=== PATIENT | female | born 1940 | race Caucasian/White ===

== ENCOUNTER 2018-06-09 12:26 | Outpatient (CLI) | payer MEDICARE, OTHER, SELFPAY ==
[2018-06-09 13:28] LABS: BUN 19 mg/dL (7-18); CREATININE 1.01 mg/dL (0.55-1.02); Chloride 100 mmol/L (98-107); Estimated GFR 53.15 (mL/min/1.73m2); Sodium 138 mmol/L (136-145)
== END 2018-06-09 12:27 ==
PROVIDERS: PCP General Practice; Visit Provider General Practice
DX: I50.9 Heart failure, unspecified (principal)
CPT/HCPCS: 36415; 80051; 84520; 82565

== ENCOUNTER 2018-09-21 10:04 | Outpatient (CLI) | payer MEDICARE, OTHER, SELFPAY | END 2018-09-21 10:24 | PROVIDERS: PCP General Practice; Visit Provider Student in an Organized Health Care Education/Training Program | DX: I50.9 Heart failure, unspecified (principal); I11.0 Hypertensive heart disease with heart failure; E11.9 Type 2 diabetes mellitus without complications; Z79.84 Long term (current) use of oral hypoglycemic drugs; E78.5 Hyperlipidemia, unspecified | CPT/HCPCS: 36415; 80048; 80061; 80076; 83721; 99205; 99215; 83036; 83735; 83880; 84443; 85025; 85610; 93005; 93010 ==

== ENCOUNTER 2018-09-21 11:43 | Outpatient (CLI) | payer MEDICARE, OTHER, SELFPAY ==
[2018-09-21 12:30] LABS: Abs Immature Grans 0.01 k/cumm (0.0-0.09); Absolute Basophil Count 0.02 k/cumm (0.0-0.2); Absolute Lymphocyte Count 0.62 k/cumm (1.2-3.4); Absolute Neutrophil Count 4.38 k/cumm (1.2-6.7); Basophils % 0.4; Eosinophils % 1.8; HCT 34.8 % (36.0-46.0); HGB 11.7 g/dL (12.0-15.5); Immature Grans % 0.2; Lymphocytes % 11.2; Mean Corp. HGB Concentration 33.6 g/dL (32.0-36.0); Mean Corpuscular Hemoglobin 29.3 pg (27.0-33.0); Mean Platelet Volume 9.3 fL (8.0-11.0); Monocytes % 7.2; Neutrophils % 79.2; Platelet Count 221 x1000/uL (130-400); RBC Distribution Width 13.3 % (11.7-14.6); White Blood Cell Count 5.53 k/cumm (4.4-10.8)
[2018-09-21 12:35] LABS: Prothrombin Time 10.1 sec (9.3-10.8)
[2018-09-21 13:34] LABS: ALT 18 U/L (12-78); AST 12 U/L (15-37); Albumin 4.1 g/dL (3.4-5.0); Alkaline Phosphatase 65 U/L (46-116); Anion Gap 10.4 mmol/L (3-11); BUN 15 mg/dL (7-18); Bilirubin, Direct 0.14 mg/dL (0.00-0.20); Bilirubin, Total 0.5 mg/dL (0.2-1.0); CO2 26.6 mmol/L (21.0-32.0); CREATININE 0.89 mg/dL (0.55-1.02); Calcium 9.6 mg/dL (8.5-10.1); Chloride 101 mmol/L (98-107); Glucose 129 mg/dL (70-100); Magnesium 1.8 mg/dL (1.8-2.4); NT-proBNP 2785 pg/mL; Potassium 4.3 mmol/L (3.5-5.1); Sodium 138 mmol/L (136-145); TSH (W/Ref FT4) 3.02 uIU/mL (0.358-3.74); Total Protein 7.2 g/dL (6.4-8.2)
[2018-09-21 13:44] LABS: Cholesterol 230 mg/dL (50-200); HDL Cholesterol 46 mg/dL (40-60); LDL CHOLESTEROL 144 mg/dL (<100); Triglyceride 174 mg/dL (30-150)
== END 2018-09-21 12:03 ==
PROVIDERS: PCP General Practice; Visit Provider Student in an Organized Health Care Education/Training Program
DX: I50.9 Heart failure, unspecified (principal); E11.9 Type 2 diabetes mellitus without complications
CPT/HCPCS: 36415; 80048; 80061; 80076; 83721; 83036; 83735; 83880; 84443; 85025; 85610

== ENCOUNTER 2018-09-27 11:28 | Outpatient (CLI) | payer MEDICARE, OTHER, SELFPAY ==
[2018-09-27 12:07] LABS: Troponin I < 0.02 ng/mL (0.00-0.06)
== END 2018-09-27 11:48 ==
PROVIDERS: PCP General Practice; Visit Provider General Practice
DX: R06.02 Shortness of breath (principal); R94.31 Abnormal electrocardiogram [ECG] [EKG]
CPT/HCPCS: 36415; 84484

== ENCOUNTER → 2018-10-19 10:46 | Outpatient (BNVA) | payer MEDICARE, OTHER, SELFPAY | PROVIDERS: PCP General Practice; Visit Provider Student in an Organized Health Care Education/Training Program | DX: I25.5 Ischemic cardiomyopathy (principal); E78.5 Hyperlipidemia, unspecified; E11.9 Type 2 diabetes mellitus without complications; Z79.84 Long term (current) use of oral hypoglycemic drugs; I50.9 Heart failure, unspecified; I11.0 Hypertensive heart disease with heart failure | CPT/HCPCS: 99214 ==

== ENCOUNTER → 2018-11-02 11:11 | Outpatient (BNVA) | payer MEDICARE, OTHER, SELFPAY | PROVIDERS: PCP General Practice; Visit Provider Student in an Organized Health Care Education/Training Program | DX: Z76.89 Persons encountering health services in other specified circumstances (principal) | CPT/HCPCS: NC; 99024 ==

== ENCOUNTER 2018-11-30 08:00 | Outpatient (RCR) | payer MEDICARE, OTHER, SELFPAY | END 2018-12-01 23:59 | disposition home or self-care (01) | LOC: CR 08:00 | PROVIDERS: PCP General Practice; Visit Provider Family Medicine | DX: Z95.5 Presence of coronary angioplasty implant and graft (principal); I25.5 Ischemic cardiomyopathy; Z51.89 Encounter for other specified aftercare | CPT/HCPCS: S9472 ==

== ENCOUNTER 2018-12-09 11:26 | Outpatient (CLI) | payer MEDICARE, OTHER, SELFPAY ==
[2018-12-09 13:06] LABS: Anion Gap 9.6 mmol/L (3-11); BUN 29 mg/dL (7-18); CO2 27.4 mmol/L (21.0-32.0); CREATININE 1.07 mg/dL (0.55-1.02); Chloride 104 mmol/L (98-107); Estimated GFR 49.72 (mL/min/1.73m2); Potassium 3.7 mmol/L (3.5-5.1); Sodium 141 mmol/L (136-145)
== END 2018-12-09 11:46 ==
PROVIDERS: PCP General Practice; Visit Provider General Practice
DX: I50.9 Heart failure, unspecified (principal)
CPT/HCPCS: 36415; 80051; 84520; 82565; 83735

== ENCOUNTER 2018-12-28 08:00 | Outpatient (RCR) | payer MEDICARE, OTHER, SELFPAY | END 2018-12-29 23:59 | disposition home or self-care (01) | LOC: CR 08:00 | PROVIDERS: PCP General Practice; Visit Provider Family Medicine | DX: Z95.5 Presence of coronary angioplasty implant and graft (principal); I25.5 Ischemic cardiomyopathy; Z51.89 Encounter for other specified aftercare | CPT/HCPCS: S9472 ==

== ENCOUNTER 2019-01-12 09:04 | Outpatient (CLI) | payer MEDICARE, OTHER, SELFPAY ==
[2019-01-12 09:29] LABS: HCT 33.9 % (36.0-46.0); Mean Corp. HGB Concentration 32.4 g/dL (32.0-36.0); Mean Corpuscular Hemoglobin 28.4 pg (27.0-33.0); Mean Corpuscular Volume 87.4 fL (80-95); Mean Platelet Volume 9.3 fL (8.0-11.0); Platelet Count 184 x1000/uL (130-400); RBC 3.88 m/cumm (4.00-5.20); RBC Distribution Width 14.3 % (11.7-14.6); White Blood Cell Count 3.79 k/cumm (4.4-10.8)
[2019-01-12 10:31] LABS: ALT 32 U/L (12-78); AST 21 U/L (15-37); Albumin 3.9 g/dL (3.4-5.0); Alkaline Phosphatase 88 U/L (46-116); Anion Gap 0.4 mmol/L (3-11); BUN 24 mg/dL (7-18); Bilirubin, Direct 0.13 mg/dL (0.00-0.20); Bilirubin, Total 0.4 mg/dL (0.2-1.0); CO2 30.6 mmol/L (21.0-32.0); CREATININE 0.93 mg/dL (0.55-1.02); Chloride 99 mmol/L (98-107); Estimated GFR 58.31 (mL/min/1.73m2); Glucose 163 mg/dL (70-100); Potassium 3.4 mmol/L (3.5-5.1); Sodium 130 mmol/L (136-145)
[2019-01-12 11:51] LABS: Cholesterol 116 mg/dL (50-200); HDL Cholesterol 47 mg/dL (40-60); LDL CHOLESTEROL 47 mg/dL (<100); Triglyceride 126 mg/dL (30-150)
== END 2019-01-12 09:24 ==
PROVIDERS: PCP General Practice; Visit Provider Student in an Organized Health Care Education/Training Program
DX: I42.9 Cardiomyopathy, unspecified (principal)
CPT/HCPCS: 36415; 80048; 80061; 80076; 83721; 85027; 83735

== ENCOUNTER 2019-01-16 00:46 | Outpatient (CLI) | payer MEDICARE, OTHER, SELFPAY ==
--- NOTE | 2019-01-16 10:30 | MERGE_ITS ---
*[facility]* *[facility]* [address] [place] [address] Date of study: 01/16/2019 Transthoracic Echocardiography M-mode, complete 2D, complete spectral Doppler, and color Doppler *STUDY CONCLUSIONS* Summary: 1. Left ventricle: The cavity size was normal. Systolic function was mildly reduced. The estimated ejection fraction was 45-50%. Diffuse hypokinesis. Moderate hypokinesis of the basalinferior myocardium. Findings consistent with diastolic dysfunction. Doppler parameters are consistent with high ventricular filling pressure. 2. Aortic valve: There was mild regurgitation. 3. Mitral valve: There was mild to moderate regurgitation. 4. Left atrium: The atrium was mildly dilated. 5. Right ventricle: The cavity size was normal. Wall thickness was normal. Systolic function was normal. 6. Pulmonary arteries: Pulmonary systolic pressure was in the range of 20mm Hg to 30mm Hg. 7. Inferior vena cava: The vessel was patent and normal in size. The respirophasic diameter changes were in the normal range (greater than or equal to 50%), consistent with normal central venous pressure. *PATIENT PRESENTATION* Height: 157.5cm ((62in) ) S/D Pressure: 113 / 46 Weight: 80.7kg ((177.6lb) ) BSA: 1.91m^2 Test start time: 10:40 AM. Test stop time: 11:30 AM. CONSULTING Patric Richardson PERFORMING Unknown ORDERING Andrey White REFERRING Andrey White PERFORMING [facility] [place] MACHINE OPERATOR RT Corey (R)(CT), DARRICK *PROCEDURE DATA* Procedure information: The patient was identified by two identifiers. This study was interpreted by [facility]. Pertinent images and digital data are archived for permanent storage and are available for subsequent review. Comparison was made to the study of 05/18/2018. Study status: Routine. Transthoracic echocardiography. M-mode, complete 2D, complete spectral Doppler, and color Doppler. A Transthoracic Echocardiogram was performed. Scanning was performed from the parasternal, apical, subcostal, and suprasternal notch acoustic windows. Images were obtained using an [id number] cardiac ultrasound machine. Image quality was adequate. Study completion: The patient tolerated the procedure well. History: PMH: Cardiomyopathy i42.9. *CARDIAC ANATOMY* Left ventricle: The cavity size was normal. Systolic function was mildly reduced. The estimated ejection fraction was 45-50%. Diffuse hypokinesis. Regional wall motion abnormalities: Moderate hypokinesis of the basalinferior myocardium. The tissue Doppler parameters were abnormal. Findings consistent with diastolic dysfunction. Doppler parameters are consistent with high ventricular filling pressure. Aortic valve: Trileaflet. Doppler: There was no stenosis. There was mild regurgitation. VTI ratio of LVOT to aortic valve: 0.61. Valve area (VTI): 1.9cm^2. Indexed valve area (VTI): 1cm^2/m^2. Peak velocity ratio of LVOT to aortic valve: 0.53. Valve area (Vmax): 1.7cm^2. Indexed valve area (Vmax): 0.9cm^2/m^2. Mean velocity ratio of LVOT to aortic valve: 0.56. Valve area (Vmean): 1.8cm^2. Indexed valve area (Vmean): 0.9cm^2/m^2. Mean gradient (S): 7.8mm Hg. Peak gradient (S): 13.2mm Hg. Aorta: Aortic root: The aortic root was normal in size. Ascending aorta: The ascending aorta was moderately dilated. Mitral valve: Doppler: There was no evidence for stenosis. There was mild to moderate regurgitation. Valve area by pressure half-time: 3.5cm^2. Indexed valve area by pressure half-time: 1.8cm^2/m^2. Peak gradient (D): 3.1mm Hg. Left atrium: The atrium was mildly dilated. Right ventricle: The cavity size was normal. Wall thickness was normal. Systolic function was normal. Pulmonic valve: Doppler: There was no evidence for stenosis. There was mild regurgitation. Peak gradient (S): 3.6mm Hg. Tricuspid valve: Doppler: There was mild regurgitation. Pulmonary artery: Poorly visualized. Pulmonary systolic pressure was in the range of 20mm Hg to 30mm Hg. Right atrium: The atrium was normal in size. Pericardium: There was no pericardial effusion. Systemic veins: Inferior vena cava: Well visualized. The vessel was patent and normal in size. The respirophasic diameter changes were in the normal range (greater than or equal to 50%), consistent with normal central venous pressure. Measurements Left ventricle Value 05/18/2018 Reference LV ID, ED, PLAX (H) 6.3 cm 5.9 3.5 - 6.0 LV ID, ES, PLAX (H) 5.0 cm 5.1 2.1 - 4.0 LV PW thickness, ED, PLAX 1.1 cm 1.2 LV end-diastolic volume, 129 ml 95 1-p A2C LV ejection fraction, 1-p 50 % 29 A2C LV end-diastolic volume, 123 ml 105 1-p A4C LV ejection fraction, 1-p 45 % 33 A4C LV e', lateral 0.04 m/sec 0.039 LV E/e', lateral 22 20 LV e', medial 0.048 m/sec 0.04 LV E/e', medial 18 20 LV e', average 0.044 m/sec 0.039 LV E/e', average 20 20 Ventricular septum Value 05/18/2018 Reference IVS thickness, ED, PLAX 1.2 cm 1.0 LVOT Value 05/18/2018 Reference LVOT ID, A-P 2.0 cm 2.0 LVOT area 3.2 cm^2 3.2 LVOT peak velocity, S 0.97 m/sec 1.03 LVOT mean velocity, S 0.75 m/sec 0.78 LVOT VTI, S 26.8 cm 24.9 LVOT peak gradient, S 3.8 mm Hg 4.2 LVOT mean gradient, S 2.5 mm Hg 2.7 Stroke volume (SV), LVOT 85 ml 80 DP Stroke index (SV/bsa), 45 ml/m^2 41 LVOT DP Aortic valve Value 05/18/2018 Reference Aortic valve peak 1.8 m/sec 1.8 velocity, S Aortic valve mean 1.34 m/sec 1.34 velocity, S Aortic valve VTI, S 44.0 cm 38.9 Aortic mean gradient, S 7.8 mm Hg 7.9 Aortic peak gradient, S 13.2 mm Hg 13.6 VTI ratio, LVOT/AV 0.61 0.64 Aortic valve area, VTI 1.9 cm^2 2 Velocity ratio, peak, 0.53 0.56 LVOT/AV Aortic valve area, peak 1.7 cm^2 1.8 velocity Velocity ratio, mean, 0.56 0.58 LVOT/AV Aortic valve area, mean 1.8 cm^2 1.9 velocity Aortic valve area/bsa, 0.9 cm^2/m^2 1 mean velocity Aorta Value 05/18/2018 Reference Aortic root ID, ED 3.2 cm 3.1 Ascending aorta ID, A-P, S 3.5 cm 3.5 Left atrium Value 05/18/2018 Reference LA ID, A-P, ES 4.3 cm 4.1 LA ID/bsa, A-P (H) 2.3 cm/m^2 2.1 <=2.2 LA area, ES, A4C 21.5 cm^2 23.4 8.8 - 23.4 LA area, ES, A2C 22 cm^2 22 LA volume/bsa, ES, 1-p A4C 44 ml/m^2 46 LA volume, ES, 2-p 73 ml 73 LA volume/bsa, ES, 2-p 38 ml/m^2 38 LA/aortic root ratio 1.35 1.33 Mitral valve Value 05/18/2018 Reference Mitral E-wave peak 0.88 m/sec 0.78 velocity Mitral A-wave peak 1.25 m/sec 1.34 velocity Mitral deceleration time 219 ms 193 150 - 230 Mitral pressure half-time 64 ms 56 Mitral peak gradient, D 3.1 mm Hg 2.4 Mitral E/A ratio, peak 0.7 0.58 Mitral valve area, PHT, DP 3.5 cm^2 3.9 Pulmonary veins Value 05/18/2018 Reference Pulmonary vein peak 0.51 m/sec 0.61 velocity, S Pulmonary vein peak 0.43 m/sec 0.47 velocity, D Pulmonary vein velocity 1.18 1.31 ratio, peak, S/D Pulmonary vein A-wave 0.36 m/sec 0.46 reversal peak velocity Tricuspid valve Value 05/18/2018 Reference Tricuspid regurg peak 2.5 m/sec 2.7 velocity Tricuspid peak RV-RA 24.5 mm Hg 29.3 gradient Right atrium Value 05/18/2018 Reference RA area, ES, A4C 14.2 cm^2 14.6 8.3 - 19.5 Pulmonic valve Value 05/18/2018 Reference Pulmonic peak gradient, S 3.6 mm Hg Legend: (L) and (H) abel values outside specified reference range. I have personally reviewed the images and have reviewed and edited the reported findings. Electronically signed by Ladarius Arroyo MD 01/16/2019 18:39
== END 2019-01-16 01:06 ==
PROVIDERS: PCP General Practice; Visit Provider Student in an Organized Health Care Education/Training Program
DX: I42.9 Cardiomyopathy, unspecified (principal); I50.30 Unspecified diastolic (congestive) heart failure; I34.0 Nonrheumatic mitral (valve) insufficiency; I10 Essential (primary) hypertension
CPT/HCPCS: 93306

== ENCOUNTER → 2019-01-18 11:45 | Outpatient (BNVA) | payer MEDICARE, OTHER, SELFPAY | PROVIDERS: PCP General Practice; Visit Provider Student in an Organized Health Care Education/Training Program | DX: I25.5 Ischemic cardiomyopathy (principal); E87.1 Hypo-osmolality and hyponatremia; E87.6 Hypokalemia; E78.5 Hyperlipidemia, unspecified; I50.9 Heart failure, unspecified; I11.0 Hypertensive heart disease with heart failure; E11.9 Type 2 diabetes mellitus without complications; Z79.84 Long term (current) use of oral hypoglycemic drugs | CPT/HCPCS: 99214; 99215 ==

== ENCOUNTER 2019-01-26 09:34 | Outpatient (CLI) | payer MEDICARE, OTHER, SELFPAY ==
[2019-01-26 10:45] LABS: Anion Gap 9.2 mmol/L (3-11); CO2 27.8 mmol/L (21.0-32.0); Chloride 102 mmol/L (98-107); Ferritin 147 ng/mL (8-388); Magnesium 2.1 mg/dL (1.8-2.4); Potassium 4.4 mmol/L (3.5-5.1); Sodium 139 mmol/L (136-145)
[2019-01-27 10:49] LABS: Transferrin 246 mg/dL (201-352)
== END 2019-01-26 09:54 ==
PROVIDERS: PCP General Practice; Visit Provider Student in an Organized Health Care Education/Training Program
DX: I25.10 Atherosclerotic heart disease of native coronary artery without angina pectoris (principal); E11.9 Type 2 diabetes mellitus without complications; E78.5 Hyperlipidemia, unspecified; I10 Essential (primary) hypertension
CPT/HCPCS: 36415; 80051; 82728; 83735; 84466

== ENCOUNTER 2019-01-27 12:52 | Outpatient (RCR) | payer MEDICARE, OTHER, SELFPAY | END 2019-01-29 23:59 | disposition home or self-care (01) | LOC: CR 12:52 | PROVIDERS: PCP General Practice; Visit Provider Family Medicine | DX: Z95.5 Presence of coronary angioplasty implant and graft (principal); I25.5 Ischemic cardiomyopathy; Z51.89 Encounter for other specified aftercare | CPT/HCPCS: S9472 ==

== ENCOUNTER 2019-02-03 09:52 | Outpatient (CLI) | payer MEDICARE, OTHER, SELFPAY ==
[2019-02-03 11:13] LABS: Iron 54 ug/dL (50-175); Total Iron Binding Capacity 303 ug/dL (250-450); Transferrin Sat 18 % (15-50)
== END 2019-02-03 10:12 ==
PROVIDERS: PCP General Practice; Visit Provider Student in an Organized Health Care Education/Training Program
DX: I25.5 Ischemic cardiomyopathy (principal); E11.9 Type 2 diabetes mellitus without complications
CPT/HCPCS: 36415; 83540; 83550

== ENCOUNTER 2019-02-13 09:00 | Outpatient (RCR) | payer MEDICARE, OTHER, SELFPAY | END 2019-02-28 23:59 | disposition home or self-care (01) | LOC: CR 09:00 | PROVIDERS: PCP General Practice; Visit Provider Family Medicine | DX: Z95.5 Presence of coronary angioplasty implant and graft (principal); I25.5 Ischemic cardiomyopathy; Z51.89 Encounter for other specified aftercare | CPT/HCPCS: S9472 ==

== ENCOUNTER 2019-02-13 16:27 | Outpatient (CLI) | payer MEDICARE, OTHER, SELFPAY ==
[2019-02-13 17:01] LABS: HCT 35.8 % (36.0-46.0); HGB 11.7 g/dL (12.0-15.5)
== END 2019-02-13 16:47 ==
PROVIDERS: PCP General Practice; Visit Provider General Practice
DX: K92.2 Gastrointestinal hemorrhage, unspecified (principal)
CPT/HCPCS: 36415; 85014; 85018

== ENCOUNTER → 2019-02-17 10:15 | Outpatient (BNVA) | payer MEDICARE, OTHER, SELFPAY | PROVIDERS: PCP General Practice; Referring Provider General Practice; Visit Provider Physical Therapy Assistant | DX: Z12.11 Encounter for screening for malignant neoplasm of colon (principal); D64.9 Anemia, unspecified; I10 Essential (primary) hypertension; E11.9 Type 2 diabetes mellitus without complications; Z79.84 Long term (current) use of oral hypoglycemic drugs ==

== ENCOUNTER 2019-02-23 15:31 | Outpatient (REF) | payer MEDICARE, OTHER, SELFPAY ==
--- NOTE | 2019-02-23 15:30 | PAPFT_PTH ---
PATIENT: Madeleine Lobato LOC: [facility] U#:[id number] AGE/SX: 79/F ROOM: RE02/23/[address]: Concepcion Santoyo : 1940 BED: DIS: 02/23/2019 SPEC #: [id number] RECD: 02/23/19 15:48 STATUS: KENNETH REJose A #: [id number] OSCAR: 02/23/19 15:[address]: Concepcion Santoyo DEPT: [facility] Cytology RECD BY: Monie Moore ENTERED: 02/23/19 15:49 SP TYPE: PAPFT OTHR DR: Patric Richardson Tissues: 1 - CX/ENDOCX FOR PAP SMEARS Procedures: PAP THIN PREP/UVM Screening HPV DNA PROBE Comments: [id number]
== END 2019-02-23 15:51 ==
LOC: LBN 15:31
PROVIDERS: PCP General Practice; Visit Provider Obstetrics & Gynecology Gynecology
DX: Z12.4 Encounter for screening for malignant neoplasm of cervix (principal); Z11.51 Encounter for screening for human papillomavirus (HPV)
CPT/HCPCS: 88142; 87624

== ENCOUNTER 2019-03-10 01:46 | Outpatient (CLI) | payer MEDICARE, OTHER, SELFPAY ==
--- NOTE | 2019-03-10 11:00 | DI.US_ITS ---
SYMPTOMS/DIAGNOSIS: ANEMIA, VAGINAL DISCHARGE, N89.8, D64.9 PELVIC ULTRASOUND: Pelvic ultrasound was performed transabdominally and transvaginally. Please see the accompanying data sheet for measurements of the pelvic structures. Limited scanning of the kidneys is unremarkable. There is an incidental 8 mm left renal cyst. Uterus contains multiple calcifications consistent with fibroids, the largest measuring about 32 mm in diameter in the lower uterine segment. Endometrial stripe was nonvisualized. No free fluid identified in the cul-de-sac. Ovaries not identified. CONCLUSION: Findings consistent with multiple uterine fibroids, the largest measuring about 3.2 cm in diameter. Endometrial stripe nonvisualized. Ovaries nonvisualized.
== END 2019-03-10 02:06 ==
PROVIDERS: PCP General Practice; Visit Provider Obstetrics & Gynecology Gynecology
DX: D64.9 Anemia, unspecified (principal); N89.8 Other specified noninflammatory disorders of vagina; D25.9 Leiomyoma of uterus, unspecified
CPT/HCPCS: 76830; 76856

== ENCOUNTER 2019-03-13 12:19 | Outpatient (REF) | payer MEDICARE, OTHER, SELFPAY ==
--- NOTE | 2019-03-13 11:40 | ENDOMET_PTH ---
PATIENT: Madeleine Lobato LOC: [facility] U#:[id number] AGE/SX: 79/F ROOM: RE03/13/[address]: Concepcion Santoyo : 1940 BED: DIS: 03/13/2019 SPEC #: [id number] RECD: 03/13/19 12:57 STATUS: KENNETH REQ #: [id number] OSCAR: 03/13/19 11:[address]: Concepcion Santoyo DEPT: Surgical Specimen RECD BY: Jina Nava ENTERED: 03/13/19 12:57 SP TYPE: Endomet OTHR DR: Patric Richardson Tissues: 1 - ENDOMETRIUM BX/ANA CRISTINAETTE Procedures: GROSS AND MICRO LEVEL 4 Comments: [id number]
== END 2019-03-13 12:39 ==
LOC: LBN 12:19
PROVIDERS: PCP General Practice; Visit Provider Obstetrics & Gynecology Gynecology
DX: N85.8 Other specified noninflammatory disorders of uterus (principal); N83.8 Other noninflammatory disorders of ovary, fallopian tube and broad ligament
CPT/HCPCS: 88305

== ENCOUNTER → 2019-04-19 10:33 | Outpatient (BNVA) | payer MEDICARE, OTHER, SELFPAY | PROVIDERS: PCP General Practice; Visit Provider Student in an Organized Health Care Education/Training Program | DX: I25.5 Ischemic cardiomyopathy (principal); I11.0 Hypertensive heart disease with heart failure; I50.9 Heart failure, unspecified; E11.9 Type 2 diabetes mellitus without complications | CPT/HCPCS: 99214 ==

== ENCOUNTER 2019-04-19 11:04 | Outpatient (CLI) | payer MEDICARE, OTHER, SELFPAY | END 2019-04-19 11:24 | PROVIDERS: PCP General Practice; Visit Provider Student in an Organized Health Care Education/Training Program | DX: I25.5 Ischemic cardiomyopathy (principal); I50.9 Heart failure, unspecified; I10 Essential (primary) hypertension; I11.0 Hypertensive heart disease with heart failure; E11.9 Type 2 diabetes mellitus without complications | CPT/HCPCS: 99214; 93005; 93010 ==

== ENCOUNTER → 2019-07-26 09:46 | Outpatient (BNVA) | payer MEDICARE, OTHER, SELFPAY | PROVIDERS: PCP General Practice; Visit Provider Student in an Organized Health Care Education/Training Program | DX: I25.5 Ischemic cardiomyopathy (principal); I11.0 Hypertensive heart disease with heart failure; I50.9 Heart failure, unspecified; E11.9 Type 2 diabetes mellitus without complications; Z79.84 Long term (current) use of oral hypoglycemic drugs | CPT/HCPCS: 99214 ==

== ENCOUNTER 2019-08-31 12:02 | Outpatient (RCR) | payer SELFPAY ==
--- NOTE | 2019-08-01 10:19 | PR3E_ITS ---
79 year old female, who graduated Cardiac Rehabilitation Phase 2 in January 2019, has joined the cardiac maintenance phase, 2 days per week. PMH: PCI 10/17/18, Cardiomyopathy EF 30-35% (May 2018) improved 45-50% 01/17/19, HTN, HLD, DM II, osteoarthritis, right knee replacement, artificial hip First day of exercise: 08/01/19: BP at rest 139/67, HR rest 80 bpm, Weight 181.4 lbs. Patient completed 25 minutes of exercise: rower 6 minutes, UBE 6 minutes, bike 6 minutes, and treadmill 7 minutes. HR w/ exercise ranged 92-104 bpm. RAZIA RPB/RPE scores 11. Tolerated exercise regimen without any adverse signs or symptoms. No concerns at this time, will continue to progress as tolerated
== END 2019-08-31 23:59 | disposition home or self-care (01) ==
LOC: CR 12:02
PROVIDERS: PCP General Practice; Visit Provider Family Medicine
DX: Z51.89 Encounter for other specified aftercare (principal)

== ENCOUNTER 2019-09-14 09:00 | Outpatient (RCR) | payer SELFPAY | END 2019-09-30 23:59 | disposition home or self-care (01) | LOC: CR 09:00 | PROVIDERS: PCP General Practice; Visit Provider Family Medicine | DX: Z51.89 Encounter for other specified aftercare (principal) ==

== ENCOUNTER 2019-10-01 23:48 | Outpatient (RCR) | payer SELFPAY | END 2019-10-31 23:59 | disposition home or self-care (01) | LOC: CR 23:48 | PROVIDERS: PCP Family Medicine; Visit Provider Family Medicine | DX: Z51.89 Encounter for other specified aftercare (principal) ==

== ENCOUNTER → 2019-11-03 10:19 | Outpatient (BNVA) | payer MEDICARE, OTHER, SELFPAY | PROVIDERS: PCP Family Medicine; Referring Provider General Practice; Visit Provider Internal Medicine Cardiovascular Disease | DX: I25.10 Atherosclerotic heart disease of native coronary artery without angina pectoris (principal); I50.9 Heart failure, unspecified; I11.0 Hypertensive heart disease with heart failure; I34.0 Nonrheumatic mitral (valve) insufficiency; E11.319 Type 2 diabetes mellitus with unspecified diabetic retinopathy without macular edema; Z79.84 Long term (current) use of oral hypoglycemic drugs | CPT/HCPCS: 99204; 99215 ==

== ENCOUNTER 2019-12-01 18:06 | Emergency (ER) | payer MEDICARE, OTHER, SELFPAY ==
[2019-12-01 18:24] VITALS: PULSE 75; RESP 18; TEMP 37.2; O2SAT 98
[2019-12-01 18:51] VITALS: BP 184/67
--- NOTE | 2019-12-01 18:54 | W.ED.GENAD ---
Discharge Plan Disposition Patient Disposition: HOME Condition: Stable Discharge Details Chief Complaint: Orthopedic Clinical Impression: Contusion of hand, right Primary Care Provider: Dave Seaman ED Provider: Ladarius Lawson Home Meds and New Rx's Prescriptions: Continued metformin 1,000 mg tablet 500 mg PO QPM RF: 0 losartan 50 mg tablet 50 mg PO BID RF: 0 metformin 1,000 mg tablet 1,000 mg PO QAM RF: 0 cholecalciferol (vitamin D3) 2,000 unit capsule 2,000 unit PO DAILY RF: 0 carvedilol 12.5 mg tablet 12.5 mg PO BID Qty: 180 RF: 3 aspirin 81 mg tablet,delayed release (DR/EC) 81 mg PO DAILY RF: 0 nitroglycerin [Nitrostat] 0.4 mg tablet, sublingual 0.4 mg SL ONCE Qty: 10 RF: 1 furosemide 20 mg tablet 20 mg PO DAILY Qty: 90 RF: 3 glimepiride 4 MG tablet 4 mg PO DAILY RF: 0 cyanocobalamin (vitamin B-12) [Vitamin B-12] 1,000 MCG tablet 1,000 mcg PO DAILY RF: 0 ascorbic acid (vitamin C) [Vitamin C] 500 MG capsule, extended release 500 mg PO DAILY RF: 0 pyridoxine (vitamin B6) [Vitamin B-6] 50 MG tablet 50 mg PO DAILY RF: 0 rosuvastatin 20 mg tablet 20 mg PO DAILY Qty: 90 RF: 3 magnesium oxide 500 mg tablet 500 mg PO DAILY RF: 0 Discharge Instructions Instructions: Contusion in Adults (ED) Additional Instructions: follow up with your primary care provider this week for reexam if you have new pain, or severe worsening pain return to the emergency department for reexam Medical Decision Making 79 yo female comes in with right hand and wrist pain. She states she was assembling a table yesterday when it fell over and she landed on her right arm. Denies hitting head or loc. No headache, neck pain, chest pain, abd pain, leg pain. Only has pain in right hand and wrist with swelling. Intact sensation. Limited rom of the fingers and wrist due to pain. No pain in forearm elbow, humerus or shoulder. No midline neck tenderness. Will xray wrist and hand. States purely mechanical and no symptoms prior to the fall to suggest presyncope/syncope imaging negative for fracture, given how much swelling she has will place in universal splint and have her f/u with pcp for reexam this week. REturn precautions given Differential Diagnosis Differential Diagnosis: contusion, fracture, sprain, strain Imaging Data Radiologic Study: Attestation: I personally reviewed and interpreted this imaging study as follows: Imaging: X-Ray Radiologist's impression: no fracture on wrist xray Radiologic Study #2: Attestation: I personally reviewed and interpreted this imaging study as follows: Imaging: X-Ray Radiologist's impression: no acute fracture on hand xray HPI General Mode of arrival: ambulatory. Date/Time Provider Initiated Documentation: 12/01/19 18:30. Limitations to Documentation: no limitations. Information obtained by: patient. History of Present Illness 79 year old F presents to the emergency department with the chief complaint of right hand pain, described as moderate, and it has been constant. No relieving factors improve symptom(s), No exacerbating factors reported . Patient did receive the following treatments prior to arrival, none Related Data Home Medications Medication Instructions Recorded Confirmed ascorbic acid (vitamin C) [Vitamin 500 mg PO DAILY 07/24/15 11/03/19 C] cyanocobalamin (vitamin B-12) 1,000 mcg PO DAILY 07/24/15 11/03/19 [Vitamin B-12] glimepiride 4 mg PO DAILY tab-cap 07/24/15 11/03/19 pyridoxine (vitamin B6) [Vitamin 50 mg PO DAILY 07/24/15 11/03/19 B-6] aspirin 81 mg tablet,delayed 81 mg PO DAILY 10/19/18 11/03/19 release nitroglycerin 0.4 mg sublingual 0.4 mg SL ONCE #10 tab 10/19/18 11/03/19 tablet losartan 50 mg tablet 50 mg PO BID tab 04/19/19 11/03/19 carvedilol 12.5 mg tablet 12.5 mg PO BID #180 tab 07/26/19 11/03/19 cholecalciferol (vitamin D3) 50 2,000 unit PO DAILY 07/26/19 11/03/19 mcg (2,000 unit) capsule metformin 1,000 mg tablet 1,000 mg PO QAM tab 07/26/19 11/03/19 metformin 1,000 mg tablet 500 mg PO QPM tab 07/26/19 11/03/19 rosuvastatin 20 mg tablet 20 mg PO DAILY #90 tab 10/02/19 11/03/19 magnesium oxide 500 mg tablet 500 mg PO DAILY 10/13/19 11/03/19 furosemide 20 mg tablet 20 mg PO DAILY #90 tab 11/02/19 11/03/19 Previous Rx's Medication Instructions Recorded nitroglycerin 0.4 mg sublingual 0.4 mg SL ONCE #10 tab 10/19/18 tablet carvedilol 12.5 mg tablet 12.5 mg PO BID #180 tab 07/26/19 rosuvastatin 20 mg tablet 20 mg PO DAILY #90 tab 10/02/19 furosemide 20 mg tablet 20 mg PO DAILY #90 tab 11/02/19 Allergies Allergy/AdvReac Type Severity Reaction Status Date / Time No Known Allergies Allergy Verified 12/01/19 18:29 General Stated Complaint: Orthopedic CYNTHIA: 3 Review of Systems All systems reviewed & are unremarkable except as noted in HPI and below Constitutional Constitutional: Denies chills, Denies fever(s) and Denies weakness Cardiovascular Cardiovascular: Denies chest pain and Denies dyspnea Respiratory Respiratory: Denies cough and Denies dyspnea Gastrointestinal Gastrointestinal: Denies abdominal pain, Denies nausea and Denies vomiting Musculoskeletal Musculoskeletal: Denies joint swelling Neurologic Neurologic: Denies weakness [facility] Social History Smoking/Tobacco Use Status: Never Alcohol Intake: never Drug use: Never Substance use type: does not use Adopted: No Household members: children and other Details: Lives with son with her son lives close by Housing: house Number of Children: 5 number of grandchildren: 8 Communication Needs: Corrective Lenses Do you need help understanding health information?: Rarely 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 Sexually active: No Do you think of yourself as: straight/heterosexual Current gender identity: female What is your relationship status?: Panel score (0-1 are the most socially isolated patients): 0 What type of physical activity do you participate in: regular exercise and other Details: program at home, stair stepper, rowing machine Duration: 15-30 minutes/day Frequency: 3-4 times per week Seatbelt use: always Drive intox or ride w/intox [employer] truck driver: No Working smoke detector in home: Yes Fire extinguisher in home: Yes Carbon monox detector in home: Yes Do you feel safe at home: Yes Additional Social history: of neck cancer 2013. Patient relocated to [place] to be closer to her children. Exam Const General: no acute distress Orientation: alert HENMT Head: normal to inspection Ears: external ears normal General nose exam: external nose normal Mouth: moist mucous membranes Eyes General: appearance normal, both eyes and all related structures Neck Neck: normal visual inspection Resp Effort & Inspection: normal respiratory effort and able to speak in complete sentences Cardio Rate: regular rate Skin General skin exam: no rashes or lesions noted Neuro General: alert and oriented x3 Extrem General: normal capillary refill Psych Mental Status: mental status grossly normal Course Vital Signs Vital signs: Vital Signs Temperature 37.2 C 12/01/19 18:24 Pulse 75 12/01/19 18:24 Respiratory Rate 18 12/01/19 18:24 Pulse Oximetry 98 12/01/19 18:24 Temperature 37.2 C 12/01/19 18:24 Temperature Source Skin 12/01/19 18:24 Pulse 75 12/01/19 18:24 Respiratory Rate 18 12/01/19 18:24 Respiratory Effort 12/01/19 18:29 Blood Pressure 184/67 H 12/01/19 18:51 Blood Pressure Position Sitting 12/01/19 18:24 Pulse Oximetry 98 12/01/19 18:24 Oxygen Delivery Method Room Air 12/01/19 18:24 Oxygen Flow Rate 0 12/01/19 18:24 Pain Level 8 12/01/19 18:24
--- NOTE | 2019-12-01 19:10 | DI.RAD_ITS ---
EXAM: XR HAND RT COMPLETE and XR wrist right complete INDICATION: pain s/p fall. COMPARISON: XR WRIST RT COMPLETE from 12/01/2019 TECHNIQUE: 2D digital imaging was performed. FINDINGS: No acute fracture or dislocation is present. The bones are osteopenic. There are severe degenerativ e changes of the hand and wrist. Findings are most marked at the 1st carpometacarpal joint and the i nterphalangeal joints of the hand. There is generalized soft tissue swelling of the wrist and hand. No radiopaque foreign bodies are identified. Vascular calcifications are present. IMPRESSION: 1. No acute fracture or dislocation. 2. Severe degenerative changes in the hand and wrist.
--- NOTE | 2019-12-01 19:30 | DI.VRAD_ITS ---
PROCEDURE INFORMATION: Exam: XR Right Wrist Exam date and time: 12/01/2019 19:04 Age: 79 years old Clinical indication: Injury or trauma; Fall; Initial encounter; Blunt trauma (contusions or hematomas; Wrist; Right; Injury date: 11/30/19 TECHNIQUE: Imaging protocol: XR Right wrist. Views: 3 or more views. COMPARISON: CR XR HAND RT COMPLETE 12/01/2019 18:59 FINDINGS: Bones/joints: The bones are demineralized. No acute fracture or subluxation. Marked degenerative changes, 1st carpal metacarpal joint. Chronic appearing radial subluxation 1st carpal base in the setting of marked degenerative changes. Soft tissues: Generalized soft tissue swelling. Vasculature: Atherosclerosis. IMPRESSION: 1. No acute bony pathology. 2. Non-urgent findings as described. Dictated and Authenticated by: Tenisha Heredia MD. Ordering:MARILEE Durand MD
--- NOTE | 2019-12-01 19:32 | DI.VRAD_ITS ---
PROCEDURE INFORMATION: Exam: XR Right Hand Exam date and time: 12/01/2019 19:00 Age: 79 years old Clinical indication: Injury or trauma; Fall; Initial encounter; Blunt trauma (contusions or hematomas; Hand; Right; Injury date: 11/30/19 TECHNIQUE: Imaging protocol: XR Right hand. Views: 3 or more views. COMPARISON: No relevant prior studies available. FINDINGS: Bones/joints: The bones are demineralized. No acute fracture or subluxation. Severe chronic appearing degenerative changes. Marked degenerative changes 1st carpometacarpal joint, interphalangeal joints, no definite suspicious erosions are identified. Chronic deformities of the interphalangeal joints. Soft tissues: Generalized soft tissue swelling. Benign calcifications in the soft tissues. IMPRESSION: Severe chronic appearing degenerative changes. No acute fracture. Dictated and Authenticated by: Tenisha Heredia MD. Ordering:MARILEE Durand MD
--- NOTE | 2019-12-01 19:49 | NUR.NOTE ---
universal splint to right hand. Discharge instructions reviewed with verbal understanding. aware to f/uw ith pcp next week. Educated on splint use. ambulated to exit with steady gait.
== END 2019-12-01 19:45 | disposition home or self-care (01) ==
PROVIDERS: Emergency Provider Emergency Medicine; PCP Family Medicine
DX: S60.221A Contusion of right hand, initial encounter (principal); W19.XXXA Unspecified fall, initial encounter
CPT/HCPCS: 29125; 99284; 73110; 73130; 99283; L3908

== ENCOUNTER → 2020-05-02 10:57 | Outpatient (BNVA) | payer MEDICARE, OTHER, SELFPAY | PROVIDERS: PCP Family Medicine; Referring Provider Family Medicine; Visit Provider Internal Medicine Cardiovascular Disease | DX: I25.10 Atherosclerotic heart disease of native coronary artery without angina pectoris (principal); I50.9 Heart failure, unspecified; I25.5 Ischemic cardiomyopathy; I34.0 Nonrheumatic mitral (valve) insufficiency; I11.0 Hypertensive heart disease with heart failure; E11.9 Type 2 diabetes mellitus without complications | CPT/HCPCS: 99214 ==

== ENCOUNTER 2020-05-17 03:56 | Outpatient (CLI) | payer MEDICARE, OTHER, SELFPAY ==
--- NOTE | 2020-05-17 06:45 | DI.CT_ITS ---
EXAM: CT ABDOMEN PELVIS W CLINICAL HISTORY: Abdominal pain for one month,LLQ,H/O DIVERTICULITIS,R10.9 TECHNIQUE: COMPARISON: No exams were available for comparison FINDINGS: CT examination of the abdomen and pelvis was performed with bolus infusion 100 cc Omnipaque 350. Imag es obtained through the lung bases are unremarkable. The liver and spleen appear normal. The pancreas is unremarkable in appearance. Note is made of cholelithiasis. No biliary dilatation seen. Abdominal aorta is of normal diameter. There is significant aortic wall calcification. There is a que stion of luminal narrowing of the proximal portion of the left renal artery. No significant abdominal wall hernia seen. No significant abdominal or pelvic adenopathy. The adrenals appear normal bilaterally. There are multiple bilateral renal cysts and nonobstructing r enal calculi. No ureteral calcification seen. Urinary bladder is nearly empty but may be thick-walled . Appendix is normal. There is wall thickening of the distal descending and sigmoid colon with associat ed pericolonic fat edema, the findings are consistent with diverticulitis. No evidence of abscess or perforation. Uterus contains numerous calcifications and an apparent heavily calcified posterior fibroid is noted. IMPRESSION: Findings consistent with acute uncomplicated diverticulitis. Nonobstructing bilateral renal calculi. Cholelithiasis noted.
[2020-05-17] MEDS: Breeza Beverage 473 ML BTL PO ×2 (07:34→07:35)
[2020-05-17] MEDS: Omnipaque 350 MG/ML 50 ML BTL PO (07:35)
[2020-05-17] MEDS: Omnipaque 350 MG/ML 100 ML BTL IJ (08:06)
[2020-05-17 08:13] LABS: CREATININE 1.16 mg/dL (0.55-1.02); Estimated GFR 45.07 (mL/min/1.73m2)
== END 2020-05-17 04:16 ==
PROVIDERS: PCP Family Medicine; Visit Provider Nurse Practitioner
DX: R10.32 Left lower quadrant pain (principal); Z87.19 Personal history of other diseases of the digestive system; K57.32 Diverticulitis of large intestine without perforation or abscess without bleeding; N20.0 Calculus of kidney; K80.20 Calculus of gallbladder without cholecystitis without obstruction
CPT/HCPCS: 74177; 82565; J3490; Q9967

== ENCOUNTER 2020-05-18 11:48 | Emergency (ER) | payer MEDICARE, OTHER, SELFPAY ==
--- NOTE | 2020-05-18 11:55 | ED.GENADUL_ITS ---
Discharge Plan Disposition Patient Disposition: HOME Condition: Stable Discharge Details Chief Complaint: Nausea/Vomit/Diar Clinical Impression: Diarrhea Primary Care Provider: Dave Seaman ED Provider: Valente Steele Home Meds and New Rx's Prescriptions: Continued metformin 1,000 mg tablet 500 mg PO QPM RF: 0 metformin 1,000 mg tablet 1,000 mg PO QAM RF: 0 cholecalciferol (vitamin D3) 2,000 unit capsule 2,000 unit PO DAILY RF: 0 metronidazole 500 mg tablet 500 mg PO TID Qty: 21 RF: 0 aspirin 81 mg tablet,delayed release (DR/EC) 81 mg PO DAILY RF: 0 nitroglycerin [Nitrostat] 0.4 mg tablet, sublingual 0.4 mg SL ONCE Qty: 10 RF: 1 furosemide 20 mg tablet 20 mg PO DAILY Qty: 90 RF: 3 carvedilol 25 mg tablet 25 mg PO BID Qty: 180 RF: 5 glimepiride 4 MG tablet 4 mg PO DAILY RF: 0 cyanocobalamin (vitamin B-12) [Vitamin B-12] 1,000 MCG tablet 1,000 mcg PO DAILY RF: 0 ascorbic acid (vitamin C) [Vitamin C] 500 MG capsule, extended release 500 mg PO DAILY RF: 0 pyridoxine (vitamin B6) [Vitamin B-6] 50 MG tablet 50 mg PO DAILY RF: 0 rosuvastatin 20 mg tablet 20 mg PO DAILY Qty: 90 RF: 3 magnesium oxide 500 mg tablet 500 mg PO DAILY RF: 0 losartan 50 mg tablet 50 mg PO BID Qty: 180 RF: 6 ciprofloxacin HCl 500 mg tablet 500 mg PO BID Qty: 4 RF: 0 Discharge Instructions Instructions: Acute Diarrhea (ED) Additional Instructions: Continue Cipro and Flagyl as directed. Bring back stool sample to the lab when you able to provide sample. If positive then he will need to be treated appropriately however if it is negative and continue with the Cipro and Flagyl intermittent [id number] Imodium for symptomatic control. Please watch for new or worsening symptoms and return to the ER for any concerns. I would like you to reach out to your primary care provider on Wednesday for prompt outpatient reevaluation Medical Decision Making 80-year-old female presenting requesting a C. difficile test. Diagnosed with diverticulitis on Wednesday, placed on Cipro and Flagyl, CT yesterday which I reviewed confirm diagnosis. Reports that her abdominal discomfort has greatly improved but continues to have diarrhea, 3 episodes today. She read information regarding Cipro and spoke with the pharmacist raising the concern for C. difficile. She denies black tarry stools or bright red blood stools. She appears well, nontoxic. She is afebrile, hemodynamically stable, and abdomen soft, nontender. We will order a C. difficile stool PCR Disposition was delayed because she initially tried to give a stool sample but accidentally mixed a very small amount of stool with urine. She was unable to give another stool sample, now requesting p.o. intake as this seems to help stimulate her bowels. Patient observed in the ER for over 3 hours, unable to provide a stool sample. Now requesting to be discharged home and will return to drop off a stool sample when she is able to provide a sample She was encouraged to return to the ER for new or worsening symptoms, otherwise contact your primary care provider on Wednesday for prompt outpatient reevaluation Medical Records Medical records reviewed: Yes I reviewed the patient's medical records. HPI General Mode of arrival: ambulatory . Date/Time Provider Initiated Documentation: 05/18/20 11:49 . Limitations to Documentation: no limitations . Information obtained by: patient . HPI Narrative: This is a 80-year-old female who presents to the ER today requesting a test for C. difficile. She has a history of anemia, CAD, CHF, diabetes, renal stones, hypertension. She developed some left-sided abdominal pain, diarrhea, roughly 7 days ago. She was subsequently seen at her primary care office on Wednesday and placed on Cipro and Flagyl for presumptive diverticulitis which she has had in the past. Subsequently had labs drawn on and a CT as an outpatient yesterday to confirm the diagnosis, she has not heard the results yet. She denies any fever, chest pain, shortness of breath, black tarry stools or bright red blood in her stools. She reports that the abdominal pain that she experienced earlier in the week is significantly better and now she only has an occasional dull ache in her left lower quadrant. She denies any pain that radiates into her back. She feels as though she is able to eat and drink without difficulty, no concerns of dehydration. She read the information regarding ciprofloxacin, spoke with a pharmacist, and given her diarrhea has not significantly improved she is concerned that she may have developed C. difficile. She attempted to contact her primary care provider today so they could order a study however she was unsuccessful in getting in touch with them so came to the ER for further evaluation. She reports 3 episodes of diarrhea today Related Data Home Medications Medication Instructions Recorded Confirmed ascorbic acid (vitamin C) [Vitamin 500 mg PO DAILY 07/24/15 05/18/20 C] cyanocobalamin (vitamin B-12) 1,000 mcg PO DAILY 07/24/15 05/18/20 [Vitamin B-12] glimepiride 4 mg PO DAILY tab-cap 07/24/15 05/18/20 pyridoxine (vitamin B6) [Vitamin 50 mg PO DAILY 07/24/15 05/18/20 B-6] aspirin 81 mg tablet,delayed 81 mg PO DAILY 10/19/18 05/18/20 release nitroglycerin 0.4 mg sublingual 0.4 mg SL ONCE #10 tab 10/19/18 05/18/20 tablet cholecalciferol (vitamin D3) 50 2,000 unit PO DAILY 07/26/19 05/18/20 mcg (2,000 unit) capsule metformin 1,000 mg tablet 1,000 mg PO QAM tab 07/26/19 05/18/20 metformin 1,000 mg tablet 500 mg PO QPM tab 07/26/19 05/18/20 rosuvastatin 20 mg tablet 20 mg PO DAILY #90 tab 10/02/19 05/18/20 magnesium oxide 500 mg tablet 500 mg PO DAILY 10/13/19 05/18/20 furosemide 20 mg tablet 20 mg PO DAILY #90 tab 11/02/19 05/18/20 losartan 50 mg tablet 50 mg PO BID #180 tab 03/21/20 05/18/20 carvedilol 25 mg tablet 25 mg PO BID #180 tab 05/02/20 05/18/20 metronidazole 500 mg tablet 500 mg PO TID #21 tab 05/13/20 05/18/20 ciprofloxacin HCl 500 mg tablet 500 mg PO BID #4 tab 05/16/20 05/18/20 Previous Rx's Medication Instructions Recorded nitroglycerin 0.4 mg sublingual 0.4 mg SL ONCE #10 tab 10/19/18 tablet rosuvastatin 20 mg tablet 20 mg PO DAILY #90 tab 10/02/19 furosemide 20 mg tablet 20 mg PO DAILY #90 tab 11/02/19 losartan 50 mg tablet 50 mg PO BID #180 tab 03/21/20 carvedilol 25 mg tablet 25 mg PO BID #180 tab 05/02/20 metronidazole 500 mg tablet 500 mg PO TID #21 tab 05/13/20 ciprofloxacin HCl 500 mg tablet 500 mg PO BID #4 tab 05/16/20 Allergies Allergy/AdvReac Type Severity Reaction Status Date / Time No Known Allergies Allergy Verified 05/18/20 12:03 General CYNTHIA: 3 Review of Systems Constitutional Constitutional: Denies fatigue, Denies fever(s) and Denies headache(s) ENT Ears, Nose, Mouth, and Throat: Denies headache(s) Cardiovascular Cardiovascular: Denies chest pain and Denies dyspnea Respiratory Respiratory: Denies cough and Denies dyspnea Gastrointestinal Gastrointestinal: Reports abdominal pain, Denies constipation, Denies diarrhea, Denies nausea and Denies vomiting Genitourinary Genitourinary: Denies dysuria Musculoskeletal Musculoskeletal: Denies back pain Integumentary/Breasts Skin/Breast: Denies rash Neurologic Neurologic: Denies headache(s) Endocrine Endocrine: Denies fatigue FORMERLY [facility], 1928–1983 Medical History Anemia (Chronic) with heme positive stool 02/17 CAD (coronary artery disease) (Chronic) Congestive heart failure (CHF) (Chronic) Essential hypertension (Acute 07/24/15) Kidney stones (Chronic) Migraine Type 2 diabetes mellitus with mild nonproliferative diabetic retinopathy without macular edema (Acute 07/24/15) Surgical History History of heart artery stent (Chronic) 10/17/2018 Ligation of fallopian tube Tonsillectomy vein stripping Family History Daughter , brainstem stoke at age 41. 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 Sexually active: No Do you think of yourself as: straight/heterosexual Current gender identity: female What is your relationship status?: Panel score (0-1 are the most socially isolated patients): 0 What type of physical activity do you participate in: regular exercise and other Details: program at home, stair stepper, rowing machine Duration: 15-30 minutes/day Frequency: 3-4 times per week Seatbelt use: always Drive intox or ride w/intox medical driver: No Working smoke detector in home: Yes Fire extinguisher in home: Yes Carbon monox detector in home: Yes Do you feel safe at home: Yes Additional Social history: of neck cancer 2013. Patient relocated to [place] to be closer to her children. Exam Const General: cooperative, healthy appearing, comfortable and no acute distress Orientation: alert, awake and oriented x3 HENMT Head: normal to inspection, normocephalic and atraumatic Mouth: moist mucous membranes Eyes Conjunctivae: conjunctivae normal Sclera: sclerae normal Neck Neck: normal visual inspection, full ROM, trachea midline and supple Resp Effort & Inspection: normal respiratory effort and able to speak in complete sentences Auscultation: clear to auscultation bilaterally Cardio Rate: regular rate Rhythm: regular rhythm GI Inspection: normal to inspection Palpation: soft, not firm, no guarding and nontender Auscultation: normal bowel sounds Back/Spine/Pelvis Back: No back tenderness Skin General skin exam: no rashes or lesions noted Neuro General: patient alert, patient awake, moves all extremities and no focal motor deficits Speech: speech normal Gait: normal gait Motor: muscle tone normal throughout Sensory Exam: no sensory deficits noted Psych Appearance: grossly normal Mental Status: mental status grossly normal
[2020-05-18 11:58] VITALS: BP 155/71; PULSE 67; RESP 20; TEMP 37.1; O2SAT 99
[2020-05-18 15:05] VITALS: BP 142/63; PULSE 71; TEMP 37.2; O2SAT 100
== END 2020-05-18 15:05 | disposition home or self-care (01) ==
PROVIDERS: Emergency Provider Physician Assistant; PCP Family Medicine
DX: R19.7 Diarrhea, unspecified (principal); E11.9 Type 2 diabetes mellitus without complications; Z79.84 Long term (current) use of oral hypoglycemic drugs; I10 Essential (primary) hypertension
CPT/HCPCS: 99282; 87324

== ENCOUNTER 2020-05-18 17:51 | Outpatient (REF) | payer MEDICARE, OTHER, SELFPAY | END 2020-05-18 18:11 | LOC: LBN 17:51 | PROVIDERS: PCP Family Medicine; Visit Provider Physician Assistant | DX: R19.7 Diarrhea, unspecified (principal) | CPT/HCPCS: 87324 ==

== ENCOUNTER → 2020-11-04 13:05 | Outpatient (BNVA) | payer MEDICARE, OTHER, SELFPAY | PROVIDERS: PCP Family Medicine; Referring Provider Family Medicine; Visit Provider Internal Medicine Cardiovascular Disease | DX: I25.10 Atherosclerotic heart disease of native coronary artery without angina pectoris (principal); I10 Essential (primary) hypertension; I50.9 Heart failure, unspecified; I34.0 Nonrheumatic mitral (valve) insufficiency | CPT/HCPCS: 99213 ==

== ENCOUNTER 2020-11-24 09:46 | Observation (INO) | payer MEDICARE, OTHER, SELFPAY ==
[2020-11-24] VITALS (40 sets, daily range): BP systolic 106–170; BP diastolic 52–86; PULSE 64–142; RESP 12–131; TEMP 36.3–37.4; O2SAT 91–99
--- NOTE | 2020-11-24 09:45 | RT.EKG_ITS ---
APPROVED REPORT Exam: Resting ECG Patient Location: E HR:127 bpm ECG Measurements Heart Rate 127 AXIS CA [id number] P [id number] QRSd 99 QRS 1 QT 319 T -46 QTc 464 Conclusion Atrial fibrillation.. LVH with secondary repolarization abnormality. Inferior q waves old
--- NOTE | 2020-11-24 09:47 | W.ED.GENAD ---
Discharge Plan Disposition Patient Disposition: [facility] IN[facility]IENT Condition: Fair Discharge Details Chief Complaint: Chest Pain Clinical Impression: A-fib, Elevated troponin Admit Date/Time: 11/24/20 11:23 Admit Provider: Mindi Brian Attending Provider: Mindi Brian Primary Care Provider: Dave Seaman ED Provider: Ruth Winchester Medical Decision Making Patient is a pleasant 80-year-old female with history of coronary artery disease. She had a PCI in 2018. At that time, three-vessel disease was diagnosed but the stent was only able to be placed in 1. Since then she has been medically managed by cardiology. She reports that she been feeling well. However, awoke this morning noting some left shoulder pain and feeling anxious. Did not have any palpitations. Did not have true chest pain. States that she was going to take one of her nitroglycerin but that she was unable to open the bottle. Otherwise took her other medications including aspirin this morning. Patient denies history of arrhythmias. No pain in her back. No nausea or vomiting. She does have a history of CHF but reports that the swelling she notes in the lower extremities is baseline for her. Past medical history also pertinent for CHF, hypertension, type 2 diabetes. EKG was obtained and reviewed by Dr. Rao. Patient in irregularly irregular rhythm consistent with atrial fibrillation. Rate of 127. No STEMI. While in the room, the patient was oscillating from the 130s to 140s. She did report feeling slightly lightheaded. Primarily concerned for new onset atrial fibrillation. The patient is not having palpitations and symptoms are fairly vague, I am not completely clear when the onset was. For this reason, I feel that rate control is more appropriate for this patient. I am also concerned with her cardiac history that this could be the result of an acute ischemic event. Plan for troponin. Patient is not actively having chest pain at this time. She did take her aspirin already this morning. Also considered thyroid dysfunction, CHF exacerbation versus other. Plan to obtain labs, portable chest x-ray. Patient was given 10 mg of diltiazem. Shortly after the diltiazem, patient converted to normal sinus rhythm with a rate in the 70s. She is asymptomatic at this time aside from the persistent left shoulder pain. I continue to be concerned for ACS. Plan to repeat ECG with rhythm change. Repeat EKG was identified by Dr. Rao. Patient is now in a sinus rhythm with a rate of 73. There is nonspecific T wave abnormalities to depressions in V5 and V6 were noted on previous EKG from 2019. Contacted by the lab. Patient has an elevated troponin of 0.1. Patient does have a history of CAD. However, the patient's history as well as the pulse of 140 when she first came in, I am concerned that this may be rate driven. Will consult cardiology regarding anticoagulation. Patient has not had any chest pain since onset. CBC no significant abnormality. Coags within normal limits. Chemistry significant for creatinine of 1.06. This is baseline for the patient. Glucose 290. BNP 1032, this appears to be patient's baseline compared to previous. Consulted with cardiology at [facility]. Will discuss this patient history. Patient did have a more recent echo from [place] structures showed showing EF of 45 to 50%. In 2019. Advised the patient to be continued as of has been recommended 30 mg every 6. Also recommended twice daily 5 mg Eliquis for anticoagulation. We advised the patient may undergo repeat echo. Based on the patient's history from he did not feel that intervention would be appropriate at this time and agrees is likely rate driven. He did review the [facility] notes. Patient does have a known LAD lesion but there is concern with the risks outweighing the benefits of further surgical intervention of correction for this. This is from 2018. One of the primary concerns with the patient poorly controlled diabetes. I did discuss this at length with the patient. She is quite vocal about the fact that she does not follow dietary recommendations. We did discuss potential nutritional counseling. Consulted with Dr. Brian regarding admission. Patient will be admitted for continued monitoring and trending of her troponin. She has received her recommended dosing of Eliquis and diltiazem here. All of her questions and concerns were addressed and she is agreement of this plan. Patient would like to be a full code at this time. HPI General Mode of arrival: wheelchair. Date/Time Provider Initiated Documentation: 11/24/20 09:47. Limitations to Documentation: no limitations. Information obtained by: patient, RN notes reviewed and old records reviewed. History of Present Illness 80 year old F presents to the emergency department with the chief complaint of left shoulder pain, anxious, described as mild, with intensity rated at 3. Quality is described as aching, and is localized to the left and upper extremity. Patient reports no radiation. Patient started experiencing this hour(s) and it has been constant. No relieving factors improve symptom(s), No exacerbating factors reported . Patient notes denies chest pain, diaphoresis, fever/chills, headaches, loss of appetite, nausea/vomiting and shortness of breath. Patient did receive the following treatments prior to arrival, none Related Data Home Medications Medication Instructions Recorded Confirmed ascorbic acid (vitamin C) [Vitamin 500 mg PO DAILY 07/24/15 11/24/20 C] cyanocobalamin (vitamin B-12) 1,000 mcg PO DAILY 07/24/15 11/24/20 [Vitamin B-12] pyridoxine (vitamin B6) [Vitamin 50 mg PO DAILY 07/24/15 11/24/20 B-6] aspirin 81 mg tablet,delayed 81 mg PO DAILY 10/19/18 11/24/20 release cholecalciferol (vitamin D3) 50 2,000 unit PO DAILY 07/26/19 11/24/20 mcg (2,000 unit) capsule magnesium oxide 500 mg tablet 500 mg PO DAILY 10/13/19 11/24/20 furosemide 20 mg tablet 20 mg PO DAILY #90 tab 11/02/19 11/24/20 losartan 50 mg tablet 50 mg PO BID #180 tab 03/21/20 11/24/20 carvedilol 25 mg tablet 25 mg PO BID #180 tab 05/02/20 11/24/20 nitroglycerin 0.4 mg sublingual 0.4 mg SL ONCE #10 tab 05/31/20 11/24/20 tablet rosuvastatin 20 mg tablet 20 mg PO DAILY #90 tab 09/05/20 11/24/20 hydrochlorothiazide 12.5 mg capsule 12.5 mg PO DAILY #90 cap 09/09/20 11/24/20 glimepiride 4 mg tablet 4 mg PO DAILY #90 tab-cap 09/24/20 11/24/20 metformin 1,000 mg tablet 1,000 mg PO QAM #90 tab 09/24/20 11/24/20 metformin 1,000 mg tablet 500 mg PO QPM #90 tab 09/24/20 11/24/20 Previous Rx's Medication Instructions Recorded furosemide 20 mg tablet 20 mg PO DAILY #90 tab 11/02/19 losartan 50 mg tablet 50 mg PO BID #180 tab 03/21/20 carvedilol 25 mg tablet 25 mg PO BID #180 tab 05/02/20 nitroglycerin 0.4 mg sublingual 0.4 mg SL ONCE #10 tab 05/31/20 tablet rosuvastatin 20 mg tablet 20 mg PO DAILY #90 tab 09/05/20 hydrochlorothiazide 12.5 mg capsule 12.5 mg PO DAILY #90 cap 09/09/20 glimepiride 4 mg tablet 4 mg PO DAILY #90 tab-cap 09/24/20 metformin 1,000 mg tablet 1,000 mg PO QAM #90 tab 09/24/20 metformin 1,000 mg tablet 500 mg PO QPM #90 tab 09/24/20 Allergies Allergy/AdvReac Type Severity Reaction Status Date / Time No Known Allergies Allergy Verified 11/24/20 09:54 General CYNTHIA: 3 Review of Systems Constitutional Constitutional: Reports as per HPI, Denies chills, Denies fever(s), Denies headache(s), Denies lethargy and Denies poor appetite Eyes Eyes: Denies change in vision ENT Ears, Nose, Mouth, and Throat: Denies dizziness and Denies headache(s) Cardiovascular Cardiovascular: Reports as per HPI, Denies chest pain at rest, Denies chest pain with activity, Reports rapid heart rate, Reports leg edema, Reports radiating jaw, neck or arm pain (left shoulder pain), Denies dyspnea and Denies dyspnea on exertion Respiratory Respiratory: Reports as per HPI, Denies chest congestion, Denies cough, Denies pain on inspiration, Denies pain with cough, Denies dyspnea, Denies dyspnea on exertion and Denies wheezing Gastrointestinal Gastrointestinal: Reports as per HPI, Denies abdominal pain, Denies diarrhea, Denies nausea and Denies vomiting Musculoskeletal Musculoskeletal: Reports as per HPI and Denies back pain Integumentary/Breasts Skin/Breast: Reports as per HPI and Denies rash Neurologic Neurologic: Reports as per HPI, Denies dizziness and Denies headache(s) Allergic/Immunologic Allergic/Immunologic: Denies wheezing [facility] Medical History (Updated 11/24/20 @ 13:28 by WILLAM Park) Anemia with heme positive stool 02/17 CAD (coronary artery disease) Congestive heart failure (CHF) Essential hypertension (07/24/15) Kidney stones Migraine 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 Sexually active: No Do you think of yourself as: straight/heterosexual Current gender identity: female What is your relationship status?: Panel score (0-1 are the most socially isolated patients): 0 What type of physical activity do you participate in: regular exercise and other Details: program at home, stair stepper, rowing machine Duration: 15-30 minutes/day Frequency: 3-4 times per week Seatbelt use: always Drive intox or ride w/intox vibratory pile driver: No Working smoke detector in home: Yes Fire extinguisher in home: Yes Carbon monox detector in home: Yes Do you feel safe at home: Yes Additional Social history: of neck cancer 2013. Patient relocated to [place] to be closer to her children. Exam Const General: cooperative, healthy appearing, comfortable, no acute distress and well developed Nutritional Appearance: well nourished and overweight Orientation: alert, awake and oriented x3 HENMT Head: normal to inspection Ears: hearing grossly normal bilaterally Mouth: moist mucous membranes Chest Chest: normal inspection of the chest, normal palpation of entire chest wall and no crepitus Resp Effort & Inspection: normal respiratory effort, able to speak in complete sentences and no respiratory distress Auscultation: clear to auscultation bilaterally, no rales, no rhonchi and no wheezes Cardio Rate: regular rate Rhythm: regular rhythm Heart Sounds: S1 normal and S2 normal GI Inspection: normal to inspection, no edema and non-distended Palpation: soft, no hepatosplenomegaly, not firm, no guarding, not rigid and nontender Auscultation: normal bowel sounds Back/Spine/Pelvis Back: no CVA tenderness Thoracic/Lumbar Spine: thoracic and lumbar spine normal to inspection Skin General skin exam: no rashes or lesions noted Trauma: no lacerations or abrasions Neuro General: patient alert, patient awake and patient oriented x3 Cognition: normal cognition Speech: speech normal Gait: normal gait Extrem General: normal to inspection, capillary refill normal, no calf tenderness, normal gait and pedal edema (L>R she states this is baseline (associates with previous injury)) Psych Appearance: grossly normal and well kempt Mental Status: mental status grossly normal Speech and Movement: speech and movement normal
[2020-11-24] MEDS: dilTIAZem 25 MG/5 ML VIAL 10 MG IVP (09:59)
--- NOTE | 2020-11-24 10:00 | RT.EKG_ITS ---
APPROVED REPORT Exam: Resting ECG Patient Location: E HR:73 bpm ECG Measurements Heart Rate 73 AXIS SD 180 P -2 QRSd 101 QRS -13 QT 401 T -18 QTc 443 Conclusion Sinus rhythm.. LVH with secondary repolarization abnormality. Inferior q waves - old
--- NOTE | 2020-11-24 10:00 | DI.RAD_ITS ---
EXAM: XR PORTABLE CHEST AP CLINICAL HISTORY: new onset afib, left shoulder pain. TECHNIQUE: 2D digital imaging was performed. COMPARISON: CR CHEST 2 VIEWS PA,LAT from 04/28/2018 FINDINGS: Heart size is upper normal or slightly prominent. The mediastinum is not widened. Calcification in the aortic arch again noted. Left lung is clear. Slightly increased interstitial markings in the right lung noted. No pleural ef fusions. No evidence of pulmonary edema. No pneumothorax. IMPRESSION: Subtle increased interstitial markings in the right lung. Close follow-up recommended. Recommend no nportable PA and lateral views when clinically possible. DATA REPOSITORY: RADIATION DOSE DELIVERED:
[2020-11-24 10:02] LABS: Abs Immature Grans 0.03 10^3/uL (0.0-0.06); Absolute Basophil Count 0.02 10^3/uL (0.0-0.2); Absolute Eosinophil Count 0.07 10^3/uL (0.0-0.7); Absolute Lymphocyte Count 0.81 10^3/uL (1.2-3.4); Absolute Monocyte Count 0.44 10^3/uL (0.1-0.8); Absolute Neutrophil Count 6.64 10^3/uL (1.2-6.7); Basophils % 0.2; Eosinophils % 0.9; HCT 35.6 % (36.0-46.0); HGB 11.6 g/dL (11.2-15.7); Immature Grans % 0.4; Lymphocytes % 10.1; MCH 28.6 pg (27.0-33.0); MCHC 32.6 % (32.0-36.0); MCV 87.7 fL (80-95); MPV 8.7 fL (8.0-11.0); Monocytes % 5.5; Neutrophils % 82.9; Nucleated RBC 0 %; Platelet Count 210 10^3/uL (130-400); RBC 4.06 10^6/uL (3.93-5.22); RDW 14.5 % (11.7-14.6); RDW-SD 46.1 fL; WBC 8.01 10^3/uL (4.4-10.8)
[2020-11-24 10:16] LABS: PTT Activated 26.1 sec (21.0-27.5); Prothrombin Time 10.5 sec (9.3-11.0)
[2020-11-24 10:22] LABS: ALT 22 U/L (14-59); AST 14 U/L (15-37); Albumin 3.9 g/dL (3.4-5.0); Alkaline Phosphatase 80 U/L (46-116); Anion Gap 7.1 mmol/L (3-11); BUN 17 mg/dL (7-18); Bilirubin, Total 0.5 mg/dL (0.2-1.0); CO2 27.9 mmol/L (21.0-32.0); CREATININE 1.06 mg/dL (0.55-1.02); Calcium 9.4 mg/dL (8.5-10.1); Chloride 102 mmol/L (98-107); Estimated GFR 50.01 (mL/min/1.73m2); Glucose 290 mg/dL (74-106); Magnesium 1.9 mg/dL (1.8-2.4); NT-proBNP 1032 pg/mL (<300); Sodium 137 mmol/L (136-145); Total Protein 7.3 g/dL (6.4-8.2)
--- NOTE | 2020-11-24 10:22 | DI.VRAD_ITS ---
PROCEDURE INFORMATION: Exam: XR Chest, 1 View Exam date and time: 11/24/2020 10:18 AM Age: 80 years old Clinical indication: Left-sided chest pain; Patient HX: L shoulder pain TECHNIQUE: Imaging protocol: XR of the chest Views: 1 view. COMPARISON: CR CHEST 2 VIEWS PA,LAT 04/28/2018 11:57 AM FINDINGS: Lungs: Patchy bilateral interstitial prominence could be due to infiltrate or scarring. This is new when compared with 04/28/2018 Pleural space: Unremarkable. No pleural effusion. No pneumothorax. Heart/Mediastinum: Unremarkable. No cardiomegaly. Vasculature: Aortic calcifications. 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 IMPRESSION: 1. Slight patchy bilateral interstitial prominence could be due to infiltrate or scar. 2. 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 3. Aortic calcifications. Dictated and Authenticated by: Dominique Carranza MD. Ordering:GLEN Miranda MD
[2020-11-24] MEDS: Apixaban 5 MG TAB PO (11:21)
[2020-11-24] MEDS: dilTIAZem 30 MG TAB PO (11:24)
[2020-11-24] MEDS: Insulin Aspart 300 UNITS/3 ML PEN SC (13:27)
--- NOTE | 2020-11-24 13:30 | RT.EKG_ITS ---
APPROVED REPORT Exam: Resting ECG Patient Location: I HR:73 bpm ECG Measurements Heart Rate 73 AXIS ND 187 P 9 QRSd 100 QRS -32 QT 401 T -30 QTc 443 Conclusion Sinus rhythm...normal P axis, V-rate 60- 99 Inferior infarct, age indeterminate...Q>35mS, T neg, II III aVF
[2020-11-24 13:31] LABS: Troponin I 4.17 ng/mL (<0.06)
[2020-11-24] MEDS: Aspirin 81 MG CHEW 324 MG CH (13:50)
--- NOTE | 2020-11-24 13:53 | W.PM.HP.N ---
Date of service: 11/24/20 Time of Service: 13:53 Assessment and Plan Assessment and plan (1) NSTEMI (non-ST elevated myocardial infarction): Status: Acute Assessment and plan: Transfer[place] [facility] [place] Camilo. Treat with asa, plavix, statin, beta edgardo, heparin drip. Needs to be evaluated for intervention: cath vs CABG, neither of which are available at [facility]. (2) New onset a-fib: Status: Resolved Assessment and plan: Converted to NSR. Continue cardizem with resumption of coreg at lower dose, holding parameters in place. Anticoagulation with heparin gtt. (3) CAD (coronary artery disease): Status: Chronic Assessment and plan: S/p FABRIZIO in 2018 to 1 of 3 affected vessels. Was being considered for CABG previously. As above (4) Chronic systolic CHF (congestive heart failure): Status: Chronic Assessment and plan: Latest available EF is 50-55% as per echo in 2019 at our facility. Presently euvolemic (5) Type 2 diabetes mellitus with mild nonproliferative diabetic retinopathy without macular edema: Status: Chronic Assessment and plan: Hold metformin. Cover with SSI (6) Discharge planning issues: Status: Acute Assessment and plan: Full code [place] [facility] [place] this H&P is also the discharge summary. Total Critical Care Time 1 hr 30 minutes. History of Present Illness History of Present Illness Chief Complaint: left shoulder pain, palpitations, anxiety Narrative: Ms Lobato is a 80 year old female with PMHx of CAD s/p cardiac cath/FABRIZIO x1 in 2018 (also has nonobstructive CAD), Chronic systolic CHF with the latest EF accessible to me being 50%, HTN, NIDDM2, who presented to [facility] ED today c/o anxiety, palpitations, and left shoulder pain. The symptoms woke the patient up from her sleep. They did not resolve with sitting up/resting, so she came to the ED. She was found to be in rapid Afib, with HR in 140s. Afib is a new diagnosis for her. She responded to 1 push of diltiazem 10 mg IV, converting to NSR, in which she has remained. Her original troponin was 0.1. Cardiology consultation with [facility] [place], and recommendation was made to start the patient on PO diltiazem and eliquis while trending troponins and repeating EKG. Her repeat troponin is 4.17. The patient is symptom free at the time of our conversation. She does state that her left shoulder pain with radiation to posterior neck and right shoulder is something she has experienced before before her prior cardiac intervention. She states she never had a heart attack. Per patient, she was previously being considered for a three-vessel CABG, but this was deferred due to her having had a history of bilateral lower extremity vein stripping. We are currently awaiting call back from [facility] [place] as the patient is willing to consider transfer to [facility] [place] if there is an intervention that can be offered. Since the repeat troponin was elevated, [facility] [place] reviewed the case and is accepting the patient in transfer under the care of Dr Camilo for the treatment of NSTEMI, possible repeat cardiac cath vs CABG. Patient is agreeable to transfer and is stable for transfer. She was initially admitted to the medical surgical floor but was immediately transferred to the ICU once the result of her repeat troponin became known. She has now received a full dose aspirin. She is receiving a loading dose of plavix and is being switched to heparin drip for anticoagulation. She is being initiated on atorvastatin in place of rosuvastatin and coreg is being resumed with holding parameters. She is expected to be transferred to [facility] [place]. Review of Systems Narrative: The patient specifically denies any exposure to anyone with known COVID-19, as well as any fever, cough, shortness of breath, diarrhea, changes to senses of taste/smell. 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 Sexually active: No Do you think of yourself as: straight/heterosexual Current gender identity: female What is your relationship status?: Panel score (0-1 are the most socially isolated patients): 0 What type of physical activity do you participate in: regular exercise and other Details: program at home, stair stepper, rowing machine Duration: 15-30 minutes/day Frequency: 3-4 times per week Seatbelt use: always 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 Patient relocated to [place] to be closer to her children. Meds Home Medications and Allergies Home Medications Medication Instructions Recorded Confirmed Type ascorbic acid (vitamin C) [Vitamin 500 mg PO DAILY 07/24/15 11/24/20 History C] cyanocobalamin (vitamin B-12) 1,000 mcg PO DAILY 07/24/15 11/24/20 History [Vitamin B-12] pyridoxine (vitamin B6) [Vitamin 50 mg PO DAILY 07/24/15 11/24/20 History B-6] aspirin 81 mg tablet,delayed 81 mg PO DAILY 10/19/18 11/24/20 History release cholecalciferol (vitamin D3) 50 2,000 unit PO DAILY 07/26/19 11/24/20 History mcg (2,000 unit) capsule magnesium oxide 500 mg tablet 500 mg PO DAILY 10/13/19 11/24/20 History furosemide 20 mg tablet 20 mg PO DAILY #90 tab 11/02/19 11/24/20 Rx losartan 50 mg tablet 50 mg PO BID #180 tab 03/21/20 11/24/20 Rx carvedilol 25 mg tablet 25 mg PO BID #180 tab 05/02/20 11/24/20 Rx nitroglycerin 0.4 mg sublingual 0.4 mg SL ONCE #10 tab 05/31/20 11/24/20 Rx tablet rosuvastatin 20 mg tablet 20 mg PO DAILY #90 tab 09/05/20 11/24/20 Rx hydrochlorothiazide 12.5 mg capsule 12.5 mg PO DAILY #90 cap 09/09/20 11/24/20 Rx glimepiride 4 mg tablet 4 mg PO DAILY #90 tab-cap 09/24/20 11/24/20 Rx metformin 1,000 mg tablet 1,000 mg PO QAM #90 tab 09/24/20 11/24/20 Rx metformin 1,000 mg tablet 500 mg PO QPM #90 tab 09/24/20 11/24/20 Rx Allergies Allergy/AdvReac Type Severity Reaction Status Date / Time No Known Allergies Allergy Verified 11/24/20 09:54 Exam Narrative Exam Narrative: General: Very pleasant elderly female, appears younger than her stated age, not in acute distress, mild anxiety Neurological: A&Ox3, no focal deficits Psychiatric: appropriate speech pattern/content, very mildly anxious Skin: Visible skin intact; no lesions on B feet HEENT: Atraumatic, normocephalic, EOMI, dry MM, clear oropharynx, no submandibular or cervical lymphadenopathy, no goiter or JVD; large neck diameter Cardiovascular: RRR, quiet AGUILA Lungs: CTAB Gastrointestinal: soft, nontender, nondistended Genitourinary: deferred Extremities: trace edema at B feet, trace pedal pulses B, B feet cold Results Imaging Additional studies: CXR: 1. Slight patchy bilateral interstitial prominence could be due to infiltrate or scar. 2. 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 3. Aortic calcifications. EKG #1 @09:50: Afib, HR 127, inferior Qwaves, inferolateral ST depressions EKG #2 @10:18: NSR, HR 73, inferior Q waves, inferolateral St depressions EKG #3 @13:42 NSR, HR 73, unchanged Labs Result diagrams: 11/24/20 09:50 11/24/20 09:50 Labs: Laboratory Results - last 24 hr 11/24/20 11/24/20 11/24/20 09:50 09:50 09:50 WBC 8.01 RBC 4.06 Hgb 11.6 Hct 35.6 L MCV 87.7 MCH 28.6 MCHC 32.6 RDW 14.5 Plt Count 210 MPV 8.7 Immature Gran % 0.4 Neutrophils % 82.9 Lymphocytes % 10.1 Monocytes % 5.5 Eosinophils % 0.9 Basophils % 0.2 Nucleated RBC % 0 Absolute Neutrophils 6.64 Absolute Lymphocytes 0.81 L Absolute Monocytes 0.44 Absolute Eosinophils 0.07 Absolute Basophils 0.02 PT 10.5 INR 1.0 APTT 26.1 Sodium 137 Potassium 4.0 Chloride 102 Carbon Dioxide 27.9 Anion Gap 7.1 BUN 17 Creatinine 1.06 H Estimated GFR/1.73 m2 50.01 Glucose 290 H Calcium 9.4 Magnesium 1.9 Total Bilirubin 0.5 AST 14 L ALT 22 Alkaline Phosphatase 80 Troponin I 0.10 H* NT-Pro-B Natriuret Pep 1032 H Total Protein 7.3 Albumin 3.9 11/24/20 12:58 WBC RBC Hgb Hct MCV MCH MCHC RDW Plt Count MPV Immature Gran % Neutrophils % Lymphocytes % Monocytes % Eosinophils % Basophils % Nucleated RBC % Absolute Neutrophils Absolute Lymphocytes Absolute Monocytes Absolute Eosinophils Absolute Basophils PT INR APTT Sodium Potassium Chloride Carbon Dioxide Anion Gap BUN Creatinine Estimated GFR/1.73 m2 Glucose Calcium Magnesium Total Bilirubin AST ALT Alkaline Phosphatase Troponin I 4.17 H* NT-Pro-B Natriuret Pep Total Protein Albumin Last Vital Signs Temp 37 C 11/24/20 12:48 Pulse 71 11/24/20 13:04 Resp 17 11/24/20 12:48 BP 137/73 11/24/20 12:48 Pulse Ox 98 11/24/20 12:48 COVID-19 Screening Have you, or household traveled for leisure in last 14 days?: No Had IN PERSON contact w/suspected or confirmed C-19 person: No
[2020-11-24] MEDS: Clopidogrel 300 MG TAB PO (15:19)
--- NOTE | 2020-11-24 15:28 | W.PM.DS.N ---
Date of service: 11/24/20 Time of Service: 15:28 DS: Diagnosis Discharge Diagnosis (1) NSTEMI (non-ST elevated myocardial infarction): Status: Acute (2) New onset a-fib: Status: Resolved (3) CAD (coronary artery disease): Status: Chronic (4) Chronic systolic CHF (congestive heart failure): Status: Chronic (5) Type 2 diabetes mellitus with mild nonproliferative diabetic retinopathy without macular edema: Status: Chronic Discharge Plan Disposition Patient Disposition: [facility] Condition: Serious Discharge Details Reason For Visit: NEW ONSET AFIB, MILDLY ELEVATED TROPONIN Admit Date/Time: 11/24/20 11:23 Admit Provider: Mindi Brian Attending Provider: Mindi Brian Primary Care Provider: Dave Seaman [facility] Course Hospital Course: Ms Lobato is a 80 year old female with PMHx of CAD s/p cardiac cath/FABRIZIO x1 in 2018 (also has nonobstructive CAD), Chronic systolic CHF with the latest EF accessible to me being 50%, HTN, NIDDM2, who presented to [facility] ED today c/o anxiety, palpitations, and left shoulder pain. The symptoms woke the patient up from her sleep. They did not resolve with sitting up/resting, so she came to the ED. She was found to be in rapid Afib, with HR in 140s. Afib is a new diagnosis for her. She responded to 1 push of diltiazem 10 mg IV, converting to NSR, in which she has remained. Her original troponin was 0.1. Cardiology consultation with [facility] [place], and recommendation was made to start the patient on PO diltiazem and eliquis while trending troponins and repeating EKG. Her repeat troponin is 4.17. The patient is symptom free at the time of our conversation. She does state that her left shoulder pain with radiation to posterior neck and right shoulder is something she has experienced before before her prior cardiac intervention. She states she never had a heart attack. Per patient, she was previously being considered for a three-vessel CABG, but this was deferred due to her having had a history of bilateral lower extremity vein stripping. We are currently awaiting call back from [facility] [place] as the patient is willing to consider transfer to [facility] if there is an intervention that can be offered. Since the repeat troponin was elevated, [facility] cardiology reviewed the case and is accepting the patient in transfer under the care of Dr Camilo for the treatment of NSTEMI, possible repeat cardiac cath vs CABG. Patient is agreeable to transfer and is stable for transfer. She was initially admitted to the medical surgical floor but was immediately transferred to the ICU once the result of her repeat troponin became known. She has now received a full dose aspirin. She is receiving a loading dose of plavix and is being switched to heparin drip for anticoagulation. She is being initiated on atorvastatin in place of rosuvastatin and coreg is being resumed with holding parameters. She is expected to be transferred to [facility] today. Care for patient as well as completion of this transfer summary on day of transfer took a total of 105 minutes (30 additional minutes of critical care time.). For list of inpatient medications, please, look at DEC rather than the list below. Home Meds and New Rx's Prescriptions: No Action cholecalciferol (vitamin D3) 2,000 unit capsule 2,000 unit PO DAILY RF: 0 hydrochlorothiazide 12.5 mg capsule 12.5 mg PO DAILY Qty: 90 RF: 3 aspirin 81 mg tablet,delayed release (DR/EC) 81 mg PO DAILY RF: 0 furosemide 20 mg tablet 20 mg PO DAILY Qty: 90 RF: 3 carvedilol 25 mg tablet 25 mg PO BID Qty: 180 RF: 5 cyanocobalamin (vitamin B-12) [Vitamin B-12] 1,000 MCG tablet 1,000 mcg PO DAILY RF: 0 ascorbic acid (vitamin C) [Vitamin C] 500 MG capsule, extended release 500 mg PO DAILY RF: 0 pyridoxine (vitamin B6) [Vitamin B-6] 50 MG tablet 50 mg PO DAILY RF: 0 magnesium oxide 500 mg tablet 500 mg PO DAILY RF: 0 losartan 50 mg tablet 50 mg PO BID Qty: 180 RF: 6 nitroglycerin [Nitrostat] 0.4 mg tablet, sublingual 0.4 mg SL ONCE Qty: 10 RF: 1 rosuvastatin 20 mg tablet 20 mg PO DAILY Qty: 90 RF: 7 glimepiride 4 mg tablet 4 mg PO DAILY Qty: 90 RF: 3 metformin 1,000 mg tablet 1,000 mg PO QAM Qty: 90 RF: 3 metformin 1,000 mg tablet 500 mg PO QPM Qty: 90 RF: 3 Discharge Instructions Activity:: bedrest with commode Equipment/Supplies:: No Equipment Needed Diet:: Carb Counting Discharge Orders Discharge Orders: Discharge Order (Routine); Ordered 11/24/20 Ordered By: Mindi Brian DS: Summary Status at Discharge Functional status at discharge: bed bound Overall status at discharge: patient is not back to baseline Mental Status: mental status grossly normal Speech and Movement: speech and movement normal Mood: congruent mood Affect: normal affect Exam Narrative Exam Narrative: General: Very pleasant elderly female, appears younger than her stated age, not in acute distress, mild anxiety Neurological: A&Ox3, no focal deficits Psychiatric: appropriate speech pattern/content, very mildly anxious Skin: Visible skin intact; no lesions on B feet HEENT: Atraumatic, normocephalic, EOMI, dry MM, clear oropharynx, no submandibular or cervical lymphadenopathy, no goiter or JVD; large neck diameter Cardiovascular: RRR, quiet AGUILA Lungs: CTAB Gastrointestinal: soft, nontender, nondistended Genitourinary: deferred Extremities: trace edema at B feet, trace pedal pulses B, B feet cold Psych Mental Status: mental status grossly normal Speech and Movement: speech and movement normal Mood: congruent mood Affect: normal affect DS: Data Vitals/I&O Vitals and I&O: Vital Signs Temperature 37.4 C 11/24/20 14:06 Temperature Source Temporal Artery Scan 11/24/20 14:06 Pulse 70 11/24/20 15:02 Pulse Rhythm Regular 11/24/20 12:48 Pulse Strength Normal 11/24/20 11:14 Pulse 74 11/24/20 15:02 Respiratory Rate 20 11/24/20 15:02 Respiratory Effort Non-Labored 11/24/20 14:06 Respiratory Depth Normal 11/24/20 14:06 Respiratory Pattern Normal 11/24/20 14:06 Blood Pressure 158/68 H 11/24/20 15:02 Blood Pressure Mean 92 11/24/20 15:02 Blood Pressure Position Supine 11/24/20 14:06 Pulse Oximetry 98 11/24/20 15:02 Oxygen Delivery Method Room Air 11/24/20 14:06 Oxygen Flow Rate 0 11/24/20 14:06 Pain Level 0 11/24/20 14:06 Intake & Output 11/23/20 11/24/20 11/24/20 23:59 11:59 23:59 Output Total 500 / 500 Balance -500 / -500 Weight 86.1 kg 85.4 kg Output: Urine 500 / 500 Other: Urine Color Yellow Urine Appearance Cloudy Voiding Methods Toilet Data Completed and Pending Completed studies during hospitalization [Text1]: CXR: 1. Slight patchy bilateral interstitial prominence could be due to infiltrate or scar. 2. 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 3. Aortic calcifications. EKG #1 @09:50: Afib, HR 127, inferior Qwaves, inferolateral ST depressions EKG #2 @10:18: NSR, HR 73, inferior Q waves, inferolateral St depressions EKG #3 @13:42 NSR, HR 73, unchanged Labs on day of discharge: Labs from last 24 hours 11/24/20 11/24/20 11/24/20 20:00 12:58 11:35 WBC RBC Hgb Hct MCV MCH MCHC RDW Plt Count MPV Immature Gran % Neutrophils % Lymphocytes % Monocytes % Eosinophils % Basophils % Nucleated RBC % Absolute Neutrophils Absolute Lymphocytes Absolute Monocytes Absolute Eosinophils Absolute Basophils PT INR APTT Sodium Potassium Chloride Carbon Dioxide Anion Gap BUN Creatinine Estimated GFR/1.73 m2 Glucose Calcium Magnesium Total Bilirubin AST ALT Alkaline Phosphatase Troponin I Pending 4.17 H* NT-Pro-B Natriuret Pep Total Protein Albumin SARS-CoV-2 (PCR) Pending Nasopharyn COVID-19 PCR Pending Ref Test Perform Site Pending 11/24/20 11/24/20 11/24/20 09:50 09:50 09:50 WBC 8.01 RBC 4.06 Hgb 11.6 Hct 35.6 L MCV 87.7 MCH 28.6 MCHC 32.6 RDW 14.5 Plt Count 210 MPV 8.7 Immature Gran % 0.4 Neutrophils % 82.9 Lymphocytes % 10.1 Monocytes % 5.5 Eosinophils % 0.9 Basophils % 0.2 Nucleated RBC % 0 Absolute Neutrophils 6.64 Absolute Lymphocytes 0.81 L Absolute Monocytes 0.44 Absolute Eosinophils 0.07 Absolute Basophils 0.02 PT 10.5 INR 1.0 APTT 26.1 Sodium 137 Potassium 4.0 Chloride 102 Carbon Dioxide 27.9 Anion Gap 7.1 BUN 17 Creatinine 1.06 H Estimated GFR/1.73 m2 50.01 Glucose 290 H Calcium 9.4 Magnesium 1.9 Total Bilirubin 0.5 AST 14 L ALT 22 Alkaline Phosphatase 80 Troponin I 0.10 H* NT-Pro-B Natriuret Pep 1032 H Total Protein 7.3 Albumin 3.9 SARS-CoV-2 (PCR) Noyn COVID-19 PCR Ref Test Perform Site [facility] Medical History (Updated 11/24/20 @ 15:21 by Mindi Brian MD) Anemia with heme positive stool 02/17 CAD (coronary artery disease) Congestive heart failure (CHF) Essential hypertension (07/24/15) Kidney stones Migraine 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 Sexually active: No Do you think of yourself as: straight/heterosexual Current gender identity: female What is your relationship status?: Panel score (0-1 are the most socially isolated patients): 0 What type of physical activity do you participate in: regular exercise and other Details: program at home, stair stepper, rowing machine Duration: 15-30 minutes/day Frequency: 3-4 times per week Seatbelt use: always 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 Patient relocated to [place] to be closer to her children.
[2020-11-25 00:05] LABS: COVID-19 RT-PCR UVMMC Result Negative (Negative)
== END 2020-11-24 16:30 | disposition short-term general hospital (02) ==
LOC: ER 11:47 → MS 12:21 → ICU 15:31
PROVIDERS: Admitting Provider Internal Medicine; Emergency Provider Physician Assistant; PCP Family Medicine; Visit Provider Internal Medicine
DX: I21.4 Non-ST elevation (NSTEMI) myocardial infarction (principal); I48.91 Unspecified atrial fibrillation; I50.22 Chronic systolic (congestive) heart failure; I11.0 Hypertensive heart disease with heart failure; E11.3299 Type 2 diabetes mellitus with mild nonproliferative diabetic retinopathy without macular edema, unspecified eye; D64.9 Anemia, unspecified; Z87.442 Personal history of urinary calculi; G43.909 Migraine, unspecified, not intractable, without status migrainosus; Z95.5 Presence of coronary angioplasty implant and graft
CPT/HCPCS: 36415; 80053; 93005; 96374; 99291; 99292; U0003; 71045; 83735; 83880; 84484; 85025; 85610; 85730; 93010; G0378

== ENCOUNTER → 2020-11-25 08:07 | Outpatient (BNVA) | payer MEDICARE, OTHER, SELFPAY | PROVIDERS: PCP Family Medicine; Referring Provider Family Medicine; Visit Provider Internal Medicine Cardiovascular Disease | DX: R69 Illness, unspecified (principal) ==

== ENCOUNTER 2020-12-03 15:50 | Outpatient (REF) | payer MEDICARE, OTHER, SELFPAY ==
[2020-12-03 16:47] LABS: Anion Gap 11.3 mmol/L (3-11); BUN 15 mg/dL (7-18); CO2 25.7 mmol/L (21.0-32.0); CREATININE 0.9 mg/dL (0.55-1.02); Calcium 9.6 mg/dL (8.5-10.1); Chloride 105 mmol/L (98-107); Glucose 186 mg/dL (74-106); Sodium 142 mmol/L (136-145)
== END 2020-12-03 15:51 | disposition home or self-care (01) ==
LOC: LBN 15:50
PROVIDERS: PCP Family Medicine; Visit Provider Nurse Practitioner Adult Health
DX: I48.91 Unspecified atrial fibrillation (principal)
CPT/HCPCS: 80048

== ENCOUNTER 2020-12-11 16:40 | Outpatient (REF) | payer MEDICARE, OTHER, SELFPAY ==
--- NOTE | 2020-12-11 16:00 | PAPFT_PTH ---
PATIENT: Madeleine Lobato LOC: [facility] U#:[id number] AGE/SX: 80/F ROOM: RE12/11/[address]: Concepcion Santoyo : 1940 BED: DIS: 12/11/2020 SPEC #: [id number] RECD: 12/11/20 18:16 STATUS: KENNETH REQ #: [id number] OSCAR: 12/11/20 16:[address]: Concepcion Santoyo DEPT: [facility] Cytology RECD BY: Jina Nava ENTERED: 12/11/20 18:17 SP TYPE: PAPFT OTHR DR: Dave Seaman DO Tissues: 1 - CX/ENDOCX FOR PAP SMEARS Procedures: PAP THIN PREP/[facility] Screening Comments: [id number] (UNSATISFACTORY FOR EVALUATION)
--- NOTE | 2020-12-11 16:00 | ENDOMET_PTH ---
PATIENT: Madeleine Lobato LOC: [facility] U#:[id number] AGE/SX: 80/F ROOM: RE12/11/[address]: Concepcion Santoyo : 1940 BED: DIS: 12/11/2020 SPEC #: [id number] RECD: 12/11/20 17:43 STATUS: KENNETH REQ #: [id number] OSCAR: 12/11/20 16:[address]: Concepcion Santoyo DEPT: Surgical Specimen RECD BY: Jina Nava ENTERED: 12/11/20 17:43 SP TYPE: Endomet OTHR DR: Dave Seaman DO Tissues: 1 - ENDOMETRIUM BX/CURRETTE Procedures: GROSS AND MICRO LEVEL 4 Comments: [id number]
== END 2020-12-11 16:41 | disposition home or self-care (01) ==
LOC: LBN 16:40
PROVIDERS: PCP Family Medicine; Visit Provider Obstetrics & Gynecology Gynecology
DX: Z12.4 Encounter for screening for malignant neoplasm of cervix (principal); N95.0 Postmenopausal bleeding; R87.615 Unsatisfactory cytologic smear of cervix
CPT/HCPCS: 88142; 88305

== ENCOUNTER 2020-12-23 02:11 | Outpatient (CLI) | payer MEDICARE, OTHER, SELFPAY ==
--- NOTE | 2020-12-23 07:45 | DI.US_ITS ---
EXAM: US PELVIS TRANSVAGINAL CLINICAL HISTORY: Postmenopausal bleeding,n95.0 TECHNIQUE: Ultrasound of the pelvis was performed both transabdominal and transvaginal. COMPARISON: US US PELVIS TRANSVAGINAL from 03/10/2019 FINDINGS: UTERUS: Measures 8.3 cm length x 2.8 cm AP x 5.4 cm wide. There are multiple peripheral calcifications in the myometrium probably related to small fibroids. Endometrial thickness measures 4-5 mm. There is small amount of fluid in the endometrial canal also evident CERVIX: There are no obvious nabothian cysts. RIGHT OVARY: Measures 1.8 x 1.1 x 1.6 cm No significant cysts nor masses evident in the right ovary. LEFT OVARY: Measures 0.6 x 1.7 x 1.6 cm No significant cysts nor masses evident in the left ovary. CUL-DE-SAC: No free fluid evident. Incidentally noted is a nonobstructing 6-7 millimeter calculus in the left kidney midpole level. The re are no calculi seen in the right kidney. IMPRESSION: 1. Multiple peripheral calcifications in the myometrium which may be related to small uterine fibroid s. There is also some fluid in the endometrial canal evident. This may indicate an element of cervi dayanna stenosis in this age group. Endometrial thickness is 4-5 millimeters. 2. No abnormal ovarian findings. 3. No free fluid evident in the adnexal regions and cul-de-sac. Nonobstructive 7 millimeter calculus noted at the midpole of the left kidney. DATA REPOSITORY:
== END 2020-12-23 02:12 ==
LOC: DI 02:12
PROVIDERS: PCP Family Medicine; Visit Provider Obstetrics & Gynecology Gynecology
DX: N95.0 Postmenopausal bleeding (principal); N85.8 Other specified noninflammatory disorders of uterus; N20.0 Calculus of kidney
CPT/HCPCS: 76830; 76856

== ENCOUNTER → 2021-01-02 11:15 | Outpatient (BNVA) | payer MEDICARE, OTHER, SELFPAY | PROVIDERS: PCP Family Medicine; Referring Provider Family Medicine; Visit Provider Internal Medicine Cardiovascular Disease | DX: I25.5 Ischemic cardiomyopathy (principal); R60.0 Localized edema; I48.91 Unspecified atrial fibrillation; I50.22 Chronic systolic (congestive) heart failure; I21.4 Non-ST elevation (NSTEMI) myocardial infarction; I11.0 Hypertensive heart disease with heart failure | CPT/HCPCS: 99214 ==

== ENCOUNTER → 2021-02-03 10:41 | Outpatient (BNVA) | payer MEDICARE, OTHER, SELFPAY | PROVIDERS: PCP Family Medicine; Referring Provider Family Medicine; Visit Provider Internal Medicine Cardiovascular Disease | DX: I25.5 Ischemic cardiomyopathy (principal); I25.2 Old myocardial infarction; I48.91 Unspecified atrial fibrillation; I11.0 Hypertensive heart disease with heart failure; I34.0 Nonrheumatic mitral (valve) insufficiency | CPT/HCPCS: 99214; 99443 ==

== ENCOUNTER 2021-03-20 03:27 | Outpatient (CLI) | payer MEDICARE, OTHER, SELFPAY ==
--- NOTE | 2021-03-20 13:00 | NS.NUTBLAN_ITS ---
Madeleine was referred for Medical Nutrition Therapy for Diabetes Self Management Education. Madeleine reports she has had DM2 for over 30 years and does not monitor blood sugars at home. Most recent A1C: 7.4%, up from 6.9%, 3 months ago. PMH: HTN, CHF, Arthritis. BMI wnl for age. DM meds include glimiprimide 4 mg HS, 1000 mg metformin BID. Diet record indicates reliance on high salt, high carb convenience foods and enjoys ice cream, candy daily. Unable to exercise due to hip pain. Will not consider taking insulin at this time. Madeleine reports several bouts of hypoglycemia since starting Glimiprimide as low as 55 mg/dl. Session today discussed treatment for hypoglycemia and encouraged her to stop this glimiprimide for next 3 days and evaluate glycemic control. Madeleine is willing to take metformin 1000 mg BID and do QID finger sticks for next 3 days. Adobe Architect to call Madeleine and review numbers and follow up witih her PCP Educated Madeleine on how to follow more balanced, higher fiber meal plan with emphasis on lower sodium and less simple carbohydrate meals/foods. Also, encouraged Madeleine to consider starting a SGLT2 inhibitor if needs additional medication for optimal glycemic control. Recommend A1C of < 8% going forward in view of increased mortality outcomes with tight glycemic control in elderly with comorbidities.
--- NOTE | 2021-03-28 09:15 | DIABASSESS_ITS ---
Date of service: 03/28/21 Time of Service: 09:15 Diabetes Note NOTE: Spoke to Madeleine on phone today. She reports currently taking metformin 1000 mg BID. Fasting sugars range 130-170 mg/dl, post prandial sugars range 170- 198 mg/dl. No hypoglycemic events since stopping glimiprimide. In view of elevated fasting and post prandial blood sugars, wouuld benefit from additional oral DM med such as SGLT2 i or a long acting basal insulin. Heading to [place] tomorrow for a couple weeks. Scheduled for fu with PCP in 2 months. Recommended that she continue to with current DM medication regime and monitor blood sugars as recommended by MD. Reviewed hypo/hyperglycemia treatment. Reviewed consistent carbohydrate intake at meals. Will follow up prn. Time Spent in Nutritional Counseling and Treatment: 10 minutes
== END 2021-03-20 03:28 | disposition home or self-care (01) ==
LOC: DS 03:28
PROVIDERS: PCP Family Medicine; Visit Provider Dietitian, Registered
DX: E11.9 Type 2 diabetes mellitus without complications (principal); Z79.84 Long term (current) use of oral hypoglycemic drugs; Z71.3 Dietary counseling and surveillance
CPT/HCPCS: 97802

== ENCOUNTER 2021-04-24 03:05 | Outpatient (CLI) | payer MEDICARE, OTHER, SELFPAY ==
--- NOTE | 2021-04-24 13:57 | DI.US_ITS ---
APPROVED REPORT EXAM: Comprehensive 2D, Doppler, and color-flow Echocardiogram Patient Location: Out-Patient [facility] Nutritionist: Tamiko Romero RDCS (AE) Indications: Heart Failure, HTN Other Information Study Quality: Adequate Conclusion Normal left ventricular wall thickness and chamber size. Estimated ejection fraction is 55 to 60%. Wall motion is normal Normal right ventricular size and systolic function Both atria are normal in size The aortic valve is trileaflet and mildly sclerotic. There is trace aortic regurgitation. There is no aortic stenosis Mild mitral annular calcification. Mild mitral regurgitation Normal tricuspid valve with trace regurgitation. Estimated right ventricular systolic pressure is no rmal Normal pulmonic valve Borderline dilated ascending aorta measuring 3.3 cm Wall motion Left Ventricle The left ventricle is normal size. The left ventricular systolic function is normal. The left ventric ular ejection fraction is within the normal range. There is normal left ventricular wall thickness. T here is normal LV segmental wall motion. There is no ventricular septal defect visualized. LVEF is 55 -60%. Right Ventricle The right ventricle is normal size. The right ventricular systolic function is normal. The RVSP is 16 .5 mmHg. Atria The left atrium size is normal. The right atrium size is normal. The interatrial septum is intact wit h no evidence for an atrial septal defect. Aortic Valve Mild aortic valve sclerosis. Aortic valve is trileaflet. There is no aortic valvular stenosis. Trace aortic regurgitation. Mitral Valve Mild mitral annular calcification. No evidence of mitral valve stenosis. Mild mitral regurgitation. Tricuspid Valve The tricuspid valve is normal in structure. There is no tricuspid valve stenosis. Trace tricuspid reg urgitation. Pulmonic Valve The pulmonary valve is normal in structure. There is no pulmonic valvular stenosis. There is no pulmo maci valvular regurgitation. Great Vessels The aortic root is normal in size. The ascending aorta is mildly dilated.3.3 cm Aortic arch is normal in caliber. IVC is normal in size and collapses >50% with inspiration. Pericardium There is no pericardial effusion. 2D Dimensions IVSD d PLAX 1.05 cm F: 0.6-1.0 LV Vol A2C d MOD 85.8 mL LVPW d PLAX 1.05 cm F: 0.6 - 1.0 LV Vol A4C d MOD 117.6 mL LVID d PLAX 4.88 cm F: 3.8 - 5.2 LA vol/ BSA A2C s A-L 29.7 mL/m2 LVDs 3.50 cm F: 2.2 - 3.5 LA vol/ BSA A4C s A-L 24.7 mL/m2 Ao Root d 2.80 cm F: 2.7 - 3.3 LA Vol/ BSA Biplane s A-L 27.7 mL/m2 RA Area A4C 9.78 cm2 LA Area A4C s MOD 15.87 cm2 RA Vol/ BSA A4C s A-L 11.2 mL/m2 LA Area A2C s MOD 17.79 cm2 Ao Asc Diam d 3.30 cm F: 2.3 - 3.1 LV EF A4C MOD 50.4 % LV EF Teichholz 53.8 % LV EF A2C MOD 46.0 % LVEF (Mancia's) 48.37 % F: 54 - 74 LV EF Biplane MOD 48.4 % LV Volume 79.97 mL F: 46 - 106 SV 49.96 mL LV Volume Index 43.93 mL/m2 F: 29 - 61 SV Index 27.40 mL/m2 LV Vol Biplane MOD 103.3 mL FS 27.80 % M-Mode TAPSE 2.32 cm (M/F) >1.7 LV Diastology MV E' medial 0.060 (>0.07 m/s) E/A Ratio 0.5 LV E/e MED 8.35 (<14) MV E Vmax 0.51 (0.4-1.3 m/s) MV E' lateral 0.057 (>0.1 m/s) MV A Vmax 1.00 (0.4-1.3 m/s) LV E/e LAT 8.85 (<14) MV E/A Ratio 0.50 MV E/E' medial 8.40 MV E/E' lateral 8.88 Aortic Valve LVOT Area 3.10 cm2 AoV Area Vmax 1.74 cm2 LVOT Vmax 0.93 m/s AoV Area/ BSA (Vmax) 0.95 cm2/m2 LVOT Mean Juan. 0.59 m/s HIEU Mean Juan. 1.59 cm2 LVOT Peak Grad 3.4 mmHg HIEU Mean Juan. Index 0.87 cm2/m2 LVOT Mean Grad 1.6 mmHg AR DT 2184 msec LVOT VTI 0.213 m AR PHT 633 msec LVOT Diam s 1.95 cm AoV Vmax 1.65 m/s Velocity Ratio 0.56 AoV Mean Juan. 1.16 m/s AoV Peak Grad 10.9 mmHg LVOT SV 66.01 mL AoV Mean Grad 6.1 mmHg AoV VTI 0.353 m AoV Area VTI 1.87 cm2 AoV Area/ BSA (VTI) 1.03 cm/m2 Mitral Valve MV DT 387 (160-240 msec) MV PHT 112 msec MV Area PHT 1.96 cm2 MV VTI 0.281 m MV VTI Annulus 0.249 m MV Area VTI 2.11 (4.0-6.0 cm2) Pulmonary Valve PV Vmax 0.83 (0.5-1.5 m/s) RVOT Peak Gr. 2.03 mmHg PV Peak Grad 2.7 mmHg RVOT Mean Gr. 0.90 mmHg PV Mean Grad 1.6 mmHg RVOT VTI 0.154 m PV VTI 0.152 m RVOT Vmax 0.71 m/s Tricuspid Valve TR Peak Grad 13.5 mmHg TR Vmax 1.84 m/s RA Pressure 3.00 mmHg RVSP (TR) 16.5 mmHg
== END 2021-04-24 03:25 ==
PROVIDERS: PCP Family Medicine; Visit Provider Internal Medicine Cardiovascular Disease
DX: I10 Essential (primary) hypertension (principal); I77.810 Thoracic aortic ectasia
CPT/HCPCS: 93306

== ENCOUNTER → 2021-05-02 10:15 | Outpatient (BNVA) | payer MEDICARE, OTHER, SELFPAY | PROVIDERS: PCP Family Medicine; Referring Provider Family Medicine; Visit Provider Internal Medicine Cardiovascular Disease | DX: I21.4 Non-ST elevation (NSTEMI) myocardial infarction (principal); I50.22 Chronic systolic (congestive) heart failure; Z86.79 Personal history of other diseases of the circulatory system; I11.0 Hypertensive heart disease with heart failure; R06.02 Shortness of breath; Z79.899 Other long term (current) drug therapy | CPT/HCPCS: 99214 ==

== ENCOUNTER 2021-06-22 01:04 | Inpatient (IN) | payer MEDICARE, OTHER, SELFPAY ==
[2021-06-22] VITALS (117 sets, daily range): BP systolic 90–190; BP diastolic 45–102; PULSE 54–171; RESP 10–29; TEMP 36.3–36.8; O2SAT 94–99
--- NOTE | 2021-06-22 01:00 | RT.EKG_ITS ---
APPROVED REPORT Exam: Resting ECG Reason for Exam: CHEST PAIN Patient Location: E HR:138 bpm ECG Measurements Heart Rate 138 [place]IS [place] [id number] P [id number] QRSd 93 QRS -14 QT 315 T [id number] QTc 478 Conclusion Atrial fibrillation w/ RVR Inferior infarct, old...Q >35mS, II III aVF Rate related ST changes. No STEMI
--- NOTE | 2021-06-22 01:06 | ED.GENADUL_ITS ---
Discharge Plan Disposition Patient Disposition: [facility] INPATIENT Condition: Stable Discharge Details Clinical Impression: Atrial fibrillation with RVR Primary Care Provider: Dave Seaman ED Provider: Wale Maher Meds and New Rx's Prescriptions: No Action cholecalciferol (vitamin D3) 50 mcg (2,000 unit) capsule 2,000 unit PO QWEEK RF: 0 furosemide 20 mg tablet 20 mg PO DAILY PRN (Reason: edema) Qty: 90 RF: 1 (DME) lancets Misc See Rx Instructions .ROUTE .MEDSUPPLY Qty: 100 RF: 3 (DME) blood-glucose meter Misc See Rx Instructions .ROUTE .MEDSUPPLY Qty: 1 RF: 0 nitroglycerin [Nitrostat] 0.4 mg tablet, sublingual 0.4 mg SL ONCE PRNRF: 0 B Complex 1 tab PO DAILY RF: 0 [place] 3,6,9 1 tab PO DAILY RF: 0 biotin 800 mcg tablet 800 mcg PO DAILY RF: 0 nystatin 100,000 unit/gram cream 1 applic topical TID Qty: 30 RF: 3 clopidogrel 75 mg tablet 75 mg PO DAILY Qty: 90 RF: 3 (DME) blood sugar diagnostic Strip See Rx Instructions .ROUTE .MEDSUPPLY Qty: 100 RF: 3 metformin 500 mg tablet See Rx Instructions PO BID Qty: 270 RF: 3 cyanocobalamin (vitamin B-12) [Vitamin B-12] 1,000 MCG tablet 1,000 mcg PO DAILY RF: 0 ascorbic acid (vitamin C) [Vitamin C] 500 MG capsule, extended release 500 mg PO DAILY RF: 0 magnesium oxide 500 mg tablet 500 mg PO DAILY RF: 0 rosuvastatin 20 mg tablet 20 mg PO DAILY Qty: 90 RF: 7 glimepiride 4 mg tablet 4 mg PO DAILY Qty: 90 RF: 3 metoprolol succinate 50 mg tablet extended release 24 hr 50 mg PO BID Qty: 180 RF: 3 spironolactone 25 mg tablet 25 mg PO DAILY Qty: 90 RF: 3 pyridoxine (vitamin B6) [Vitamin B-6] 50 mg tablet 100 mg PO DAILY RF: 0 losartan 50 mg tablet 50 mg PO BID Qty: 180 RF: 6 aspirin [Adult Aspirin Regimen] 81 mg tablet,delayed release (DR/EC) 81 mg PO DAILY RF: 0 Medical Decision Making Patient presenting with palpitations and rapid heart rate with known history of atrial fibrillation. Found to be in atrial fibrillation with RVR. EKG with some rate related changes but no STEMI. Patient without symptoms other than palpitations. She is unable to take anticoagulation because of bleeding. She is status post a WATCHMAN device. She is on Plavix, aspirin, metoprolol. However, previous records note that she converted after diltiazem. We will therefore give a dose of diltiazem IV. We will check laboratory studies and observe for the time being. Patient's rate did slow with 20 mg of IV Cardizem but she did not convert. Second dose of Cardizem 10 mg given with no real change. Rate never really below 100. Laboratory studies unremarkable other than a mild anemia. This has been present before. Patient given 5 of IV Lopressor again without significant change. Heart rate mostly in the 110s to 120s range. Case discussed with social sciences instructor at [facility] regarding next step. Due to the recent placement of the WATCHMAN device no electrocardioversion recommended. Conservative management with rate control and admission to see if converts on own recommended. If no cardioversion by Wednesday, re-consult for consideration of antiarrhythmic loading. Recommend imaging prior to that because of the WATCHMAN device. Case discussed with hospitalist for admission. Heart rate starting to go back up to the 140 range as the IV Cardizem and Lopressor wear off. Will redose with 10 mg of Cardizem and start drip. Patient will be admitted to hospitalist service for further management. Patient aware of plan and discussion with [facility] cardiology and is agreeable to admission here. Medical Records Medical records reviewed: Yes I reviewed the patient's medical records. Lab Data Lab results reviewed: Yes I reviewed the patient's lab results. ECG Data Attestation: I personally reviewed and interpreted this ECG (s) as follows: Prior ECG tracings: available for review Interpretation: see EKG HPI General Mode of arrival: wheelchair . Date/Time Provider Initiated Documentation: 06/22/21 01:06 . Limitations to Documentation: no limitations . Information obtained by: patient, RN notes reviewed and old records reviewed . HPI Narrative: Patient presents to ED after waking up with palpitations and rapid heart rate. Patient has a history of atrial fibrillation. She is status post WATCHMAN device. Currently on Plavix and aspirin but bleeds whenever she is on anticoagulation. Denies any chest pain or pressure. Denies any shortness of breath. Has not been ill lately and denies fever, cough, vomiting, diarrhea. Thought about taking an extra metoprolol but instead just came here. Related Data Home Medications Medication Instructions Recorded Confirmed ascorbic acid (vitamin C) [Vitamin 500 mg PO DAILY 07/24/15 06/22/21 C] cyanocobalamin (vitamin B-12) 1,000 mcg PO DAILY 07/24/15 06/22/21 [Vitamin B-12] magnesium oxide 500 mg tablet 500 mg PO DAILY 10/13/19 06/22/21 rosuvastatin 20 mg tablet 20 mg PO DAILY #90 tab 09/05/20 06/22/21 glimepiride 4 mg tablet 4 mg PO DAILY #90 tab-cap 09/24/20 06/22/21 metoprolol succinate 50 mg 50 mg PO BID #180 tab 12/16/20 06/22/21 tablet,extended release 24 hr spironolactone 25 mg tablet 25 mg PO DAILY #90 tab 12/16/20 06/22/21 B Complex 1 tab PO DAILY 01/02/21 06/22/21 [place] 3,6,9 1 tab PO DAILY 01/02/21 06/22/21 biotin 800 mcg tablet 800 mcg PO DAILY 01/02/21 06/22/21 cholecalciferol (vitamin D3) 50 2,000 unit PO QWEEK cap 01/02/21 06/22/21 mcg (2,000 unit) capsule nitroglycerin 0.4 mg sublingual 0.4 mg SL ONCE PRN tab 01/02/21 06/22/21 tablet pyridoxine (vitamin B6) 50 mg 100 mg PO DAILY tab 01/02/21 06/22/21 tablet blood-glucose meter #1 ea 03/10/21 06/09/21 furosemide 20 mg tablet 20 mg PO DAILY PRN #90 tab 03/10/21 06/22/21 lancets #100 ea 03/10/21 06/09/21 losartan 50 mg tablet 50 mg PO BID #180 tab 03/11/21 06/22/21 aspirin 81 mg tablet,delayed 81 mg PO DAILY 05/13/21 06/22/21 release nystatin 100,000 unit/gram topical 1 applic TOPICAL TID #30 g 05/14/21 06/22/21 cream blood sugar diagnostic #100 ea 05/19/21 06/09/21 clopidogrel 75 mg tablet 75 mg PO DAILY #90 tab 05/19/21 06/22/21 metformin 500 mg tablet See Rx Instructions PO BID #270 tab 05/19/21 06/22/21 Previous Rx's Medication Instructions Recorded rosuvastatin 20 mg tablet 20 mg PO DAILY #90 tab 09/05/20 glimepiride 4 mg tablet 4 mg PO DAILY #90 tab-cap 09/24/20 metoprolol succinate 50 mg 50 mg PO BID #180 tab 12/16/20 tablet,extended release 24 hr spironolactone 25 mg tablet 25 mg PO DAILY #90 tab 12/16/20 blood-glucose meter #1 ea 03/10/21 furosemide 20 mg tablet 20 mg PO DAILY PRN #90 tab 03/10/21 lancets #100 ea 03/10/21 losartan 50 mg tablet 50 mg PO BID #180 tab 03/11/21 nystatin 100,000 unit/gram topical 1 applic TOPICAL TID #30 g 05/14/21 cream blood sugar diagnostic #100 ea 05/19/21 clopidogrel 75 mg tablet 75 mg PO DAILY #90 tab 05/19/21 metformin 500 mg tablet See Rx Instructions PO BID #270 tab 05/19/21 Allergies Allergy/AdvReac Type Severity Reaction Status Date / Time No Known Allergies Allergy Verified 06/22/21 01:14 General CYNTHIA: 3 Review of Systems Narrative: 08/14 Review of Systems completed and is negative except as stated above in HPI (Systems reviewed: Const, Eyes, ENT, Resp, CV, GI, , MSK, Skin, Neuro) [facility] Medical History A-fib Anemia with heme positive stool 02/17 CAD (coronary artery disease) Congestive heart failure (CHF) Essential hypertension (07/24/15) Kidney stones Migraine Post-menopausal bleeding 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 Sexually active: No Do you think of yourself as: straight/heterosexual Current gender identity: female What is your relationship status?: Panel score (0-1 are the most socially isolated patients): 0 What type of physical activity do you participate in: none Duration: 15-30 minutes/day Frequency: 3-4 times per week Seatbelt use: always Drive intox or ride w/intox day haul or farm charter bus driver: No Working smoke detector in home: Yes Fire extinguisher in home: Yes Carbon monox detector in home: Yes Do you feel safe at home: Yes Do you feel safe in your relationship?: Yes Additional Social history: of neck cancer 2013. Patient relocated to [place] to be closer to her children. Exam Narrative Exam Narrative: Const: Overweight elderly female in NAD. HEENT: NC/AT. Normal facial exam. Eyes: Normal conjunctiva and sclera. Neck: Supple. Trachea midline. Lungs: Normal respiratory effort. Lungs are clear. Cor: Irr/irr and tachy. Good radial pulses. GI: Soft. NT/ND. Neuro: A+O x 3. Normal speech, mentation, gait. Cranial nerves II - XII grossly intact. No gross motor or sensory deficit. Ext: No C/C/E. Skin: Warm and dry without rash. Critical Care Time Critical Care Time Critical Care Time: Yes Total Critical Care Time: 60 Attestation: Upon my evaluation, this patient had a high probability of imminent or life- threatening deterioration, which required my direct attention, intervention, and personal management. I have personally provided 60 minutes of critical care time exclusive of time spent on separately billable procedures. Time includes review of laboratory data, radiology results, discussion with consultants, and monitoring for potential decompensation. Interventions were performed as documented above.
[2021-06-22] MEDS: dilTIAZem 25 MG/5 ML VIAL 20 MG IVP (01:28)
[2021-06-22 01:31] LABS: Abs Immature Grans 0.03 10^3/uL (0.0-0.06); Absolute Basophil Count 0.04 10^3/uL (0.0-0.2); Absolute Lymphocyte Count 1.29 10^3/uL (1.2-3.4); Absolute Monocyte Count 0.68 10^3/uL (0.1-0.8); Absolute Neutrophil Count 4.27 10^3/uL (1.2-6.7); Basophils % 0.6; Eosinophils % 3.1; HCT 33.6 % (36.0-46.0); HGB 10.8 g/dL (11.2-15.7); Immature Grans % 0.5; Lymphocytes % 19.8; MCH 28.6 pg (27.0-33.0); MCHC 32.1 % (32.0-36.0); MCV 89.1 fL (80-95); MPV 8.6 fL (8.0-11.0); Monocytes % 10.4; Neutrophils % 65.6; Nucleated RBC 0 %; Platelet Count 263 10^3/uL (130-400); RBC 3.77 10^6/uL (3.93-5.22); RDW 13.8 % (11.7-14.6); RDW-SD 44.5 fL; WBC 6.51 10^3/uL (4.4-10.8)
[2021-06-22] MEDS: Normal Saline 1,000 ML 150 ML IV (01:33)
[2021-06-22 01:41] LABS: Anion Gap 11.1 mmol/L (3-11); BUN 25 mg/dL (7-18); CO2 25.9 mmol/L (21.0-32.0); CREATININE 1.1 mg/dL (0.55-1.02); Calcium 9.5 mg/dL (8.5-10.1); Chloride 102 mmol/L (98-107); Estimated GFR 47.79 (mL/min/1.73m2); Glucose 99 mg/dL (74-106); Potassium 3.9 mmol/L (3.5-5.1); Sodium 139 mmol/L (136-145)
[2021-06-22 01:50] LABS: Magnesium 1.9 mg/dL (1.8-2.4); Troponin I < 0.05 ng/mL (<0.06)
[2021-06-22] MEDS: dilTIAZem 25 MG/5 ML VIAL 10 MG IVP ×2 (01:51→03:17)
[2021-06-22] MEDS: Metoprolol 5 MG/5 ML VIAL IVP (02:18)
--- NOTE | 2021-06-22 02:45 | NUR.NOTE ---
Resting quietly on cart. Denies pain or needs. Lights dimmed for comfort. Call light in reach. Nursing Note:
[2021-06-22] MEDS: dilTIAZem 125 MG in Normal Saline 100 ML IV (03:31)
[2021-06-22 03:38] LABS: Source Nasal/Nares
--- NOTE | 2021-06-22 03:53 | NUR.NOTE ---
0330-Patient taken to restroom via wheelchair. Voids without difficulty. Gait steady. Denies dizziness or chest pain. Nursing Note:
[2021-06-22 04:10] LABS: NT-proBNP 459 pg/mL (<300); TSH 5.55 uIU/mL (0.36-3.74)
--- NOTE | 2021-06-22 04:15 | HPE_ITS ---
Date of service: 06/22/21 Time of Service: 04:15 Assessment and Plan Assessment and plan (1) Atrial fibrillation with RVR: Status: Acute Assessment and plan: Admit to ICU with cardizem gtt. Increase metoprolol to 50 mg PO Q8hrs from BID. Trend troponins. S/p Watchman device 05/08/21 - intolerant of anticoagulation. Continue asa, plavix, monitoring for bleeding. needs a sleep study as outpatient - will place referral. (2) Presence of Watchman left atrial appendage closure device: Status: Chronic Assessment and plan: As above (3) Chronic systolic CHF (congestive heart failure): Status: Chronic Assessment and plan: D/c IVF and resume home diuretics. I reinforced the need to be compliant with salt restriction as well as need to weigh herself daily. (4) CAD (coronary artery disease): Status: Chronic Assessment and plan: R/o ACS. (5) DVT prophylaxis: Status: Acute Assessment and plan: TEDs/SCDs due to h/o bleeding on anticoagulation. (6) Discharge planning issues: Status: Acute Assessment and plan: Full code Admit to ICU. Total Critical Care Time 45 minutes. History of Present Illness History of Present Illness Chief Complaint: palpitations Narrative: Ms Lobato is an 81 year old female with PMHx of paroxysmal Afib, s/p Watchman procedure (05/08/21 at [facility]) due to h/o vaginal vs uterine bleeding while on anticoagulation, presently on aspirin and plavix, as well as h/o CAD s/p cath/FABRIZIO x 3 in 2018, ICMO/chronic systolic CHF with latest EF of 55% per ASHELY on 05/08/21 , NIDDM2, who presented to [facility] ED this morning c/o palpitations. These woke her up right before 1 am and were accompanied by diaphoresis, but the patient specifically denied dizziness, chest pain, and nausea. She states she was breathing a little fast but felt only her chronic shortness of breath, nothing worse. Previously, Afib had converted to NSR with cardizem (the patient normally takes metoprolol). However, on this presentation, the patient received a total of 40 mg of IV cardizem pushes with HR slowing down from 140s-150s to 120s, but she has remained in Afib. [facility] cardiology recommended rate control rather than cardioversion. The patient was initiated on cardizem infusion. Hospitalist admission was requested. Of note, the patient does endorse snoring but has never had a formal sleep study. She takes her lasix as needed for swelling and had not taken it in about a month. She does endorse eating pizza last night and states she does not always weigh herself/follow salt restriction. Review of Systems All systems reviewed & are unremarkable except as noted in HPI and below PFSH Medical History (Updated 06/22/21 @ 04:29 by Mindi Brian MD) A-fib Anemia with heme positive stool 02/17 CAD (coronary artery disease) Congestive heart failure (CHF) Essential hypertension (07/24/15) Kidney stones Migraine Post-menopausal bleeding Type 2 diabetes mellitus with mild nonproliferative diabetic retinopathy without macular edema (07/24/15) Surgical History (Updated 06/22/21 @ 04:25 by Mindi Brian MD) History of heart artery stent 10/17/2018 Ligation of fallopian tube Presence of Watchman left atrial appendage closure device 05/08/21 Tonsillectomy vein stripping Family History Daughter , brainstem stoke at age 41. 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 Sexually active: No Do you think of yourself as: straight/heterosexual Current gender identity: female What is your relationship status?: Panel score (0-1 are the most socially isolated patients): 0 What type of physical activity do you participate in: none Duration: 15-30 minutes/day Frequency: 3-4 times per week Seatbelt use: always Drive intox or ride w/intox driver license examiner: No Working smoke detector in home: Yes Fire extinguisher in home: Yes Carbon monox detector in home: Yes Do you feel safe at home: Yes Do you feel safe in your relationship?: Yes Additional Social history: of neck cancer 2013. Patient relocated to [place] to be closer to her children. Meds Allergies and Home Medications Allergies Allergy/AdvReac Type Severity Reaction Status Date / Time No Known Allergies Allergy Verified 06/22/21 01:14 Home Medications Medication Instructions Recorded Confirmed Type ascorbic acid (vitamin C) [Vitamin 500 mg PO DAILY 07/24/15 06/22/21 History C] cyanocobalamin (vitamin B-12) 1,000 mcg PO DAILY 07/24/15 06/22/21 History [Vitamin B-12] magnesium oxide 500 mg tablet 500 mg PO DAILY 10/13/19 06/22/21 History rosuvastatin 20 mg tablet 20 mg PO DAILY #90 tab 09/05/20 06/22/21 Rx glimepiride 4 mg tablet 4 mg PO DAILY #90 tab-cap 09/24/20 06/22/21 Rx metoprolol succinate 50 mg 50 mg PO BID #180 tab 12/16/20 06/22/21 Rx tablet,extended release 24 hr spironolactone 25 mg tablet 25 mg PO DAILY #90 tab 12/16/20 06/22/21 Rx B Complex 1 tab PO DAILY 01/02/21 06/22/21 History [place] 3,6,9 1 tab PO DAILY 01/02/21 06/22/21 History biotin 800 mcg tablet 800 mcg PO DAILY 01/02/21 06/22/21 History cholecalciferol (vitamin D3) 50 2,000 unit PO QWEEK cap 01/02/21 06/22/21 History mcg (2,000 unit) capsule nitroglycerin 0.4 mg sublingual 0.4 mg SL ONCE PRN tab 01/02/21 06/22/21 History tablet pyridoxine (vitamin B6) 50 mg 100 mg PO DAILY tab 01/02/21 06/22/21 History tablet blood-glucose meter #1 ea 03/10/21 06/09/21 Rx furosemide 20 mg tablet 20 mg PO DAILY PRN #90 tab 03/10/21 06/22/21 Rx lancets #100 ea 03/10/21 06/09/21 Rx losartan 50 mg tablet 50 mg PO BID #180 tab 03/11/21 06/22/21 Rx aspirin 81 mg tablet,delayed 81 mg PO DAILY 05/13/21 06/22/21 History release nystatin 100,000 unit/gram topical 1 applic TOPICAL TID #30 g 05/14/21 06/22/21 Rx cream blood sugar diagnostic #100 ea 05/19/21 06/09/21 Rx clopidogrel 75 mg tablet 75 mg PO DAILY #90 tab 05/19/21 06/22/21 Rx metformin 500 mg tablet See Rx Instructions PO BID #270 tab 05/19/21 06/22/21 Rx Exam Narrative Exam Narrative: General: Very pleasant elderly female who appears younger than her stated age, A&Ox3, mildly anxious Neurological: A&Ox3, no focal deficits, [place] Psychiatric: mildly anxious; otherwise, tearful (appropriately) when talking about her daughter who from a brain stem bleed in 2007. Skin: Visible skin intact HEENT: Atraumatic, normocephalic, EOMI, dry MM, clear oropharynx, no submandibular or cervical lymphadenopathy, no goiter or JVD Cardiovascular: Irregularly irregular rhythm, tachycardic Lungs: CTAB Gastrointestinal: soft, nontender, nondistended Genitourinary: deferred Extremities: +1 [address]LE edema 1[address] to knee , L>R (left is always more swollen); +1 pedal pulses B, no lesions on B feet Results Imaging Additional studies: EKG: Afib, HR 138, nonspecific ST-T changes, no acute ischemia Labs Result diagrams: 06/22/21 01:25 06/22/21 01:25 Labs: Laboratory Results - last 24 hr 06/22/21 06/22/21 06/22/21 01:25 01:25 01:25 WBC 6.51 RBC 3.77 L Hgb 10.8 L Hct 33.6 L MCV 89.1 MCH 28.6 MCHC 32.1 RDW 13.8 Plt Count 263 MPV 8.6 Immature Gran % 0.5 Neutrophils % 65.6 Lymphocytes % 19.8 Monocytes % 10.4 Eosinophils % 3.1 Basophils % 0.6 Nucleated RBC % 0 Absolute Neutrophils 4.27 Absolute Lymphocytes 1.29 Absolute Monocytes 0.68 Absolute Eosinophils 0.20 Absolute Basophils 0.04 Sodium 139 Potassium 3.9 Chloride 102 Carbon Dioxide 25.9 Anion Gap 11.1 H BUN 25 H Creatinine 1.1 H Estimated GFR/1.73 m2 47.79 Glucose 99 Calcium 9.5 Magnesium 1.9 Troponin I < 0.05 NT-Pro-B Natriuret Pep 459 H TSH 5.55 H COVID-19 Source 06/22/21 03:33 WBC RBC Hgb Hct MCV MCH MCHC RDW Plt Count MPV Immature Gran % Neutrophils % Lymphocytes % Monocytes % Eosinophils % Basophils % Nucleated RBC % Absolute Neutrophils Absolute Lymphocytes Absolute Monocytes Absolute Eosinophils Absolute Basophils Sodium Potassium Chloride Carbon Dioxide Anion Gap BUN Creatinine Estimated GFR/1.73 m2 Glucose Calcium Magnesium Troponin I NT-Pro-B Natriuret Pep TSH COVID-19 Source Nasal/Nares Last Vital Signs Temp 36.6 C 06/22/21 01:09 Pulse 93 H 06/22/21 03:46 Resp 23 06/22/21 03:46 BP 140/73 06/22/21 03:46 Pulse Ox 98 06/22/21 03:46
--- NOTE | 2021-06-22 04:28 | NUR.NOTE ---
REport to SCARLETT Colin, ICUNursing Note:
[2021-06-22 04:29] LABS: COVID-19 PCR Negative (Negative)
[2021-06-22] MEDS: Metoprolol 50 MG TAB PO ×3 (06:06→21:06)
[2021-06-22 07:13] LABS: HCT 31.6 % (36.0-46.0); HGB 10.3 g/dL (11.2-15.7)
[2021-06-22 07:24] LABS: Anion Gap 10.3 mmol/L (3-11); BUN 23 mg/dL (7-18); CO2 23.7 mmol/L (21.0-32.0); CREATININE 1.2 mg/dL (0.55-1.02); Calcium 9.3 mg/dL (8.5-10.1); Chloride 107 mmol/L (98-107); Estimated GFR 43.23 (mL/min/1.73m2); Glucose 179 mg/dL (74-106); Magnesium 1.9 mg/dL (1.8-2.4); Potassium 5.1 mmol/L (3.5-5.1); Sodium 141 mmol/L (136-145)
[2021-06-22 07:35] LABS: Troponin I 0.49 ng/mL (<0.06)
[2021-06-22] MEDS: Insulin Aspart 300 UNITS/3 ML PEN SC ×2 (08:42→12:25)
[2021-06-22] MEDS: Aspirin E.C. 81 MG TABEC PO (08:44)
[2021-06-22] MEDS: Spironolactone 25 MG TAB PO (08:45)
[2021-06-22] MEDS: Glimepiride 2 MG TAB 4 MG PO (08:45)
[2021-06-22] MEDS: Magnesium Oxide 400 MG TAB PO (08:45)
[2021-06-22] MEDS: Furosemide 20 MG TAB PO (08:45)
[2021-06-22] MEDS: Clopidogrel 75 MG TAB PO (08:45)
[2021-06-22] MEDS: Losartan 50 MG TAB PO ×2 (08:45→21:06)
[2021-06-22] MEDS: Vitamins B Comp w/C TAB 1 TAB PO (08:45)
[2021-06-22] MEDS: Ascorbic Acid 500 MG TAB PO (08:45)
[2021-06-22] MEDS: metFORMIN 500 MG TAB 1000 MG PO (08:45)
[2021-06-22] MEDS: Omega-3 Fatty Acids 1000 MG CAP PO (08:45)
[2021-06-22] MEDS: Nystatin CREAM 30 GM TUBE TP ×2 (08:46→21:19)
--- NOTE | 2021-06-22 09:15 | RT.EKG_ITS ---
APPROVED REPORT Exam: Resting ECG Reason for Exam: converted from afib to SR. Patient Location: I HR:73 bpm ECG Measurements Heart Rate 73 AXIS WI 184 P 7 QRSd 94 QRS -23 QT 409 T -5 QTc 451 Conclusion Sinus rhythm...normal P axis, V-rate 60- 99
[2021-06-22 11:10] LABS: Troponin I 0.93 ng/mL (<0.06)
[2021-06-22 15:20] LABS: Troponin I 1.01 ng/mL (<0.06)
[2021-06-22 20:29] LABS: Troponin I 0.77 ng/mL (<0.06)
[2021-06-22] MEDS: Rosuvastatin 10 MG TAB 20 MG PO (21:06)
[2021-06-23] VITALS (18 sets, daily range): BP systolic 120–142; BP diastolic 49–67; PULSE 55–70; RESP 11–23; TEMP 36.5–36.6; O2SAT 97–98
[2021-06-23] MEDS: Metoprolol 50 MG TAB PO (06:54)
[2021-06-23] MEDS: Magnesium Oxide 400 MG TAB PO (07:44)
[2021-06-23] MEDS: Cyanocobalamin 500 MCG TAB 1000 MCG PO (07:44)
[2021-06-23] MEDS: Vitamins B Comp w/C TAB 1 TAB PO (07:45)
[2021-06-23] MEDS: Clopidogrel 75 MG TAB PO (07:45)
[2021-06-23] MEDS: Aspirin E.C. 81 MG TABEC PO (07:45)
[2021-06-23] MEDS: Furosemide 20 MG TAB PO (07:45)
[2021-06-23] MEDS: Spironolactone 25 MG TAB PO (07:46)
[2021-06-23] MEDS: Glimepiride 2 MG TAB 4 MG PO (07:46)
[2021-06-23] MEDS: Ascorbic Acid 500 MG TAB PO (07:47)
[2021-06-23] MEDS: Omega-3 Fatty Acids 1000 MG CAP PO (07:47)
[2021-06-23] MEDS: metFORMIN 500 MG TAB 1000 MG PO (07:47)
[2021-06-23] MEDS: Losartan 50 MG TAB PO (07:48)
[2021-06-23] MEDS: Cholecalciferol (Vitamin D3) 1,000 UNIT TAB 2000 UNITS PO (08:11)
--- NOTE | 2021-06-23 08:44 | PDOC.CMIN ---
- If Service Date Differs Date of service: 06/23/21 Time of Service: 08:44 Care Management Initial Assess REASON FOR HOSPITALIZATION:: Atrial fib with RVR PAST MEDICAL HISTORY/PAST SURGICAL HISTORY:: Medical History (Updated 06/22/21 @ 04:29 by Mindi Brian MD). A-fib. Anemia. with heme positive stool 02/17. CAD (coronary artery disease). Congestive heart failure (CHF). Essential hypertension (07/24/15). Kidney stones. Migraine. Post-menopausal bleeding. Type 2 diabetes mellitus with mild nonproliferative diabetic retinopathy without macular edema (07/24/15). Surgical History (Updated 06/22/21 @ 04:25 by Mindi Brian MD). History of heart artery stent. 10/17/2018. Ligation of fallopian tube. Presence of Watchman left atrial appendage closure device. 05/08/21. Tonsillectomy. vein stripping PREVIOUS FUNCTIONAL STATUS/SOCIAL/FAMILY SUPPORTS:: Madeleine lives in [place], [place] CURRENT FUNCTIONAL STATUS:: Madeleine was discharged before was able to meet with her. ADVANCE DIRECTIVES:: on file. Jone HANSEN Has patient been provided with info about the portal/API?: Yes Did the patient sign up for the portal?: No CODE STATUS:: Full Code INSURANCE COVERAGE / FINANCIAL ISSUES:: Medicare. [employer] benefit plan PRIMARY CARE PHYSICIAN:: Dave Seaman POTENTIAL DISCHARGE NEEDS:: Follow up with PCP and plan of care PATIENT/FAMILY EDUCATION NEEDS:: Review of discharge plan, medications, follow up plan, limitations,Ask Me Three PLAN:: Madeleine was discharged home with no new services. She will follow up with her community providers and will be referred for a sleep study. Her metoprolol was increased and the afib with RVR she was admitted with has converted to NSR with a rate in the 50s and 60s.
--- NOTE | 2021-06-23 09:07 | W.PULMCC ---
General Date of Service Date of service: 06/23/21 Time of Service: 08:45 Reason for Admission to ICU: Atrial fibrillation with RVR Assessment and Plan Assessment and plan (1) Atrial fibrillation with RVR: Status: Acute (2) Presence of Watchman left atrial appendage closure device: Status: Chronic (3) Chronic systolic CHF (congestive heart failure): Status: Chronic (4) Essential hypertension: Status: Acute Assessment and plan: This is an 81-year-old female who was admitted to the ICU due to A. fib with RVR which was controlled with a Cardizem drip. She later converted to sinus rhythm while in the ICU and was placed back on her home metoprolol. At the time of my assessment she was doing well and no longer needed the ICU. Recommendations Pulmonary: No acute concern Cardiac: A.fib with RVR - s/p Watchman procedure - resolved with Cardizem gtt - agree with transition to home medication regimen CHF - continue home medication regimen Renal: No acute concerns I&O: Intake & Output 06/20/21 06/21/21 06/22/21 06/23/21 23:59 23:59 23:59 23:59 Intake Total 1328.417 / 1328.417 200 / 200 Output Total 1750 / 1750 250 / 250 Balance -421.583 / -421.583 -50 / -50 Weight 83.3 kg Daily Fluid Goal:: even GI Nutrition: Ok for PO diet Date of Last Bowel Movement: 06/22/21 Infectious Disease: No acute concerns Hematologic: No acute concerns Neurologic: No acute concerns Endocrine: No acute concerns Lines: PIV Prophylaxis: No GI ppx needed Lovenox while admitted Code Status: Resuscitation Status Full Code Subjective Critical and life-threatening events over the past 24 hours: This is an 81-year-old female with a history of paroxysmal A. fib status post watchman procedure on May 08, 2021 at [facility] due to history of gynecologic bleeding while on anticoagulation. She also has a history of CAD with PCI in 2018 as well as CHF with latest EF of 55% completed in May 2021. She presented to the emergency department after she woke up with palpitations and diaphoresis as well as rapid breathing. She was found to be in A. fib with RVR and was placed on a Cardizem drip. He was then transferred to the ICU for further monitoring. She was found to have a mild troponin elevation to 1.01 which quickly decreased in the setting of her RVR and she did eventually convert to normal sinus rhythm. She was titrated off of the Cardizem drip and placed back on her metoprolol. Upon my assessment she was doing much better and was off of the Cardizem. Her heart rate was well controlled and in sinus rhythm. She denied any shortness of breath, chest pains, palpitations or any other issue. Exam Const General: no acute distress Nutritional Appearance: well nourished [facility] Head: normocephalic Ears: external ears normal and no periauricular adenopathy General nose exam: nasal mucous membranes and turbinates normal Face and sinus: sinuses nontender Mouth: oropharynx normal and moist mucous membranes Teeth and gingiva: dentition normal Eyes General: appearance normal, both eyes and all related structures Pupils: PERRL Neck Neck: normal visual inspection and no lymphadenopathy Chest Chest: normal inspection of the chest Resp Effort & Inspection: normal respiratory effort Auscultation: clear to auscultation bilaterally, no rales, no rhonchi and no wheezes Cardio Rate: regular rate Rhythm: regular rhythm Heart Sounds: S1 normal, S2 normal and no murmurs Pulses: radial pulses present bilaterally GI Inspection: normal to inspection Palpation: soft Skin General skin exam: no rashes or lesions noted Neuro General: patient alert, patient awake and patient oriented x3 Extrem General: no clubbing, cyanosis or edema Psych Mental Status: mental status grossly normal Affect: normal affect Attitude: cooperative Most Recent VS/Results Last Vital Signs Temp 36.6 C 06/23/21 03:21 Pulse 55 L 06/23/21 06:01 Resp 20 06/23/21 06:30 BP 124/49 L 06/23/21 06:01 Pulse Ox 98 06/23/21 03:21 Laboratory Results - last 24 hr 06/22/21 06/22/21 06/22/21 10:40 14:57 20:00 Troponin I 0.93 H* 1.01 H* 0.77 H* Review of Systems All systems reviewed & are unremarkable except as noted in HPI and below
--- NOTE | 2021-06-23 09:58 | W.PM.DS.N ---
Date of service: 06/23/21 Time of Service: 09:58 DS: Diagnosis Discharge Diagnosis (1) Atrial fibrillation with RVR: Status: Acute (2) Presence of Watchman left atrial appendage closure device: Status: Chronic (3) Chronic systolic CHF (congestive heart failure): Status: Chronic (4) CAD (coronary artery disease): Status: Chronic (5) DVT prophylaxis: Status: Acute (6) Discharge planning issues: Status: Acute Discharge Plan Disposition Patient Disposition: HOME Condition: Stable Discharge Details Reason For Visit: Rapid AFIB Admit Date/Time: 06/22/21 03:18 Admit Provider: Mindi Brian Attending Provider: Mindi Brian Primary Care Provider: Dave Seaman [facility] Course Hospital Course: Ms Lobato is an 81 year old female with PMHx of paroxysmal Afib, s/p Watchman procedure (05/08/21 at [facility] due to h/o vaginal vs uterine bleeding while on anticoagulation, presently on aspirin and plavix, as well as h/o CAD s/p cath/FABRIZIO x 3 in 2018, ICMO/chronic systolic CHF with latest EF of 55% per ASHELY on 05/08/21 , NIDDM2, who presented to [facility] ED this morning c/o palpitations. These woke her up right before 1 am and were accompanied by diaphoresis, but the patient specifically denied dizziness, chest pain, and nausea. She states she was breathing a little fast but felt only her chronic shortness of breath, nothing worse. Previously, Afib had converted to NSR with cardizem (the patient normally takes metoprolol). However, on this presentation, the patient received a total of 40 mg of IV cardizem pushes with HR slowing down from 140s-150s to 120s, but she has remained in Afib. [facility] cardiology recommended rate control rather than cardioversion. The patient was initiated on cardizem infusion. Hospitalist admission was requested. Of note, the patient does endorse snoring but has never had a formal sleep study. She takes her lasix as needed for swelling and had not taken it in about a month. She does endorse eating pizza last night and states she does not always weigh herself/follow salt restriction. Her troponin peaked at 1.01, then decreased to 0.77. She endorsed no further palpitations. No chest pain, SOA, [place]. She did convert to normal sinus rythmn. Her metoprolol was increased from 50mg BID to TID. Her heart rate was then consistently in the 50's to 60's range. She will discharge back on her home dose of metoprolol. She was referred for a sleep study. PCP f/u in 1-2 weeks. Home Meds and New Rx's Prescriptions: Continued cholecalciferol (vitamin D3) 50 mcg (2,000 unit) capsule 2,000 unit PO QWEEK RF: 0 furosemide 20 mg tablet 20 mg PO DAILY PRN (Reason: edema) Qty: 90 RF: 1 (DME) lancets Misc See Rx Instructions .ROUTE .MEDSUPPLY Qty: 100 RF: 3 (DME) blood-glucose meter Misc See Rx Instructions .ROUTE .MEDSUPPLY Qty: 1 RF: 0 nitroglycerin [Nitrostat] 0.4 mg tablet, sublingual 0.4 mg SL ONCE PRNRF: 0 B Complex 1 tab PO DAILY RF: 0 [place] 3,6,9 1 tab PO DAILY RF: 0 biotin 800 mcg tablet 800 mcg PO DAILY RF: 0 nystatin 100,000 unit/gram cream 1 applic topical TID Qty: 30 RF: 3 clopidogrel 75 mg tablet 75 mg PO DAILY Qty: 90 RF: 3 (DME) blood sugar diagnostic Strip See Rx Instructions .ROUTE .MEDSUPPLY Qty: 100 RF: 3 metformin 500 mg tablet See Rx Instructions PO BID Qty: 270 RF: 3 cyanocobalamin (vitamin B-12) [Vitamin B-12] 1,000 MCG tablet 1,000 mcg PO DAILY RF: 0 ascorbic acid (vitamin C) [Vitamin C] 500 MG capsule, extended release 500 mg PO DAILY RF: 0 magnesium oxide 500 mg tablet 500 mg PO DAILY RF: 0 rosuvastatin 20 mg tablet 20 mg PO DAILY Qty: 90 RF: 7 glimepiride 4 mg tablet 4 mg PO DAILY Qty: 90 RF: 3 metoprolol succinate 50 mg tablet extended release 24 hr 50 mg PO BID Qty: 180 RF: 3 spironolactone 25 mg tablet 25 mg PO DAILY Qty: 90 RF: 3 pyridoxine (vitamin B6) [Vitamin B-6] 50 mg tablet 100 mg PO DAILY RF: 0 losartan 50 mg tablet 50 mg PO BID Qty: 180 RF: 6 aspirin [Adult Aspirin Regimen] 81 mg tablet,delayed release (DR/EC) 81 mg PO DAILY RF: 0 Discharge Instructions Instructions: A-fib (Atrial Fibrillation) (DC) Referrals: SLEEP CLINIC,PENDING SALE TO [facility] [OTHER] - Activity:: Activity as Tolerated Equipment/Supplies:: No Equipment Needed Diet:: Low Na and diabetic Discharge Orders Discharge Orders: Discharge Order (Routine); Ordered 06/23/21 Ordered By: Walter Gonzalez Discharge Data Discharge Date/Time-TO BE ENTERED AT DEPARTURE: 06/23/21 11:33 Discharge Comment: no c/o DS: Summary Time Spent with Patient providing and/or coordinating discharge services: Greater than 30 minutes Status at Discharge Functional status at discharge: independent ambulation Overall status at discharge: patient is back to baseline Mental Status: mental status grossly normal Speech and Movement: speech and movement normal Mood: congruent mood Affect: normal affect Exam Psych Mental Status: mental status grossly normal Speech and Movement: speech and movement normal Mood: congruent mood Affect: normal affect DS: Data Vitals/I&O Vitals and I&O: Vital Signs Temperature 36.6 C 06/23/21 03:21 Temperature Source Temporal Artery Scan 06/23/21 03:21 Pulse 55 L 06/23/21 06:01 Pulse 61 06/23/21 06:30 Respiratory Rate 20 06/23/21 06:30 Respiratory Effort Non-Labored 06/23/21 03:21 Respiratory Depth Normal 06/23/21 03:21 Respiratory Pattern Normal 06/23/21 03:21 Blood Pressure 124/49 L 06/23/21 06:01 Blood Pressure Mean 69 06/23/21 06:01 Blood Pressure Position Supine 06/23/21 03:21 Pulse Oximetry 98 06/23/21 03:21 Oxygen Delivery Method Room Air 06/23/21 03:21 Oxygen Flow Rate 0 06/23/21 03:21 Pain Level 0 06/23/21 03:21 Intake & Output 06/22/21 06/22/21 06/23/21 11:59 23:59 11:59 Intake Total 1088.417 / 1328.417 240 / 1328.417 200 / 200 Output Total 700 / 1750 1050 / 1750 250 / 250 Balance 388.417 / -421.583 -810 / -421.583 -50 / -50 Weight 83.3 kg Intake: IV 728.417 / 728.417 Oral 360 / 600 240 / 600 200 / 200 Output: Urine 700 / 1750 1050 / 1750 250 / 250 Other: Urine Color Straw Yellow Yellow Urine Appearance Clear Clear Clear Urine Odor Normal Normal Normal Comment Pt. reports that she does have some bleeding at times but states They can't figure out why. Is incontinent of urine at times pt voids to commode. pt voids to commode. Stool Size Moderate Stool Characteristics Formed Voiding Methods Bedside Commode Bedside Commode # Voids 1 Data Completed and Pending Labs on day of discharge: Labs from last 24 hours 06/22/21 06/22/21 06/22/21 20:00 14:57 10:40 Troponin I 0.77 H* 1.01 H* 0.93 H* PFSH Medical History A-fib Anemia with heme positive stool 02/17 CAD (coronary artery disease) Congestive heart failure (CHF) Essential hypertension (07/24/15) Kidney stones Migraine Post-menopausal bleeding 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 Sexually active: No Do you think of yourself as: straight/heterosexual Current gender identity: female What is your relationship status?: Panel score (0-1 are the most socially isolated patients): 0 What type of physical activity do you participate in: none Duration: 15-30 minutes/day Frequency: 3-4 times per week Seatbelt use: always Drive intox or ride w/intox escort vehicle driver: No Working smoke detector in home: Yes Fire extinguisher in home: Yes Carbon monox detector in home: Yes Do you feel safe at home: Yes Do you feel safe in your relationship?: Yes Additional Social history: of neck cancer 2013. Patient relocated to [place] to be closer to her children.
== END 2021-06-23 11:33 | disposition home or self-care (01) | DRG 309 ==
LOC: ER 03:39 → ICU 04:46
PROVIDERS: Family Medicine; Admitting Provider Internal Medicine; Emergency Provider Emergency Medicine; PCP Family Medicine; Visit Provider Internal Medicine
DX: I48.0 Paroxysmal atrial fibrillation (principal); I50.22 Chronic systolic (congestive) heart failure; I25.10 Atherosclerotic heart disease of native coronary artery without angina pectoris; D64.9 Anemia, unspecified; I11.0 Hypertensive heart disease with heart failure; E11.3299 Type 2 diabetes mellitus with mild nonproliferative diabetic retinopathy without macular edema, unspecified eye; G43.909 Migraine, unspecified, not intractable, without status migrainosus; N20.0 Calculus of kidney; N95.0 Postmenopausal bleeding; Z20.822 Contact with and (suspected) exposure to COVID-19; Z95.818 Presence of other cardiac implants and grafts; Z79.82 Long term (current) use of aspirin; Z95.5 Presence of coronary angioplasty implant and graft; Z79.84 Long term (current) use of oral hypoglycemic drugs
CPT/HCPCS: 36415; 80048; 87635; 93005; 96361; 96365; 96375; 96376; 99291; 83735; 83880; 84443; 84484; 85014; 85018; 85025; 93010; 99239

== ENCOUNTER 2021-06-30 22:59 | Observation (INO) | payer MEDICARE, OTHER, SELFPAY ==
[2021-06-30] VITALS (15 sets, daily range): BP systolic 107–176; BP diastolic 83–108; PULSE 113–168; RESP 16–30; O2SAT 98–100
--- NOTE | 2021-06-30 23:00 | RT.EKG_ITS ---
APPROVED REPORT Exam: Resting ECG Reason for Exam: a-fib Patient Location: E HR:148 bpm ECG Measurements Heart Rate 148 AXIS MT [id number] P [id number] QRSd 94 QRS -19 QT 290 T 209 QTc 462 Conclusion Atrial fibrillation with rapid V-rate...A-rate 271 Inferior infarct, old...Q >35mS, II III aVF Nonspecific T abnormalities, lateral leads...T <-0.10mV, I aVL V5 V6
--- NOTE | 2021-06-30 23:13 | ED.GENADUL_ITS ---
Discharge Plan Disposition Patient Disposition: [facility] INPATIENT Condition: Stable Discharge Details Chief Complaint: Palpitatns Clinical Impression: Atrial fibrillation with RVR Primary Care Provider: Dave Seaman ED Provider: Ladarius Lawson Shiro Meds and New Rx's Prescriptions: No Action cholecalciferol (vitamin D3) 50 mcg (2,000 unit) capsule 2,000 unit PO QWEEK RF: 0 furosemide 20 mg tablet 20 mg PO DAILY PRN (Reason: edema) Qty: 90 RF: 1 (DME) lancets Misc See Rx Instructions .ROUTE .MEDSUPPLY Qty: 100 RF: 3 (DME) blood-glucose meter Misc See Rx Instructions .ROUTE .MEDSUPPLY Qty: 1 RF: 0 nitroglycerin [Nitrostat] 0.4 mg tablet, sublingual 0.4 mg SL ONCE PRNRF: 0 B Complex 1 tab PO DAILY RF: 0 [place] 3,6,9 1 tab PO DAILY RF: 0 biotin 800 mcg tablet 800 mcg PO DAILY RF: 0 nystatin 100,000 unit/gram cream 1 applic topical TID Qty: 30 RF: 3 clopidogrel 75 mg tablet 75 mg PO DAILY Qty: 90 RF: 3 (DME) blood sugar diagnostic Strip See Rx Instructions .ROUTE .MEDSUPPLY Qty: 100 RF: 3 metformin 500 mg tablet See Rx Instructions PO BID Qty: 270 RF: 3 cyanocobalamin (vitamin B-12) [Vitamin B-12] 1,000 MCG tablet 1,000 mcg PO DAILY RF: 0 ascorbic acid (vitamin C) [Vitamin C] 500 MG capsule, extended release 500 mg PO DAILY RF: 0 magnesium oxide 500 mg tablet 500 mg PO DAILY RF: 0 rosuvastatin 20 mg tablet 20 mg PO DAILY Qty: 90 RF: 7 glimepiride 4 mg tablet 4 mg PO DAILY Qty: 90 RF: 3 metoprolol succinate 50 mg tablet extended release 24 hr 50 mg PO BID Qty: 180 RF: 3 spironolactone 25 mg tablet 25 mg PO DAILY Qty: 90 RF: 3 pyridoxine (vitamin B6) [Vitamin B-6] 50 mg tablet 100 mg PO DAILY RF: 0 losartan 50 mg tablet 50 mg PO BID Qty: 180 RF: 6 aspirin [Adult Aspirin Regimen] 81 mg tablet,delayed release (DR/EC) 81 mg PO DAILY RF: 0 Medical Decision Making 81 year old female with PMHx of paroxysmal Afib, s/p Watchman procedure (05/08/21 at [facility]) due to h/o vaginal vs uterine bleeding while on anticoagulation, presently on aspirin and plavix, as well as h/o CAD s/p cath/FABRIZIO x 3 in 2018, ICMO/chronic systolic CHF with latest EF of 55% per ASHELY on 05/08/21 , NIDDM2, who was admitted last week after having afib with rvr and elevated troponin treated conservatively per cardiology recs and converted to sinus, who comes in after she laid down to go to bed aroud 10 pm and she started to feel her heart beating fast. She denies any preceding symptoms and felt well all day. Denies any diaphoresis, nausea, dyspnea, chest pain, though does have bilateral shoulder pain she states she normally gets when she is in rvr. She is noted to be in afib with rvr on arrival with rates in the 150's and otherwise stable vitals. She is speaking in sentences making jokes during exam in no distress. Will evaluate for electrolyte abnormalities, obtain troponin and treat with diltiazem. pt remains stable, hr now in the 120's after IV dilt bolus of 20mg, drip starting labs unremarkable, negative troponin and she continues to feel well but is still in afib on drip at rate of 5mg/hr and rates 110-130, will discuss with hospitalist about admission for continued monitoring and management Differential Diagnosis Differential Diagnosis: afib, electrolyte abnormality Medical Records Medical records reviewed: Yes I reviewed the patient's medical records. Imaging Data Radiologic Study: Attestation: I personally reviewed and interpreted this imaging study as follows: Imaging: X-Ray Radiologist's impression: IMPRESSION: No evidence of acute cardiopulmonary process Lab Data Lab results reviewed: Yes I reviewed the patient's lab results. ECG Data Attestation: I personally reviewed and interpreted this ECG (s) as follows: Prior ECG tracings: available for review Interpretation: afib with rvr, rates in the 140's, no new acute ischemic changes from prior ekg when she has been in afib with rvr prior HPI General Mode of arrival: ambulatory . Date/Time Provider Initiated Documentation: 06/30/21 23:03 . Limitations to Documentation: no limitations . Information obtained by: patient . History of Present Illness 81 year old F presents to the emergency department with the chief complaint of feels heart beating fast, described as moderate, Patient started experiencing this hour(s) (1) and it has been constant. No relieving factors improve symptom(s), No exacerbating factors reported . Patient notes denies chest pain and diaphoresis. Patient did receive the following treatments prior to arrival, none Related Data Home Medications Medication Instructions Recorded Confirmed ascorbic acid (vitamin C) [Vitamin 500 mg PO DAILY 07/24/15 06/22/21 C] cyanocobalamin (vitamin B-12) 1,000 mcg PO DAILY 07/24/15 06/22/21 [Vitamin B-12] magnesium oxide 500 mg tablet 500 mg PO DAILY 10/13/19 06/22/21 rosuvastatin 20 mg tablet 20 mg PO DAILY #90 tab 09/05/20 06/22/21 glimepiride 4 mg tablet 4 mg PO DAILY #90 tab-cap 09/24/20 06/22/21 metoprolol succinate 50 mg 50 mg PO BID #180 tab 12/16/20 06/22/21 tablet,extended release 24 hr spironolactone 25 mg tablet 25 mg PO DAILY #90 tab 12/16/20 06/22/21 B Complex 1 tab PO DAILY 01/02/21 06/22/21 [place] 3,6,9 1 tab PO DAILY 01/02/21 06/22/21 biotin 800 mcg tablet 800 mcg PO DAILY 01/02/21 06/22/21 cholecalciferol (vitamin D3) 50 2,000 unit PO QWEEK cap 01/02/21 06/22/21 mcg (2,000 unit) capsule nitroglycerin 0.4 mg sublingual 0.4 mg SL ONCE PRN tab 01/02/21 06/22/21 tablet pyridoxine (vitamin B6) 50 mg 100 mg PO DAILY tab 01/02/21 06/22/21 tablet blood-glucose meter #1 ea 03/10/21 06/09/21 furosemide 20 mg tablet 20 mg PO DAILY PRN #90 tab 03/10/21 06/22/21 lancets #100 ea 03/10/21 06/09/21 losartan 50 mg tablet 50 mg PO BID #180 tab 03/11/21 06/22/21 aspirin 81 mg tablet,delayed 81 mg PO DAILY 05/13/21 06/22/21 release nystatin 100,000 unit/gram topical 1 applic TOPICAL TID #30 g 05/14/21 06/22/21 cream blood sugar diagnostic #100 ea 05/19/21 06/09/21 clopidogrel 75 mg tablet 75 mg PO DAILY #90 tab 05/19/21 06/22/21 metformin 500 mg tablet See Rx Instructions PO BID #270 tab 05/19/21 06/22/21 Previous Rx's Medication Instructions Recorded rosuvastatin 20 mg tablet 20 mg PO DAILY #90 tab 09/05/20 glimepiride 4 mg tablet 4 mg PO DAILY #90 tab-cap 09/24/20 metoprolol succinate 50 mg 50 mg PO BID #180 tab 12/16/20 tablet,extended release 24 hr spironolactone 25 mg tablet 25 mg PO DAILY #90 tab 12/16/20 blood-glucose meter #1 ea 03/10/21 furosemide 20 mg tablet 20 mg PO DAILY PRN #90 tab 03/10/21 lancets #100 ea 03/10/21 losartan 50 mg tablet 50 mg PO BID #180 tab 03/11/21 nystatin 100,000 unit/gram topical 1 applic TOPICAL TID #30 g 05/14/21 cream blood sugar diagnostic #100 ea 05/19/21 clopidogrel 75 mg tablet 75 mg PO DAILY #90 tab 05/19/21 metformin 500 mg tablet See Rx Instructions PO BID #270 tab 05/19/21 Allergies Allergy/AdvReac Type Severity Reaction Status Date / Time No Known Allergies Allergy Verified 06/30/21 23:15 General CYNTHIA: 2 Review of Systems All systems reviewed & are unremarkable except as noted in HPI and below Constitutional Constitutional: Denies chills, Denies fever(s) and Denies weakness Cardiovascular Cardiovascular: Denies chest pain and Denies dyspnea Respiratory Respiratory: Denies cough and Denies dyspnea Gastrointestinal Gastrointestinal: Denies abdominal pain, Denies nausea and Denies vomiting Musculoskeletal Musculoskeletal: Denies joint swelling Neurologic Neurologic: Denies weakness Psychiatric Psychiatric: Denies depression FOR[facility], [facility] Medical History A-fib Anemia with heme positive stool 02/17 CAD (coronary artery disease) Congestive heart failure (CHF) Essential hypertension (07/24/15) Kidney stones Migraine Post-menopausal bleeding 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 Sexually active: No Do you think of yourself as: straight/heterosexual Current gender identity: female What is your relationship status?: Panel score (0-1 are the most socially isolated patients): 0 What type of physical activity do you participate in: none Duration: 15-30 minutes/day Frequency: 3-4 times per week Seatbelt use: always 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 Patient relocated to [place] to be closer to her children. Exam Const General: no acute distress Orientation: alert HENMT Head: normal to inspection Ears: external ears normal General nose exam: external nose normal Mouth: moist mucous membranes Eyes General: appearance normal, both eyes and all related structures Neck Neck: normal visual inspection Resp Effort & Inspection: normal respiratory effort and able to speak in complete sentences Cardio Rate: tachycardic Skin General skin exam: no rashes or lesions noted Neuro General: patient alert and patient oriented x3 Extrem General: normal to inspection Psych Mental Status: mental status grossly normal Critical Care Time Critical Care Time Critical Care Time: Yes Total Critical Care Time: 60 (minutes) Attestation: time spent admistering IV [place] blockers in a patient with rvr, lab review, and frequent reassessments in a patient with potential to deteriorate at any time
--- NOTE | 2021-06-30 23:15 | DI.RAD_ITS ---
Exam(s) XR PORTABLE CHEST AP EXAM: XR PORTABLE CHEST AP CLINICAL HISTORY: afib with rvr TECHNIQUE: 2D digital imaging was performed. COMPARISON: CR,XR XR PORTABLE CHEST AP from 11/24/2020 FINDINGS: MEDIASTINUM: Normal. HEART: Normal. Atherosclerosis of the thoracic aorta. PULMONARY VASCULATURE: Normal. LUNGS: Clear. PLEURAL SPACE: No pleural effusion or pneumothorax. BONE:Within normal limits for the patient's age. Degenerative changes in the shoulders and thoracic spine. OTHER FINDINGS:Normal. IMPRESSION: No acute pulmonary findings. DATA REPOSITORY: RADIATION DOSE DELIVERED:
[2021-06-30 23:27] LABS: Abs Immature Grans 0.02 10^3/uL (0.0-0.06); Absolute Basophil Count 0.03 10^3/uL (0.0-0.2); Absolute Lymphocyte Count 1.14 10^3/uL (1.2-3.4); Absolute Neutrophil Count 3.66 10^3/uL (1.2-6.7); Basophils % 0.5; Eosinophils % 3.5; HCT 33.9 % (36.0-46.0); HGB 11.1 g/dL (11.2-15.7); Immature Grans % 0.4; Lymphocytes % 20.2; MCH 28.6 pg (27.0-33.0); MCHC 32.7 % (32.0-36.0); MCV 87.4 fL (80-95); MPV 8.9 fL (8.0-11.0); Monocytes % 10.6; Neutrophils % 64.8; Nucleated RBC 0 %; Platelet Count 247 10^3/uL (130-400); RBC 3.88 10^6/uL (3.93-5.22); RDW 13.6 % (11.7-14.6); RDW-SD 43.7 fL; WBC 5.65 10^3/uL (4.4-10.8)
[2021-06-30 23:34] LABS: Magnesium 1.9 mg/dL (1.8-2.4)
[2021-06-30] MEDS: dilTIAZem 25 MG/5 ML VIAL 20 MG IVP (23:39)
[2021-06-30 23:48] LABS: PTT Activated 27.4 sec (21.0-27.5); Prothrombin Time 10.4 sec (9.3-11.0)
[2021-06-30] MEDS: dilTIAZem 125 MG in Normal Saline 100 ML IV (23:50)
[2021-06-30 23:51] LABS: ALT 19 U/L (14-59); AST 11 U/L (15-37); Alkaline Phosphatase 96 U/L (46-116); Anion Gap 9.9 mmol/L (3-11); BUN 17 mg/dL (7-18); Bilirubin, Total 0.3 mg/dL (0.2-1.0); CO2 24.1 mmol/L (21.0-32.0); CREATININE 1.1 mg/dL (0.55-1.02); Calcium 9.3 mg/dL (8.5-10.1); Chloride 103 mmol/L (98-107); Estimated GFR 47.79 (mL/min/1.73m2); Glucose 129 mg/dL (74-106); Potassium 4.5 mmol/L (3.5-5.1); Sodium 137 mmol/L (136-145); TSH (W/Ref FT4) 8.05 uIU/mL (0.36-3.74); Total Protein 7.8 g/dL (6.4-8.2); Troponin I < 0.05 ng/mL (<0.06)
[2021-07-01] VITALS (45 sets, daily range): BP systolic 91–167; BP diastolic 42–88; PULSE 61–156; RESP 10–28; TEMP 36.3–37.3; O2SAT 91–100
--- NOTE | 2021-07-01 | DI.US_ITS ---
APPROVED REPORT EXAM: Comprehensive 2D, Doppler, and color-flow Echocardiogram Patient Location: In-Patient Fitting Room Attendant: Tamiko Romero RDCS (AE) Indications: Recurrent A Fib, NSTEMI Other Information Study Quality: Adequate Conclusion Left Ventricle : The left ventricle is normal size. The left ventricular systolic function is normal. The left ventricular ejection fraction is within the normal range. There is normal left ventricular wall thickness. There is normal LV segmental wall motion. The left ventricular diastolic function is abnormal. LVEF is 57%. Right Ventricle : The right ventricle is normal size. The right ventricular systolic function is norm al. The RVSP is 21.7 mmHg. Atria : The left atrium size is normal. The right atrium size is normal. Mitral Valve : Mild mitral annular calcification. Mild mitral regurgitation. No evidence of mitral va lve stenosis. Great Vessels : The aortic root is normal in size. The ascending aorta is mildly dilated. Aortic arch is normal in caliber. IVC is normal in size and collapses >50% with inspiration. Please see remainder of study for further details. Wall motion Left Ventricle The left ventricle is normal size. The left ventricular systolic function is normal. The left ventric ular ejection fraction is within the normal range. There is normal left ventricular wall thickness. T here is normal LV segmental wall motion. The left ventricular diastolic function is abnormal. There i s no ventricular septal defect visualized. LVEF is 57%. Right Ventricle The right ventricle is normal size. The right ventricular systolic function is normal. The RVSP is 21 .7 mmHg. Atria The left atrium size is normal. The right atrium size is normal. The interatrial septum is intact wit h no evidence for an atrial septal defect. Aortic Valve The Aortic valve is sclerotic. Aortic valve is trileaflet. There is no aortic valvular stenosis. Trac e aortic regurgitation. Mitral Valve Mild mitral annular calcification. No evidence of mitral valve stenosis. Mild mitral regurgitation. Tricuspid Valve The tricuspid valve is normal in structure. There is no tricuspid valve stenosis. Trace tricuspid reg urgitation. Pulmonic Valve The pulmonary valve is normal in structure. There is no pulmonic valvular stenosis. Trace pulmonic re gurgitation. Great Vessels The aortic root is normal in size. The ascending aorta is mildly dilated. Aortic arch is normal in ca liber. IVC is normal in size and collapses >50% with inspiration. Pericardium There is no pericardial effusion. 2D Dimensions IVSD d PLAX 1.06 cm F: 0.6-1.0 LV Vol A2C d MOD 127.3 mL LVPW d PLAX 1.05 cm F: 0.6 - 1.0 LV Vol A4C d MOD 118.8 mL LVID d PLAX 4.84 cm F: 3.8 - 5.2 LA vol/ BSA A2C s A-L 27.9 mL/m2 LVDs 3.40 cm F: 2.2 - 3.5 LA vol/ BSA A4C s A-L 26.1 mL/m2 Ao Root d 2.79 cm F: 2.7 - 3.3 LA Vol/ BSA Biplane s A-L 27.4 mL/m2 RA Area A4C 12.44 cm2 LA Area A4C s MOD 16.53 cm2 RA Vol/ BSA A4C s A-L 15.6 mL/m2 LA Area A2C s MOD 17.37 cm2 Ao Asc Diam d 3.37 cm F: 2.3 - 3.1 LV EF A4C MOD 57.6 % LV EF Teichholz 56.1 % LV EF A2C MOD 59.6 % LVEF (Mancia's) 57.16 % F: 54 - 74 LV EF Biplane MOD 57.2 % LV Volume 95.28 mL F: 46 - 106 SV 70.46 mL LV Volume Index 52.06 mL/m2 F: 29 - 61 SV Index 38.46 mL/m2 LV Vol Biplane MOD 123.3 mL FS 29.30 % M-Mode TAPSE 2.29 cm (M/F) >1.7 LV Diastology MV E' medial 0.046 (>0.07 m/s) E/A Ratio 0.8 LV E/e MED 15.40 (<14) MV E Vmax 0.72 (0.4-1.3 m/s) MV E' lateral 0.073 (>0.1 m/s) MV A Vmax 0.90 (0.4-1.3 m/s) LV E/e LAT 9.75 (<14) MV E/A Ratio 0.76 MV E/E' medial 15.41 MV E/E' lateral 9.76 Aortic Valve LVOT Area 3.18 cm2 AoV Area Vmax 1.75 cm2 LVOT Vmax 1.03 m/s AoV Area/ BSA (Vmax) 0.96 cm2/m2 LVOT Mean Juan. 0.62 m/s HIEU Mean Juan. 1.47 cm2 LVOT Peak Grad 4.3 mmHg HIEU Mean Juan. Index 0.80 cm2/m2 LVOT Mean Grad 1.9 mmHg AR DT 1870 msec LVOT VTI 0.241 m AR PHT 542 msec LVOT Diam s 2.00 cm AoV Vmax 1.88 m/s Velocity Ratio 0.54 AoV Mean Juan. 1.35 m/s AoV Peak Grad 14.1 mmHg LVOT SV 76.41 mL AoV Mean Grad 8.1 mmHg AoV VTI 0.392 m AoV Area VTI 1.95 cm2 AoV Area/ BSA (VTI) 1.06 cm/m2 Mitral Valve MV DT 325 (160-240 msec) MR Vmax 4.33 m/s MV PHT 94 msec MR VTI 1.533 m MV Area PHT 2.33 cm2 MR Peak Grad 74.9 mmHg MV VTI 0.331 m MR Mean Grad 51.9 mmHg MV VTI Annulus 0.325 m MV Area VTI 2.27 (4.0-6.0 cm2) Pulmonary Valve PV Vmax 0.88 (0.5-1.5 m/s) RVOT Peak Gr. 2.19 mmHg PV Peak Grad 3.1 mmHg RVOT Mean Gr. 0.95 mmHg PV Mean Grad 1.5 mmHg RVOT VTI 0.150 m PV VTI 0.150 m RVOT Vmax 0.74 m/s Tricuspid Valve TR Peak Grad 18.7 mmHg TR Vmax 2.16 m/s RA Pressure 3.00 mmHg RVSP (TR) 21.7 mmHg
--- NOTE | 2021-07-01 00:04 | DI.VRAD_ITS ---
PROCEDURE INFORMATION: Exam: XR Chest Exam date and time: 06/30/2021 11:27 PM Age: 81 years old Clinical indication: Patient HX: Afib with rvr TECHNIQUE: Imaging protocol: XR of the chest. Views: 1 view. COMPARISON: CR XR PORTABLE CHEST AP 11/24/2020 10:04 AM FINDINGS: Lungs: Unremarkable. No consolidation. Pleural spaces: Unremarkable. No pleural effusion. No pneumothorax. Heart/Mediastinum: Unremarkable. No cardiomegaly. Bones/joints: Bilateral degenerative changes of the acromioclavicular joints, unchanged. Chronic deformity of the right proximal humerus, unchanged. High-riding humeral heads most likely compatible with chronic rotator cuff pathology. IMPRESSION: No evidence of acute cardiopulmonary process. Dictated and Authenticated by: Adilson Matthew MD. Ordering:MARILEE Durand MD
[2021-07-01 00:10] LABS: FREE T4 1.01 ng/dL (0.76-1.46)
[2021-07-01] MEDS: dilTIAZem 25 MG/5 ML VIAL 10 MG IVP (00:24)
--- NOTE | 2021-07-01 00:29 | HPE_ITS ---
Date of service: 07/01/21 Time of Service: 00:29 Assessment and Plan Assessment and plan (1) Atrial fibrillation with RVR: Status: Acute Assessment and plan: AF/RVR. Will see how she does on dilt qtt, if does not settle down will add IV Lopressor, and will plan on trialing increased dose scheduled Lopressor in meantime. Rate related ischemia noted, will trend out trops. Usual meds as is otherwise. History of Present Illness History of Present Illness Chief Complaint: palpitations Narrative: 81 female with h/o PAF, here last week with AF/RVR, ultimately controlled on increased Lopressor, from 50 bid to 50 tid, but due to relative bradycardia (50s-60s) was d/c'ed on prior dose of 50 bid. At any rate returns tonight with several hours of palpitations with associated heaviness in left shoulder and arm. In ER findings of note for AF/RVR with rates up to 160s with rate related ST depressions; trop negative. Has received 20 cardizem IV in divided doses and is on 10 qtt, with rates slowing to low 100s generally. Shoulder/arm pain has resolved. Is admitted for further management. Feels entirely well at present. Review of Systems All systems reviewed & are unremarkable except as noted in HPI and below PFSH Medical History A-fib Anemia with heme positive stool 02/17 CAD (coronary artery disease) Congestive heart failure (CHF) Essential hypertension (07/24/15) Kidney stones Migraine Post-menopausal bleeding 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 Sexually active: No Do you think of yourself as: straight/heterosexual Current gender identity: female What is your relationship status?: Panel score (0-1 are the most socially isolated patients): 0 What type of physical activity do you participate in: none Duration: 15-30 minutes/day Frequency: 3-4 times per week Seatbelt use: always Drive 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 Patient relocated to [place] to be closer to her children. Meds Allergies and Home Medications Allergies Allergy/AdvReac Type Severity Reaction Status Date / Time No Known Allergies Allergy Verified 06/30/21 23:15 Home Medications Medication Instructions Recorded Confirmed Type ascorbic acid (vitamin C) [Vitamin 500 mg PO DAILY 07/24/15 06/22/21 History C] cyanocobalamin (vitamin B-12) 1,000 mcg PO DAILY 07/24/15 06/22/21 History [Vitamin B-12] magnesium oxide 500 mg tablet 500 mg PO DAILY 10/13/19 06/22/21 History rosuvastatin 20 mg tablet 20 mg PO DAILY #90 tab 09/05/20 06/22/21 Rx glimepiride 4 mg tablet 4 mg PO DAILY #90 tab-cap 09/24/20 06/22/21 Rx metoprolol succinate 50 mg 50 mg PO BID #180 tab 12/16/20 06/22/21 Rx tablet,extended release 24 hr spironolactone 25 mg tablet 25 mg PO DAILY #90 tab 12/16/20 06/22/21 Rx B Complex 1 tab PO DAILY 01/02/21 06/22/21 History [place] 3,6,9 1 tab PO DAILY 01/02/21 06/22/21 History biotin 800 mcg tablet 800 mcg PO DAILY 01/02/21 06/22/21 History cholecalciferol (vitamin D3) 50 2,000 unit PO QWEEK cap 01/02/21 06/22/21 History mcg (2,000 unit) capsule nitroglycerin 0.4 mg sublingual 0.4 mg SL ONCE PRN tab 01/02/21 06/22/21 History tablet pyridoxine (vitamin B6) 50 mg 100 mg PO DAILY tab 01/02/21 06/22/21 History tablet blood-glucose meter #1 ea 03/10/21 06/09/21 Rx furosemide 20 mg tablet 20 mg PO DAILY PRN #90 tab 03/10/21 06/22/21 Rx lancets #100 ea 03/10/21 06/09/21 Rx losartan 50 mg tablet 50 mg PO BID #180 tab 03/11/21 06/22/21 Rx aspirin 81 mg tablet,delayed 81 mg PO DAILY 05/13/21 06/22/21 History release nystatin 100,000 unit/gram topical 1 applic TOPICAL TID #30 g 05/14/21 06/22/21 Rx cream blood sugar diagnostic #100 ea 05/19/21 06/09/21 Rx clopidogrel 75 mg tablet 75 mg PO DAILY #90 tab 05/19/21 06/22/21 Rx metformin 500 mg tablet See Rx Instructions PO BID #270 tab 05/19/21 06/22/21 Rx Exam Narrative Exam Narrative: BP 110's systolic, pulse 100-140, 36.5, 24, 98%RA. HEENT atraumatic; neck supple; lungs clear; heart irr/irr; abdomen soft and NT; extremities w/o edema; neuro Ox3, lucid, nonfocal Results Labs Result diagrams: 06/30/21 23:20 06/30/21 23:20 Labs: Laboratory Results - last 24 hr 06/30/21 06/30/21 06/30/21 23:20 23:20 23:20 WBC 5.65 RBC 3.88 L Hgb 11.1 L Hct 33.9 L MCV 87.4 MCH 28.6 MCHC 32.7 RDW 13.6 Plt Count 247 MPV 8.9 Immature Gran % 0.4 Neutrophils % 64.8 Lymphocytes % 20.2 Monocytes % 10.6 Eosinophils % 3.5 Basophils % 0.5 Nucleated RBC % 0 Absolute Neutrophils 3.66 Absolute Lymphocytes 1.14 L Absolute Monocytes 0.60 Absolute Eosinophils 0.20 Absolute Basophils 0.03 PT INR APTT Sodium 137 Potassium 4.5 Chloride 103 Carbon Dioxide 24.1 Anion Gap 9.9 BUN 17 Creatinine 1.1 H Estimated GFR/1.73 m2 47.79 Glucose 129 H Calcium 9.3 Magnesium 1.9 Total Bilirubin 0.3 AST 11 L ALT 19 Alkaline Phosphatase 96 Troponin I < 0.05 Total Protein 7.8 Albumin 4.0 TSH 8.05 H Free T4 1.01 06/30/21 23:20 WBC RBC Hgb Hct MCV MCH MCHC RDW Plt Count MPV Immature Gran % Neutrophils % Lymphocytes % Monocytes % Eosinophils % Basophils % Nucleated RBC % Absolute Neutrophils Absolute Lymphocytes Absolute Monocytes Absolute Eosinophils Absolute Basophils PT 10.4 INR 1.0 APTT 27.4 Sodium Potassium Chloride Carbon Dioxide Anion Gap BUN Creatinine Estimated GFR/1.73 m2 Glucose Calcium Magnesium Total Bilirubin AST ALT Alkaline Phosphatase Troponin I Total Protein Albumin TSH Free T4 Last Vital Signs Pulse 137 H 07/01/21 00:24 Resp 24 06/30/21 23:50 BP 129/78 07/01/21 00:24 Pulse Ox 98 06/30/21 23:50
[2021-07-01 00:34] LABS: Source Nasal/Nares
--- NOTE | 2021-07-01 01:15 | RT.EKG_ITS ---
APPROVED REPORT Exam: Resting ECG Reason for Exam: converted to sinus rhythm Patient Location: I HR:76 bpm ECG Measurements Heart Rate 76 AXIS NH 185 P -2 QRSd 92 QRS -6 QT 402 T -1 QTc 453 Conclusion Sinus rhythm...normal P axis, V-rate 60- 99
[2021-07-01 01:21] LABS: COVID-19 PCR Negative (Negative)
[2021-07-01] MEDS: Normal Saline 250 ML IV (04:11)
[2021-07-01 07:51] LABS: Troponin I 0.11 ng/mL (<0.06)
[2021-07-01] MEDS: metFORMIN 500 MG TAB 1000 MG PO (08:32)
[2021-07-01] MEDS: Aspirin E.C. 81 MG TABEC PO (08:32)
[2021-07-01] MEDS: Glimepiride 2 MG TAB 4 MG PO (08:32)
[2021-07-01] MEDS: dilTIAZem 30 MG TAB PO ×3 (08:32→20:07)
[2021-07-01] MEDS: Cyanocobalamin 500 MCG TAB 1000 MCG PO (08:32)
[2021-07-01] MEDS: Spironolactone 25 MG TAB PO (08:32)
[2021-07-01] MEDS: Omega-3 Fatty Acids 1000 MG CAP PO (08:32)
[2021-07-01] MEDS: Metoprolol CR 50 MG TABCR PO ×2 (08:32→20:07)
[2021-07-01] MEDS: Losartan 50 MG TAB PO ×2 (08:33→20:07)
[2021-07-01] MEDS: Normal Saline Flush 10 ML SYR IVP (08:33)
[2021-07-01] MEDS: Clopidogrel 75 MG TAB PO (08:33)
--- NOTE | 2021-07-01 09:30 | PDOC.CMIN ---
- If Service Date Differs Date of service: 07/01/21 Time of Service: 09:30 Care Management Initial Assess REASON FOR HOSPITALIZATION:: AF/ RVR PAST MEDICAL HISTORY/PAST SURGICAL HISTORY:: Medical History. A-fib. Anemia. with heme positive stool 02/17. CAD (coronary artery disease). Congestive heart failure (CHF). Essential hypertension (07/24/15). Kidney stones. Migraine. Post-menopausal bleeding. Type 2 diabetes mellitus with mild nonproliferative diabetic retinopathy without macular edema (07/24/15). Surgical History. History of heart artery stent. 10/17/2018. Ligation of fallopian tube. Presence of Watchman left atrial appendage closure device. 05/08/21. Tonsillectomy. vein stripping PREVIOUS FUNCTIONAL STATUS/SOCIAL/FAMILY SUPPORTS:: Madeleine lives in [facility] with her youngest son. Another son and daughter in law live nearby and are supportive. She is and has 5 children. 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 She is independent at baseline. CURRENT FUNCTIONAL STATUS:: Madeleine was lying in bed when CM met with her. She stated that she is feeling better today. She reported that per MD, she had a medication change today after her echo, and she will remain overnight for observation. She stated that she is comfortable with this plan, and does not anticipate needing any services upon discharge. ADVANCE DIRECTIVES:: On file, sonPatric listed as HCA. Has patient been provided with info about the portal/API?: Yes Did the patient sign up for the portal?: No CODE STATUS:: Full Code INSURANCE COVERAGE / FINANCIAL ISSUES:: [facility]/ [employer] benefit plan. CURRENT HOME/COMMUNITY SERVICES/EQUIPMENT:: No known services or equipment. PRIMARY CARE PHYSICIAN:: Dave Seaman POTENTIAL DISCHARGE NEEDS:: Evalutation for further needs, follow up appointments. PATIENT/FAMILY EDUCATION NEEDS:: Review discharge instructions regarding activity levels and medications, discussion of self care needs and goals of care. ANTICIPATED BARRIERS TO DISCHARGE:: None identified. TRANSPORTATION:: Via private vehicle by family. PLAN:: Anticipate Madeleine will return home when medically cleared. She will be driven home via private vehicle by family when ready. She will follow up with her PCP and discharge plan of care. CM will continue to follow.
[2021-07-01 09:33] LABS: Anion Gap 9.7 mmol/L (3-11); BUN 17 mg/dL (7-18); CO2 23.3 mmol/L (21.0-32.0); Calcium 9.5 mg/dL (8.5-10.1); Chloride 107 mmol/L (98-107); Estimated GFR 53.35 (mL/min/1.73m2); Glucose 104 mg/dL (74-106); Magnesium 1.8 mg/dL (1.8-2.4); Potassium 4.7 mmol/L (3.5-5.1); Sodium 140 mmol/L (136-145)
--- NOTE | 2021-07-01 13:31 | CHAPLAIN ---
Madeleine was resting in bed when I visited. She hopes to be discharged today. Madeleine moved here from [place] after her . She said she bought a house with you son, in [facility], and another son and daughter in law live nearby. She moved here six years ago, and likes living in [place] she said.
--- NOTE | 2021-07-01 14:51 | W.PM.PROGNOT ---
Date of Service Date of service: 07/01/21 Time of Service: 14:52 Assessment and Plan Assessment and plan (1) Atrial fibrillation with RVR: Status: Acute Assessment and plan: Patient presented with atrial fibrillation with RVR. She converted to a normal sinus rhythm with normal heart rate and rhythm at this time. Cardizem was added at 30 mg 3 times daily. She appears to be tolerating that well. The plan would be to convert this to the Cardizem CD or the a.m. dose if she is tolerating it well. Continue metoprolol 50 mg twice daily. (2) Presence of Watchman left atrial appendage closure device: Status: Chronic Assessment and plan: She is about 45 days out from her procedure. She states she needs a follow-up echocardiogram which was performed today. There is no evidence of any valvular problems. The watchman device was not mentioned in the report. (3) Congestive heart failure (CHF): Status: Chronic Assessment and plan: No evidence of congestive heart failure. Patient appears to be euvolemic. (4) Discharge planning issues: Status: Acute Assessment and plan: Admitted to observation status. She has a third troponin pending. Plan is for discharge in the a.m. on the additional Cardizem if she remained stable overnight. Continue to monitor on telemetry. Subjective Subjective Interval history since last seen: Patient was admitted to observation last evening. She had developed palpitations associated with bilateral shoulder pain and left-sided jaw discomfort. She had a heart rate of 135. She spontaneously converted to a normal sinus rhythm at around 1 AM. Since that time she has felt well with resolution of her shoulder and jaw pain. She has no shortness of breath. She cannot recall any specific inciting event other than vacuuming in her home. Exam Narrative Exam Narrative: On exam she is very pleasant and in no apparent distress. Her lung exam is clear to auscultation bilaterally. Her heart sounds regular and there is no significant murmur. Her abdomen is overall soft and nontender to palpation. The lower extremities appear well perfused and have no edema. Objective Last Vital Signs Temp 36.8 C 07/01/21 11:11 Pulse 69 07/01/21 11:11 Resp 17 07/01/21 11:11 BP 119/70 07/01/21 11:11 Pulse Ox 98 07/01/21 11:11 Laboratory Results - last 24 hr 06/30/21 06/30/21 06/30/21 23:20 23:20 23:20 WBC 5.65 RBC 3.88 L Hgb 11.1 L Hct 33.9 L MCV 87.4 MCH 28.6 MCHC 32.7 RDW 13.6 Plt Count 247 MPV 8.9 Immature Gran % 0.4 Neutrophils % 64.8 Lymphocytes % 20.2 Monocytes % 10.6 Eosinophils % 3.5 Basophils % 0.5 Nucleated RBC % 0 Absolute Neutrophils 3.66 Absolute Lymphocytes 1.14 L Absolute Monocytes 0.60 Absolute Eosinophils 0.20 Absolute Basophils 0.03 PT INR APTT Sodium 137 Potassium 4.5 Chloride 103 Carbon Dioxide 24.1 Anion Gap 9.9 BUN 17 Creatinine 1.1 H Estimated GFR/1.73 m2 47.79 Glucose 129 H Calcium 9.3 Magnesium 1.9 Total Bilirubin 0.3 AST 11 L ALT 19 Alkaline Phosphatase 96 Troponin I < 0.05 Total Protein 7.8 Albumin 4.0 TSH 8.05 H Free T4 1.01 COVID-19 Source SARS-CoV-2 (PCR) 06/30/21 07/01/21 07/01/21 23:20 00:15 02:06 WBC RBC Hgb Hct MCV MCH MCHC RDW Plt Count MPV Immature Gran % Neutrophils % Lymphocytes % Monocytes % Eosinophils % Basophils % Nucleated RBC % Absolute Neutrophils Absolute Lymphocytes Absolute Monocytes Absolute Eosinophils Absolute Basophils PT 10.4 INR 1.0 APTT 27.4 Sodium Potassium Chloride Carbon Dioxide Anion Gap BUN Creatinine Estimated GFR/1.73 m2 Glucose Calcium Magnesium Total Bilirubin AST ALT Alkaline Phosphatase Troponin I Cancelled Total Protein Albumin TSH Free T4 COVID-19 Source Nasal/Nares SARS-CoV-2 (PCR) Negative 07/01/21 07/01/21 07/01/21 05:35 06:28 06:28 WBC RBC Hgb Hct MCV MCH MCHC RDW Plt Count MPV Immature Gran % Neutrophils % Lymphocytes % Monocytes % Eosinophils % Basophils % Nucleated RBC % Absolute Neutrophils Absolute Lymphocytes Absolute Monocytes Absolute Eosinophils Absolute Basophils PT INR APTT Sodium 140 Potassium 4.7 Chloride 107 Carbon Dioxide 23.3 Anion Gap 9.7 BUN 17 Creatinine 1.0 Estimated GFR/1.73 m2 53.35 Glucose 104 Calcium 9.5 Magnesium 1.8 Total Bilirubin AST ALT Alkaline Phosphatase Troponin I Cancelled 0.11 H* Total Protein Albumin TSH Free T4 COVID-19 Source SARS-CoV-2 (PCR) Objective Narrative Objective Narrative: An echocardiogram today showed no significant findings, EF 57%. She underwent nuclear stress testing results of which are pending.
[2021-07-01 15:27] LABS: Troponin I 0.11 ng/mL (<0.06)
[2021-07-01] MEDS: metFORMIN 500 MG TAB PO (16:56)
[2021-07-01] MEDS: Rosuvastatin 10 MG TAB 20 MG PO (20:07)
[2021-07-02 03:53] VITALS: BP 136/66; PULSE 66; RESP 17; TEMP 36.7; O2SAT 98
[2021-07-02 07:00] VITALS: PULSE 63
[2021-07-02 07:21] LABS: Abs Immature Grans 0.01 10^3/uL (0.0-0.06); Absolute Basophil Count 0.03 10^3/uL (0.0-0.2); Absolute Eosinophil Count 0.16 10^3/uL (0.0-0.7); Absolute Lymphocyte Count 0.86 10^3/uL (1.2-3.4); Absolute Neutrophil Count 4.32 10^3/uL (1.2-6.7); Basophils % 0.5; Eosinophils % 2.7; HCT 30.9 % (36.0-46.0); Immature Grans % 0.2; Lymphocytes % 14.6; MCH 28.5 pg (27.0-33.0); MCHC 32.4 % (32.0-36.0); MPV 9.2 fL (8.0-11.0); Monocytes % 8.5; Neutrophils % 73.5; Nucleated RBC 0 %; Platelet Count 227 10^3/uL (130-400); RBC 3.51 10^6/uL (3.93-5.22); RDW 14.2 % (11.7-14.6); RDW-SD 45.4 fL; WBC 5.88 10^3/uL (4.4-10.8)
[2021-07-02] MEDS: dilTIAZem CD 120 MG CAPCR PO (07:42)
[2021-07-02] MEDS: Aspirin E.C. 81 MG TABEC PO (07:42)
[2021-07-02 07:43] LABS: Magnesium 1.9 mg/dL (1.8-2.4)
[2021-07-02] MEDS: Losartan 50 MG TAB PO (07:43)
[2021-07-02] MEDS: Cyanocobalamin 500 MCG TAB 1000 MCG PO (07:43)
[2021-07-02] MEDS: Omega-3 Fatty Acids 1000 MG CAP PO (07:43)
[2021-07-02] MEDS: Spironolactone 25 MG TAB PO (07:43)
[2021-07-02] MEDS: Clopidogrel 75 MG TAB PO (07:43)
[2021-07-02] MEDS: metFORMIN 500 MG TAB 1000 MG PO (07:43)
[2021-07-02] MEDS: Metoprolol CR 50 MG TABCR PO (07:43)
[2021-07-02] MEDS: Normal Saline Flush 10 ML SYR IVP (07:44)
[2021-07-02 07:45] LABS: BUN 22 mg/dL (7-18); CREATININE 1.3 mg/dL (0.55-1.02); Calcium 9.2 mg/dL (8.5-10.1); Chloride 105 mmol/L (98-107); Estimated GFR 39.41 (mL/min/1.73m2); Glucose 66 mg/dL (74-106); Sodium 138 mmol/L (136-145)
[2021-07-02 08:28] VITALS: BP 130/68; PULSE 81; RESP 17; TEMP 37; O2SAT 96
[2021-07-02] MEDS: Insulin Aspart 300 UNITS/3 ML PEN SC (12:15)
--- NOTE | 2021-07-02 13:42 | W.PM.DS.N ---
Date of service: 07/02/21 Time of Service: 13:42 DS: Diagnosis Discharge Diagnosis (1) Atrial fibrillation with RVR: Status: Acute Asessment and Plan: Presented with heart rate in the 1-60. Converted to NSR are at about 1 AM the evening of admission, spontaneously. Cardizem CD added to her metoprolol. Discharged with cardiac event recorder. (2) Presence of Watchman left atrial appendage closure device: Status: Chronic Asessment and Plan: Off of anticoagulation. Echocardiogram this admission was reassuring with no valvular abnormalities. He device was not mentioned on the study. (3) Congestive heart failure (CHF): Status: Chronic Asessment and Plan: No evidence of CHF during this admission. Discharged on her usual medications. Discharge Plan Disposition Patient Disposition: HOME Condition: Stable Discharge Details Reason For Visit: AF/RVR Admit Date/Time: 07/01/21 00:40 Admit Provider: Patric Richardson Attending Provider: Patric Richardson [facility] Course: 89-year-old female with a history of paroxysmal atrial fibrillation who was here last week with an episode of rapid atrial fibrillation. During that admission her metoprolol was titrated up to 50 mg 3 times daily but she did not tolerate that. She was discharged on metoprolol 50 mg twice daily. The evening of admission she developed several hours of palpitations associated with heaviness in her left shoulder and arm as well as some jaw discomfort. In the emergency room she had a heart rate up to 160 bpm with rate related ST depression. Her troponins were mildly elevated at <.05, 0.11, 0.11. She was admitted to observation status and monitored on telemetry. She converted to normal sinus rhythm at about 1 AM on 07/01/2021. She has remained in sinus rhythm since that time. She has had no further symptoms of chest pain, shoulder pain, or jaw pain. Cardizem was added to her regimen initially is 30 mg 3 times daily and converted to 120 mg daily. She tolerated that fine without any symptoms of hypotension or bradycardia. A cardiac event recorder was placed prior to discharge. Home Meds and New Rx's Prescriptions: New diltiazem HCl 120 mg Capsule,Extended Release 24hr 120 mg PO DAILY Qty: 30 RF: 0 Continued cholecalciferol (vitamin D3) 50 mcg (2,000 unit) capsule 2,000 unit PO QWEEK RF: 0 furosemide 20 mg tablet 20 mg PO DAILY PRN (Reason: edema) Qty: 90 RF: 1 (DME) lancets Misc See Rx Instructions .ROUTE .MEDSUPPLY Qty: 100 RF: 3 (DME) blood-glucose meter Misc See Rx Instructions .ROUTE .MEDSUPPLY Qty: 1 RF: 0 nitroglycerin [Nitrostat] 0.4 mg tablet, sublingual 0.4 mg SL ONCE PRNRF: 0 B Complex 1 tab PO DAILY RF: 0 [place] 3,6,9 1 tab PO DAILY RF: 0 biotin 800 mcg tablet 800 mcg PO DAILY RF: 0 nystatin 100,000 unit/gram cream 1 applic topical TID Qty: 30 RF: 3 clopidogrel 75 mg tablet 75 mg PO DAILY Qty: 90 RF: 3 (DME) blood sugar diagnostic Strip See Rx Instructions .ROUTE .MEDSUPPLY Qty: 100 RF: 3 metformin 500 mg tablet See Rx Instructions PO BID Qty: 270 RF: 3 cyanocobalamin (vitamin B-12) [Vitamin B-12] 1,000 MCG tablet 1,000 mcg PO DAILY RF: 0 ascorbic acid (vitamin C) [Vitamin C] 500 MG capsule, extended release 500 mg PO DAILY RF: 0 magnesium oxide 500 mg tablet 500 mg PO DAILY RF: 0 rosuvastatin 20 mg tablet 20 mg PO DAILY Qty: 90 RF: 7 glimepiride 4 mg tablet 4 mg PO DAILY Qty: 90 RF: 3 metoprolol succinate 50 mg tablet extended release 24 hr 50 mg PO BID Qty: 180 RF: 3 spironolactone 25 mg tablet 25 mg PO DAILY Qty: 90 RF: 3 pyridoxine (vitamin B6) [Vitamin B-6] 50 mg tablet 100 mg PO DAILY RF: 0 losartan 50 mg tablet 50 mg PO BID Qty: 180 RF: 6 aspirin [Adult Aspirin Regimen] 81 mg tablet,delayed release (DR/EC) 81 mg PO DAILY RF: 0 Discharge Instructions Instructions: A-fib (Atrial Fibrillation) (DC) Additional Instructions: Take blood pressure and pulse prior to dosing the diltiazem. Hold for for systolic blood pressure less than 100 or below 60. Cardiac event monitor. Stand Alone Forms: Nursing Discharge Form Referrals: Dave Seaman DO [Primary Care Provider] - 07/11/21 11:15 am Patric Ortiz MD [ CONSULTING PHYSICIAN] - 07/03/21 11:00 am Activity:: Activity as Tolerated Equipment/Supplies:: No Equipment Needed Diet:: Carb Counting Discharge Orders Discharge Orders: Discharge Order (Routine); Ordered 07/02/21 Ordered By: Ladarius Renteria DS: Summary Time Spent with Patient providing and/or coordinating discharge services: Greater than 30 minutes Status at Discharge Functional status at discharge: independent ambulation Overall status at discharge: patient is back to baseline Mental Status: mental status grossly normal Speech and Movement: speech and movement normal Mood: congruent mood Affect: normal affect Exam Narrative Exam Narrative: On exam patient is sitting up on the side of the bed eating her lunch. She has no shortness of breath or evident discomfort. Her vital signs are stable. Telemetry reveals a sinus rhythm. Psych Mental Status: mental status grossly normal Speech and Movement: speech and movement normal Mood: congruent mood Affect: normal affect DS: Data Vitals/I&O Vitals and I&O: Vital Signs Temperature 37 C 07/02/21 08:28 Temperature Source Tympanic 07/02/21 08:28 Pulse 81 07/02/21 08:28 Pulse Rhythm Regular 07/02/21 07:40 Pulse Strength Normal 07/01/21 00:55 Pulse 69 07/01/21 05:00 Respiratory Rate 17 07/02/21 08:28 Respiratory Effort Non-Labored 07/02/21 07:40 Respiratory Depth Normal 07/02/21 07:40 Respiratory Pattern Normal 07/02/21 07:40 Blood Pressure 130/68 07/02/21 08:28 Blood Pressure Mean 63 07/01/21 05:00 Blood Pressure Position Supine 07/01/21 05:00 Pulse Oximetry 96 07/02/21 08:28 Oxygen Delivery Method Room Air 07/02/21 08:28 Oxygen Flow Rate 0 07/02/21 08:28 Pain Level 0 07/02/21 08:28 Intake & Output 07/01/21 07/02/21 07/02/21 23:59 11:59 23:59 Intake Total 350 / 640.000 460 / 460 Balance 350 / -385.000 460 / 460 Weight 81.5 kg Intake: IV 10 / 60.000 Oral 340 / 580 460 / 460 Other: Urine Appearance Clear Clear Comment Patient reports normal voiding throughout the day. Voiding Methods Toilet Data Completed and Pending Labs on day of discharge: Labs from last 24 hours 07/02/21 07/02/21 07/02/21 06:17 06:17 06:17 WBC 5.88 RBC 3.51 L Hgb 10.0 L Hct 30.9 L MCV 88.0 MCH 28.5 MCHC 32.4 RDW 14.2 Plt Count 227 MPV 9.2 Immature Gran % 0.2 Neutrophils % 73.5 Lymphocytes % 14.6 Monocytes % 8.5 Eosinophils % 2.7 Basophils % 0.5 Nucleated RBC % 0 Absolute Neutrophils 4.32 Absolute Lymphocytes 0.86 L Absolute Monocytes 0.50 Absolute Eosinophils 0.16 Absolute Basophils 0.03 Sodium 138 Potassium 5.0 Chloride 105 Carbon Dioxide 24.0 Anion Gap 9.0 BUN 22 H Creatinine 1.3 H Estimated GFR/1.73 m2 39.41 Glucose 66 L Calcium 9.2 Magnesium 1.9 Troponin I 07/01/21 15:01 WBC RBC Hgb Hct MCV MCH MCHC RDW Plt Count MPV Immature Gran % Neutrophils % Lymphocytes % Monocytes % Eosinophils % Basophils % Nucleated RBC % Absolute Neutrophils Absolute Lymphocytes Absolute Monocytes Absolute Eosinophils Absolute Basophils Sodium Potassium Chloride Carbon Dioxide Anion Gap BUN Creatinine Estimated GFR/1.73 m2 Glucose Calcium Magnesium Troponin I 0.11 H[facility] Medical History A-fib Anemia with heme positive stool 02/17 CAD (coronary artery disease) Congestive heart failure (CHF) Essential hypertension (07/24/15) Kidney stones Migraine Post-menopausal bleeding 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 Sexually active: No Do you think of yourself as: straight/heterosexual Current gender identity: female What is your relationship status?: Panel score (0-1 are the most socially isolated patients): 0 What type of physical activity do you participate in: none Duration: 15-30 minutes/day Frequency: 3-4 times per week Seatbelt use: always Drive intox or ride w/intox 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 Patient relocated to [place] to be closer to her children.
--- NOTE | 2021-07-02 14:59 | PDOC.CMDIS ---
- If Service Date Differs Date of service: 07/02/21 Time of Service: 14:59 LACE Index Scoring Tool - Questions: Length of Stay (in days): 1 Acuity (Admit via E.D.?): Yes Comorbidities: Previous M.I., Diabetes w/o Complication, Congestive Heart Failure E.D. Visits: 3 - Answers: Total Score: 12 Risk of Readmission: High Risk Care Management Discharge Reason for Hospitalization: AF/ RVR Discharge Plan: Madeleine will return home with no services at this time. Her son will drive her home via private vehicle when ready. She will follow up with her PCP and discharge plan of care. She is happy to be going home. Patient/Family Education Needs: Review discharge instructions regarding activity levels and medications, discussion of self care needs including ask me three.
--- NOTE | 2021-08-05 09:37 | W.CARDEVENT ---
Date of service: 08/05/21 Time of Service: 09:37 Cardiac Event Recorder Referring Provider:: Patric Richardson Indications:: Paroxysmal atrial fibrillation Cardiac Event Note: This is a 30-day event monitor ordered for the indication of paroxysmal atrial fibrillation Predominant rhythm was sinus. Average heart rate was 67, minimum 55, maximum 108 Atrial fibrillation was present approximately 2% of the recording. Average heart rate while in atrial fibrillation was 123 There were very rare ventricular ectopic beats and couplets. Events labeled ventricular tachycardia appeared to be atrial fibrillation with aberrancy, or artifact Patient symptoms of fluttering corresponded to atrial fibrillation
== END 2021-07-02 14:07 | disposition home or self-care (01) ==
LOC: ER 07-01 00:49 → ICU 07-01 01:10 → MS 07-01 08:25
PROVIDERS: Internal Medicine; Admitting Provider General Practice; Emergency Provider Emergency Medicine; PCP Family Medicine; Visit Provider General Practice
DX: I48.0 Paroxysmal atrial fibrillation (principal); D64.9 Anemia, unspecified; I25.10 Atherosclerotic heart disease of native coronary artery without angina pectoris; I50.9 Heart failure, unspecified; I11.0 Hypertensive heart disease with heart failure; N20.0 Calculus of kidney; G43.909 Migraine, unspecified, not intractable, without status migrainosus; E11.3299 Type 2 diabetes mellitus with mild nonproliferative diabetic retinopathy without macular edema, unspecified eye; Z95.5 Presence of coronary angioplasty implant and graft; Z95.818 Presence of other cardiac implants and grafts; Z79.84 Long term (current) use of oral hypoglycemic drugs; Z20.822 Contact with and (suspected) exposure to COVID-19
CPT/HCPCS: 36415; 80048; 80053; 87635; 93005; 93270; 93306; 96365; 96376; 99285; 71045; 83735; 84439; 84443; 84484; 85025; 85610; 85730; 93010; 99217; 99222; 99225; G0378

== ENCOUNTER → 2021-07-03 11:00 | Outpatient (BNVA) | payer MEDICARE, OTHER, SELFPAY | PROVIDERS: PCP Family Medicine; Referring Provider Family Medicine; Visit Provider Internal Medicine Cardiovascular Disease | DX: I25.5 Ischemic cardiomyopathy (principal); I10 Essential (primary) hypertension; I48.91 Unspecified atrial fibrillation; Z95.818 Presence of other cardiac implants and grafts; Z98.890 Other specified postprocedural states; I34.0 Nonrheumatic mitral (valve) insufficiency | CPT/HCPCS: 99214; 99213 ==

== ENCOUNTER 2021-07-31 12:29 | Outpatient (CLI) | payer MEDICARE, OTHER, SELFPAY ==
--- NOTE | 2021-07-31 12:30 | RT.EKG_ITS ---
APPROVED REPORT Exam: Resting ECG Reason for Exam: afib Patient Location: O HR:63 bpm ECG Measurements Heart Rate 63 AXIS AZ 172 P 8 QRSd 94 QRS -20 QT 418 T -10 QTc 428 Conclusion Sinus rhythm...normal P axis, V-rate 50- 99 Abnormal R-wave progression, late transition...QRS area<0 in V5/V6 LVH by voltage...R >1.10 in aVL Inferior infarct, age indeterminate...Q>35mS, T neg, II III aVF
== END 2021-07-31 12:30 | disposition home or self-care (01) ==
LOC: DI.CARD 12:35
PROVIDERS: PCP Family Medicine; Referring Provider Family Medicine; Visit Provider Internal Medicine Cardiovascular Disease
DX: I48.19 Other persistent atrial fibrillation (principal)
CPT/HCPCS: 93010

== ENCOUNTER → 2021-07-31 12:29 | Outpatient (BNVA) | payer MEDICARE, OTHER, SELFPAY | PROVIDERS: PCP Family Medicine; Referring Provider Family Medicine; Visit Provider Internal Medicine Cardiovascular Disease | DX: I48.91 Unspecified atrial fibrillation (principal); Z95.818 Presence of other cardiac implants and grafts; I25.10 Atherosclerotic heart disease of native coronary artery without angina pectoris; I10 Essential (primary) hypertension | CPT/HCPCS: 93005; 99214; 99213 ==

== ENCOUNTER 2021-08-05 09:37 | Outpatient (CLI) | payer MEDICARE, OTHER, SELFPAY | END 2021-08-05 09:38 | LOC: CARDO 08-06 13:51 | PROVIDERS: PCP Family Medicine; Referring Provider General Practice; Visit Provider Internal Medicine Cardiovascular Disease | DX: I48.0 Paroxysmal atrial fibrillation (principal) | CPT/HCPCS: 93272 ==

== ENCOUNTER → 2021-08-29 10:50 | Outpatient (BNVA) | payer MEDICARE, OTHER, SELFPAY | PROVIDERS: PCP Family Medicine; Referring Provider Family Medicine; Visit Provider Internal Medicine Cardiovascular Disease | DX: I48.91 Unspecified atrial fibrillation (principal); Z95.818 Presence of other cardiac implants and grafts; I25.10 Atherosclerotic heart disease of native coronary artery without angina pectoris; I10 Essential (primary) hypertension | CPT/HCPCS: 99213 ==

== ENCOUNTER 2021-11-17 15:01 | Outpatient (CLI) | payer MEDICARE, OTHER, SELFPAY ==
--- NOTE | 2021-11-17 14:30 | DI.RAD_ITS ---
Exam(s) XR RIBS BI INCLUDE CHEST CLINICAL HISTORY: s/p fall. Pain. Z91.81 CONTUSION HEAD S00.83XA R07.81 PLEURODYNIA. COMPARISON: CT CT ABDOMEN PELVIS W from 05/17/2020 CR,XR XR PORTABLE CHEST AP from 06/30/2021 FINDINGS: LUNGS:Clear. No pleural abnormality seen. HEART: Normal size. Prosthesis noted. MEDIASTINUM: Calcified tortuous aorta BONES: No displaced rib fracture is seen. No bony destructive lesion is seen. Degenerative changes a re noted in the spine. There are degenerative changes of both shoulders with apparent bilateral wood cut engraver maci rotator cuff tears. OTHER FINDINGS: Stone projecting lower pole left kidney. Multiple stones were noted on prior CT. IMPRESSION: 1. Unremarkable radiographic appearance of the right ribs. 2. No acute pulmonary findings.
--- NOTE | 2021-11-17 14:30 | DI.RAD_ITS ---
Exam(s) XR FACIAL BONES COMPLETE EXAM: XR FACIAL BONES COMPLETE CLINICAL HISTORY: pain s/p fall Z91.81 CONTUSION HEAD S00.83XA FACIAL BRUISING. TECHNIQUE: 2D digital imaging was performed. COMPARISON: No exams were available for comparison FINDINGS: BONES: No evidence of fracture. The sinuses appear clear. Advanced degenerative changes of the cerv ical spine. SOFT TISSUES: Unremarkable. IMPRESSION: Unremarkable radiographs of the facial bones. DATA REPOSITORY: RADIATION DOSE DELIVERED:
== END 2021-11-17 15:21 ==
PROVIDERS: PCP Family Medicine; Visit Provider Nurse Practitioner
DX: S00.83XA Contusion of other part of head, initial encounter (principal); Z91.81 History of falling; R07.81 Pleurodynia
CPT/HCPCS: 70150; 71046; 71110

== ENCOUNTER → 2021-11-28 10:55 | Outpatient (BNVA) | payer MEDICARE, OTHER, SELFPAY | PROVIDERS: PCP Family Medicine; Visit Provider Internal Medicine Cardiovascular Disease | DX: I25.10 Atherosclerotic heart disease of native coronary artery without angina pectoris (principal); I10 Essential (primary) hypertension; I48.0 Paroxysmal atrial fibrillation; Z95.818 Presence of other cardiac implants and grafts | CPT/HCPCS: 99214; 99213 ==

== ENCOUNTER 2022-02-17 12:46 | Outpatient (REF) | payer MEDICARE, OTHER, SELFPAY | END 2022-02-17 12:47 | disposition home or self-care (01) | LOC: LBN 12:46 | PROVIDERS: PCP Family Medicine; Referring Provider Family Medicine; Visit Provider Family Medicine | DX: L02.212 Cutaneous abscess of back [any part, except buttock and flank] | CPT/HCPCS: 87077; 87070; 87186; 87205 ==

== ENCOUNTER → 2022-02-18 10:49 | Outpatient (BNVA) | payer MEDICARE, OTHER, SELFPAY | PROVIDERS: PCP Family Medicine; Referring Provider Family Medicine; Visit Provider Surgery | DX: L02.212 Cutaneous abscess of back [any part, except buttock and flank] (principal) | CPT/HCPCS: 10061; 99242 ==

== ENCOUNTER → 2022-02-19 08:47 | Outpatient (BNVA) | payer MEDICARE, OTHER, SELFPAY | PROVIDERS: PCP Family Medicine; Referring Provider Family Medicine; Visit Provider Physical Therapy Assistant | DX: L02.212 Cutaneous abscess of back [any part, except buttock and flank] (principal) | CPT/HCPCS: 99212 ==

== ENCOUNTER → 2022-02-23 08:54 | Outpatient (BNVA) | payer MEDICARE, OTHER, SELFPAY | PROVIDERS: PCP Family Medicine; Referring Provider Family Medicine; Visit Provider Surgery | DX: L02.212 Cutaneous abscess of back [any part, except buttock and flank] (principal); L72.3 Sebaceous cyst; L08.9 Local infection of the skin and subcutaneous tissue, unspecified; I48.0 Paroxysmal atrial fibrillation; I50.22 Chronic systolic (congestive) heart failure; Z95.818 Presence of other cardiac implants and grafts | CPT/HCPCS: 11043; 99213 ==

== ENCOUNTER → 2022-02-24 09:39 | Outpatient (BNVA) | payer MEDICARE, OTHER, SELFPAY | PROVIDERS: PCP Family Medicine; Referring Provider Family Medicine; Visit Provider Surgery | DX: Z51.89 Encounter for other specified aftercare (principal) ==

== ENCOUNTER → 2022-02-25 09:23 | Outpatient (BNVA) | payer MEDICARE, OTHER, SELFPAY | PROVIDERS: PCP Family Medicine; Referring Provider Family Medicine; Visit Provider Surgery | DX: L72.3 Sebaceous cyst (principal); L08.9 Local infection of the skin and subcutaneous tissue, unspecified | CPT/HCPCS: 99213 ==

== ENCOUNTER → 2022-02-26 14:24 | Outpatient (BNVA) | payer MEDICARE, OTHER, SELFPAY | PROVIDERS: PCP Family Medicine; Referring Provider Family Medicine; Visit Provider Physical Therapy Assistant | DX: L72.3 Sebaceous cyst (principal); L08.9 Local infection of the skin and subcutaneous tissue, unspecified; L02.212 Cutaneous abscess of back [any part, except buttock and flank] | CPT/HCPCS: 99213 ==

== ENCOUNTER → 2022-02-27 10:57 | Outpatient (BNVA) | payer MEDICARE, OTHER, SELFPAY | PROVIDERS: PCP Family Medicine; Referring Provider Family Medicine; Visit Provider Physical Therapy Assistant | DX: L72.3 Sebaceous cyst (principal); L08.9 Local infection of the skin and subcutaneous tissue, unspecified; L02.212 Cutaneous abscess of back [any part, except buttock and flank] | CPT/HCPCS: 99212 ==

== ENCOUNTER → 2022-03-02 09:53 | Outpatient (BNVA) | payer MEDICARE, OTHER, SELFPAY | PROVIDERS: PCP Family Medicine; Referring Provider Family Medicine; Visit Provider Surgery | DX: L02.212 Cutaneous abscess of back [any part, except buttock and flank] (principal); L72.3 Sebaceous cyst; L08.9 Local infection of the skin and subcutaneous tissue, unspecified; Z51.89 Encounter for other specified aftercare | CPT/HCPCS: 99213 ==

== ENCOUNTER → 2022-03-04 08:45 | Outpatient (BNVA) | payer MEDICARE, OTHER, SELFPAY | PROVIDERS: PCP Family Medicine; Referring Provider Family Medicine; Visit Provider Physical Therapy Assistant | DX: Z48.00 Encounter for change or removal of nonsurgical wound dressing (principal) | CPT/HCPCS: 99212 ==

== ENCOUNTER → 2022-03-06 07:54 | Outpatient (BNVA) | payer MEDICARE, OTHER, SELFPAY | PROVIDERS: PCP Family Medicine; Referring Provider Family Medicine; Visit Provider Physical Therapy Assistant | DX: Z48.00 Encounter for change or removal of nonsurgical wound dressing (principal); L02.212 Cutaneous abscess of back [any part, except buttock and flank] | CPT/HCPCS: 99212 ==

== ENCOUNTER → 2022-03-09 09:53 | Outpatient (BNVA) | payer MEDICARE, OTHER, SELFPAY | PROVIDERS: PCP Family Medicine; Referring Provider Family Medicine; Visit Provider Surgery | DX: Z48.00 Encounter for change or removal of nonsurgical wound dressing (principal); L02.212 Cutaneous abscess of back [any part, except buttock and flank]; L72.3 Sebaceous cyst; L08.9 Local infection of the skin and subcutaneous tissue, unspecified | CPT/HCPCS: 99212 ==

== ENCOUNTER → 2022-04-13 13:20 | Outpatient (BNVA) | payer MEDICARE, OTHER, SELFPAY | PROVIDERS: PCP Family Medicine; Referring Provider Family Medicine; Visit Provider Surgery | DX: I25.2 Old myocardial infarction (principal); E11.9 Type 2 diabetes mellitus without complications; Z86.16 Personal history of COVID-19; L72.3 Sebaceous cyst; L08.9 Local infection of the skin and subcutaneous tissue, unspecified; I48.0 Paroxysmal atrial fibrillation | CPT/HCPCS: 99212; 99213 ==

== ENCOUNTER 2022-04-16 03:54 | Outpatient (CLI) | payer MEDICARE, OTHER, SELFPAY ==
[2022-04-16 12:15] LABS: Abs Immature Grans 0.02 10^3/uL (0.0-0.06); Absolute Basophil Count 0.02 10^3/uL (0.0-0.2); Absolute Lymphocyte Count 0.58 10^3/uL (1.2-3.4); Absolute Monocyte Count 0.45 10^3/uL (0.1-0.8); Absolute Neutrophil Count 5.54 10^3/uL (1.2-6.7); Basophils % 0.3; Eosinophils % 1.5; HCT 28.7 % (36.0-46.0); HGB 9.2 g/dL (11.2-15.7); Immature Grans % 0.3; Lymphocytes % 8.6; MCH 27.7 pg (27.0-33.0); MCHC 32.1 % (32.0-36.0); MCV 86 fL (80-95); MPV 8.6 fL (8.0-11.0); Monocytes % 6.7; Neutrophils % 82.6; Platelet Count 215 10^3/uL (130-400); RBC 3.32 10^6/uL (3.93-5.22); RDW 14.4 % (11.7-14.6); RDW-SD 45.1 fL; WBC 6.71 10^3/uL (4.4-10.8)
[2022-04-16 13:05] LABS: ALT 18 U/L (14-59); AST 16 U/L (15-37); Albumin 3.9 g/dL (3.4-5.0); Alkaline Phosphatase 75 U/L (46-116); Anion Gap 9.1 mmol/L (3-11); BUN 41 mg/dL (7-18); Bilirubin, Total 0.3 mg/dL (0.2-1.0); CO2 22.9 mmol/L (21.0-32.0); CREATININE 1.5 mg/dL (0.55-1.02); Calcium 9.6 mg/dL (8.5-10.1); Chloride 100 mmol/L (98-107); Estimated GFR 33.33 (mL/min/1.73m2); Glucose 206 mg/dL (74-106); Potassium 5.9 mmol/L (3.5-5.1); Sodium 132 mmol/L (136-145); Total Protein 7.8 g/dL (6.4-8.2)
[2022-04-16 13:09] LABS: C-Reactive Protein < 0.05 mg/dL (0.0-0.3)
[2022-04-16 13:34] LABS: Ferritin 109 ng/mL (8-252); Folate > 20.0 ng/mL (8.6-20.0)
[2022-04-16 15:20] LABS: Iron 53 ug/dL (50-170); Total Iron Binding Capacity 327 ug/dL (250-450); Transferrin Sat 16 % (15-50)
== END 2022-04-16 03:55 | disposition home or self-care (01) ==
LOC: LBO 03:54
PROVIDERS: PCP Family Medicine; Visit Provider Surgery
DX: D64.9 Anemia, unspecified (principal); E11.3299 Type 2 diabetes mellitus with mild nonproliferative diabetic retinopathy without macular edema, unspecified eye; G47.30 Sleep apnea, unspecified; G47.31 Primary central sleep apnea; G47.61 Periodic limb movement disorder; I10 Essential (primary) hypertension; I21.4 Non-ST elevation (NSTEMI) myocardial infarction; I25.10 Atherosclerotic heart disease of native coronary artery without angina pectoris; I48.0 Paroxysmal atrial fibrillation; I50.22 Chronic systolic (congestive) heart failure; I50.9 Heart failure, unspecified; L08.9 Local infection of the skin and subcutaneous tissue, unspecified; L72.3 Sebaceous cyst; U07.1 COVID-19; Z95.818 Presence of other cardiac implants and grafts
CPT/HCPCS: 36415; 80053; 82728; 82746; 83540; 83550; 85025; 86140

== ENCOUNTER 2022-05-11 02:49 | Outpatient (CLI) | payer MEDICARE, OTHER, SELFPAY ==
[2022-05-11 12:44] LABS: Source Nasal/Nares
[2022-05-11 15:37] LABS: COVID-19 PCR Negative (Negative)
== END 2022-05-11 02:50 | disposition home or self-care (01) ==
LOC: LBO 02:50
PROVIDERS: PCP Family Medicine; Visit Provider Surgery
DX: Z20.822 Contact with and (suspected) exposure to COVID-19 (principal); Z01.818 Encounter for other preprocedural examination
CPT/HCPCS: 87635

== ENCOUNTER 2022-05-12 06:15 | Day surgery (SDC) | payer MEDICARE, OTHER, SELFPAY ==
[2022-05-12 06:50] VITALS: BP 117/55; PULSE 78; RESP 16; TEMP 36.2; O2SAT 97
[2022-05-12] MEDS: Lactated Ringers 1,000 ML 80 ML IV (07:02)
--- NOTE | 2022-05-12 07:04 | W.ANESPRE ---
General Info Date of Service Date Performed: 05/12/22 Height: 5 ft 2 in Weight: 83.2 kg Body Mass Index (BMI): 33.5 Surgical Procedure: Operation Date: 05/12/22 07:40 Proposed Procedure Side Surgeon p Excision Cyst Sebaceous X3 Melissa Mattson, DO Meds Allergies and Home Medications Allergies Allergy/AdvReac Type Severity Reaction Status Date / Time No Known Allergies Allergy Verified 05/12/22 06:39 Home Medication Medication Instructions Recorded ascorbic acid (vitamin C) 500 mg 500 mg PO DAILY 07/24/15 capsule,extended release (Vitamin C) magnesium oxide 500 mg tablet 500 mg PO DAILY 10/13/19 B Complex 1 tab PO DAILY 01/02/21 cholecalciferol (vitamin D3) 50 2,000 unit PO QWEEK 01/02/21 mcg (2,000 unit) capsule nitroglycerin 0.4 mg sublingual 0.4 mg sublingual ONCE PRN 01/02/21 tablet (Nitrostat) blood-glucose meter #1 ea 03/10/21 furosemide 20 mg tablet 20 mg PO DAILY PRN edema #90 tabs 03/10/21 lancets #100 ea 03/10/21 aspirin 81 mg tablet,delayed 81 mg PO DAILY 05/13/21 release (Adult Aspirin Regimen) nystatin 100,000 unit/gram topical 1 applic topical TID #30 grams 05/14/21 cream blood sugar diagnostic #100 ea 05/19/21 rosuvastatin 20 mg tablet 20 mg PO DAILY #90 tabs 10/09/21 metoprolol succinate 50 mg 50 mg PO BID #180 tabs 11/12/21 tablet,extended release 24 hr spironolactone 25 mg tablet 25 mg PO DAILY #90 tabs 11/12/21 glimepiride 4 mg tablet 4 mg PO DAILY #90 tab-caps 12/08/21 metformin 500 mg tablet See Rx Instructions PO BID #270 12/08/21 tabs [place] 3,6,9 1 tab PO .2x/week 03/20/22 cyanocobalamin (vitamin B-12) 2,000 mcg PO DAILY 03/20/22 1,000 mcg tablet (Vitamin B-12) losartan 50 mg tablet 50 mg PO BID #180 tabs 03/26/22 diltiazem HCl 120 mg 120 mg PO HS 05/11/22 capsule,extended release 24 hr Current Visit Medications: Current Medications Generic Name Dose Route Start Last Admin Trade Name Jeremy PRN Reason Stop Dose Admin Ringer's Solution 1,000 mls @ 80 mls/hr 05/12/22 06:00 05/12/22 07:02 IV 06/10/22 23:59 80 mls/hr INFUSION AMALIA Administration Cefazolin Sodium/Dextrose 2 gm in 50 mls @ 100 mls/hr 05/12/22 06:00 Ancef Duplex IVPB 06/10/22 23:59 PREOP AMALIA Ondansetron HCl 4 mg/ Sodium 52 mls @ 200 mls/hr 05/11/22 14:50 Chloride IVPB Q6H PRN PRN IV Miscellaneous Supplies 1 each 05/12/22 06:00 Iv Access IV 06/10/22 23:59 DIRECTED AMALIA Morphine Sulfate 2 mg 05/11/22 14:50 Morphine 4 Mg/Ml Syr IVP Q1H PRN PRN Sodium Chloride 0 ml 05/12/22 06:00 Normal Saline Flush 10 Ml Syr IV 06/10/22 23:59 PRN PRN Sodium Chloride 0 ml 05/12/22 06:00 Normal Saline 10 Ml Vial IJ 06/10/22 23:59 DIRECTED PRN Sterile Water 0 ml 05/12/22 06:00 Water,Injection,Sterile 10 Ml Vial IJ 06/10/22 23:59 DIRECTED PRN Tramadol HCl 50 mg 05/11/22 14:50 Tramadol 50 Mg Tab PO Q6H PRN PRN Pain PFSH Active Problems Active Problems: Problem Status Onset Code SARS-CoV-2 positive ~03/20/22 U07.1 Infected sebaceous cyst of skin L72.3, L08.9 Complicated abscess L02.91 Paroxysmal atrial fibrillation I48.0 Central sleep apnea syndrome G47.31 Periodic limb movement disorder ~09/2021 G47.61 Severe sleep apnea ~09/2021 G47.30 Atrial fibrillation with RVR I48.91 A-fib I48.91 Presence of Watchman left atrial appendage closure device Z95.818 S/P cardiac cath Z98.890 Post-menopausal bleeding N95.0 Chronic systolic CHF (congestive heart failure) I50.22 New onset a-fib I48.91 NSTEMI (non-ST elevated myocardial infarction) I21.4 History of diverticulitis Z87.19 Anemia D64.9 CAD (coronary artery disease) I25.10 Congestive heart failure (CHF) I50.9 Type 2 diabetes mellitus with mild nonproliferative diabetic retinopathy without macular edema 07/24/15 E11.3299 Kidney stones N20.0 Essential hypertension 07/24/15 I10 Arthritis 07/24/15 M19.90 Medical History Medical History A-fib Anemia with heme positive stool 02/17 CAD (coronary artery disease) Congestive heart failure (CHF) Essential hypertension (07/24/15) Kidney stones Migraine Post-menopausal bleeding Type 2 diabetes mellitus with mild nonproliferative diabetic retinopathy without macular edema (07/24/15) Medical History Comments:: Watchman device in situ Surgical History Surgical History History of heart artery stent 10/17/2018 Ligation of fallopian tube Presence of Watchman left atrial appendage closure device 05/08/21 Tonsillectomy vein stripping Tobacco Smoking/Tobacco Use Status: Never Alcohol Alcohol Intake: never Substance Use Substance use: Never Substance use type: does not use Vital Signs and Lab Results Vital Signs Most Recent Vital Signs in EMR: Most Recent Vital Signs Temp Pulse Resp BP Pulse Ox 36.2 C L 78 16 117/55 L 97 05/12/22 06:50 05/12/22 06:50 05/12/22 06:50 05/12/22 06:50 05/12/22 06:50 Lab Results Blood Type / Crossmatch: No Data to Display Complete Blood Count: White Blood Count 6.71 10^3/uL (4.4-10.8) 04/16/22 12:00 Red Blood Count 3.32 10^6/uL (3.93-5.22) L 04/16/22 12:00 Hemoglobin 9.2 g/dL (11.2-15.7) L 04/16/22 12:00 Hematocrit 28.7 % (36.0-46.0) L 04/16/22 12:00 Platelet Count 215 10^3/uL (130-400) 04/16/22 12:00 Complete Metabolic Panel: Sodium Level 132 mmol/L (136-145) L 04/16/22 12:00 Potassium Level 5.9 mmol/L (3.5-5.1) H 04/16/22 12:00 Chloride Level 100 mmol/L (98-107) 04/16/22 12:00 Carbon Dioxide Level 22.9 mmol/L (21.0-32.0) 04/16/22 12:00 Blood Urea Nitrogen 41 mg/dL (7-18) H 04/16/22 12:00 Creatinine 1.5 mg/dL (0.55-1.02) H 04/16/22 12:00 Estimated GFR/1.73 m2 33.33 (mL/min/1.73m2) 04/16/22 12:00 Calcium Level 9.6 mg/dL (8.5-10.1) 04/16/22 12:00 Albumin 3.9 g/dL (3.4-5.0) 04/16/22 12:00 Glucose Level 206 mg/dL (74-106) H 04/16/22 12:00 C-Reactive Protein < 0.05 mg/dL (0.0-0.3) 04/16/22 12:00 Liver Function Panel: Alanine Aminotransferase (ALT/SGPT) 18 U/L (14-59) 04/16/22 12:00 Aspartate Amino Transf (AST/SGOT) 16 U/L (15-37) 04/16/22 12:00 Coagulation Panel: No Data to Display Cardiac Panel: No Data to Display Arterial Blood Gas: No Data to Display Venous Blood Gas: No Data to Display Pancreas Panel: No Data to Display Thyroid Panel: No Data to Display Infectious Disease: Coronavirus (COVID-19)(PCR) Negative (Negative) 05/11/22 07:55 Coronavirus 2019 Source Nasal/Nares 05/11/22 07:55 Blood Cultures: No Data to Display Toxicology Panel: No Data to Display Imaging and Studies Imaging and Studies Study information below may be from another EMR and interpreted by another provider. Please see original notes in EMR for more complete details. EKG Summary: Sinus rhythm...normal P axis, V-rate 50- 99 Abnormal R-wave progression, late transition...QRS area<0 in V5/V6 LVH by voltage...R >1.10 in aVL Inferior infarct, age indeterminate...Q>35mS, T neg, II III aVF 07/31/21 Echocardiogram Summary: Left Ventricle : The left ventricle is normal size. The left ventricular systolic function is normal. The left ventricular ejection fraction is within the normal range. There is normal left ventricular wall thickness. There is normal LV segmental wall motion. The left ventricular diastolic function is abnormal. LVEF is 57%. Right Ventricle : The right ventricle is normal size. The right ventricular systolic function is normal. The RVSP is 21.7 mmHg. Atria : The left atrium size is normal. The right atrium size is normal. Mitral Valve : Mild mitral annular calcification. Mild mitral regurgitation. No evidence of mitral valve stenosis. Great Vessels : The aortic root is normal in size. The ascending aorta is mildly dilated. Aortic arch is normal in caliber. IVC is normal in size and collapses >50% with inspiration. 07/01/21 Anesthesia Assessment and Plan Anesthesia History Personal History: No History of Anesthesia Complications Family History: No Family History of Anesthesia Complications Exercise Tolerance Exercise Tolerance: Metabolic Equivalents<4 Pertinent Negatives Pertinent Negatives: No Symptoms of GERD, No Major Cardiovascular Symptoms or Complaints, No Major Pulmonary Symptoms or Complaints and No History of CVA/TIA Cardiac & Pulmonary Exam Cardiac Exam: Normal S1/S2 Heart Sounds Pulmonary Exam: Clear Bilateral Breath Sounds and No cough or Cold Implantable Cardiac Device Does patient have a Pacemaker or an ICD?: No Airway Exam Known Difficult Airway: No Mallampati Class: 3 Mouth Opening: Normal (> 3cm) Thyromental Distance: Greater than 3 cm Neck Range of Motion: Full ROM Neck Circumference: Normal Teeth Condition: Generalized Poor Dentition and Loose or Chipped ASA Classification ASA Score: ASA 3 Emergency Case?: No NPO Status NPO Status: NPO Clears >2 hours, Solids >8 hours Anesthesia Plan Resuscitation Status: Full Code Anesthesia Technique: MAC Anesthesia Airway Planned: Natural Airway Monitors Used: Standard Monitors
[2022-05-12 07:12] VITALS: BMI 33.5
[2022-05-12] MEDS: ceFAZolin 2 GM/50 ML BAG IVPB (07:34)
[2022-05-12] MEDS: Bupivacaine 0.5% Pres-Free W/EPI 10 ML VIAL (07:48)
--- NOTE | 2022-05-12 07:51 | SKI_PTH ---
PATIENT: Madeleine Lobato LOC: [facility] U#:[id number] AGE/SX: 82/F ROOM: RE05/12/[address]: Melissa Mattson : 1940 BED: DIS: 05/12/2022 SPEC #: [id number] RECD: 05/12/22 12:02 STATUS: KENNETH REQ #: [id number] OSCAR: 05/12/22 07:[address]: Melissa Mattson DEPT: Surgical Specimen RECD BY: Jina Nava ENTERED: 05/12/22 12:04 SP TYPE: REAGAN GOTTI DR: Dave Seaman DO Tissues: 1 - SKIN CYST/TAG/DEBRIDEMENT Procedures: GROSS AND MICRO LEVEL 3 Comments: [id number]
[2022-05-12 08:20] VITALS: BP 115/54; PULSE 79; RESP 16; TEMP 36.5; O2SAT 96
--- NOTE | 2022-05-12 08:30 | PDOC.DSDIS_ITS ---
Discharge Plan Disposition Patient Disposition: HOME Condition: Good Discharge Details Reason For Visit: cyst removal x3 Attending Provider: Melissa Mattson Primary Care Provider: Dave Seaman Home Meds and New Rx's Prescriptions: No Action cholecalciferol (vitamin D3) 50 mcg (2,000 unit) capsule 2,000 unit PO QWEEK Label Comments: Takes twice weekly furosemide 20 mg tablet 20 mg PO DAILY PRN (Reason: edema) Qty: 90 1RF (DME) lancets Misc See Rx Instructions .ROUTE .MEDSUPPLY Qty: 100 3RF Rx Instructions: As directed to check blood glucose daily. No insulin. Dispense covered brand. (DME) blood-glucose meter Misc See Rx Instructions .ROUTE .MEDSUPPLY Qty: 1 0RF Rx Instructions: As directed to check blood glucose. No insulin. Dispense covered brand. nitroglycerin [Nitrostat] 0.4 mg tablet, sublingual 0.4 mg SL ONCE PRN Rx Instructions: administer 5-10 minutes before situation known to precipitate angina attack B Complex 1 tab PO DAILY nystatin 100,000 unit/gram cream 1 applic topical TID Qty: 30 3RF (DME) blood sugar diagnostic Strip See Rx Instructions .ROUTE .MEDSUPPLY Qty: 100 3RF Rx Instructions: to test blood sugars daily to keep AIC below 7.0% Dx: Ell.3299 Pt uses ONE Touch Ultra Blue Strips ascorbic acid (vitamin C) [Vitamin C] 500 MG capsule, extended release 500 mg PO DAILY magnesium oxide 500 mg tablet 500 mg PO DAILY aspirin [Adult Aspirin Regimen] 81 mg tablet,delayed release (DR/EC) 81 mg PO DAILY Hold Instructions: Home Medication placed on hold at Doctor's office rosuvastatin 20 mg tablet 20 mg PO DAILY Qty: 90 7RF metoprolol succinate 50 mg tablet extended release 24 hr 50 mg PO BID Qty: 180 3RF Rx Instructions: 50mg am, 50mg pm spironolactone 25 mg tablet 25 mg PO DAILY Qty: 90 3RF glimepiride 4 mg tablet 4 mg PO DAILY Qty: 90 3RF metformin 500 mg tablet See Rx Instructions PO BID Qty: 270 3RF Rx Instructions: t2 tabs qam and t1 tab qpm PO; [place] 3,6,9 1 tab PO .2x/week cyanocobalamin (vitamin B-12) [Vitamin B-12] 1,000 mcg tablet 2,000 mcg PO DAILY losartan 50 mg tablet 50 mg PO BID Qty: 180 6RF diltiazem HCl 120 mg capsule,extended release 24hr 120 mg PO HS Discharge Instructions Additional Instructions: Wound Care Instruction Pain Control Use ice!? Ice keeps the swelling down and swelling is what causes pain.? Never apply ice directly to the skin.? Wrap it in a towel or cloth.? Apply ice 20 mi nutes on and 20 minutes off for pain control.? Use as needed.Take Tylenol 500 mg by mouth with food every 4 hours as needed for pain. Or ibuprofen 600 mg by mouth with food every 6 hours as needed for pain.? Do not take Tylenol if you have a history of heavy drinking, hepatitis C or liver problems.? Do not take ibuprofen if you have a history of stomach ulcers/problems, bleeding problem or kidney issues. ? Always wash your hands before touching your incision. ? Keep the incision clean, dry, and out of water, keep the incision out of water. ? Do not to pick at the scabs. Scabs help protect the wound. ? You can take a shower in 24 hours and wash the incision with soap and water. Pat dry/don?t scrub. It?s OK to wash around the incision. But don?t s pray water directly on it. ? Pat stitches dry if they get wet. Don't rub. ? Check the incision site daily for pain, redness, drainage, swelling, or separation of the incision edges. ? Make sure any clothing that touches the incision is loose-fitting. This will prevent rubbing. If the incision is on the head, keep your child from wearing caps or other head coverings. These may rub against the incision. As your incision heals, the skin may appear pink or red. It may also feel slightly bumpy or raised. This is called a healing ridge. Over time, the color should fade and the raised skin will become less noticeable. When to seek medical care Call your healthcare provider right away if you have any of these: ? More pain, redness, swelling, bleeding, or foul-smelling discharge around the incision area ? Fever of 101?F (38.3?C) or higher, or as directed by your child's healthcare provider ? Shaking chills ? Vomiting or nausea that doesn?t go away ? Numbness, coldness, or tingling around the incision area, or changes in skin color ? Opening of the sutures or wound -Stitches or howie that come apart or fall out or surgical tape falls off before 7 days, or as directed by your healthcare provider ?[facility]: [phone] Activity:: see above Remove Dressings/Wound Care:: 24 hours Shower/Bathe:: 24 hours Diet:: As Tolerated Discharge Orders Discharge Orders: Discharge Order (Routine); Ordered 05/11/22 Ordered By: Melissa Mattson
--- NOTE | 2022-05-12 08:45 | W.ANESPOSTOP ---
Postoperative Evaluation Date, Time and Location Date Performed: 05/12/22 Time Performed: 08:45 Patient Location: Day Surgery Unit Vital Signs Most Recent Imported Vital Signs: Most Recent Vital Signs Temp Pulse Resp BP Pulse Ox 36.5 C 79 16 115/54 L 96 05/12/22 08:20 05/12/22 08:20 05/12/22 08:20 05/12/22 08:20 05/12/22 08:20 Assessment Mental Status: Awake (Alert & Oriented to Patient Baseline) Airway and Respiratory Function: Patent airway with normal (patient baseline) respiratory exam Cardiovascular Function: Hemodynamically Stable Hydration Status: Adequately Hydrated Nausea & Vomiting: No Nausea or Vomiting Pain: Pt. Denies Any Pain Peripheral Nerve Block: Patient did not receive a nerve block
--- NOTE | 2022-05-12 08:48 | W.PM.OP ---
Date of service: 05/12/22 Time of Service: 08:00 Operative Note Operative Note DATE OF PROCEDURE: 05/12/22 PRE-OP DIAGNOSIS: yosef cyst x3 POST-OP DIAGNOSIS: same PROCEDURE: excision of yosef cyst x3 SURGEON: Melissa Mattson ANESTHESIA TYPE: Local By Surgeon and MAC Refer to Anesthesia Record ESTIMATED BLOOD LOSS: 3 PATHOLOGY: other COMPLICATIONS: None Patient was transported to: same day Patient's condition: stable Procedure Description: [place] is here today for excision of sebaceous cyst x3. She has had them excised previously and they have reoccurred. They are also quite large. Informed consent is obtained explaining risks and benefits of the procedure including but not limited to: Bleeding, infection, scarring, recurrence, complications from anesthesia, need to heal by secondary intent, and need for reexcision if pathology is significant for malignancy. Patient is marked in preop. She is brought to the operative suite and placed in the prone position., With all bony surfaces padded. Anesthesia is ministered per the department of anesthesia. Patient is prepped and draped in the usual sterile fashion using a ChloraPrep scrub solution. Timeout is performed. There are 3 lesions. One on the posterior left shoulder back region. This lesion is 1 x 1 x1 inch. The second lesion is in the midupper back . This lesion is more superior. This lesion is also 1 x 1 x1 inch. It had been excised previously. The third lesion is in the mid back but inferior position. This lesion is 1/2 x 1/2x 1/2 Inch in size. And again this lesion had been previously excised. 30 cc of quarter percent Marcaine with epi was used for local anesthetization. The skin is excised with #15 blade including the pore of the cyst. The cyst is dissected out in total including all of its capsule. Bleeding is controlled with electrocautery. Cysts are closed with interrupted 3 and 4-0 nylon. Compression dressings are applied. Patient tolerated procedure well without complication and transferred back to same-day surgery in stable condition. Patient is given instructions in wound care, activity, and warning signs. She was given a nonnarcotic pain plan. She will follow-up in 10 weeks time for suture removal
[2022-05-12 08:57] VITALS: BP 106/55; PULSE 72; RESP 18; TEMP 36.5; O2SAT 96
== END 2022-05-12 09:17 | disposition home or self-care (01) ==
PROVIDERS: PCP Family Medicine; Visit Provider Surgery
PROC: (CPT 11402; principal; 2022-05-12 07:30)
DX: L72.9 Follicular cyst of the skin and subcutaneous tissue, unspecified (principal); E11.9 Type 2 diabetes mellitus without complications; Z79.84 Long term (current) use of oral hypoglycemic drugs; I48.91 Unspecified atrial fibrillation
CPT/HCPCS: 11402; 11403 ×2; 88304; J0690; J2250; J2704

== ENCOUNTER → 2022-05-28 09:01 | Outpatient (BNVA) | payer MEDICARE, OTHER, SELFPAY | PROVIDERS: PCP Family Medicine; Referring Provider Family Medicine; Visit Provider Physical Therapy Assistant | DX: L72.9 Follicular cyst of the skin and subcutaneous tissue, unspecified (principal); Z51.89 Encounter for other specified aftercare ==

== ENCOUNTER → 2022-05-29 10:51 | Outpatient (BNVA) | payer MEDICARE, OTHER, SELFPAY | PROVIDERS: PCP Family Medicine; Visit Provider Internal Medicine Cardiovascular Disease | DX: I25.10 Atherosclerotic heart disease of native coronary artery without angina pectoris (principal); I10 Essential (primary) hypertension; I48.0 Paroxysmal atrial fibrillation; Z95.818 Presence of other cardiac implants and grafts | CPT/HCPCS: 99214 ==

== ENCOUNTER → 2022-09-10 02:42 | Outpatient (CLI) | payer MEDICARE, OTHER, SELFPAY ==
--- NOTE | 2022-09-10 06:45 | DI.US_ITS ---
Exam(s) US SOFT TISSUE EXTREMITY EXAM: US SOFT TISSUE EXTREMITY CLINICAL HISTORY: concerning RT PLANTAR skin lesion, h/o excessive bleeding,SOFT TISSUE MASS. TECHNIQUE: Ultrasound was performed using standard protocol. COMPARISON: No exams were available for comparison FINDINGS: Sonographic assessment utilizing grayscale and color Doppler imaging was performed and targeted to th e area of clinical concern. There is edema seen in subcutaneous tissues in the area of concern. No definite focal fluid collecti on is seen to suggest an abscess. If there is continued clinical concern, an MRI may be considered f or further evaluation. IMPRESSION: DATA REPOSITORY:
== END ==
PROVIDERS: PCP Family Medicine; Visit Provider Podiatrist Foot & Ankle Surgery
DX: M79.89 Other specified soft tissue disorders (principal)
CPT/HCPCS: 76881

== ENCOUNTER 2022-11-03 02:12 | Outpatient (CLI) | payer OTHER, SELFPAY ==
--- NOTE | 2022-11-03 07:30 | DI.MRI_ITS ---
Exam(s) MR LOWER EXTREMITY RT WO/W EXAM: MR LOWER EXTREMITY RT WO/W CLINICAL HISTORY: R soft tissue mass vs dermal lesion only,PAIN,M79.89,M79.673 TECHNIQUE: Multiplanar multisequence MRI was performed. COMPARISON: There are no foot plain films available at the time of this MRI interpretation. No exam s were available for comparison FINDINGS: MARROW/ARTICULATIONS:There is no evidence of fracture, bone contusion, nor significant osseous lesion s. There are degenerative subarticular cysts both sides of the tarsometatarsal joints normal intraos seous vascular variant is seen in the calcaneus is below the subtalar joint. There are no para-artic ular ganglions evident. SINUS TARSI: Appears unremarkable. Preserved fat signal. No evidence of sinus tarsi ganglion cyst. MUSCLES: There is no evidence of abnormal signal nor mass fluid collection in the visualized muscles. TENDONS: Mild tenosynovitis of the peroneus longus tendon. EXTRAMUSCULAR SOFT TISSUES: No abnormal signal, mass, or fluid collection. TILA on plantar surface of foot (where there is a skin marker) there is a small indentation of the ski n, possibly tiny skin ulcer. There is relatively hypointense T1 signal in the subcutaneous fat over this area. No fluid collection. No abnormal enhancement here following contrast injection. No subc utaneous abscess. OTHER: None. IMPRESSION: 1. In the subcutaneous tissue immediately subjacent to the skin marker on the plantar aspect of the f oot there is abnormal hypointense T1 weighted signal. There does not appear to be significant enhanc ement in this region. Suspect that this may be an area of callus formation. 2. Degenerative changes in the midfoot joints, most evident in the tarsometatarsal joints. Lisfranc ligament is intact. 3. DATA REPOSITORY:
[2022-11-03 12:32] LABS: CREATININE 1.5 mg/dL (0.55-1.02); Estimated GFR 34.79 (mL/min/1.73m2)
[2022-11-03] MEDS: Normal Saline Flush 10 ML SYR IVP (13:15)
== END 2022-11-03 02:32 ==
PROVIDERS: PCP Family Medicine; Visit Provider Podiatrist Foot & Ankle Surgery
DX: M19.071 Primary osteoarthritis, right ankle and foot (principal); M79.89 Other specified soft tissue disorders; R79.89 Other specified abnormal findings of blood chemistry
CPT/HCPCS: 73720; 82565

== ENCOUNTER 2022-12-13 09:45 | Outpatient (REF) | payer MEDICARE, SELFPAY ==
[2022-12-13 10:59] LABS: C Diff PCR Negative (Negative)
== END 2022-12-13 09:46 | disposition home or self-care (01) ==
LOC: LBN 09:45
PROVIDERS: PCP Family Medicine; Visit Provider Family Medicine
DX: R15.2 Fecal urgency (principal)
CPT/HCPCS: 87329; 87493

== ENCOUNTER 2022-12-22 01:21 | Outpatient (CLI) | payer MEDICARE, SELFPAY ==
--- NOTE | 2022-12-22 06:45 | DI.CT_ITS ---
Exam(s) CT ABDOMEN PELVIS W EXAM: CT ABDOMEN PELVIS W CLINICAL HISTORY: Diarrhea, nausea, vomiting, abd pain,heme + stool,r19.5 TECHNIQUE: Imaging Protocol: Axial computed tomography images with coronal and sagittal reformatted images were created and reviewed CONTRAST MATERIAL: Intravenous: Omnipaque 350 Contrast volume:50 mL Oral: Yes COMPARISON: CT CT ABDOMEN PELVIS W from 05/17/2020 FINDINGS: ABDOMEN: Lung Bases: Coronary artery calcifications and atherosclerosis is seen. There is a tiny hiatal herni a present. Liver: Normal density. No measurable mass. Portal, Superior Mesenteric, and Splenic Veins: Unremarkable. Gallbladder and Biliary Tract: Cholelithiasis. No biliary ductal dilatation. Pancreas: Normal density, no abnormal calcifications or inflammatory process. Spleen: Normal. Adrenals: No masses seen. Kidneys: Normal size, contour and axis. No radiodense stones or obstructive uropathy. There are sever al simple renal cysts bilaterally. No follow-up is recommended. There is a hyperdense 2.1 cm exophyti c nodule on the superior pole of the left kidney. It does not meet the criteria for simple cyst. It w as present on the prior examination and showed simple cysts characteristics. Abdominal Aorta: Abdominal portion non-dilated. Atherosclerosis. Bowel: There is bowel wall thickening seen in the mid sigmoid colon. There are few diverticula in the region. There is mild stranding in the soft tissues. There is no evidence of bowel obstruction. Ther e is no evidence of appendicitis. Peritoneal Cavity: No ascites, collection or mesenteric inflammatory response. No free air. Lymph Nodes: Within normal limits. Bones: Within normal limits for the patient's age. No aggressive osseous lesions are identified. Soft Tissues: Unremarkable. PELVIS: Bladder: Symmetric distention, no gross wall thickening. Reproductive Organs: Calcified uterine fibroids are present. Lymph Nodes: Within normal limits. Bones: Within normal limits for the patient's age. IMPRESSION: 1. Bowel wall thickening seen in the mid sigmoid colon. There are few scattered diverticula and mild stranding in the surrounding soft tissues. While acute diverticulitis/colitis should be considered, a colonic mass cannot be excluded. Please correlate clinically. A barium enema or colonoscopy should b e considered for further evaluation. 2. Cholelithiasis. No biliary ductal dilatation. 3. 2.1 cm exophytic round lesion in the superior pole of the left kidney. It does not meet the criter ia for simple cyst. On the prior examination it was homogeneously hypodense. Sonographic correlation is recommended to confirm a simple cyst. RADIATION DOSE DELIVERED: 934.58mGy.cm Total DLP DATA REPOSITORY: All CT scans at this facility are submitted to the National Radiology Data Registry (NRDR) Dose Index Registry (DIR) with the [employer] (A[employer]). RADIATION OPTIMIZATION: All CT scans at this facility use at least one of these dose optimization te chniques: automated exposure control; mA and/or kV adjustment per patient size (includes targeted exa ms where dose is matched to clinical indication); or iterative reconstruction.
[2022-12-22] MEDS: Barium Sulfate 2% W/V-Berry Smoothie 450 ML BTL PO ×2 (07:43→07:44)
[2022-12-22] MEDS: Breeza Beverage 473 ML BTL PO ×2 (08:06→08:07)
[2022-12-22] MEDS: Omnipaque 350 MG/ML 50 ML BTL PO (08:06)
[2022-12-22 08:11] LABS: CREATININE 1.6 mg/dL (0.55-1.02)
[2022-12-22] MEDS: Normal Saline - Diluent 50 ML VIAL IJ (09:44)
[2022-12-22] MEDS: Normal Saline Flush 10 ML SYR IVP (09:44)
[2022-12-22] MEDS: Omnipaque 350 MG/ML 100 ML BTL 50 ML IJ (09:46)
== END 2022-12-22 01:41 ==
LOC: DI 01:21
PROVIDERS: PCP Family Medicine; Visit Provider Family Medicine
DX: R19.5 Other fecal abnormalities (principal); K80.20 Calculus of gallbladder without cholecystitis without obstruction; R93.422 Abnormal radiologic findings on diagnostic imaging of left kidney
CPT/HCPCS: 74177; 82565; J3490; Q9967

== ENCOUNTER → 2022-12-25 09:58 | Outpatient (BNVA) | payer MEDICARE, SELFPAY | PROVIDERS: PCP Family Medicine; Referring Provider Family Medicine; Visit Provider Surgery | DX: R19.5 Other fecal abnormalities (principal); D50.9 Iron deficiency anemia, unspecified; K63.89 Other specified diseases of intestine; R63.4 Abnormal weight loss; K57.32 Diverticulitis of large intestine without perforation or abscess without bleeding | CPT/HCPCS: 36415; 99215 ==

== ENCOUNTER 2022-12-25 10:55 | Outpatient (REF) | payer MEDICARE, SELFPAY ==
[2022-12-25 11:33] LABS: Abs Immature Grans 0.01 10^3/uL (0.0-0.06); Absolute Basophil Count 0.02 10^3/uL (0.0-0.2); Absolute Eosinophil Count 0.01 10^3/uL (0.0-0.7); Absolute Lymphocyte Count 0.31 10^3/uL (1.2-3.4); Absolute Monocyte Count 0.54 10^3/uL (0.1-0.8); Absolute Neutrophil Count 3.64 10^3/uL (1.2-6.7); Basophils % 0.4; Eosinophils % 0.2; HCT 28.5 % (36.0-46.0); HGB 9.5 g/dL (11.2-15.7); Immature Grans % 0.2; Lymphocytes % 6.8; MCH 27.1 pg (27.0-33.0); MCHC 33.3 % (32.0-36.0); MCV 81 fL (80-95); MPV 8.9 fL (8.0-11.0); Monocytes % 11.9; Neutrophils % 80.5; Platelet Count 318 10^3/uL (130-400); RDW 14.5 % (11.7-14.6); RDW-SD 42.9 fL; WBC 4.53 10^3/uL (4.4-10.8)
[2022-12-25 11:42] LABS: Iron 19 ug/dL (50-170); Total Iron Binding Capacity 176 ug/dL (250-450); Transferrin Sat 11 % (15-50)
[2022-12-25 12:17] LABS: ALT 29 U/L (14-59); AST 18 U/L (15-37); Albumin 3.1 g/dL (3.4-5.0); Alkaline Phosphatase 100 U/L (46-116); Anion Gap 11.8 mmol/L (3-11); BUN 17 mg/dL (7-18); Bilirubin, Total 0.4 mg/dL (0.2-1.0); CO2 23.2 mmol/L (21.0-32.0); CREATININE 1.8 mg/dL (0.55-1.02); Calcium 9.4 mg/dL (8.5-10.1); Chloride 97 mmol/L (98-107); Estimated GFR 27.96 (mL/min/1.73m2); Ferritin 252 ng/mL (8-252); Folate > 20.0 ng/mL (8.6-20.0); Glucose 299 mg/dL (74-106); Magnesium 1.4 mg/dL (1.8-2.4); Potassium 3.5 mmol/L (3.5-5.1); Sodium 132 mmol/L (136-145); TSH (W/Ref FT4) 3.83 uIU/mL (0.36-3.74); Total Protein 6.9 g/dL (6.4-8.2); Vitamin B12 1764 pg/mL (193-986)
[2022-12-25 12:23] LABS: NT-proBNP 594 pg/mL (<300); Troponin I < 50 ng/L (<or=60)
[2022-12-25 12:32] LABS: C-Reactive Protein 3.19 mg/dL (0.0-0.3); FREE T4 1.76 ng/dL (0.76-1.46)
== END 2022-12-25 10:56 | disposition home or self-care (01) ==
LOC: LBN 10:55
PROVIDERS: PCP Family Medicine; Visit Provider Surgery
DX: D64.9 Anemia, unspecified (principal); E11.3299 Type 2 diabetes mellitus with mild nonproliferative diabetic retinopathy without macular edema, unspecified eye; G47.30 Sleep apnea, unspecified; I10 Essential (primary) hypertension; I21.4 Non-ST elevation (NSTEMI) myocardial infarction; I25.10 Atherosclerotic heart disease of native coronary artery without angina pectoris; I48.91 Unspecified atrial fibrillation; I50.22 Chronic systolic (congestive) heart failure; K57.32 Diverticulitis of large intestine without perforation or abscess without bleeding; K63.89 Other specified diseases of intestine; M79.89 Other specified soft tissue disorders; N28.89 Other specified disorders of kidney and ureter; R15.2 Fecal urgency; R19.5 Other fecal abnormalities; R63.4 Abnormal weight loss; R79.89 Other specified abnormal findings of blood chemistry; R93.3 Abnormal findings on diagnostic imaging of other parts of digestive tract; Z87.19 Personal history of other diseases of the digestive system; Z95.5 Presence of coronary angioplasty implant and graft; Z95.818 Presence of other cardiac implants and grafts; C50.919 Malignant neoplasm of unspecified site of unspecified female breast
CPT/HCPCS: 80053; 82607; 82728; 82746; 83540; 83550; 83735; 83880; 84439; 84443; 84484; 85025; 85610; 86140

== ENCOUNTER 2022-12-25 12:54 | Emergency (ER) | payer MEDICARE, SELFPAY ==
[2022-12-25] VITALS (13 sets, daily range): BP systolic 86–130; BP diastolic 37–68; PULSE 66–96; RESP 18; TEMP 37.2; O2SAT 99–100
--- NOTE | 2022-12-25 13:17 | ED.GENADUL_ITS ---
Discharge Plan Disposition Patient Disposition: Home Condition: Good Discharge Details Chief Complaint: Abd Prob Clinical Impression: Acute dehydration, Mass of colon Primary Care Provider: Dave Seaman ED Provider: Ollie Schaefer Home Meds and New Rx's Prescriptions: No Action cholecalciferol (vitamin D3) 50 mcg (2,000 unit) capsule 2,000 unit PO QWEEK Patient Comments: Takes twice weekly Rx Instructions: hasnt been taking (DME) lancets Misc See Rx Instructions .ROUTE .MEDSUPPLY Qty: 100 3RF Rx Instructions: As directed to check blood glucose daily. No insulin. Dispense covered brand. (DME) blood-glucose meter Misc See Rx Instructions .ROUTE .MEDSUPPLY Qty: 1 0RF Rx Instructions: As directed to check blood glucose. No insulin. Dispense covered brand. Acidophilus Capsule 10,000 mmu cells PO DAILY Patient Comments: Not taking every day; 1 billion live Probiotic Cultures ?Should she be taking? Heart doctor told her she should not be taking a probiotic (2 yrs ago) metformin 1,000 mg tablet 1,000 mg PO BID Qty: 180 3RF nystatin 100,000 unit/gram cream 1 applic topical TID Qty: 30 6RF spironolactone 25 mg tablet 25 mg PO DAILY Qty: 90 3RF furosemide 20 mg tablet 20 mg PO DAILY PRN (Reason: edema) Qty: 90 1RF Patient Comments: states she hasnt taken in a while. metoprolol succinate 50 mg tablet extended release 24 hr 50 mg PO BID Qty: 180 3RF Rx Instructions: 50mg am, 50mg pm B Complex 1 tab PO DAILY Rx Instructions: hasnt been taking (DME) blood sugar diagnostic Strip See Rx Instructions .ROUTE .MEDSUPPLY Qty: 100 3RF Rx Instructions: to test blood sugars daily to keep AIC below 7.0% Dx: Ell.3299 Pt uses ONE Touch Ultra Blue Strips polyethylene glycol 3350 17 gram/dose powder 238 g PO ONCE Qty: 238 0RF Rx Instructions: take per colonoscopy instructions bisacodyl [Dulcolax (bisacodyl)] 5 mg tablet,delayed release (DR/EC) 5 mg PO ONCE Qty: 4 0RF Rx Instructions: take per colonoscopy instructions ondansetron HCl 4 mg tablet 4 mg PO Q6H PRN (Reason: nausea and vomiting) Qty: 20 0RF ascorbic acid (vitamin C) [Vitamin C] 500 MG capsule, extended release 500 mg PO DAILY Rx Instructions: hasnt been taking [place] 3,6,9 1 tab PO .2x/week Patient Comments: not taking cyanocobalamin (vitamin B-12) [Vitamin B-12] 1,000 mcg tablet 2,000 mcg PO DAILY Rx Instructions: hasnt been taking losartan 50 mg tablet 50 mg PO BID Qty: 180 6RF diltiazem HCl 120 mg capsule,extended release 24hr See Rx Instructions .ROUTE .COMPLEX Qty: 90 3RF Dose Instruction: TAKE 1 CAPSULE DAILY Rx Instructions: TAKE 1 CAPSULE DAILY rosuvastatin 20 mg tablet See Rx Instructions .ROUTE .COMPLEX Qty: 90 3RF Dose Instruction: TAKE 1 TABLET DAILY Rx Instructions: TAKE 1 TABLET DAILY metronidazole 500 mg tablet 500 mg PO Q8H 7 Days Qty: 21 0RF Patient Comments: was told not to take anymore Discharge Instructions Instructions: Dehydration (ED) Additional Instructions: At this time your laboratory work-up is stable. You still do have significant issues which need further management with your surgeon Dr. Mattson. Please continue to stay well-hydrated at home. Avoid excessively salty foods. Your urine did show questionable evidence of mild infection, however since you have been on antibiotics we will hold off for additional antibiotics at this time and wait to see what the culture results show. Please follow-up closely with your surgeon at your scheduled appointment on Wednesday. If you notice any worsening of your symptoms, or any new symptoms such as vomiting, diarrhea, fever, chills, shortness of breath, chest pain, numbness, weakness, or fainting , please return immediately to the emergency department for reevaluation. Please follow up with your primary care provider as soon as possible for reassessment and reevaluation. As always, it was a pleasure participating in your medical care today. Referrals: Dave Seaman DO [Primary Care Provider] - Medical Decision Making This is an 82-year-old female with a past medical history of a newly diagnosed/suspected colon mass, atrial fibrillation with Watchman device, coronary artery disease, congestive heart failure, type 2 diabetes, hypertension , who presents today for fatigue. Patient has been having nausea and diarrhea for the past week or 2. She was on medication for diverticulitis, but it has been found to be noninfectious and so her antibiotics have been stopped today. She was at her surgery office with Dr. Mattson today for discussion about scope on Wednesday in 3 days. However while there surgery was concerned that she was a bit weak and dehydrated. No beds are currently available for admission, and surgery did not feel that the patient required admission however they did feel that it would be beneficial to gently rehydrate the patient in the emergency department. Patient was then sent here. Patient otherwise feels well, she admits to mild stomach achiness. She denies any blood in her stool. Patient has no other complaints at this time. Family is at bedside. Patient is not on any blood thinners. Physical exam demonstrates dry mucous membranes, mildly distended abdomen but nontender. Bowel sounds are present. Patient may be mildly dehydrated. We will get basic labs to evaluate for electrolyte abnormality, gently rehydrate with a 500 cc bolus, monitor closely and reassess 2:53 PM Laboratory work-up demonstrates a stable hemoglobin, no white count. Electrolytes stable, creatinine persistent 1.8. 500 cc bolus was given and the patient feels much better. Her blood pressure was soft in the 90s systolic, it is now up to the 110's. Lipase is normal. Patient feels much better clinically. We will still give her an additional slow 500 cc bolus. She shows no hypoxemia or signs of CHF clinically at this time. Urinalysis does show some moderate leuk esterase and some WBCs, however she has been on antibiotics, and has no urinary symptoms of frequency dysuria or fever. We will hold off on treatment at this time and wait and see what cultures result as. Otherwise patient is stable. Discussed plan with family. They all feel comfortable with plan. Discussed case with Dr. Mattson. I have extensively reviewed the treatment plan and discharge instructions with the patient and their family. I have addressed all patient concerns at this time. The patient and family was made aware of what symptoms to monitor for that would warrant a return to the emergency department. Discussed the plan with the patient and family, they demonstrate verbal understanding and agreement with our assessment and plan at this time. The documentation in this chart was dictated using [employer] dictation software. Please excuse any dictation errors. HPI General Date/Time Provider Initiated Documentation: 12/25/22 13:11 . HPI Narrative: This is an 82-year-old female with a past medical history of a newly diagnosed/suspected colon mass, atrial fibrillation with Watchman device, coronary artery disease, congestive heart failure, type 2 diabetes, hypertension, who presents today for fatigue. Patient has been having nausea and diarrhea for the past week or 2. She was on medication for diverticulitis, but it has been found to be noninfectious and so her antibiotics have been stopp ed today. She was at her surgery office with Dr. Mattson today for discussion about scope on Wednesday in 3 days. However while there surgery was concerned that she was a bit weak and dehydrated. No beds are currently available for admission, and surgery did not feel that the patient required admission however they did feel that it would be beneficial to gently rehydrate the patient in the emergency department. Patient was then sent here. Patient otherwise feels well, she admits to mild stomach achiness. She denies any blood in her stool. Patient has no other complaints at this time. Family is at bedside. Patient is not on any blood thinners. Related Data Home Medications Medication Instructions Recorded Confirmed ascorbic acid (vitamin C) 500 mg 500 mg PO DAILY 07/24/15 12/17/22 capsule,extended release (Vitamin C) B Complex 1 tab PO DAILY 01/02/21 12/17/22 cholecalciferol (vitamin D3) 50 2,000 unit PO QWEEK 01/02/21 12/17/22 mcg (2,000 unit) capsule blood-glucose meter #1 ea 03/10/21 12/25/22 lancets #100 ea 03/10/21 12/25/22 blood sugar diagnostic #100 ea 05/19/21 12/25/22 [place] 3,6,9 1 tab PO .2x/week 03/20/22 12/17/22 cyanocobalamin (vitamin B-12) 2,000 mcg PO DAILY 03/20/22 12/17/22 1,000 mcg tablet (Vitamin B-12) losartan 50 mg tablet 50 mg PO BID #180 tabs 03/26/22 12/25/22 diltiazem HCl 120 mg See Rx Instructions .Route 08/04/22 12/25/22 capsule,extended release 24 hr .COMPLEX #90 caps Lactobacillus acidophilus 10,000 mmu cells PO DAILY 09/10/22 12/17/22 (Acidophilus capsule) metformin 1,000 mg tablet 1,000 mg PO BID #180 tabs 09/10/22 12/25/22 rosuvastatin 20 mg tablet See Rx Instructions .Route 09/15/22 12/25/22 .COMPLEX #90 tabs furosemide 20 mg tablet 20 mg PO DAILY PRN edema #90 tabs 11/05/22 12/25/22 metoprolol succinate 50 mg 50 mg PO BID #180 tabs 11/05/22 12/25/22 tablet,extended release 24 hr spironolactone 25 mg tablet 25 mg PO DAILY #90 tabs 11/05/22 12/25/22 nystatin 100,000 unit/gram topical 1 applic topical TID #30 grams 12/11/22 12/25/22 cream metronidazole 500 mg tablet 500 mg PO Q8H 7 days #21 tabs 12/22/22 bisacodyl 5 mg tablet,delayed 5 mg PO ONCE colonscopy bowel prep 12/25/22 release (Dulcolax (bisacodyl)) #4 tabs ondansetron HCl 4 mg tablet 4 mg PO Q6H PRN nausea and 12/25/22 12/25/22 vomiting #20 tabs polyethylene glycol 3350 17 238 g PO ONCE colonoscopy prep 12/25/22 12/25/22 gram/dose oral powder #238 grams Previous Rx's Medication Instructions Recorded blood-glucose meter #1 ea 03/10/21 lancets #100 ea 03/10/21 blood sugar diagnostic #100 ea 05/19/21 losartan 50 mg tablet 50 mg PO BID #180 tabs 03/26/22 diltiazem HCl 120 mg See Rx Instructions .Route 08/04/22 capsule,extended release 24 hr .COMPLEX #90 caps metformin 1,000 mg tablet 1,000 mg PO BID #180 tabs 09/10/22 rosuvastatin 20 mg tablet See Rx Instructions .Route 09/15/22 .COMPLEX #90 tabs furosemide 20 mg tablet 20 mg PO DAILY PRN edema #90 tabs 11/05/22 metoprolol succinate 50 mg 50 mg PO BID #180 tabs 11/05/22 tablet,extended release 24 hr spironolactone 25 mg tablet 25 mg PO DAILY #90 tabs 11/05/22 nystatin 100,000 unit/gram topical 1 applic topical TID #30 grams 12/11/22 cream metronidazole 500 mg tablet 500 mg PO Q8H 7 days #21 tabs 12/22/22 bisacodyl 5 mg tablet,delayed 5 mg PO ONCE colonscopy bowel prep 12/25/22 release (Dulcolax (bisacodyl)) #4 tabs ondansetron HCl 4 mg tablet 4 mg PO Q6H PRN nausea and 12/25/22 vomiting #20 tabs polyethylene glycol 3350 17 238 g PO ONCE colonoscopy prep 12/25/22 gram/dose oral powder #238 grams Allergies Allergy/AdvReac Type Severity Reaction Status Date / Time No Known Allergies Allergy Verified 12/25/22 10:27 General Stated Complaint: Abd Prob CYNTHIA: 3 Review of Systems All systems reviewed & are unremarkable except as noted in HPI and below PFSH All Active Problems (Updated 12/25/22 @ 14:46 by Ollie Schaefer DO) Acute dehydration (Acute) Mass of colon (Acute) Elevated lipids (Acute) Abnormal CT scan, sigmoid colon (Acute) Normochromic normocytic anemia (Acute) Colonic mass (Acute) sigmoid on CT Abnormal weight loss (Acute) Left kidney mass (Acute) 12/[address] scan Heme positive stool (Acute) Fecal urgency (Acute) Creatinine elevation (Acute) Pain, foot (Acute) Corns and callosities (Acute) Nail dystrophy (Acute) Mass of soft tissue (Acute) Antibiotic-associated diarrhea (Acute) Paroxysmal atrial fibrillation (Acute) Central sleep apnea syndrome (Acute) Periodic limb movement disorder (Acute ~09/2021) Severe sleep apnea (Acute ~09/2021) Atrial fibrillation with RVR (Acute) A-fib (Chronic) Presence of Watchman left atrial appendage closure device (Chronic) S/P cardiac cath (Acute) Post-menopausal bleeding (Acute) Chronic systolic CHF (congestive heart failure) (Chronic) NSTEMI (non-ST elevated myocardial infarction) (Acute) 2017 w/ stent palcement History of diverticulitis (Acute) Anemia (Chronic) with heme positive stool 02/17 CAD (coronary artery disease) (Chronic) Congestive heart failure (CHF) (Chronic) Type 2 diabetes mellitus with mild nonproliferative diabetic retinopathy without macular edema (Chronic 07/24/15) Kidney stones (Chronic) Essential hypertension (Acute 07/24/15) Arthritis (Acute 07/24/15) Medical History (Updated 12/25/22 @ 14:46 by Ollie Schaefer DO) Diverticulitis of sigmoid colon Migraine Surgical History History of heart artery stent 10/17/2018 Ligation of fallopian tube Presence of Watchman left atrial appendage closure device 05/08/21 Tonsillectomy vein stripping Family History Daughter , brainstem stoke at age 41. 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 Sexually active: No Do you think of yourself as: straight/heterosexual Current gender identity: female What is your relationship status?: Panel score (0-1 are the most socially isolated patients): 0 What type of physical activity do you participate in: none Duration: 15-30 minutes/day Frequency: 3-4 times per week Seatbelt use: always Drive intox or ride w/intox service car driver: No Working smoke detector in home: Yes Fire extinguisher in home: Yes Carbon monox detector in home: Yes Do you feel safe at home: Yes Do you feel safe in your relationship?: Yes Exam Narrative Exam Narrative: 1.Const: Well-nourished, Well-developed, appearing stated age 2.Eyes: PERRL, no conjunctival injection, and symmetrical lids. 3.ENT: Atraumatic external nose and ears. Dry MM. Neck: Symmetric, trachea midline, No thyromegaly. 4.CVS: +S1/S2, No murmurs or gallops. Peripheral pulses 2+ and equal in all extremities. Brisk capillary refill in all extremities. 5.RESP: Unlabored respiratory effort. Clear to auscultation bilaterally. No wheezes rales or rhonchi 6.GI: Soft, Nontender/Nondistended, No hepatosplenomegaly. No guarding or rebound. Minimal distention. Bowel sounds present 7.MSK: Normocephalic/Atraumatic, Extremities w/o deformity or ttp No cyanosis or clubbing, Normal movement of all extremities 8.Skin: Warm, Dry. No rashes or lesions. 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 Sensation grossly intact, no focal neurologic deficits. 10.Psych: (AAO) x3. Appropriate mood and affect Course Vital Signs Vital signs: Vital Signs Temperature 37.2 C 12/25/22 12:59 Pulse 96 H 12/25/22 12:59 Respiratory Rate 18 12/25/22 12:59 Blood Pressure 127/68 12/25/22 12:59 Pulse Oximetry 99 12/25/22 12:59 Temperature 37.2 C 12/25/22 12:59 Temperature Source Oral 12/25/22 12:59 Pulse 96 H 12/25/22 12:59 Respiratory Rate 18 12/25/22 12:59 Respiratory Effort Normal 12/25/22 13:04 Blood Pressure 127/68 12/25/22 12:59 Blood Pressure Position Sitting 12/25/22 12:59 Pulse Oximetry 99 12/25/22 12:59 Oxygen Delivery Method Room Air 12/25/22 12:59 Oxygen Flow Rate 0 12/25/22 12:59 Pain Level 2 12/25/22 12:59
[2022-12-25] MEDS: Ondansetron 4 MG/2 ML VIAL IVP (13:38)
[2022-12-25] MEDS: Normal Saline 500 ML IV ×3 (13:39→15:01)
[2022-12-25 13:48] LABS: Abs Immature Grans 0.02 10^3/uL (0.0-0.06); Absolute Basophil Count 0.02 10^3/uL (0.0-0.2); Absolute Eosinophil Count 0.01 10^3/uL (0.0-0.7); Absolute Lymphocyte Count 0.29 10^3/uL (1.2-3.4); Absolute Monocyte Count 0.61 10^3/uL (0.1-0.8); Absolute Neutrophil Count 3.69 10^3/uL (1.2-6.7); Basophils % 0.4; Eosinophils % 0.2; HCT 28.8 % (36.0-46.0); HGB 9.4 g/dL (11.2-15.7); Immature Grans % 0.4; Lymphocytes % 6.3; MCH 26.6 pg (27.0-33.0); MCHC 32.6 % (32.0-36.0); MCV 81 fL (80-95); MPV 8.2 fL (8.0-11.0); Monocytes % 13.1; Neutrophils % 79.6; Platelet Count 279 10^3/uL (130-400); RBC 3.54 10^6/uL (3.93-5.22); RDW 14.3 % (11.7-14.6); RDW-SD 42.7 fL; WBC 4.64 10^3/uL (4.4-10.8)
[2022-12-25 14:03] LABS: ALT 28 U/L (14-59); AST 16 U/L (15-37); Albumin 3.1 g/dL (3.4-5.0); Alkaline Phosphatase 98 U/L (46-116); Anion Gap 11.3 mmol/L (3-11); BUN 15 mg/dL (7-18); Bilirubin, Total 0.4 mg/dL (0.2-1.0); CO2 22.7 mmol/L (21.0-32.0); CREATININE 1.8 mg/dL (0.55-1.02); Calcium 9.2 mg/dL (8.5-10.1); Chloride 98 mmol/L (98-107); Estimated GFR 27.96 (mL/min/1.73m2); Glucose 247 mg/dL (74-106); Lipase 42 U/L (16-77); Potassium 3.4 mmol/L (3.5-5.1); Sodium 132 mmol/L (136-145); Total Protein 6.8 g/dL (6.4-8.2)
[2022-12-25 14:25] LABS: Bilirubin Negative (Negative); Blood Small (Negative); Clarity Clear (Clear); Glucose Negative (Negative); Ketones Negative (Negative); Leukocyte Esterase Moderate (Negative); Nitrite Negative (Negative); Specific Gravity 1.015 (1.005-1.025); Urobilinogen 0.2 mg/dL (Up to 0.2)
[2022-12-25 14:31] LABS: Bacteria Few HPF (Negative); C & S Indicated? No/Sq. Contamination; Casts Negative LPF (Negative); Crystals Negative HPF (Negative); Epithelial Cells Moderate HPF (Negative); Mucus Negative (Negative); RBC 0-2 HPF (0-2); WBC 20-50 HPF (0-5)
--- NOTE | 2022-12-25 15:20 | PAPNONF_PTH ---
PATIENT: Madeleine Lobato LOC: [facility] U#:[id number] AGE/SX: 82/F ROOM: RE12/25/[address]: Ollie Schaefer DO : 1940 BED: DIS: 12/25/2022 SPEC #: [id number] RECD: 12/25/22 16:48 STATUS: KENNETH REQ #: [id number] OSCAR: 12/25/22 15:[address]: Melissa Mattson DEPT: [facility] Cytology RECD BY: Jina Nava ENTERED: 12/25/22 16:49 SP TYPE: JAGDISH GOTTI DR: DO Olive Aguilera DO, Joshua R Tissues: 1 - BODY FLUID CYTO(SPUTUM/URINE)[facility] Procedures: BODY FLUID CYTO(URINE/SPUTUM) Comments: [id number] (TV= 10 ml, 30 ml CYTOLYT ADDED) (REFRIGERATED)
[2022-12-25] MEDS: Fosfomycin Tromethamine 3 GM PACKET PO (15:22)
== END 2022-12-25 15:44 | disposition home or self-care (01) ==
PROVIDERS: Emergency Provider Student in an Organized Health Care Education/Training Program; PCP Family Medicine
DX: E86.0 Dehydration (principal); K63.9 Disease of intestine, unspecified; I48.91 Unspecified atrial fibrillation; I11.0 Hypertensive heart disease with heart failure; I50.9 Heart failure, unspecified; E11.9 Type 2 diabetes mellitus without complications; I25.10 Atherosclerotic heart disease of native coronary artery without angina pectoris; Z79.84 Long term (current) use of oral hypoglycemic drugs
CPT/HCPCS: 80053; 83690; 96361; 96374; 99284; 81003; 81015; 85025; 87086; 88104; J2405; J3490

== ENCOUNTER 2022-12-28 07:51 | Day surgery (SDC) | payer MEDICARE, SELFPAY ==
--- NOTE | 2022-12-27 19:04 | W.PM.DSUDISC ---
Date of service: 12/28/22 Time of Service: 10:05 Discharge Plan Disposition Patient Disposition: Home Condition: Good Discharge Details Reason For Visit: Colonoscopy Attending Provider: Kaiden Lobato Primary Care Provider: Dave Seaman Home Meds and New Rx's Prescriptions: Continued (DME) lancets Misc See Rx Instructions .ROUTE .MEDSUPPLY Qty: 100 3RF Rx Instructions: As directed to check blood glucose daily. No insulin. Dispense covered brand. (DME) blood-glucose meter [facility] [place] See Rx Instructions .ROUTE .MEDSUPPLY Qty: 1 0RF Rx Instructions: As directed to check blood glucose. No insulin. Dispense covered brand. metformin 1,000 mg tablet 1,000 mg PO BID Qty: 180 3RF spironolactone 25 mg tablet 25 mg PO DAILY Qty: 90 3RF metoprolol succinate 50 mg tablet extended release 24 hr 50 mg PO BID Qty: 180 3RF Rx Instructions: 50mg am, 50mg pm (DME) blood sugar diagnostic Strip See Rx Instructions .ROUTE .MEDSUPPLY Qty: 100 3RF Rx Instructions: to test blood sugars daily to keep AIC below 7.0% Dx: Ell.3299 Pt uses ONE Touch Ultra Blue Strips ondansetron HCl 4 mg tablet 4 mg PO Q6H PRN (Reason: nausea and vomiting) Qty: 20 0RF losartan 50 mg tablet 50 mg PO BID Qty: 180 6RF diltiazem HCl 120 mg capsule,extended release 24hr See Rx Instructions .ROUTE .COMPLEX Qty: 90 3RF Dose Instruction: TAKE 1 CAPSULE DAILY Rx Instructions: TAKE 1 CAPSULE DAILY Discontinued polyethylene glycol 3350 17 gram/dose powder 238 g PO ONCE Qty: 238 0RF Rx Instructions: take per colonoscopy instructions bisacodyl [Dulcolax (bisacodyl)] 5 mg tablet,delayed release (DR/EC) 5 mg PO ONCE Qty: 4 0RF Rx Instructions: take per colonoscopy instructions Discharge Instructions Additional Instructions: Madeleine we were able to perform the colonoscopy up to the area in question on the CAT scan. There appears to be a mass inside your large intestine. I have some concerns that this may represent colon cancer. I performed biopsies of the area, and marked it with a colon tattoo for future reference. You have an appointment scheduled in our office for next week, January 04. Incidentally, we placed a bandage over your sacral wound. This can be left in place for 24 hours. After that, you should remove it, wash the wound apply the ointment barrier that we talked about before your procedure. At the next office visit, we can try to assist assist you with securing bandages in this area. If you have any questions or problems in the meantime, please contact us. 1. If tolerated, consume a soft, low fiber diet for 1-2 days. [address] Do not drive, drink alcohol, operate machinery, make critical decisions, or do activities that require coordination or balance for 24 hours. 3. Because air was put into your colon during the procedure, expelling air from your rectum (passing gas or farting) is normal. 4. You may not have a bowel movement for 1-3 days because of the colonoscopy prep. This is normal. 5. Go directly to the emergency room if you notice any of the following: Develop chills (warm to touch), or if you have a thermometer and your temperature is above 101 Difficulty breathing or difficultly swallowing Persistent vomiting Severe abdominal pain, other than gas cramps Severe chest pain Black, tarry stools Any bleeding ? exceeding one tablespoon 6. Call your physician if the site where your intravenous was started becomes red, swollen, painful, and warm to touch. 7. Your physician has reviewed your pre-procedure medications. Please continue to take those medications as previously ordered. You will be given specific information/education regarding any changes to your medications before leaving. Activity:: Activity as Tolerated Diet:: As Tolerated Discharge Orders Discharge Orders: Discharge Order (Routine); Ordered 12/27/22 Ordered By: Kaiden Lobato DS: Diagnosis Discharge Diagnosis (1) Colonic mass: Status: Acute Asessment and Plan: Follow-up on pathology report
--- NOTE | 2022-12-27 19:07 | COLE_ITS ---
Date of service: 12/28/22 Time of Service: 10:12 Colonoscopy Report Date of procedure: 12/28/22 Pre-op diagnosis general: Colon mass Post-op diagnosis procedure note: other (Colon mass with diverticulosis) Procedure: Colonoscopy with biopsy and colonic tattoo Surgeon: Kaiden Lobato Anesthesia Type: General:No Airway Estimated blood loss (mL): 5 Pathology: other (Colon mass at 25 cm) Complications: None Disposition: same day Indications: Madeleine is an 82 year old woman with anemia and an abnormal colon mass on a CT scan Prep: Miralax/Dulcolax Procedure Start Time: :24 Procedure End Time: :58 Findings: Extensive sigmoid diverticulosis, colon mass at 25 cm Procedure Description: After the induction of monitored anesthetic care, and with the patient in left lateral decubitus position, I began by performing an external anorectal exam.? There is a large stage II sacral decubitus ulcer. It is clean, with no obvious signs of infection. Perineum and skin were normal, as was the anal verge.? There was no evidence of external hemorrhoids.? Next, I performed a digital rectal exam.? I did not appreciate any abnormal findings.? Next, I advanced a colonoscope into the rectal vault.? Retroflexion was normal.? Using insufflation, I then advanced the colonoscope beyond the rectal folds and into the sigmoid colon before advancing towards the cecum.? The quality of the prep was adequate.? There is extensive sigmoid diverticulosis which makes navigating the true lumen of the colon quite difficult. Around 25 cm from the anal verge there was a large mass extending into the lumen. It was erythematous and a little friable. I tattooed this area. There was intermittent intussusception of the descending colon into the area which made biopsying quite challenging. I was able to obtain a few specimens of the mass. In order to minimize her exp osure to anesthesia and complications of sedation, I thought the safest thing to do at that point was to terminate the colonoscopy. In that regard, the transverse and ascending colon's have not been evaluated on this procedure.
[2022-12-28 07:54] VITALS: BP 98/52; PULSE 77; RESP 16; TEMP 36.4; O2SAT 98
[2022-12-28] MEDS: Lactated Ringers 1,000 ML 80 ML IV (08:28)
[2022-12-28 08:29] LABS: Abs Immature Grans 0.03 10^3/uL (0.0-0.06); Absolute Basophil Count 0.02 10^3/uL (0.0-0.2); Absolute Eosinophil Count 0.05 10^3/uL (0.0-0.7); Absolute Lymphocyte Count 0.37 10^3/uL (1.2-3.4); Absolute Monocyte Count 0.53 10^3/uL (0.1-0.8); Absolute Neutrophil Count 5.88 10^3/uL (1.2-6.7); Basophils % 0.3; Eosinophils % 0.7; HGB 9.4 g/dL (11.2-15.7); Immature Grans % 0.4; Lymphocytes % 5.4; MCH 26.3 pg (27.0-33.0); MCHC 32.4 % (32.0-36.0); MCV 81 fL (80-95); MPV 8.3 fL (8.0-11.0); Monocytes % 7.7; Neutrophils % 85.5; Platelet Count 337 10^3/uL (130-400); RBC 3.58 10^6/uL (3.93-5.22); RDW 14.6 % (11.7-14.6); RDW-SD 43.4 fL; WBC 6.88 10^3/uL (4.4-10.8)
[2022-12-28 08:39] LABS: Anion Gap 11.1 mmol/L (3-11); BUN 9 mg/dL (7-18); CO2 21.9 mmol/L (21.0-32.0); CREATININE 1.6 mg/dL (0.55-1.02); Calcium 9.2 mg/dL (8.5-10.1); Chloride 100 mmol/L (98-107); Glucose 219 mg/dL (74-106); Potassium 3.2 mmol/L (3.5-5.1); Sodium 133 mmol/L (136-145)
--- NOTE | 2022-12-28 09:02 | ANES.PREOP_ITS ---
General Info Date of Service Date Performed: 12/28/22 Height: 5 ft 2 in Weight: 70.7 kg Body Mass Index (BMI): 28.5 Surgical Procedure: Operation Date: 12/28/22 08:50 Proposed Procedure Side Surgeon p Colonoscopy w/Biopsy Kaiden Lobato MD Actual Procedure Side Surgeon p Colonoscopy w/Biopsy Kaiden Lobato MD Meds Allergies and Home Medications Allergies Allergy/AdvReac Type Severity Reaction Status Date / Time No Known Allergies Allergy Verified 12/28/22 07:59 Home Medication Medication Instructions Recorded blood-glucose meter #1 ea 03/10/21 lancets #100 ea 03/10/21 blood sugar diagnostic #100 ea 05/19/21 losartan 50 mg tablet 50 mg PO BID #180 tabs 03/26/22 diltiazem HCl 120 mg See Rx Instructions .Route 08/04/22 capsule,extended release 24 hr .COMPLEX #90 caps metformin 1,000 mg tablet 1,000 mg PO BID #180 tabs 09/10/22 metoprolol succinate 50 mg 50 mg PO BID #180 tabs 11/05/22 tablet,extended release 24 hr spironolactone 25 mg tablet 25 mg PO DAILY #90 tabs 11/05/22 ondansetron HCl 4 mg tablet 4 mg PO Q6H PRN nausea and 12/25/22 vomiting #20 tabs Current Visit Medications: Current Medications Generic Name Dose Route Start Last Admin Trade Name Freq PRN Reason Stop Dose Admin Hyoscyamine Sulfate 0.125 mg 12/27/22 19:09 Hyoscyamine 0.125 Mg Sl/Oral/Chew SL DIRECTED PRN Ringer's Solution 1,000 mls @ 80 mls/hr 12/28/22 06:00 12/28/22 08:28 IV 01/24/23 23:59 80 mls/hr INFUSION AMALIA Administration Iron Sucrose 200 mg/ Sodium 110 mls @ 440 mls/hr 12/28/22 06:00 Chloride IVPB 12/28/22 23:59 .POSTOP AMALIA Ampicillin Sodium 1 gm/ Sodium 50 mls @ 100 mls/hr 12/28/22 06:00 Chloride IVPB 12/28/22 23:59 PREOP AMALIA IV Miscellaneous Supplies 1 each 12/28/22 06:00 Iv Access IV 01/24/23 23:59 DIRECTED AMALIA Ondansetron HCl 4 mg 12/27/22 19:09 Ondansetron 4 Mg/2 Ml Vial IVP Q4H PRN PRN Nausea / Vomiting Sodium Chloride 0 ml 12/28/22 06:00 Normal Saline Flush 10 Ml Syr IV 01/24/23 23:59 PRN PRN Sodium Chloride 0 ml 12/28/22 06:00 Normal Saline 10 Ml Vial IJ 01/24/23 23:59 DIRECTED PRN Sterile Water 0 ml 12/28/22 06:00 Water,Injection,Sterile 10 Ml Vial IJ 01/24/23 23:59 DIRECTED PRN PFSH Active Problems Active Problems: Problem Status Onset Code Coronary artery calcification seen on CAT scan I25.10 Atherosclerosis of arteries I70.90 Fe deficiency anemia D50.9 Mass of kidney N28.89 Intractable nausea and vomiting R11.2 Acute dehydration E86.0 Mass of colon K63.89 Elevated lipids E78.[address] scan, sigmoid colon R93.3 Normochromic normocytic anemia D64.9 Colonic mass K63.89 Abnormal weight loss R63.4 Left kidney mass N28.89 Heme positive stool R19.5 Fecal urgency R15.2 Creatinine elevation R79.89 Pain, foot M79.673 Corns and callosities L84 Nail dystrophy L60.3 Mass of soft tissue M79.89 Antibiotic-associated diarrhea K52.1, T36.95XA Paroxysmal atrial fibrillation I48.0 Central sleep apnea syndrome G47.31 Periodic limb movement disorder ~09/2021 G47.61 Severe sleep apnea ~09/2021 G47.30 Atrial fibrillation with RVR I48.91 A-fib I48.91 Presence of Watchman left atrial appendage closure device Z95.818 S/P cardiac cath Z98.890 Post-menopausal bleeding N95.0 Chronic systolic CHF (congestive heart failure) I50.22 New onset a-fib I48.91 NSTEMI (non-ST elevated myocardial infarction) I21.4 History of diverticulitis Z87.19 Anemia D64.9 CAD (coronary artery disease) I25.10 Congestive heart failure (CHF) I50.9 Type 2 diabetes mellitus with mild nonproliferative diabetic retinopathy without macular edema 07/24/15 E11.3299 Kidney stones N20.0 Essential hypertension 07/24/15 I10 Arthritis 07/24/15 M19.90 Medical History Medical History Diverticulitis of sigmoid colon Migraine Medical History Comments:: Watchman device in situ Surgical History Surgical History History of heart artery stent 10/17/2018 Ligation of fallopian tube Presence of Watchman left atrial appendage closure device 05/08/21 Tonsillectomy vein stripping Tobacco Smoking/Tobacco Use Status: Never Alcohol Alcohol Intake: never Substance Use Substance use: Never Substance use type: does not use Vital Signs and Lab Results Vital Signs Most Recent Vital Signs in EMR: Most Recent Vital Signs Temp Pulse Resp BP Pulse Ox 36.4 C L 77 16 98/52 L 98 12/28/22 07:54 12/28/22 07:54 12/28/22 07:54 12/28/22 07:54 12/28/22 07:54 Point of Care Results Point of Care Results: Finger Stick Blood Glucose 213 12/28/22 08:08 Lab Results 12/28/22 08:15 12/28/22 08:15 Blood Type / Crossmatch: Patient ABO/Rh Pending 12/28/22 Complete Blood Count: White Blood Count 6.88 10^3/uL (4.4-10.8) 12/28/22 08:15 Red Blood Count 3.58 10^6/uL (3.93-5.22) L 12/28/22 08:15 Hemoglobin 9.4 g/dL (11.2-15.7) L 12/28/22 08:15 Hematocrit 29.0 % (36.0-46.0) L 12/28/22 08:15 Platelet Count 337 10^3/uL (130-400) 12/28/22 08:15 Complete Metabolic Panel: Sodium 133 mmol/L (136-145) L 12/28/22 08:15 Potassium 3.2 mmol/L (3.5-5.1) L 12/28/22 08:15 Chloride 100 mmol/L (98-107) 12/28/22 08:15 Carbon Dioxide 21.9 mmol/L (21.0-32.0) 12/28/22 08:15 BUN 9 mg/dL (7-18) 12/28/22 08:15 Creatinine 1.6 mg/dL (0.55-1.02) H 12/28/22 08:15 Est GFR (CKD-EPI 2020) 32.20 (mL/min/1.73m2) 12/28/22 08:15 Magnesium 1.4 mg/dL (1.8-2.4) L 12/25/22 10:45 Calcium 9.2 mg/dL (8.5-10.1) 12/28/22 08:15 Albumin 3.1 g/dL (3.4-5.0) L 12/25/22 13:37 Glucose 219 mg/dL (74-106) H 12/28/22 08:15 Hemoglobin A1c 7.7 % (4.5-5.7) H 12/11/22 11:00 C-Reactive Protein 3.19 mg/dL (0.0-0.3) H 12/25/22 10:45 Liver Function Panel: Alanine Aminotransferase (ALT/SGPT) 28 U/L (14-59) 12/25/22 13: 37 Aspartate Amino Transf (AST/SGOT) 16 U/L (15-37) 12/25/22 13:37 Coagulation Panel: No Data to Display Cardiac Panel: Troponin I < 50 ng/L (<or=60) 12/25/22 NT-Pro-B Natriuret Pep 594 pg/mL (<300) H 12/25/22 Arterial Blood Gas: No Data to Display Venous Blood Gas: No Data to Display Pancreas Panel: Lipase 42 U/L (16-77) 12/25/22 13:37 Thyroid Panel: Thyroid Stimulating Hormone (TSH) 3.83 uIU/mL (0.36-3.74) H 12/25/22 10:45 Infectious Disease: No Data to Display Blood Cultures: No Data to Display Toxicology Panel: No Data to Display Imaging and Studies Imaging and Studies Study information below may be from another EMR and interpreted by another provider. Please see original notes in EMR for more complete details. EKG Summary: Sinus rhythm...normal P axis, V-rate 50- 99 Abnormal R-wave progression, late transition...QRS area<0 in V5/V6 LVH by voltage...R >1.10 in aVL Inferior infarct, age indeterminate...Q>35mS, T neg, II III aVF 07/31/21 Echocardiogram Summary: Left Ventricle : The left ventricle is normal size. The left ventricular systolic function is normal. The left ventricular ejection fraction is within the normal range. There is normal left ventricular wall thickness. There is normal LV segmental wall motion. The left ventricular diastolic function is abnormal. LVEF is 57%. Right Ventricle : The right ventricle is normal size. The right ventricular systolic function is normal. The RVSP is 21.7 mmHg. Atria : The left atrium size is normal. The right atrium size is normal. Mitral Valve : Mild mitral annular calcification. Mild mitral regurgitation. No evidence of mitral valve stenosis. Great Vessels : The aortic root is normal in size. The ascending aorta is mildly dilated. Aortic arch is normal in caliber. IVC is normal in size and collapses >50% with inspiration. 07/01/21 Anesthesia Assessment and Plan Anesthesia History Personal History: No History of Anesthesia Complications Family History: No Family History of Anesthesia Complications Exercise Tolerance Exercise Tolerance: Metabolic Equivalents<4 Cardiac & Pulmonary Exam Cardiac Exam: Normal S1/S2 Heart Sounds Pulmonary Exam: Clear Bilateral Breath Sounds Implantable Cardiac Device Does patient have a Pacemaker or an ICD?: No Airway Exam Known Difficult Airway: No Mallampati Class: 3 Mouth Opening: Normal (> 3cm) Thyromental Distance: Greater than 3 cm Neck Range of Motion: Full ROM Neck Circumference: Normal Teeth Condition: Generalized Poor Dentition and Loose or Chipped ASA Classification ASA Score: ASA 3 Emergency Case?: No NPO Status NPO Status: NPO Clears >2 hours, Solids >8 hours Anesthesia Plan Resuscitation Status: Full Code Anesthesia Technique: General Anesthesia Airway Planned: Natural Airway Monitors Used: Standard Monitors
[2022-12-28 09:04] VITALS: BMI 28.5
[2022-12-28] MEDS: AMPICILLIN SODIUM 1 GM in Normal Saline 50 ML IVPB (09:15)
[2022-12-28] MEDS: Endoscopic Tattoo 5 ML SYR IJ (09:48)
--- NOTE | 2022-12-28 09:51 | BOWEL_PTH ---
PATIENT: Madeleine Lobato LOC: [facility] U#:[id number] AGE/SX: 82/F ROOM: RE12/28/[address]: Kaiden Lobato MD : [id number] BED: DIS: 12/28/2022 SPEC #: [id number] RECD: 12/28/22 13:21 STATUS: KENNETH REQ #: [id number] OSCAR: 12/28/22 09:[address]: Kaiden Lobato DEPT: Surgical Specimen RECD BY: Jina Nava ENTERED: 12/28/22 13:22 SP TYPE: Bowel OTHR DR: Dave Seaman DO Tissues: 1 - BIOPSY BOWEL Procedures: GROSS AND MICRO LEVEL 4 Comments: [id number]
[2022-12-28 10:08] VITALS: BP 103/49; PULSE 58; RESP 20; TEMP 36.2; O2SAT 98
--- NOTE | 2022-12-28 10:16 | W.ANESPOSTOP ---
Postoperative Evaluation Date, Time and Location Date Performed: 12/28/22 Time Performed: 10:16 Patient Location: Day Surgery Unit Vital Signs Most Recent Imported Vital Signs: Most Recent Vital Signs Temp Pulse Resp BP Pulse Ox 36.2 C L 58 L 20 103/49 L 98 12/28/22 10:08 12/28/22 10:08 12/28/22 10:08 12/28/22 10:08 12/28/22 10:08 Pain Score Most Recent Pain Score: Most Recent Pain Score Pain Level 0 12/28/22 10:08 Assessment Mental Status: Awake (Alert & Oriented to Patient Baseline) Airway and Respiratory Function: Patent airway with normal (patient baseline) respiratory exam Cardiovascular Function: Hemodynamically Stable Hydration Status: Adequately Hydrated Nausea & Vomiting: No Nausea or Vomiting (mild abdominal bloating) Pain: Pt. Denies Any Pain Peripheral Nerve Block: Patient did not receive a nerve block
[2022-12-28] MEDS: Normal Saline Flush 10 ML SYR IV ×2 (10:20→10:36)
[2022-12-28] MEDS: IRON SUCROSE COMPLEX 200 MG in Normal Saline 100 ML 440 MG IVPB (10:20)
[2022-12-28 10:50] VITALS: BP 112/58; PULSE 68; RESP 20; TEMP 36.5; O2SAT 100
== END 2022-12-28 11:55 | disposition home or self-care (01) ==
PROVIDERS: PCP Family Medicine; Visit Provider Surgery
PROC: 0DJD8ZZ Inspection of Lower Intestinal Tract, Via Natural or Artificial Opening Endoscopic (ICD-10-PCS; CPT 45378; principal; 2022-12-28 08:45)
DX: K63.89 Other specified diseases of intestine (principal); K57.30 Diverticulosis of large intestine without perforation or abscess without bleeding
CPT/HCPCS: 45380; 45381; 36415; 80048; 86850; 86900; 86901; 88305; 96365; 85025; J1756; J3490

== ENCOUNTER → 2023-01-04 14:21 | Outpatient (BNVA) | payer MEDICARE, SELFPAY | PROVIDERS: PCP Family Medicine; Referring Provider Family Medicine; Visit Provider Surgery | DX: R63.4 Abnormal weight loss (principal); D50.9 Iron deficiency anemia, unspecified; R93.3 Abnormal findings on diagnostic imaging of other parts of digestive tract; K57.32 Diverticulitis of large intestine without perforation or abscess without bleeding | CPT/HCPCS: 99213 ==

== ENCOUNTER 2023-01-05 02:36 | Outpatient (CLI) | payer MEDICARE, SELFPAY ==
--- NOTE | 2023-01-05 15:01 | DI.US_ITS ---
APPROVED REPORT EXAM: Comprehensive 2D, Doppler, and color-flow Echocardiogram Patient Location: Out-Patient Senior Resident Care Director: Tamiko Romero RDCS (AE) Indications: Colon CA, preoperative echo, CHF, Atrial Fibrillation, CAD Other Information Study Quality: Adequate Conclusion Normal left ventricular wall thickness and chamber size. Estimated ejection fraction is 58%. Wall m otion is normal Normal right ventricular size and systolic function Both atria are normal in size Aortic valve is mildly sclerotic and trileaflet with trace regurgitation Mild mitral annular calcification. Trace to mild mitral regurgitation Normal tricuspid valve with trace regurgitation. Estimated right ventricular systolic pressure is 24 mmHg Wall motion Left Ventricle The left ventricle is normal size. The left ventricular systolic function is normal. The left ventric ular ejection fraction is within the normal range. There is normal left ventricular wall thickness. T here is normal LV segmental wall motion. There is no ventricular septal defect visualized. LVEF is 58 %. Right Ventricle The right ventricle is normal size. The right ventricular systolic function is normal. The RVSP is 23 .7mmHg. Atria The left atrium size is normal. The right atrium size is normal. The interatrial septum is intact wit h no evidence for an atrial septal defect. Aortic Valve The Aortic valve is mildly sclerotic. Aortic valve is trileaflet. There is no aortic valvular stenosi s. Trace aortic regurgitation. Mitral Valve Mild mitral annular calcification. No evidence of mitral valve stenosis. Trace to mild mitral regurgi tation. Tricuspid Valve The tricuspid valve is normal in structure. There is no tricuspid valve stenosis. Trace tricuspid reg urgitation. Pulmonic Valve The pulmonary valve is normal in structure. There is no pulmonic valvular stenosis. Trace pulmonic re gurgitation. Great Vessels The aortic root is normal in size. The ascending aorta is normal in size. Aortic arch is not well vi sualized. IVC is normal in size and collapses >50% with inspiration. Pericardium There is no pericardial effusion. 2D Dimensions IVSD d PLAX 1.04 cm F: 0.6-1.0 LV Vol A2C d MOD 97.2 mL LVPW d PLAX 1.06 cm F: 0.6 - 1.0 LV Vol A4C d MOD 96.0 mL LVID d PLAX 4.78 cm F: 3.8 - 5.2 LA vol/ BSA A2C s A-L 29.4 mL/m2 LVDs 3.20 cm F: 2.2 - 3.5 LA vol/ BSA A4C s A-L 25.1 mL/m2 Ao Root d 2.69 cm F: 2.7 - 3.3 LA Vol/ BSA Biplane s A-L 27.7 mL/m2 RA Area A4C 9.99 cm2 LA Area A4C s MOD 15.21 cm2 RA Vol/ BSA A4C s A-L 12.1 mL/m2 LA Area A2C s MOD 16.78 cm2 Ao Asc Diam d 3.33 cm F: 2.3 - 3.1 LV EF A4C MOD 56.3 % LV EF Teichholz 60.7 % LV EF A2C MOD 60.0 % LVEF (Mancia's) 57.73 % F: 54 - 74 LV EF Biplane MOD 57.7 % LV Volume 77.30 mL F: 46 - 106 SV 56.14 mL LV Volume Index 45.47 mL/m2 F: 29 - 61 SV Index 33.12 mL/m2 LV Vol Biplane MOD 97.2 mL FS 32.45 % LV Diastology E/A Ratio 0.7 MV E Vmax 0.71 (0.4-1.3 m/s) MV A Vmax 0.95 (0.4-1.3 m/s) MV E/A Ratio 0.73 Aortic Valve LVOT Area 3.12 cm2 AoV Area Vmax 1.64 cm2 LVOT Vmax 0.99 m/s AoV Area/ BSA (Vmax) 0.97 cm2/m2 LVOT Mean Juan. 0.72 m/s HIEU Mean Juan. 1.77 cm2 LVOT Peak Grad 3.9 mmHg HIEU Mean Juan. Index 1.04 cm2/m2 LVOT Mean Grad 2.3 mmHg LVOT VTI 0.193 m LVOT Diam s 1.95 cm AoV Vmax 1.89 m/s Velocity Ratio 0.52 AoV Mean Juan. 1.26 m/s AoV Peak Grad 14.2 mmHg LVOT SV 60.31 mL AoV Mean Grad 7.4 mmHg AoV VTI 0.389 m AoV Area VTI 1.55 cm2 AoV Area/ BSA (VTI) 0.91 cm/m2 Mitral Valve MV DT 224 (160-240 msec) MV PHT 65 msec MV Area PHT 3.39 cm2 MV VTI 0.342 m MV Area VTI 1.76 (4.0-6.0 cm2) Pulmonary Valve PV Vmax 0.86 (0.5-1.5 m/s) RVOT Peak Gr. 0.73 mmHg PV Peak Grad 2.9 mmHg RVOT Mean Gr. 0.35 mmHg PV Mean Grad 2.0 mmHg RVOT VTI 0.060 m PV VTI 0.147 m RVOT Vmax 0.43 m/s Tricuspid Valve TR Peak Grad 20.6 mmHg TR Vmax 2.27 m/s RA Pressure 3.00 mmHg RVSP (TR) 23.7 mmHg
== END 2023-01-05 02:56 ==
PROVIDERS: PCP Family Medicine; Visit Provider Surgery
DX: D64.9 Anemia, unspecified (principal); E11.3299 Type 2 diabetes mellitus with mild nonproliferative diabetic retinopathy without macular edema, unspecified eye; E78.5 Hyperlipidemia, unspecified; G47.30 Sleep apnea, unspecified; G47.31 Primary central sleep apnea; I10 Essential (primary) hypertension; I21.4 Non-ST elevation (NSTEMI) myocardial infarction; I25.10 Atherosclerotic heart disease of native coronary artery without angina pectoris; I48.0 Paroxysmal atrial fibrillation; I48.91 Unspecified atrial fibrillation; I50.22 Chronic systolic (congestive) heart failure; I50.9 Heart failure, unspecified; K52.1 Toxic gastroenteritis and colitis; K57.32 Diverticulitis of large intestine without perforation or abscess without bleeding; K63.89 Other specified diseases of intestine; N28.89 Other specified disorders of kidney and ureter; R15.2 Fecal urgency; R19.5 Other fecal abnormalities; R63.4 Abnormal weight loss; R79.89 Other specified abnormal findings of blood chemistry; R93.3 Abnormal findings on diagnostic imaging of other parts of digestive tract; T36.95XA Adverse effect of unspecified systemic antibiotic, initial encounter; Z87.19 Personal history of other diseases of the digestive system; Z98.890 Other specified postprocedural states
CPT/HCPCS: 93306

== ENCOUNTER → 2023-01-08 12:48 | Outpatient (BNVA) | payer MEDICARE, SELFPAY | PROVIDERS: PCP Family Medicine; Referring Provider Family Medicine; Visit Provider Surgery | DX: S31.000A Unspecified open wound of lower back and pelvis without penetration into retroperitoneum, initial encounter (principal); X58.XXXA Exposure to other specified factors, initial encounter | CPT/HCPCS: 99213 ==

== ENCOUNTER → 2023-01-15 11:15 | Outpatient (BNVA) | payer MEDICARE, SELFPAY | PROVIDERS: PCP Family Medicine; Referring Provider Family Medicine; Visit Provider Surgery | DX: K60.3 Anal fistula (principal); K63.89 Other specified diseases of intestine; R19.5 Other fecal abnormalities; R15.2 Fecal urgency; S31.000D Unspecified open wound of lower back and pelvis without penetration into retroperitoneum, subsequent encounter; X58.XXXD Exposure to other specified factors, subsequent encounter | CPT/HCPCS: 99213 ==

== ENCOUNTER 2023-01-19 01:41 | Outpatient (CLI) | payer MEDICARE, SELFPAY ==
--- NOTE | 2023-01-19 06:30 | DI.US_ITS ---
Exam(s) US RENAL EXAM: US RENAL CLINICAL HISTORY: F/U to CT findings, ? cyst,lt kidney mass, n28.89. TECHNIQUE: Malone scale, color and spectral Doppler were used. COMPARISON: CT CT ABDOMEN PELVIS W from 12/22/2022 FINDINGS: Renal size in cm: Right: 9.8. Left: 10.9. Echogenicity: Normal. Hydronephrosis: No. Cyst or mass: There are bilateral simple renal cysts. The largest on the right measures 2.3 x 1.8 x 2.1 cm and is located in the superior pole. There is a septated but otherwise simple cyst in the sup erior pole of the left kidney corresponding to the CT finding. It measures 1.9 x 1.8 x 2.2 cm. No s olid renal masses are identified. Nephrolithiasis: There is a 0.7 cm echogenic focus in the midpole of the left kidney consistent with a nonobstructing stone. Other findings: None. Bladder:There is mild thickening of the urinary bladder wall. This may be due to underdistention. T he urinary bladder is otherwise unremarkable. Ureteral jets: Right: Visualized and unremarkable. Left: Visualized and unremarkable. Prevoid vol:72 cc Postvoid vol:13 cc Renal color flow: Symmetric and within normal limits. IMPRESSION: 1. Bilateral simple renal cysts. There is a septated cyst but otherwise simple cyst in the superior pole of the left kidney corresponding to the CT abnormality. No follow-up is recommended. 2. Left nephrolithiasis. No hydronephrosis. DATA REPOSITORY:
== END 2023-01-19 02:01 ==
LOC: DI 01:42
PROVIDERS: PCP Family Medicine; Visit Provider Family Medicine
DX: N28.89 Other specified disorders of kidney and ureter (principal); N28.1 Cyst of kidney, acquired; N20.0 Calculus of kidney; N32.89 Other specified disorders of bladder
CPT/HCPCS: 76770

== ENCOUNTER 2023-02-04 02:33 | Outpatient (CLI) | payer MEDICARE, SELFPAY ==
--- NOTE | 2023-02-04 06:45 | DI.MRI_ITS ---
Exam(s) MR PELVIS WO/W EXAM: MR PELVIS WO/W CLINICAL HISTORY: rectal fistula/colon stricture,sacral wound,lt kidney mass,abnl wt loss TECHNIQUE: Multiplanar multisequence MRI was performed with both pre and post contrast infused seque nces. Contrast injected sequences were performed following IV injection of 11 cc of Dotarem. COMPARISON: CT CT ABDOMEN PELVIS W from 12/22/2022 FINDINGS: BOWEL: There is eccentric widening of the rectosigmoid as seen on recent CT scan. Possibly represent ing anastomosis. There does not appear to be a true abscess at this level. Adjacent small bowel loo ps are not edematous. UTERUS: Posterolateral right exophytic calcified fibroid measuring 3.5 x 3 cm. No ovarian masses. URINARY BLADDER: Trabeculated wall.. No masses. No diverticuli. No gas within the lumen. LYMPH NODES: No obvious lymphadenopathy in the pelvis and inguinal regions. SOFT TISSUES: There is soft tissue ulceration posteriorly at the level of the distal sacrum and soft tissue inflammation extending from this region to the posterior aspect of the anal rectal region, thi s area exhibiting some enhancement consistent with active inflammation/infection. There is, however, no distinct fluid collection-abscess at this level. No enhancement in the subjacent coccyx-sacrum. OSSEOUS: No fractures. No bone edema. No osteomyelitis. Mild degenerative anterolisthesis L5 upon S1. IMPRESSION: 1. There is soft tissue inflation overlying distal sacrum coccyx region with midline in inflammation at this level such as seen with anal fissure no abnormal intraosseous signal evident. 2. Eccentric widening of the lumen of the rectosigmoid. This may be a form of anastomosis. There do es not appear to be an abscess at this level and adjacent small bowel loops are not edematous. 3. Calcified uterine fibroid located posteriorly left-side. No ovarian masses. No free fluid. DATA REPOSITORY:
[2023-02-04 09:07] LABS: HCT 31.1 % (36.0-46.0); HGB 10.1 g/dL (11.2-15.7)
[2023-02-04 09:20] LABS: Magnesium 1.6 mg/dL (1.8-2.4)
[2023-02-04 09:23] LABS: BUN 16 mg/dL (7-18); C-Reactive Protein 2.72 mg/dL (0.0-0.3); CREATININE 1.4 mg/dL (0.55-1.02); Calcium 8.9 mg/dL (8.5-10.1); Chloride 99 mmol/L (98-107); Estimated GFR 37.56 (mL/min/1.73m2); Glucose 186 mg/dL (74-106); Potassium 3.4 mmol/L (3.5-5.1); Sodium 133 mmol/L (136-145)
[2023-02-04] MEDS: Normal Saline Flush 10 ML SYR IVP (09:34)
[2023-02-04] MEDS: Gadoterate meglumine 20 ML SYRINGE 11 ML IVP (09:37)
[2023-02-04 09:46] LABS: Ferritin 297 ng/mL (8-252)
--- NOTE | 2023-02-04 17:27 | DI.VRAD_ITS ---
PROCEDURE INFORMATION: Exam: MR Pelvis Without and With Contrast Exam date and time: 02/04/2023 9:09 AM Age: 83 years old Clinical indication: Pelvic pain; Patient HX: Rectal fistula, sacral wound TECHNIQUE: Imaging protocol: Magnetic resonance imaging of the pelvis without and with contrast. Contrast material: DOTAREM; Contrast volume: 11 ml; Contrast route: INTRAVENOUS (IV); COMPARISON: CT ABDOMEN PELVIS W 12/22/2022 9:43 AM FINDINGS: Intraperitoneal space: No free fluid in the pelvis. Urinary bladder: Urinary bladder is unremarkable. Reproductive: There is a posterior exophytic right uterine fundal calcified lesion consistent with a degenerative fibroid measuring 3.5 x 2.9 cm. This correlates with earlier CT 12/22/2022. Bilateral adnexa are unremarkable. No acute features. Lymph nodes: No lymphadenopathy. Bones/joints: Bony sacrum and coccyx are unremarkable. No acute edema or evidence of osteomyelitis. Soft tissues: There is a soft tissue ulceration posteriorly at the level of the distal sacrum. There appears to be soft tissue inflammation extending from this region to the posterior aspect of the anorectal region. See series [id number]: Image 30. This area does show some enhancement consistent with active inflammation or infection. There is no discrete fluid collection or abscess. There is no definable soft tissue emphysema. IMPRESSION: 1. Soft tissue inflammation overlying the distal aspect of the sacrum and coccygeal region. No abscess evident. Suggestion of inflammation extending to the posterior aspect of the anus. This could be related to an anal fistula or fissure. 2. No internal pelvic free fluid. 3. No rectal wall thickening or perirectal fatty inflammation. 4. No soft tissue abscess or discrete fluid collection of the post sacral region. Mild inflammatory or infectious soft tissue enhancement. 5. No evidence of osteomyelitis of the sacrum. Dictated and Authenticated by: Imer Escamilla MD. Ordering:FARHEEN Torres MD
== END 2023-02-04 02:53 ==
LOC: DI 02:33
PROVIDERS: PCP Family Medicine; Visit Provider Surgery
DX: R63.4 Abnormal weight loss (principal); D50.9 Iron deficiency anemia, unspecified; I10 Essential (primary) hypertension; E11.22 Type 2 diabetes mellitus with diabetic chronic kidney disease; K56.699 Other intestinal obstruction unspecified as to partial versus complete obstruction; K60.3 Anal fistula; K63.89 Other specified diseases of intestine; N18.30 Chronic kidney disease, stage 3 unspecified; R19.5 Other fecal abnormalities; D25.9 Leiomyoma of uterus, unspecified; M79.89 Other specified soft tissue disorders; Z87.19 Personal history of other diseases of the digestive system
CPT/HCPCS: 72197; 80048; 82728; 83735; 85014; 85018; 86140

== ENCOUNTER 2023-02-16 07:46 | Outpatient (CLI) | payer MEDICARE, SELFPAY ==
--- NOTE | 2023-02-16 07:45 | RT.EKG_ITS ---
APPROVED REPORT Exam: Resting ECG Reason for Exam: CAD, afib Patient Location: O HR:82 bpm ECG Measurements Heart Rate 82 AXIS VA [id number] P [id number] QRSd 84 QRS -22 QT 369 T -20 QTc 431 Conclusion Atrial flutter...A-rate 250 Ventricular premature complex...V complex w/ short R-R interval Possible inferior infarct, age indeterminate...Q>35mS, T neg, II III aVF
== END 2023-02-16 07:47 | disposition home or self-care (01) ==
LOC: DI.CARD 07:47
PROVIDERS: PCP Family Medicine; Visit Provider Internal Medicine Cardiovascular Disease
DX: I25.10 Atherosclerotic heart disease of native coronary artery without angina pectoris (principal); I48.0 Paroxysmal atrial fibrillation; I10 Essential (primary) hypertension; K56.699 Other intestinal obstruction unspecified as to partial versus complete obstruction
CPT/HCPCS: 93010

== ENCOUNTER → 2023-02-16 09:18 | Outpatient (BNVA) | payer MEDICARE, SELFPAY | PROVIDERS: PCP Family Medicine; Visit Provider Internal Medicine Cardiovascular Disease | DX: K56.699 Other intestinal obstruction unspecified as to partial versus complete obstruction (principal); I48.0 Paroxysmal atrial fibrillation; I25.10 Atherosclerotic heart disease of native coronary artery without angina pectoris; Z95.818 Presence of other cardiac implants and grafts; I10 Essential (primary) hypertension | CPT/HCPCS: 93005; 99214 ==

== ENCOUNTER → 2023-12-01 11:38 | Outpatient (BNVA) | payer MEDICARE, SELFPAY | PROVIDERS: PCP Family Medicine; Referring Provider Family Medicine; Visit Provider Podiatrist | DX: I70.90 Unspecified atherosclerosis (principal); L84 Corns and callosities; L60.3 Nail dystrophy; R09.89 Other specified symptoms and signs involving the circulatory and respiratory systems; L60.8 Other nail disorders; M79.674 Pain in right toe(s); M79.675 Pain in left toe(s) | CPT/HCPCS: 11721 ==

== ENCOUNTER 2024-02-10 05:23 | Outpatient (CLI) | payer MEDICARE, SELFPAY ==
[2024-02-10 09:11] LABS: Hemoglobin A1C 7.7 % (<5.7)
[2024-02-10 09:30] LABS: Anion Gap 12.6 mmol/L (3-11); BUN 31 mg/dL (7-18); CO2 21.4 mmol/L (21.0-32.0); CREATININE 1.2 mg/dL (0.55-1.02); Calcium 8.9 mg/dL (8.5-10.1); Chloride 103 mmol/L (98-107); Estimated GFR 44.91 (mL/min/1.73m2); Glucose 180 mg/dL (74-106); Potassium 4.5 mmol/L (3.5-5.1); Sodium 137 mmol/L (136-145)
== END 2024-02-10 05:24 | disposition home or self-care (01) ==
LOC: LBO 05:23
PROVIDERS: Absent Provider Family Medicine; PCP Family Medicine; Visit Provider Family Medicine
DX: E11.22 Type 2 diabetes mellitus with diabetic chronic kidney disease (principal); N18.30 Chronic kidney disease, stage 3 unspecified
CPT/HCPCS: 36415; 80048; 83036

== ENCOUNTER → 2024-02-14 09:44 | Outpatient (BNVA) | payer MEDICARE, SELFPAY | PROVIDERS: PCP Family Medicine; Referring Provider Family Medicine; Visit Provider Internal Medicine Cardiovascular Disease | DX: I48.0 Paroxysmal atrial fibrillation (principal); I25.10 Atherosclerotic heart disease of native coronary artery without angina pectoris; Z95.818 Presence of other cardiac implants and grafts | CPT/HCPCS: 99213 ==

== ENCOUNTER → 2024-02-23 10:43 | Outpatient (BNVA) | payer MEDICARE, SELFPAY | PROVIDERS: PCP Family Medicine; Referring Provider Family Medicine; Visit Provider Podiatrist | DX: I70.90 Unspecified atherosclerosis (principal); M79.671 Pain in right foot; L84 Corns and callosities; L60.3 Nail dystrophy; E11.3299 Type 2 diabetes mellitus with mild nonproliferative diabetic retinopathy without macular edema, unspecified eye; E11.40 Type 2 diabetes mellitus with diabetic neuropathy, unspecified; M79.672 Pain in left foot | CPT/HCPCS: 11721 ==

== ENCOUNTER → 2024-02-29 13:47 | Outpatient (BNVA) | payer MEDICARE, SELFPAY | PROVIDERS: PCP Family Medicine; Referring Provider Family Medicine; Visit Provider Physical Therapy Assistant | DX: E11.59 Type 2 diabetes mellitus with other circulatory complications (principal) | CPT/HCPCS: 93922 ==

== ENCOUNTER 2024-06-10 14:34 | Emergency (ER) | payer MEDICARE, SELFPAY ==
[2024-06-10 14:42] VITALS: BP 133/53; PULSE 70; RESP 18; TEMP 36.6; O2SAT 97
--- NOTE | 2024-06-10 16:00 | DI.RAD_ITS ---
Exam(s) XR CHEST 2V PA LATERAL EXAM: XR CHEST 2V PA LATERAL CLINICAL HISTORY: cough, flu possible. TECHNIQUE: 2D digital imaging was performed. COMPARISON: CR XR RIBS BI INCLUDE CHEST from 11/17/2021 FINDINGS: 2 views: Heart size is normal. The mediastinum is not widened. Lungs are clear. No infiltrates nor pleural effusions. IMPRESSION: No acute pulmonary findings. DATA REPOSITORY: RADIATION DOSE DELIVERED:
--- NOTE | 2024-06-10 16:17 | W.ED.GENAD ---
Discharge Plan Disposition Patient Disposition: Home Condition: Improving Discharge Details Chief Complaint: RespSymp Clinical Impression: Cough Primary Care Provider: Dave Seaman ED Provider: Walter Orellana Home Meds and New Rx's Prescriptions: No Action (DME) lancets Misc See Rx Instructions .ROUTE .MEDSUPPLY Qty: 100 3RF Rx Instructions: As directed to check blood glucose daily. No insulin. Dispense covered brand. (DME) blood-glucose meter Misc See Rx Instructions .ROUTE .MEDSUPPLY Qty: 1 0RF Rx Instructions: As directed to check blood glucose. No insulin. Dispense covered brand. furosemide 20 mg tablet 20 mg PO DAILY PRN (Reason: edema) Qty: 90 3RF (DME) blood sugar diagnostic Strip See Rx Instructions .ROUTE .MEDSUPPLY Qty: 100 3RF Rx Instructions: to test blood sugars daily to keep AIC below 7.0% Dx: [id number] Pt uses ONE Touch Ultra Blue Strips Calmoseptine 0.44-20.6 % ointment in packet 1 applic topical 4-6XD PRN (Reason: skin irritation) Qty: 504 12RF Rx Instructions: apply to affected area ketoconazole 2 % cream 1 applic topical DAILY 90 Days Qty: 60 3RF Rx Instructions: Apply to toenails once daily metoprolol succinate 50 mg tablet extended release 24 hr 50 mg PO BID Qty: 180 3RF Rx Instructions: 50mg am, 50mg pm metformin 1,000 mg tablet 1,000 mg PO BID Qty: 180 3RF rosuvastatin 20 mg tablet 20 mg PO DAILY Qty: 90 3RF spironolactone 25 mg tablet 25 mg PO DAILY Qty: 90 3RF losartan 50 mg tablet See Rx Instructions .ROUTE .COMPLEX Qty: 180 3RF Dose Instruction: TAKE 1 TABLET TWICE A DAY Rx Instructions: TAKE 1 TABLET TWICE A DAY diltiazem HCl 120 mg capsule,extended release 24hr See Rx Instructions .ROUTE .COMPLEX Qty: 90 3RF Dose Instruction: TAKE 1 CAPSULE DAILY Rx Instructions: TAKE 1 CAPSULE DAILY Discharge Instructions Instructions: Cough, Adult ED HPI General Date/Time Provider Initiated Documentation: 06/10/24 15:30. HPI Narrative: 84-year-old female history of diabetes, coronary disease, presents with cough over the last couple of days, diagnosed with influenza. Related Data Home Medications ?Medication ?Instructions ?Recorded ?Confirmed blood-glucose meter #1 ea 03/10/21 06/10/24 lancets #100 ea 03/10/21 06/10/24 menthol 0.44 %-zinc oxide 20.6 % 1 applic topical 4-6XD PRN skin 01/15/23 06/10/24 topical ointment in packet irritation #504 grams (Calmoseptine) ketoconazole 2 % topical cream 1 applic topical DAILY 3 months 08/25/23 06/10/24 #60 grams metoprolol succinate 50 mg 50 mg PO BID #180 tabs 09/09/23 06/10/24 tablet,extended release 24 hr metformin 1,000 mg tablet 1,000 mg PO BID #180 tabs 09/10/23 06/10/24 rosuvastatin 20 mg tablet 20 mg PO DAILY #90 tabs 10/04/23 06/10/24 spironolactone 25 mg tablet 25 mg PO DAILY #90 tabs 10/04/23 06/10/24 blood sugar diagnostic #100 ea 02/15/24 06/10/24 furosemide 20 mg tablet 20 mg PO DAILY PRN edema #90 tabs 02/15/24 06/10/24 losartan 50 mg tablet See Rx Instructions .Route 03/09/24 06/10/24 .COMPLEX #180 tabs diltiazem HCl 120 mg See Rx Instructions .Route 06/08/24 06/10/24 capsule,extended release 24 hr .COMPLEX #90 caps Previous Rx's ?Medication ?Instructions ?Recorded blood-glucose meter #1 ea 03/10/21 lancets #100 ea 03/10/21 menthol 0.44 %-zinc oxide 20.6 % 1 applic topical 4-6XD PRN skin 01/15/23 topical ointment in packet irritation #504 grams (Calmoseptine) ketoconazole 2 % topical cream 1 applic topical DAILY 3 months 08/25/23 #60 grams metoprolol succinate 50 mg 50 mg PO BID #180 tabs 09/09/23 tablet,extended release 24 hr metformin 1,000 mg tablet 1,000 mg PO BID #180 tabs 09/10/23 rosuvastatin 20 mg tablet 20 mg PO DAILY #90 tabs 10/04/23 spironolactone 25 mg tablet 25 mg PO DAILY #90 tabs 10/04/23 blood sugar diagnostic #100 ea 02/15/24 furosemide 20 mg tablet 20 mg PO DAILY PRN edema #90 tabs 02/15/24 losartan 50 mg tablet See Rx Instructions .Route 03/09/24 .COMPLEX #180 tabs diltiazem HCl 120 mg See Rx Instructions .Route 06/08/24 capsule,extended release 24 hr .COMPLEX #90 caps Allergies Allergy/AdvReac Type Severity Reaction Status Date / Time No Known Allergies Allergy Verified 06/10/24 14:46 General Stated Complaint: RespSymp CYNTHIA: 3 Exam Narrative Exam Narrative: Alert oriented nontoxic Moist mucous membranes tongue secretions normal voice Mild expiratory wheeze bilaterally no tachypnea, speaking full sentences no retractions Normal heart rate without murmurs rubs or gallops appreciated Moving all extremities without deficit Course Vital Signs Vital signs: Vital Signs Temperature 36.6 C 06/10/24 14:42 Pulse 70 06/10/24 14:42 Respiratory Rate 18 06/10/24 14:42 Blood Pressure 133/53 L 06/10/24 14:42 Pulse Oximetry 97 06/10/24 14:42 Temperature 36.6 C 06/10/24 14:42 Temperature Source Temporal Artery Scan 06/10/24 14:42 Pulse 70 06/10/24 14:42 Respiratory Rate 18 06/10/24 14:42 Blood Pressure 133/53 L 06/10/24 14:42 Pulse Oximetry 97 06/10/24 14:42 Medical Decision Making 84-year-old female history of diabetes coronary disease presents with cough nonproductive associate with chest congestion, diagnosed with influenza, mild expiratory wheeze bilaterally, hemodynamically stable and nonhypoxic nontoxic speaking full sentences no retractions no respiratory distress. Likely viral pneumonia versus bacterial pneumonia lower suspicion for ACS PE aortic pathology pneumothorax or pleural effusion. Will obtain screening x-ray will provide dexamethasone and albuterol neb. Disposition pending x-ray result and close reassess, likely home with close follow-up 18: 04 resting comfortably no acute distress x-ray clear. 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 (Acute) Sacral wound (Acute) Family history of Crohn's disease (Acute) Coronary artery calcification seen on CAT scan (Acute) Atherosclerosis of arteries (Acute) Fe deficiency anemia (Acute) Mass of kidney (Acute) Elevated lipids (Acute) Normochromic normocytic anemia (Acute) Left kidney mass (Acute) 12/[address] scan Heme positive stool (Acute) Fecal urgency (Acute) Pain, foot (Acute) Corns and callosities (Acute) Nail dystrophy (Acute) Mass of soft tissue (Acute) Paroxysmal atrial fibrillation (Acute) Central sleep apnea syndrome (Acute) Periodic limb movement disorder (Acute ~09/2021) Severe sleep apnea (Acute ~09/2021) Atrial fibrillation with RVR (Acute) Presence of Watchman left atrial appendage closure device (Chronic) S/P cardiac cath (Acute) Post-menopausal bleeding (Acute) Chronic systolic CHF (congestive heart failure) (Chronic) EF 58% by echo on 01/21 NSTEMI (non-ST elevated myocardial infarction) (Acute) 2017 w/ stent palcement History of diverticulitis (Acute) Anemia (Chronic) with heme positive stool 02/17 CAD (coronary artery disease) (Chronic) Congestive heart failure (CHF) (Chronic) Type 2 diabetes mellitus with mild nonproliferative diabetic retinopathy without macular edema (Chronic 07/24/15) Kidney stones (Chronic) Essential hypertension (Acute 07/24/15) Arthritis (Acute 07/24/15) Medical History Diverticulitis of sigmoid colon Migraine Surgical History Presence of Watchman left atrial appendage closure device 05/08/21 History of heart artery stent 10/17/2018 vein stripping Ligation of fallopian tube Tonsillectomy Family History Daughter , brainstem stoke at age 41. Stroke Hypertension Mother Diabetes Heart disease Brother Diabetes Heart disease Sister Diabetes Heart disease Social History Smoking/Tobacco Use Status: Never Smoking risk assessment performed?: Yes Alcohol Intake: never Drug use: Never Substance use type: does not use Adopted: No Caregiver/Support person: No Foster care: No Household members: children and other Details: Lives with son Housing: house Number of Children: 5 number of grandchildren: 9 Communication Needs: Hard of Hearing Education Level: high school Do you need help understanding health information?: Always current occupation: Retired Pets and animals: Yes (1) Pets and animals: cat(s) Sexually active: No Do you think of yourself as: straight/heterosexual Current gender identity: female What is your relationship status?: How often do you talk on the phone with friends or family?: three or more times per week How often do you get together with friends or relatives?: once per week Do you belong to any clubs or organized social groups?: no Panel score (0-1 are the most socially isolated patients): 1 What type of physical activity do you participate in: other Details: program at home, stair stepper, rowing machine Duration: < 15 minutes/day Frequency: 3-4 times per week [employer] Seatbelt use: always Helmet use: No (Never (N/A)) Drive intox or ride w/intox street flusher driver: No Working smoke detector in home: Yes Fire extinguisher in home: Yes Carbon monox detector in home: Yes Do you feel safe at home: Yes Do you feel safe in your relationship?: Yes
[2024-06-10 16:55] VITALS: RESP 20; RESP 3; O2SAT 96
[2024-06-10] MEDS: Dexamethasone 10 MG/ML VIAL PO (16:55)
[2024-06-10] MEDS: Albuterol 2.5 MG/3 ML INH SOLN VIAL UPD (16:55)
[2024-06-10 18:17] VITALS: BP 128/62; PULSE 65; RESP 16; TEMP 36.2; O2SAT 98
== END 2024-06-10 18:07 | disposition home or self-care (01) ==
PROVIDERS: Emergency Provider Emergency Medicine; PCP Family Medicine
DX: R05.1 Acute cough (principal); R06.02 Shortness of breath; R06.2 Wheezing
CPT/HCPCS: 94640; 99283; 71046; J1100; J7613

== ENCOUNTER → 2024-06-21 10:50 | Outpatient (BNVA) | payer MEDICARE, SELFPAY | PROVIDERS: PCP Family Medicine; Referring Provider Family Medicine; Visit Provider Podiatrist | DX: M79.674 Pain in right toe(s) (principal); M79.675 Pain in left toe(s); L84 Corns and callosities; E11.3299 Type 2 diabetes mellitus with mild nonproliferative diabetic retinopathy without macular edema, unspecified eye; E11.40 Type 2 diabetes mellitus with diabetic neuropathy, unspecified; I70.90 Unspecified atherosclerosis; L60.3 Nail dystrophy | CPT/HCPCS: 11721; NC OV ==

== ENCOUNTER → 2024-09-13 14:43 | Outpatient (BNVA) | payer MEDICARE, SELFPAY | PROVIDERS: PCP Family Medicine; Referring Provider Family Medicine; Visit Provider Podiatrist | DX: I70.90 Unspecified atherosclerosis (principal); L60.3 Nail dystrophy; L84 Corns and callosities; E11.3299 Type 2 diabetes mellitus with mild nonproliferative diabetic retinopathy without macular edema, unspecified eye; E11.40 Type 2 diabetes mellitus with diabetic neuropathy, unspecified; M79.674 Pain in right toe(s); M79.675 Pain in left toe(s) | CPT/HCPCS: 11721 ==

== ENCOUNTER 2025-01-31 15:29 | Outpatient (REF) | payer MEDICARE, SELFPAY ==
[2025-01-31 20:12] LABS: Abs Immature Grans 0.02 10^3/uL (0.0-0.06); Absolute Basophil Count 0.03 10^3/uL (0.0-0.2); Absolute Eosinophil Count 0.12 10^3/uL (0.0-0.7); Absolute Lymphocyte Count 0.69 10^3/uL (1.2-3.4); Absolute Monocyte Count 0.69 10^3/uL (0.1-0.8); Absolute Neutrophil Count 5.02 10^3/uL (1.2-6.7); Basophils % 0.5 %; Eosinophils % 1.8 %; HCT 26.9 % (36.0-46.0); HGB 9.1 g/dL (11.2-15.7); Immature Grans % 0.3 %; Lymphocytes % 10.5 %; MCH 28.3 pg (27.0-33.0); MCHC 33.8 % (32.0-36.0); MCV 84 fL (80-95); MPV 8.9 fL (8.0-11.0); Monocytes % 10.5 %; Neutrophils % 76.4 %; Platelet Count 312 10^3/uL (130-400); RBC 3.22 10^6/uL (3.93-5.22); RDW 14.1 % (11.7-14.6); RDW-SD 42.7 fL; WBC 6.57 10^3/uL (4.4-10.8)
[2025-01-31 20:31] LABS: ALT 22 U/L (14-59); AST 15 U/L (15-37); Albumin 3.9 g/dL (3.4-5.0); Alkaline Phosphatase 115 U/L (46-116); Anion Gap 13.4 mmol/L (3-11); BUN 51 mg/dL (7-18); Bilirubin, Total 0.3 mg/dL (0.2-1.0); CO2 14.6 mmol/L (21.0-32.0); CREATININE 2.3 mg/dL (0.55-1.02); Chloride 99 mmol/L (98-107); Estimated GFR 20.45 (mL/min/1.73m2); Ferritin 128 ng/mL (8-252); Glucose 126 mg/dL (74-106); Sodium 127 mmol/L (136-145); TSH (W/Ref FT4) 2.25 uIU/mL (0.36-3.74); Total Protein 7.2 g/dL (6.4-8.2); Vitamin B12 1300 pg/mL (193-986); Vitamin D 25 Total 39 ng/mL (30-100)
[2025-01-31 21:00] LABS: Potassium 7.2 mmol/L (3.5-5.1)
== END 2025-01-31 15:30 | disposition home or self-care (01) ==
LOC: LBN 15:29
PROVIDERS: PCP Family Medicine; Visit Provider Nurse Practitioner
DX: R53.83 Other fatigue (principal); E55.9 Vitamin D deficiency, unspecified; R63.0 Anorexia; J45.909 Unspecified asthma, uncomplicated; I10 Essential (primary) hypertension
CPT/HCPCS: 80053; 82306; 82607; 82728; 84443; 85025

== ENCOUNTER 2025-02-01 09:02 | Inpatient (IN) | payer MEDICARE, SELFPAY ==
[2025-02-01] VITALS (40 sets, daily range): BP systolic 83–163; BP diastolic 35–115; PULSE 0–106; RESP 11–34; TEMP 36.5–36.8; O2SAT 94–100
--- NOTE | 2025-02-01 09:00 | RT.EKG_ITS ---
APPROVED REPORT Exam: Resting ECG Reason for Exam: Weakness Patient Location: E HR:80 bpm ECG Measurements Heart Rate 80 AXIS ID 200 P -28 QRSd 105 QRS -9 QT 363 T -6 QTc 420 Conclusion Sinus rhythm...normal P axis, V-rate 60- 99 Sinus Rhythm. No prior for comparison. WD
--- NOTE | 2025-02-01 09:42 | W.ED.GENAD ---
Discharge Plan Disposition Patient Disposition: Admit to [facility] Condition: Stable Discharge Details Chief Complaint: GenMedical Clinical Impression: Hyperkalemia Admit Date/Time: 02/01/25 12:39 Admit Provider: Charles Robles Attending Provider: Charles Robles Primary Care Provider: Dave Seaman ED Provider: Ruth Winchester General Date/Time Provider Initiated Documentation: 02/01/25 09:06. Limitations to Documentation: no limitations. Information obtained by: patient, family, RN notes reviewed and old records reviewed. History of Present Illness 85 year old F presents to the emergency department with the chief complaint of called by PCP to come in for hyperkalemia, Patient started experiencing this day(s) (routine blood work yesterday) Patient notes other (no acute symptoms, not feeling well for several months). Related Data Home Medications ?Medication ?Instructions ?Recorded ?Confirmed blood-glucose meter #1 ea 03/10/21 09/21/24 lancets #100 ea 03/10/21 09/21/24 blood sugar diagnostic #100 ea 02/15/24 09/21/24 furosemide 20 mg tablet 20 mg PO DAILY PRN edema #90 tabs 02/15/24 02/01/25 losartan 50 mg tablet See Rx Instructions .Route 03/09/24 02/01/25 .COMPLEX #180 tabs diltiazem HCl 120 mg See Rx Instructions .Route 06/08/24 02/01/25 capsule,extended release 24 hr .COMPLEX #90 caps metformin 1,000 mg tablet 1,000 mg PO BID #180 tabs 08/25/24 02/01/25 metoprolol succinate 50 mg 50 mg PO BID #180 tabs 08/25/24 02/01/25 tablet,extended release 24 hr spironolactone 25 mg tablet 25 mg PO DAILY #90 tabs 08/28/24 02/01/25 rosuvastatin 20 mg tablet 20 mg PO DAILY #90 tabs 08/31/24 02/01/25 hydrocortisone 1 % topical cream 1 applic topical BID PRN skin 09/21/24 02/01/25 irritation #28.4 grams Previous Rx's ?Medication ?Instructions ?Recorded blood-glucose meter #1 ea 03/10/21 lancets #100 ea 03/10/21 blood sugar diagnostic #100 ea 02/15/24 furosemide 20 mg tablet 20 mg PO DAILY PRN edema #90 tabs 02/15/24 losartan 50 mg tablet See Rx Instructions .Route 03/09/24 .COMPLEX #180 tabs diltiazem HCl 120 mg See Rx Instructions .Route 06/08/24 capsule,extended release 24 hr .COMPLEX #90 caps metformin 1,000 mg tablet 1,000 mg PO BID #180 tabs 08/25/24 metoprolol succinate 50 mg 50 mg PO BID #180 tabs 08/25/24 tablet,extended release 24 hr spironolactone 25 mg tablet 25 mg PO DAILY #90 tabs 08/28/24 rosuvastatin 20 mg tablet 20 mg PO DAILY #90 tabs 08/31/24 hydrocortisone 1 % topical cream 1 applic topical BID PRN skin 09/21/24 irritation #28.4 grams Allergies Allergy/AdvReac Type Severity Reaction Status Date / Time No Known Allergies Allergy Verified 02/01/25 09:11 General Stated Complaint: GenMedical CYNTHIA: 3 Review of Systems Constitutional Constitutional: Reports as per HPI, Denies chills, Reports fatigue, Denies fever(s), Denies headache(s), Reports poor appetite and Reports weakness (Generalized) ENT Ears, Nose, Mouth, and Throat: Denies headache(s) Cardiovascular Cardiovascular: Reports as per HPI, Denies chest pain and Denies dyspnea Respiratory Respiratory: Reports as per HPI, Denies cough and Denies dyspnea Gastrointestinal Gastrointestinal: Reports as per HPI Musculoskeletal Musculoskeletal: Reports as per HPI and Denies back pain Integumentary/Breasts Skin/Breast: Reports as per HPI and Denies rash Neurologic Neurologic: Reports as per HPI, Denies headache(s) and Reports weakness (Generalized) Endocrine Endocrine: Reports fatigue Exam Const General: cooperative, healthy appearing, comfortable, no acute distress and well developed Nutritional Appearance: well nourished and overweight Orientation: alert and awake [facility] Head: normal to inspection Mouth: moist mucous membranes Resp Effort & Inspection: normal respiratory effort, able to speak in complete sentences and no respiratory distress Auscultation: clear to auscultation bilaterally, no rales, no rhonchi and no wheezes Cardio Rate: regular rate Rhythm: regular rhythm Heart Sounds: S1 normal and S2 normal GI Inspection: normal to inspection and other (ostomy pink with good output) Palpation: soft, no guarding, nontender and No ascites Auscultation: normal bowel sounds Back/Spine/Pelvis Back: no CVA tenderness Skin General skin exam: no rashes or lesions noted Trauma: no lacerations or abrasions Neuro General: patient alert and patient awake Cognition: normal cognition Speech: speech normal Gait: normal gait Psych Appearance: grossly normal and well kempt Mental Status: mental status grossly normal Speech and Movement: speech and movement normal Course Vital Signs Vital signs: Vital Signs Temperature 36.5 C 02/01/25 09:05 Pulse 70 02/01/25 09:05 Respiratory Rate 16 02/01/25 09:05 Blood Pressure 93/46 L 02/01/25 09:05 Pulse Oximetry 94 02/01/25 09:05 Temperature 36.5 C 02/01/25 09:05 Temperature Source Oral 02/01/25 09:05 Pulse 70 02/01/25 09:05 Respiratory Rate 16 02/01/25 09:05 Blood Pressure 93/46 L 02/01/25 09:05 Pulse Oximetry 94 02/01/25 09:05 Oxygen Delivery Method Room Air 02/01/25 09:05 Oxygen Flow Rate 0 02/01/25 09:05 Medical Decision Making Patient is a pleasant 85-year-old female, companied by her son with past medical history significant for diabetes with neuropathy, congestive heart failure, essential hypertension, anemia and fatigue presenting at the advisement of her primary care for hyperkalemia. Patient was seen for routine follow-up yesterday by her primary care. Primary concern at this time is that for the past several months that she has been having increased fatigue, lack of enjoyment, weakness. This sounds to be a progressive chronic issue that she associates initiated by having initially the flu and then subsequently COVID. She does live with her son and has not been getting up to interact and be active. She denies any acute change with this. She reports she had decreased p.o. intake as she has had a decreased appetite but states no significant weight loss. No recent medication changes. Of note, patient is on. Losartan, spironolactone. She does have Lasix that she can use as needed, no recent usage. Patient denies any chest pain or any shortness of breath. No GI upset, does report decreased appetite over the past several months. ECG was obtained, no peaked T waves or indication of hyperkalemia on EKG, no acute ischemic findings. On exam, patient appears fatigued but otherwise nontoxic. Blood pressure slightly low but otherwise hemodynamically stable. She not reporting any dizziness, lightheadedness. Patient has no cardiac pulmonary exam. Ostomy has good output. Has had ostomy in place for several years. She does show me a photo of a skin ulceration which she reports associated with pressure sore. The tibial ostomy bag was changed by her general surgery team [place] [facility] [place] but she does report that she is running out of these new bags and was supposed to be seen by them today. She denies any change in her ostomy output. Abdomen is nontender. No lower extremity edema although she does have discoloration in her lower extremities. She reports that she was evaluated for vascular insufficiency and was found to have mild disease. At this point, without the patient have any type of acute change in medications, changes in her Chronic symptoms, questioning if the hyperkalemia may be associated with the blood draw to feel that repeating this is appropriate particular with no EKG changes. Discussed this plan with the patient who is in agreement. I am concerned about her chronic issues with the sound to be more associated with weakness and failure to thrive rather than acute change. I did encourage physical therapy, mental health as her primary care yesterday. Patient does seem to be quite hesitant to do so but states that she will think this over. Will continue to monitor the patient until he have a repeat potassium returned. Repeat CMP concerning for a potassium of 7.1. Creatinine 2.4 indicating NAVEED. Patient does typically have an elevated creatinine around 1.8 but not to this degree. With confirmation of elevated potassium, will begin treatment with calcium gluconate, insulin, glucose. Plan for admission. This may be associated with her chronic medications including spironolactone, losartan. She does have as needed furosemide has not been taking this as she has not had edema, will give her IV Lasix as well to enhance further clearance. Consult the hospitalist who will like to ensure that our efforts are successful and encouraged continued management and repeat BMP prior to admission. Patient received a total of 10 units insulin, 1g calcium gluconate, 40mg IV Lasix, 10mg Lokelma. \ Repeat K is down to 5.9. Glcose is down, will give amp D50. Patient brought ot floor in stable condition, is in agreement with plan for admission. 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 (Acute) Sacral wound (Acute) Family history of Crohn's disease (Acute) Coronary artery calcification seen on CAT scan (Acute) Atherosclerosis of arteries (Acute) Fe deficiency anemia (Acute) Mass of kidney (Acute) Elevated lipids (Acute) Normochromic normocytic anemia (Acute) Left kidney mass (Acute) 12/[address] scan Heme positive stool (Acute) Fecal urgency (Acute) Pain, foot (Acute) Corns and callosities (Acute) Nail dystrophy (Acute) Mass of soft tissue (Acute) Paroxysmal atrial fibrillation (Acute) Central sleep apnea syndrome (Acute) Periodic limb movement disorder (Acute ~09/2021) Severe sleep apnea (Acute ~09/2021) Atrial fibrillation with RVR (Acute) Presence of Watchman left atrial appendage closure device (Chronic) S/P cardiac cath (Acute) Post-menopausal bleeding (Acute) Chronic systolic CHF (congestive heart failure) (Chronic) EF 58% by echo on 01/21 NSTEMI (non-ST elevated myocardial infarction) (Acute) 2017 w/ stent palcement History of diverticulitis (Acute) Anemia (Chronic) with heme positive stool 02/17 CAD (coronary artery disease) (Chronic) Congestive heart failure (CHF) (Chronic) Type 2 diabetes mellitus with mild nonproliferative diabetic retinopathy without macular edema (Chronic 07/24/15) Kidney stones (Chronic) Essential hypertension (Acute 07/24/15) Arthritis (Acute 07/24/15) Medical History Diverticulitis of sigmoid colon Migraine Surgical History Presence of Watchman left atrial appendage closure device 05/08/21 History of heart artery stent 10/17/2018 vein stripping Ligation of fallopian tube Tonsillectomy Family History Daughter , brainstem stoke at age 41. Stroke Hypertension Mother Diabetes Heart disease Brother Diabetes Heart disease Sister Diabetes Heart disease Social History Smoking/Tobacco Use Status: Never Smoking risk assessment performed?: Yes Alcohol Intake: never Drug use: Never Substance use type: does not use Adopted: No Caregiver/Support person: No Foster care: No Household members: children and other Details: Lives with son Housing: house Number of Children: 5 number of grandchildren: 9 Communication Needs: Hard of Hearing Education Level: high school Do you need help understanding health information?: Always current occupation: Retired Pets and animals: Yes (1) Pets and animals: cat(s) Sexually active: No Do you think of yourself as: straight/heterosexual Current gender identity: female What is your relationship status?: How often do you talk on the phone with friends or family?: three or more times per week How often do you get together with friends or relatives?: once per week Do you belong to any clubs or organized social groups?: no Panel score (0-1 are the most socially isolated patients): 1 What type of physical activity do you participate in: other Details: program at home, stair stepper, rowing machine Duration: < 15 minutes/day Frequency: 3-4 times per week [employer]: Denominational Seatbelt use: always Helmet use: No (Never (N/A)) Drive intox or ride w/intox emergency vehicle driver: No Working smoke detector in home: Yes Fire extinguisher in home: Yes Carbon monox detector in home: Yes Do you feel safe at home: Yes Do you feel safe in your relationship?: Yes
[2025-02-01 09:50] LABS: ALT 22 U/L (14-59); AST 15 U/L (15-37); Albumin 3.5 g/dL (3.4-5.0); Alkaline Phosphatase 121 U/L (46-116); BUN 52 mg/dL (7-18); Bilirubin, Total 0.3 mg/dL (0.2-1.0); CREATININE 2.4 mg/dL (0.55-1.02); Calcium 9.6 mg/dL (8.5-10.1); Chloride 101 mmol/L (98-107); Estimated GFR 19.43 (mL/min/1.73m2); Glucose 216 mg/dL (74-106); Sodium 128 mmol/L (136-145); Total Protein 7.3 g/dL (6.4-8.2)
[2025-02-01 09:55] LABS: Potassium 7.1 mmol/L (3.5-5.1)
[2025-02-01] MEDS: Normal Saline 1,000 ML 500 ML IV (10:38)
[2025-02-01] MEDS: Furosemide 40 MG/4 ML VIAL IVP (10:40)
[2025-02-01] MEDS: Insulin REGULAR-Human 100 UNITS/ML UNIT IV ×2 (10:40→11:30)
[2025-02-01] MEDS: CALCIUM GLUCONATE in NaCl 1 GM/50 ML BAG IVPB (10:40)
[2025-02-01] MEDS: DEXTROSE 10%-WATER 500 ML 30 ML IV (10:41)
[2025-02-01 10:43] LABS: Troponin I 15 ng/L (<or=51)
[2025-02-01 10:43] LABS: Troponin I 9 ng/L (<or=51)
[2025-02-01] MEDS: Sodium Zirconium Cyclosilicate 10 GM PKT PO ×3 (12:08→21:37)
[2025-02-01 12:27] LABS: BUN 56 mg/dL (7-18); CO2 15.1 mmol/L (21.0-32.0); CREATININE 2.4 mg/dL (0.55-1.02); Calcium 10.3 mg/dL (8.5-10.1); Chloride 104 mmol/L (98-107); Estimated GFR 19.43 (mL/min/1.73m2); Glucose 61 mg/dL (74-106)
[2025-02-01 12:32] LABS: Anion Gap 13.9 mmol/L (3-11); Potassium 5.9 mmol/L (3.5-5.1); Sodium 133 mmol/L (136-145)
[2025-02-01] MEDS: Dextrose 50%-Water 25 GM/50 ML SYR IVP (12:38)
--- NOTE | 2025-02-01 12:42 | W.PM.HP.N ---
Date of service: 02/01/25 Time of Service: 12:42 Assessment and Plan Assessment and plan (1) Hyperkalemia: Status: Acute Assessment and plan: - Likely brought on the setting of poor p.o. intake and continued use of home Lasix, losartan, metformin, spironolactone and -Potassium initially found to be 7.2 and upon arrival to the emergency department, improved down to 5.9 after IV insulin, D5, Lokelma, Lasix -Will continue 3 times daily Lokelma and check every 4 hours BMP (2) Acute on chronic kidney failure: Status: Acute Assessment and plan: - Creatinine up to 2.4, baseline between 1.4 and 1.8 -Likely due to continued use of home Lasix, losartan, spironolactone and metformin in the setting of poor p.o. intake -Hold home losartan, spironolactone, metformin, Lasix -Follow-up every 4 hours BMP (3) HTN (hypertension): Status: Chronic Assessment and plan: - As noted above holding home Lasix, losartan, spironolactone -Continue home metoprolol and diltiazem (4) Non-insulin dependent type 2 diabetes mellitus: Status: Acute Assessment and plan: - Holding home metformin in the setting of NAVEED as noted above History of Present Illness History of Present Illness Chief Complaint: High potassium Narrative: 85-year-old female with past medical history of NIDDM, hypertension who presents to the emergency department after outpatient labs discovered high potassium levels. Patient had labs drawn as an outpatient yesterday on 01/31/2025 that showed potassium level 7.1. Upon receiving this information her PCP called and recommended she present to the emergency department. Patient denied any symptoms including headache lightheadedness dizziness chest pain, nausea vomiting or diarrhea. She did note that she has had some decreased p.o. intake over the last few days. In the emergency department the patient was noted as having normal vital signs, normal CBC, and normal physical exam. Her EKG was without any acute changes and it was confirmed that her potassium was 7.1 with a creatinine of 2.4 (baseline 1.4-1.8), glucose of 216, sodium of 128. Additionally, the patient was noted as being mildly hypotensive with mean arterial pressures in the low 60s. Patient was given IV insulin, D5, IV Lasix, and Lokelma and had her potassium rechecked 3-1/2 hours later which showed significant improvement down to 5.9. Given that the patient is asymptomatic and did not have any EKG changes as well as improve potassium level with above-mentioned interventions, emergency room provider paged hospitalist for admission for patient with hyperkalemia. 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 (Acute) Sacral wound (Acute) Family history of Crohn's disease (Acute) Coronary artery calcification seen on CAT scan (Acute) Atherosclerosis of arteries (Acute) Fe deficiency anemia (Acute) Mass of kidney (Acute) Elevated lipids (Acute) Normochromic normocytic anemia (Acute) Left kidney mass (Acute) 12/[address] scan Heme positive stool (Acute) Fecal urgency (Acute) Pain, foot (Acute) Corns and callosities (Acute) Nail dystrophy (Acute) Mass of soft tissue (Acute) Paroxysmal atrial fibrillation (Acute) Central sleep apnea syndrome (Acute) Periodic limb movement disorder (Acute ~09/2021) Severe sleep apnea (Acute ~09/2021) Atrial fibrillation with RVR (Acute) Presence of Watchman left atrial appendage closure device (Chronic) S/P cardiac cath (Acute) Post-menopausal bleeding (Acute) Chronic systolic CHF (congestive heart failure) (Chronic) EF 58% by echo on 01/21 NSTEMI (non-ST elevated myocardial infarction) (Acute) 2017 w/ stent palcement History of diverticulitis (Acute) Anemia (Chronic) with heme positive stool 02/17 CAD (coronary artery disease) (Chronic) Congestive heart failure (CHF) (Chronic) Type 2 diabetes mellitus with mild nonproliferative diabetic retinopathy without macular edema (Chronic 07/24/15) Kidney stones (Chronic) Essential hypertension (Acute 07/24/15) Arthritis (Acute 07/24/15) Medical History Diverticulitis of sigmoid colon Migraine Surgical History Presence of Watchman left atrial appendage closure device 05/08/21 History of heart artery stent 10/17/2018 vein stripping Ligation of fallopian tube Tonsillectomy Family History Daughter , brainstem stoke at age 41. Stroke Hypertension Mother Diabetes Heart disease Brother Diabetes Heart disease Sister Diabetes Heart disease Social History Smoking/Tobacco Use Status: Never Smoking risk assessment performed?: Yes Alcohol Intake: never Drug use: Never Substance use type: does not use Adopted: No Caregiver/Support person: No Foster care: No Household members: children and other Details: Lives with son Housing: house Number of Children: 5 number of grandchildren: 9 Communication Needs: Hard of Hearing Education Level: high school Do you need help understanding health information?: Always current occupation: Retired Pets and animals: Yes (1) Pets and animals: cat(s) Sexually active: No Do you think of yourself as: straight/heterosexual Current gender identity: female What is your relationship status?: How often do you talk on the phone with friends or family?: three or more times per week How often do you get together with friends or relatives?: once per week Do you belong to any clubs or organized social groups?: no Panel score (0-1 are the most socially isolated patients): 1 What type of physical activity do you participate in: other Details: program at home, stair stepper, rowing machine Duration: < 15 minutes/day Frequency: 3-4 times per week Mercedes/Mandaen: Cheondoism Seatbelt use: always Helmet use: No (Never (N/A)) Drive intox or ride w/intox ups driver: No Working smoke detector in home: Yes Fire extinguisher in home: Yes Carbon monox detector in home: Yes Do you feel safe at home: Yes Do you feel safe in your relationship?: Yes Meds Allergies and Home Medications Allergies Allergy/AdvReac Type Severity Reaction Status Date / Time No Known Allergies Allergy Verified 02/01/25 09:11 Home Medications ?Medication ?Instructions ?Recorded ?Confirmed ?Type blood-glucose meter #1 ea 03/10/21 09/21/24 Rx lancets #100 ea 03/10/21 09/21/24 Rx blood sugar diagnostic #100 ea 02/15/24 09/21/24 Rx furosemide 20 mg tablet 20 mg PO DAILY PRN edema #90 tabs 02/15/24 02/01/25 Rx losartan 50 mg tablet See Rx Instructions .Route 03/09/24 02/01/25 Rx .COMPLEX #180 tabs diltiazem HCl 120 mg See Rx Instructions .Route 06/08/24 02/01/25 Rx capsule,extended release 24 hr .COMPLEX #90 caps metformin 1,000 mg tablet 1,000 mg PO BID #180 tabs 08/25/24 02/01/25 Rx metoprolol succinate 50 mg 50 mg PO BID #180 tabs 08/25/24 02/01/25 Rx tablet,extended release 24 hr spironolactone 25 mg tablet 25 mg PO DAILY #90 tabs 08/28/24 02/01/25 Rx rosuvastatin 20 mg tablet 20 mg PO DAILY #90 tabs 08/31/24 02/01/25 Rx hydrocortisone 1 % topical cream 1 applic topical BID PRN skin 09/21/24 02/01/25 Rx irritation #28.4 grams Exam Narrative Exam Narrative: Well-appearing older female laying in bed in no acute distress, ANO x 4, heart regular rhythm, lungs good auscultation bilaterally, abdomen soft, nontender, nondistended Results Labs 02/01/25 15:59 Labs: Laboratory Results - last 24 hr 02/01/25 02/01/25 02/01/25 09:27 10:21 12:00 Sodium 128 L 133 L Potassium 7.1 H* 5.9 H D Chloride 101 104 Carbon Dioxide 15.0 L 15.1 L Anion Gap 12.0 H 13.9 H BUN 52 H 56 H Creatinine 2.4 H 2.4 H Est GFR (CKD-EPI 2020) 19.43 19.43 Glucose 216 H 61 L Calcium 9.6 10.3 H Total Bilirubin 0.3 AST 15 ALT 22 Alkaline Phosphatase 121 H Troponin I 9 15 Total Protein 7.3 Albumin 3.5 02/01/25 13:10 Sodium Potassium Chloride Carbon Dioxide Anion Gap BUN Creatinine Est GFR (CKD-EPI 2020) Glucose Calcium Total Bilirubin AST ALT Alkaline Phosphatase Troponin I Cancelled Total Protein Albumin Last Vital Signs Temp 97.7 F 02/01/25 09:05 Pulse 69 02/01/25 12:19 Resp 14 02/01/25 12:19 BP 113/39 L 02/01/25 12:19 Pulse Ox 99 02/01/25 12:19 Time Spent Time spent with Patient: >75 minutes Time was spent: preparing to see the patient(eg.review tests), obtaining and/or reviewing separately otained hiistory, ordering medications,tests, procedures, referring, communicating with other health senior care provider, indepentently interpreting results, counseling the patient and care coordination
--- NOTE | 2025-02-01 14:01 | W.PC.ACHO ---
Registration Status: Primary Language: Preferred Language: ED Information & Data Chief Complaint GenMedical 02/01/25 10:16 Triage Note I have been going down hill 02/01/25 09:05 lately feels weak, shakey, low appetite, no energy, saw PCP yesterday parisa labs K high Medical / Surgical History (Last Reviewed 09/20/24 @ 12:36 by Alena Gipson DPM) Diverticulitis of sigmoid colon Migraine (Last Reviewed 09/20/24 @ 12:36 by Aelna Gipson DPM) Presence of Watchman left atrial appendage closure device History of heart artery stent vein stripping Ligation of fallopian tube Tonsillectomy Most Recent Vital Signs Temperature 36.5 C 02/01/25 09:05 Temperature Source Oral 02/01/25 09:05 Pulse 77 02/01/25 13:41 Pulse 76 02/01/25 13:41 Respiratory Rate 21 02/01/25 13:41 Respiratory Effort Normal, Non-Labored 02/01/25 09:53 Respiratory Depth Normal 02/01/25 09:53 Respiratory Pattern Normal 02/01/25 09:53 Blood Pressure 163/52 H 02/01/25 13:41 Blood Pressure Mean 84 02/01/25 13:41 Pulse Oximetry 100 02/01/25 13:41 Oxygen Delivery Method Room Air 02/01/25 09:05 Oxygen Flow Rate 0 02/01/25 09:05 Allergies No Known Allergies Allergy (Verified 02/01/25 09:11) Precautions Isolation Standard precaution 02/01/25 09:15 Active Medications Generic Name Dose Route Start Last Admin Trade Name Freq PRN Reason Stop Dose Admin Sodium Chloride 1,000 mls @ 250 mls/hr 02/01/25 10:10 02/01/25 10:38 Saline 1000ml Bag IV 02/01/25 14:09 500 mls/hr BOLUS ONE Administration Dextrose/Water 500 mls @ 30 mls/hr 02/01/25 10:15 02/01/25 10:41 Dextrose 10%-Water IV 30 mls/hr INFUSION AMALIA Administration IV IV Catheter Type [Right Saline Lock Antecubital] Diet Orders Category Date Time Status Diabetes Consistent CHO/Heart Healthy [DIET] Nutrition 02/01/25 Dinner Active Diagnostics 02/01/25 02/01/25 02/01/25 Range/Units 20:00 16:00 13:10 Sodium Pending Pending (136-145) mmol/L Potassium Pending Pending (3.5-5.1) mmol/L Chloride Pending Pending (98-107) mmol/L Carbon Dioxide Pending Pending (21.0-32.0) mmol/L Anion Gap Pending Pending (3-11) mmol/L BUN Pending Pending (7-18) mg/dL Creatinine Pending Pending (0.55-1.02) mg/dL Est GFR (CKD-EPI 2020) Pending Pending (mL/min/1.73m2) Glucose Pending Pending (74-106) mg/dL Calcium Pending Pending (8.5-10.1) mg/dL Total Bilirubin (0.2-1.0) mg/dL AST (15-37) U/L ALT (14-59) U/L Alkaline Phosphatase (46-116) U/L Troponin I Cancelled (<or=51) ng/L Total Protein (6.4-8.2) g/dL Albumin (3.4-5.0) g/dL 02/01/25 02/01/25 02/01/25 Range/Units 12:00 10:21 09:27 Sodium 133 L 128 L (136-145) mmol/L Potassium 5.9 H D 7.1 H* (3.5-5.1) mmol/L Chloride 104 101 (98-107) mmol/L Carbon Dioxide 15.1 L 15.0 L (21.0-32.0) mmol/L Anion Gap 13.9 H 12.0 H (3-11) mmol/L BUN 56 H 52 H (7-18) mg/dL Creatinine 2.4 H 2.4 H (0.55-1.02) mg/dL Est GFR (CKD-EPI 2020) 19.43 19.43 (mL/min/1.73m2) Glucose 61 L 216 H (74-106) mg/dL Calcium 10.3 H 9.6 (8.5-10.1) mg/dL Total Bilirubin 0.3 (0.2-1.0) mg/dL AST 15 (15-37) U/L ALT 22 (14-59) U/L Alkaline Phosphatase 121 H (46-116) U/L Troponin I 15 9 (<or=51) ng/L Total Protein 7.3 (6.4-8.2) g/dL Albumin 3.5 (3.4-5.0) g/dL [id number] Documentation Fingerstick Glucose Start: 02/01/25 10:50 Freq: .Stat Status: Active Protocol: Activity Type Activity Date Activity User E-sign Co-sign Detail Recorded Client Recorded Date Recorded By Document 02/01/25 13:07 BKG DAEMON(7) [id number] 02/01/25 13:08 BKG DAEMON(8) Intake and Output - 24 Hour Total 02/01/25 09:02 thru 02/01/25 12:45 Intake Total 50 Balance 50 Weight 80.286 kg Intake: IV 50 Other: # Voids 1 Falls Risk Assessment History of Falls No History 02/01/25 09:53 Fall Total Score 0 02/01/25 09:53 Level of Risk Standard/Low Risk 02/01/25 09:53 Problems (Last Reviewed 09/20/24 @ 12:36 by Alena Gipson DPM) Non-insulin dependent type 2 diabetes mellitus (Acute) HTN (hypertension) (Chronic) Acute on chronic kidney failure (Acute) Hyperkalemia (Acute) v v v v v v v v v Sending and/or Receiving Nurses: Please use comment section below to note any information pertinent to the patient hand-off not included above. Information / Comments: Kasia Randle RN in the ER gave report to Rosa Wellington RN ICU Report received from:
[2025-02-01 16:20] LABS: Anion Gap 11.5 mmol/L (3-11); BUN 50 mg/dL (7-18); CO2 16.5 mmol/L (21.0-32.0); CREATININE 2.5 mg/dL (0.55-1.02); Calcium 9.7 mg/dL (8.5-10.1); Chloride 104 mmol/L (98-107); Glucose 183 mg/dL (74-106); Sodium 132 mmol/L (136-145)
[2025-02-01] MEDS: Normal Saline 1,000 ML 100 ML IV (16:57)
--- NOTE | 2025-02-01 18:39 | W.PC.ACHO ---
Registration Status: Primary Language: Preferred Language: ED Information & Data Chief Complaint GenMedical 02/01/25 10:16 Triage Note I have been going down hill 02/01/25 09:05 lately feels weak, shakey, low appetite, no energy, saw PCP yesterday parisa labs K high Medical / Surgical History (Last Reviewed 09/20/24 @ 12:36 by Alena Gipson DPM) Diverticulitis of sigmoid colon Migraine (Last Reviewed 09/20/24 @ 12:36 by Alena Gipson DPM) Presence of Watchman left atrial appendage closure device History of heart artery stent vein stripping Ligation of fallopian tube Tonsillectomy Most Recent Vital Signs Temperature 36.8 C 02/01/25 18:30 Temperature Source Tympanic 02/01/25 18:30 Pulse 86 02/01/25 18:30 Pulse 75 02/01/25 17:10 Respiratory Rate 14 02/01/25 18:30 Respiratory Effort Normal 02/01/25 14:50 Respiratory Depth Normal 02/01/25 14:50 Respiratory Pattern Tachypnea 02/01/25 14:50 Blood Pressure 115/48 L 02/01/25 18:30 Blood Pressure Mean 76 02/01/25 16:02 Pulse Oximetry 95 02/01/25 18:30 Oxygen Delivery Method Room Air 02/01/25 18:30 Oxygen Flow Rate 0 02/01/25 18:30 Allergies No Known Allergies Allergy (Verified 02/01/25 09:11) Precautions Isolation Standard precaution 02/01/25 09:15 Active Medications Generic Name Dose Route Start Last Admin Trade Name Freq PRN Reason Stop Dose Admin Sodium Chloride 1,000 mls @ 100 mls/hr 02/01/25 12:45 02/01/25 16:57 Saline 1000ml Bag IV 100 mls/hr INFUSION AMALIA Administration Sodium Zirconium Cyclosilicate 10 gm 02/01/25 14:30 02/01/25 16:46 Sodium Zirconium Cyclosilicate 10 Gm Pkt PO 02/03/25 06:31 10 gm TID@0630,1430,2230 AMALIA Administration IV IV Catheter Type [Right Peripheral IV Antecubital] IV Catheter Gauge [Right 18 Antecubital] Diet Orders Category Date Time Status Diabetes Consistent CHO/Heart Healthy [DIET] Nutrition 02/01/25 Dinner Active Diagnostics 02/01/25 02/01/2502/01/25 Range/Units 20:00 15:59 13:10 Sodium Pending 132 L (136-145) mmol/L Potassium Pending 6.0 H* (3.5-5.1) mmol/L Chloride Pending 104 (98-107) mmol/L Carbon Dioxide Pending 16.5 L (21.0-32.0) mmol/L Anion Gap Pending 11.5 H (3-11) mmol/L BUN Pending 50 H (7-18) mg/dL Creatinine Pending 2.5 H (0.55-1.02) mg/dL Est GFR (CKD-EPI 2020) Pending 18.50 (mL/min/1.73m2) Glucose Pending 183 H (74-106) mg/dL Calcium Pending 9.7 (8.5-10.1) mg/dL Total Bilirubin (0.2-1.0) mg/dL AST (15-37) U/L ALT (14-59) U/L Alkaline Phosphatase (46-116) U/L Troponin I Cancelled (<or=51) ng/L Total Protein (6.4-8.2) g/dL Albumin (3.4-5.0) g/dL 02/01/25 02/01/25 02/01/25 Range/Units 12:00 10:21 09:27 Sodium 133 L 128 L (136-145) mmol/L Potassium 5.9 H D 7.1 H* (3.5-5.1) mmol/L Chloride 104 101 (98-107) mmol/L Carbon Dioxide 15.1 L 15.0 L (21.0-32.0) mmol/L Anion Gap 13.9 H 12.0 H (3-11) mmol/L BUN 56 H 52 H (7-18) mg/dL Creatinine 2.4 H 2.4 H (0.55-1.02) mg/dL Est GFR (CKD-EPI 2020) 19.43 19.43 (mL/min/1.73m2) Glucose 61 L 216 H (74-106) mg/dL Calcium 10.3 H 9.6 (8.5-10.1) mg/dL Total Bilirubin 0.3 (0.2-1.0) mg/dL AST 15 (15-37) U/L ALT 22 (14-59) U/L Alkaline Phosphatase 121 H (46-116) U/L Troponin I 15 9 (<or=51) ng/L Total Protein 7.3 (6.4-8.2) g/dL Albumin 3.5 (3.4-5.0) g/dL [id number] Documentation Fingerstick Glucose Start: 02/01/25 10:50 Freq: .Stat Status: Active Protocol: Activity Type Activity Date Activity User E-sign Co-sign Detail Recorded Client Recorded Date Recorded By Document 02/01/25 18:36 BKG DAEMON [id number] 02/01/25 18:37 BKG DAEMON(2) Intake and Output - 24 Hour Total 02/01/25 09:02 thru 02/01/25 18:39 Intake Total 1050 Balance 1050 Weight 78.925 kg Intake: IV 1050 Other: # Voids 1 Falls Risk Assessment History of Falls Previous History 02/01/25 14:50 Contributing Factors Impairments 02/01/25 14:50 Ambulatory Aids Uses ambulatory device 02/01/25 14:50 Tubes/Lines With any additional score 02/01/25 14:50 Gait Evaluation W/any additional score 02/01/25 14:50 Cognition No cognitive impairment 02/01/25 14:50 Fall Total Score 73 02/01/25 14:50 Level of Risk High Risk 02/01/25 14:50 Problems (Last Reviewed 09/20/24 @ 12:36 by Alena Gipson DPM) Non-insulin dependent type 2 diabetes mellitus (Acute) HTN (hypertension) (Chronic) Acute on chronic kidney failure (Acute) Hyperkalemia (Acute) v v v v v v v v v Sending and/or Receiving Nurses: Please use comment section below to note any information pertinent to the patient hand-off not included above. Information / Comments: Report received from:jose g at 1800
[2025-02-01] MEDS: Metoprolol CR 50 MG TABCR PO (20:35)
[2025-02-01 20:45] LABS: Anion Gap 14.7 mmol/L (3-11); BUN 50 mg/dL (7-18); CO2 16.3 mmol/L (21.0-32.0); CREATININE 2.4 mg/dL (0.55-1.02); Calcium 9.3 mg/dL (8.5-10.1); Chloride 102 mmol/L (98-107); Estimated GFR 19.43 (mL/min/1.73m2); Glucose 176 mg/dL (74-106); Potassium 5.3 mmol/L (3.5-5.1); Sodium 133 mmol/L (136-145)
[2025-02-02 00:10] VITALS: BP 111/51; PULSE 83; RESP 20; TEMP 37.2; O2SAT 97
[2025-02-02 00:28] LABS: Anion Gap 13.8 mmol/L (3-11); BUN 50 mg/dL (7-18); CO2 17.2 mmol/L (21.0-32.0); CREATININE 2.3 mg/dL (0.55-1.02); Calcium 9.3 mg/dL (8.5-10.1); Chloride 103 mmol/L (98-107); Estimated GFR 20.45 (mL/min/1.73m2); Glucose 138 mg/dL (74-106); Potassium 5.2 mmol/L (3.5-5.1); Sodium 134 mmol/L (136-145)
[2025-02-02] MEDS: Normal Saline 1,000 ML 100 ML IV ×3 (03:33→22:28)
[2025-02-02 04:28] LABS: BUN 47 mg/dL (7-18); CREATININE 2.3 mg/dL (0.55-1.02); Calcium 9.1 mg/dL (8.5-10.1); Chloride 106 mmol/L (98-107); Estimated GFR 20.45 (mL/min/1.73m2); Glucose 120 mg/dL (74-106); Sodium 135 mmol/L (136-145)
[2025-02-02 04:33] LABS: Potassium 5.3 mmol/L (3.5-5.1)
[2025-02-02] MEDS: Sodium Zirconium Cyclosilicate 10 GM PKT PO ×3 (06:13→22:30)
[2025-02-02] MEDS: Rosuvastatin 20 MG TAB PO (08:04)
[2025-02-02] MEDS: Metoprolol CR 50 MG TABCR PO ×2 (08:04→19:37)
[2025-02-02] MEDS: Enoxaparin 30 MG/0.3 ML SYR SC (08:04)
[2025-02-02 08:10] VITALS: BP 137/71; PULSE 85; RESP 20; TEMP 36.5; O2SAT 100
[2025-02-02] MEDS: Furosemide 20 MG/2 ML VIAL IVP ×2 (08:35→15:45)
[2025-02-02] MEDS: dilTIAZem CD 120 MG CAPCR PO (08:59)
--- NOTE | 2025-02-02 11:35 | INITIAL_ITS ---
Date of service: 02/02/25 Time of Service: 11:35 Care Management Initial Assmt Initial Assessment Reason for Hospitalization: hyperkalemia Functional Status/Living Situation Patient Presentation: Patient had labs drawn as an outpatient yesterday on 01/31/2025 that showed potassium level 7.1. Her PCP called and recommended she present to the emergency department. Madeleine was sitting up in her chair when CM met with her. She was very pleasant and willing to engage in conversation. She currently is living in [facility] with her son Patric in a single family home. She moved to [place] from [place] around 10 years ago. Madeleine has 5 children, 2 local, and 2 that are living in [place] but all of them visit her. Madeleine does not receive any community or home health services, but she does drive and is retired. Per Madeleine, she has a great support system and doesn't have/need any services yet. Town of Residence: [facility] Resides with: Child (Son Patric) Significant Other/Family: Local (1 daughter and 1 son local, other 2 children are in [facility] ) Natural Supports: Family Employment Status: Retired Instrumental Activities of Daily Living (ADLs): Independent Activities/Hobbies/SocialSupport: Madeleine enjoys collecting Wilmer bears, and baby dolls. She also enjoys jigsaw puzzles, reading. Advance Directives Advance Directives: Do you have an Advance Directive: Y 02/23/22 09:35 AD On File at [facility]: Y 02/23/22 09:35 Date Asked 02/01/25 02/01/25 12:54 AD Date Reviewed 02/01/25 02/01/25 09:14 COLST On File at [facility] COLST Date Scanned Code Status Resuscitation Status Full Code Insurance Coverage/Financial Issues Insurance: [employer] MCR Replacement Care Team Visit Care Team Role Provider Type Adrián Wadsworth MD [facility] STAFF PHYSICIAN Dave Seaman DO Primary Care Provider OSTEOPATHIC DOCTOR [facility] Emergency Provider PHYSICIANS MANUFACTURERS AGENT Charles Robles MD Admit Provider [facility] STAFF PHYSICIAN Attending Provider Discharge Potential Discharge Needs: PCP F/U Appt Anticipated Barriers to Discharge: Medical Status Patient/Family Education Needs: Review discharge instructions, discuss Ask Me Three Transportation: Private vehicle (Family) Plan: Anticipate Madeleine will be discharged home with no new services. She will follow up with her PCP and continue per her plan of care. Madeleine will transport home in a private vehicle, possibly her son. CM will continue to follow and update plan as needed. Social Determinants of Health Screening Social Determinants of Health last assessed: 02/02/25 Will the Patient Participate in the Screening?: Yes Do you worry about having a steady place to live?: no Problems where you live: no known problems In the past 12 months, have you had to go without electric, gas, oil or water in your home?: no Have you or anyone in your house had to go without enough food to eat?: no Has lack of transportation kept you from medical appointments or from doing things needed for daily living?: no Has anyone in your life made you feel unsafe or unsupported?: no How hard is it for you to pay for the very basics like food, housing, medical care, and heating? Would you say it is:: Somewhat hard Do you want help finding or keeping work or a job?: I do not need or want help If for any reason you need help with day-to-day activities such as bathing, preparing meals, shopping, managing finances, etc., do you get the help you nee d?: I get all the help I need How often do you feel lonely or isolated from those around you?: Rarely Do you speak a language other than Macedonian at home?: No Does the patient want assistance with any of the above?: No Health Related Social Needs Health related social needs: food insecurity (Z59.41), problems related to housing/economic circumstances (Z59.89) and feeling lonely/isolated (Z60.8) PFSH All Active Problems (Updated 02/02/25 @ 14:29 by Adrián Wadsworth) DVT prophylaxis (Acute) Chronic renal insufficiency (Acute) Non-insulin dependent type 2 diabetes mellitus (Acute) HTN (hypertension) (Chronic) Acute on chronic kidney failure (Acute) Hyperkalemia (Acute) Diabetes mellitus with neuropathy (Acute) Parastomal hernia without obstruction or gangrene (Acute) Diverticular stricture (Acute) H/O colonoscopy (Chronic 02/09/23) [facility]-biopsies taken- 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 (Acute) Sacral wound (Acute) Family history of Crohn's disease (Acute) Coronary artery calcification seen on CAT scan (Acute) Atherosclerosis of arteries (Acute) Fe deficiency anemia (Acute) Mass of kidney (Acute) Elevated lipids (Acute) Normochromic normocytic anemia (Acute) Left kidney mass (Acute) 12/[address] scan Heme positive stool (Acute) Fecal urgency (Acute) Pain, foot (Acute) Corns and callosities (Acute) Nail dystrophy (Acute) Mass of soft tissue (Acute) Paroxysmal atrial fibrillation (Acute) Central sleep apnea syndrome (Acute) Periodic limb movement disorder (Acute ~09/2021) Severe sleep apnea (Acute ~09/2021) Atrial fibrillation with RVR (Acute) Presence of Watchman left atrial appendage closure device (Chronic) S/P cardiac cath (Acute) Post-menopausal bleeding (Acute) Chronic systolic CHF (congestive heart failure) (Chronic) EF 58% by echo on 01/21 NSTEMI (non-ST elevated myocardial infarction) (Acute) 2017 w/ stent palcement History of diverticulitis (Acute) Anemia (Chronic) with heme positive stool 02/17 CAD (coronary artery disease) (Chronic) Congestive heart failure (CHF) (Chronic) Type 2 diabetes mellitus with mild nonproliferative diabetic retinopathy without macular edema (Chronic 07/24/15) Kidney stones (Chronic) Essential hypertension (Acute 07/24/15) Arthritis (Acute 07/24/15) Medical History Diverticulitis of sigmoid colon Migraine Surgical History Presence of Watchman left atrial appendage closure device 05/08/21 History of heart artery stent 10/17/2018 vein stripping Ligation of fallopian tube Tonsillectomy Family History Daughter , brainstem stoke at age 41. Stroke Hypertension Mother Diabetes Heart disease Brother Diabetes Heart disease Sister Diabetes Heart disease Social History Smoking/Tobacco Use Status: Never Smoking risk assessment performed?: Yes Alcohol Intake: never Drug use: Never Substance use type: does not use Adopted: No Caregiver/Support person: No Foster care: No Household members: children and other Details: Lives with son Housing: house Number of Children: 5 number of grandchildren: 9 Communication Needs: Hard of Hearing Education Level: high school Do you need help understanding health information?: Always current occupation: Retired Pets and animals: Yes (1) Pets and animals: cat(s) Sexually active: No Do you think of yourself as: straight/heterosexual Current gender identity: female What is your relationship status?: How often do you talk on the phone with friends or family?: three or more times per week How often do you get together with friends or relatives?: once per week Do you belong to any clubs or organized social groups?: no Panel score (0-1 are the most socially isolated patients): 1 What type of physical activity do you participate in: other Details: program at home, stair stepper, rowing machine Duration: < 15 minutes/day Frequency: 3-4 times per week Mercedes/Buddhist: Orthodoxy Seatbelt use: always Helmet use: No (Never (N/A)) Drive intox or ride w/intox line haul driver: No Working smoke detector in home: Yes Fire extinguisher in home: Yes Carbon monox detector in home: Yes Do you feel safe at home: Yes Do you feel safe in your relationship?: Yes Readmission Within the Past 30 Days Yes or No: No
[2025-02-02] MEDS: Insulin Aspart 300 UNITS/3 ML PEN SC ×2 (11:45→17:07)
[2025-02-02 11:46] VITALS: BP 103/52; PULSE 78; RESP 16; TEMP 36.3; O2SAT 99
[2025-02-02 13:08] VITALS: BP 122/63
--- NOTE | 2025-02-02 14:16 | W.PM.PROGNOT ---
Date of Service Date of service: 02/02/25 Time of Service: 10:00 Assessment and Plan Assessment and plan (1) Hyperkalemia: Status: Acute Assessment and plan: - Likely brought on the setting of some degree of decreased p.o. intake with worsening of renal failure and continued use of home Lasix, losartan, metformin, and spironolactone -Potassium initially found to be 7.2 and upon arrival to the emergency department, now down to 5.3 -Will continue Lokelma and fluids and furosemide for now. (2) Acute on chronic kidney failure: Status: Acute Assessment and plan: - Creatinine up to 2.4, baseline between 1.4 and 1.8 (though we don't have very recent levels so there may have been a progression) -Likely due to continued use of home Lasix, losartan, spironolactone in the setting of poor p.o. intake -Hold home losartan, spironolactone, metformin, Lasix (3) HTN (hypertension): Status: Chronic Assessment and plan: - As noted above holding home Lasix, losartan, spironolactone -Continue home metoprolol and diltiazem (4) Non-insulin dependent type 2 diabetes mellitus: Status: Acute Assessment and plan: - Holding home metformin in the setting of NAVEED as noted above. She may not be able to resume this if GFR remains below 30 - continue insulin SS (5) Chronic systolic CHF (congestive heart failure): Status: Chronic Assessment and plan: I reviewed the history, had reduced LVEF to 30-35% in 2018, has recovered to normal since then. Thus she remains on beta edgardo, spironolactone, ARB. She did not like effects of SGLT2i in the past, cost also too high, does not want to try again. with severe hyperkalemia and decreased GFR, she may not be albe to resume spironolactone. (6) Paroxysmal atrial fibrillation: Status: Acute Assessment and plan: on metoprolol and diltiazem due to difficult to control rate and h/o RVR. This is despite known HFrEF history. LVEF has been stable on these medications. Continue this for now. She does not tolerate full anticoagulation and is s/p watchman (7) DVT prophylaxis: Status: Acute Assessment and plan: enoxaparin Subjective Subjective Patient reports: no new complaints, tolerating a regular diet and voiding w/o difficulty; denies diarrhea, nausea, vomiting, shortness of breath or fever Interval history since last seen: She feels okay this morning. She does not feel that she is more swollen or has been putting on weight. Exam Narrative Exam Narrative: Well-appearing older female laying sitting up in chair, in no acute distress, ANO x 4, heart regular rhythm with no m/g/r. Lungs clear to auscultation bilaterally, abdomen soft, nontender, nondistended. Ext without pitting edema bilaterally. Objective Last Vital Signs Temp 36.3 C L 02/02/25 11:46 Pulse 78 02/02/25 11:46 Resp 16 02/02/25 11:46 BP 122/63 02/02/25 13:08 Pulse Ox 99 02/02/25 11:46 Laboratory Results - last 24 hr 02/01/25 02/01/25 02/02/25 15:59 20:28 00:09 Sodium 132 L 133 L 134 L Potassium 6.0 H* 5.3 H 5.2 H Chloride 104 102 103 Carbon Dioxide 16.5 L 16.3 L 17.2 L Anion Gap 11.5 H 14.7 H 13.8 H BUN 50 H 50 H 50 H Creatinine 2.5 H 2.4 H 2.3 H Est GFR (CKD-EPI 2020) 18.50 19.43 20.45 Glucose 183 H 176 H 138 H Calcium 9.7 9.3 9.3 02/02/25 04:06 Sodium 135 L Potassium 5.3 H Chloride 106 Carbon Dioxide 17.0 L Anion Gap 12.0 H BUN 47 H Creatinine 2.3 H Est GFR (CKD-EPI 2020) 20.45 Glucose 120 H Calcium 9.1 Time Spent with Patient Time Spent with Patient: >50 minutes Time was spent: preparing to see the patient(eg.review tests), obtaining and/or reviewing separately otained hiistory, ordering medications,tests, procedures, referring, communicating with other health personal care service provider, indepentently interpreting results, counseling the patient and care coordination
[2025-02-02 15:41] VITALS: BP 125/96; PULSE 82; RESP 16; TEMP 36.5; O2SAT 97
--- NOTE | 2025-02-02 15:43 | PDOC.CMIN ---
Date of service: 02/02/25 Time of Service: 15:43 Care Management Initial Assmt Advance Directives Advance Directives: Do you have an Advance Directive: Y 02/23/22 09:35 AD On File at [facility]: Y 02/23/22 09:35 Date Asked 02/01/25 02/01/25 12:54 AD Date Reviewed 02/01/25 02/01/25 09:14 COLST On File at [facility] COLST Date Scanned Code Status Resuscitation Status Full Code Care Team Visit Care Team Role Provider Type Adrián Wadsworth MD [facility] STAFF PHYSICIAN Dave Seaman DO Primary Care Provider OSTEOPATHIC DOCTOR [facility] [place] Emergency Provider PHYSICIANS NOTEMAN Charles Robles MD Admit Provider [facility] STAFF PHYSICIAN Attending Provider Social Determinants of Health Screening Social Determinants of Health last assessed: 02/02/25 Will the Patient Participate in the Screening?: Yes Do you worry about having a steady place to live?: no Problems where you live: no known problems In the past 12 months, have you had to go without electric, gas, oil or water in your home?: no Have you or anyone in your house had to go without enough food to eat?: no Has lack of transportation kept you from medical appointments or from doing things needed for daily living?: no Has anyone in your life made you feel unsafe or unsupported?: no How hard is it for you to pay for the very basics like food, housing, medical care, and heating? Would you say it is:: Somewhat hard Do you want help finding or keeping work or a job?: I do not need or want help If for any reason you need help with day-to-day activities such as bathing, preparing meals, shopping, managing finances, etc., do you get the help you need?: I get all the help I need How often do you feel lonely or isolated from those around you?: Rarely Do you speak a language other than Welsh at home?: No Does the patient want assistance with any of the above?: No Health Related Social Needs Health related social needs: food insecurity (Z59.41), problems related to housing/economic circumstances (Z59.89) and feeling lonely/isolated (Z60.8) PFSH All Active Problems (Updated 02/02/25 @ 14:29 by Adrián Wadsworth) DVT prophylaxis (Acute) Chronic renal insufficiency (Acute) Non-insulin dependent type 2 diabetes mellitus (Acute) HTN (hypertension) (Chronic) Acute on chronic kidney failure (Acute) Hyperkalemia (Acute) Diabetes mellitus with neuropathy (Acute) Parastomal hernia without obstruction or gangrene (Acute) Diverticular stricture (Acute) H/O colonoscopy (Chronic 02/09/23) [facility] [place]biopsies [place]- 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 (Acute) Sacral wound (Acute) Family history of Crohn's disease (Acute) Coronary artery calcification seen on CAT scan (Acute) Atherosclerosis of arteries (Acute) Fe deficiency anemia (Acute) Mass of kidney (Acute) Elevated lipids (Acute) Normochromic normocytic anemia (Acute) Left kidney mass (Acute) 12/[address] scan Heme positive stool (Acute) Fecal urgency (Acute) Pain, foot (Acute) Corns and callosities (Acute) Nail dystrophy (Acute) Mass of soft tissue (Acute) Paroxysmal atrial fibrillation (Acute) Central sleep apnea syndrome (Acute) Periodic limb movement disorder (Acute ~09/2021) Severe sleep apnea (Acute ~09/2021) Atrial fibrillation with RVR (Acute) Presence of Watchman left atrial appendage closure device (Chronic) S/P cardiac cath (Acute) Post-menopausal bleeding (Acute) Chronic systolic CHF (congestive heart failure) (Chronic) EF 58% by echo on 01/21 NSTEMI (non-ST elevated myocardial infarction) (Acute) 2017 w/ stent palcement History of diverticulitis (Acute) Anemia (Chronic) with heme positive stool 02/17 CAD (coronary artery disease) (Chronic) Congestive heart failure (CHF) (Chronic) Type 2 diabetes mellitus with mild nonproliferative diabetic retinopathy without macular edema (Chronic 07/24/15) Kidney stones (Chronic) Essential hypertension (Acute 07/24/15) Arthritis (Acute 07/24/15) Medical History Diverticulitis of sigmoid colon Migraine Surgical History Presence of Watchman left atrial appendage closure device 05/08/21 History of heart artery stent 10/17/2018 vein stripping Ligation of fallopian tube Tonsillectomy Family History Daughter , brainstem stoke at age 41. Stroke Hypertension Mother Diabetes Heart disease Brother Diabetes Heart disease Sister Diabetes Heart disease Social History Smoking/Tobacco Use Status: Never Smoking risk assessment performed?: Yes Alcohol Intake: never Drug use: Never Substance use type: does not use Adopted: No Caregiver/Support person: No Foster care: No Household members: children and other Details: Lives with son Housing: house Number of Children: 5 number of grandchildren: 9 Communication Needs: Hard of Hearing Education Level: high school Do you need help understanding health information?: Always current occupation: Retired Pets and animals: Yes (1) Pets and animals: cat(s) Sexually active: No Do you think of yourself as: straight/heterosexual Current gender identity: female What is your relationship status?: How often do you talk on the phone with friends or family?: three or more times per week How often do you get together with friends or relatives?: once per week Do you belong to any clubs or organized social groups?: no Panel score (0-1 are the most socially isolated patients): 1 What type of physical activity do you participate in: other Details: program at home, stair stepper, rowing machine Duration: < 15 minutes/day Frequency: 3-4 times per week Mercedes/Oriental Orthodox: Muslim Seatbelt use: always Helmet use: No (Never (N/A)) Drive intox or ride w/intox special education bus driver: No Working smoke detector in home: Yes Fire extinguisher in home: Yes Carbon monox detector in home: Yes Do you feel safe at home: Yes Do you feel safe in your relationship?: Yes
--- NOTE | 2025-02-02 16:40 | CHAPLAIN ---
Madeleine was resting in bed when I visited. She was very pleasant, and not particularly interested in a sheetmetal patternmaker visit. She said is in touch with family members. Two children live locally and are supportive, she said, and more family members live in [place]. I explained my role and offered support.
[2025-02-02 19:25] VITALS: BP 119/52; PULSE 78; RESP 16; TEMP 36.9; O2SAT 99
[2025-02-02] MEDS: Losartan 50 MG TAB PO (19:38)
[2025-02-03] MEDS: Sodium Zirconium Cyclosilicate 10 GM PKT PO (05:47)
[2025-02-03 06:44] LABS: Anion Gap 9.8 mmol/L (3-11); BUN 45 mg/dL (7-18); CO2 20.2 mmol/L (21.0-32.0); CREATININE 2.2 mg/dL (0.55-1.02); Calcium 8.6 mg/dL (8.5-10.1); Chloride 104 mmol/L (98-107); Estimated GFR 21.57 (mL/min/1.73m2); Glucose 129 mg/dL (74-106); Potassium 4.4 mmol/L (3.5-5.1); Sodium 134 mmol/L (136-145)
[2025-02-03 06:45] LABS: Magnesium 1.6 mg/dL (1.8-2.4)
[2025-02-03 07:37] VITALS: BP 97/54; PULSE 68; RESP 16; TEMP 36.5; O2SAT 99
[2025-02-03] MEDS: Enoxaparin 30 MG/0.3 ML SYR SC (07:57)
[2025-02-03] MEDS: Rosuvastatin 20 MG TAB PO (07:57)
[2025-02-03] MEDS: MAGNESIUM SULFATE 2 GM/50 ML BAG IV_INF (07:58)
[2025-02-03] MEDS: Losartan 25 MG TAB PO ×2 (10:35→19:37)
[2025-02-03 11:08] VITALS: BP 111/51; PULSE 68; RESP 16; TEMP 36.5; O2SAT 98
[2025-02-03] MEDS: Insulin Aspart 300 UNITS/3 ML PEN SC ×2 (11:26→16:51)
--- NOTE | 2025-02-03 11:59 | W.PM.PROGNOT ---
Date of Service Date of service: 02/03/25 Time of Service: 11:59 Assessment and Plan Assessment and plan (1) Hyperkalemia: Status: Acute Assessment and plan: -Likely brought on by worsening of renal failure and continued use of home Lasix, losartan, and spironolactone -Potassium initially found to be 7.2 and upon arrival to the emergency department, now down to 4.4 -s/p 6 doses of Lokelma, stopped furosemide and fluids 4/5 am (2) Acute on chronic kidney failure: Status: Acute Assessment and plan: -Creatinine up to 2.4, baseline unclear as previous creatinine was 1.2 on 02/10/2024. No labs since here or [facility]. -I think this has been a chronic process of progressive renal failure leading to hyperkalemia -Based on her BP here running low despite holding multiple medications, she may have been overtreated as she aged leading to renal insufficiency. -History of reduced p.o. intake not strong, it is unclear if this contributed. -Holding home spironolactone, metformin, Lasix. Resuming losartan at lower dose 25mg BID for HFrecEF and CKD. (3) HTN (hypertension): Status: Chronic Assessment and plan: - As noted above holding home Lasix, losartan, spironolactone -Continue home metoprolol and diltiazem (4) Non-insulin dependent type 2 diabetes mellitus: Status: Acute Assessment and plan: - Holding home metformin in the setting of NAVEED as noted above. She may not be able to resume this if GFR remains below 30. -Her A1c has been in 8% range as outpatient despite full dose metformin. She had hypoglycemia wiht sulfonurea -With CKD an SGLT2i will not help blood sugar significantly, though still indicated for heart failure -With CHF TZD contraindicated. She does not want insulin -With CAD history GLP-1 is best medical option for her. She is resistant but will look at cost of semaglutide weekly. Could use lower dose DPP-4 but impact on blood sugar less and no cardiac benefit. - continue insulin SS (5) Chronic systolic CHF (congestive heart failure): Status: Chronic Assessment and plan: Reviewed the history, had reduced LVEF to 30-35% in 2018, has recovered to normal since then. Thus she remained on beta edgardo, spironolactone, ARB. She did not like effects of SGLT2i in the past, cost also too high. with severe hyperkalemia and decreased GFR, she may not be albe to resume spironolactone. Resumed losartan at low dose. Will check cost of low dose empagliflozin again. (6) Paroxysmal atrial fibrillation: Status: Acute Assessment and plan: on metoprolol and diltiazem due to difficult to control rate and h/o RVR years ago. This is despite known HFrEF history. LVEF has been stable on these medications. She has been in NSR since admission. With BP running low and metoprolol being much preferred to diltiazem with h/o HFrEF, will try off diltiazem. She does not tolerate full anticoagulation and is s/p watchman (7) DVT prophylaxis: Status: Acute Assessment and plan: enoxaparin Subjective Subjective Patient reports: no new complaints and tolerating a regular diet; denies diarrhea, nausea, vomiting or fever Interval history since last seen: Events: BP low this morning, losartan dose of 25mg given, diltiazem and metoprolol held. Madeleine feels okay. no chest pain, SOB, or palpitaitons. She is eating. She is hesitant to stop the diltiazem because she had a lot of trouble with afib episode and this is what helped her in the end. She hasn't had problems in the past couple years. Exam Narrative Exam Narrative: Well-appearing older female laying sitting up in chair, in no acute distress, ANO x 4, heart regular rhythm with no m/g/r. Lungs clear to auscultation bilaterally, abdomen soft, nontender, nondistended. Ext without pitting edema bilaterally. Objective Last Vital Signs Temp 36.5 C 02/03/25 11:08 Pulse 68 02/03/25 11:08 Resp 16 02/03/25 11:08 BP 111/51 L 02/03/25 11:08 Pulse Ox 98 02/03/25 11:08 Laboratory Results - last 24 hr 02/03/25 05:58 Sodium 134 L Potassium 4.4 Chloride 104 Carbon Dioxide 20.2 L Anion Gap 9.8 BUN 45 H Creatinine 2.2 H Est GFR (CKD-EPI 2020) 21.57 Glucose 129 H Calcium 8.6 Magnesium 1.6 L Time Spent with Patient Time Spent with Patient: >50 minutes Time was spent: preparing to see the patient(eg.review tests), obtaining and/or reviewing separately otained hiistory, ordering medications,tests, procedures, referring, communicating with other health live in caregiver, indepentently interpreting results, counseling the patient and care coordination
[2025-02-03 16:01] VITALS: BP 110/49; PULSE 80; RESP 17; TEMP 36.7; O2SAT 98
--- NOTE | 2025-02-03 17:08 | NUR.NOTE ---
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 Provider notfied.
[2025-02-03] MEDS: Milk of Magnesia 30 ML CUP PO (19:36)
[2025-02-03] MEDS: Metoprolol CR 50 MG TABCR PO (19:37)
[2025-02-03 19:41] VITALS: BP 123/61; PULSE 82; RESP 20; TEMP 37.1; O2SAT 98
[2025-02-03] MEDS: Normal Saline Flush 10 ML SYR IVP (19:59)
[2025-02-03 20:14] LABS: Abs Immature Grans 0.04 10^3/uL (0.0-0.06); Absolute Basophil Count 0.02 10^3/uL (0.0-0.2); Absolute Eosinophil Count 0.14 10^3/uL (0.0-0.7); Absolute Lymphocyte Count 0.55 10^3/uL (1.2-3.4); Absolute Monocyte Count 0.63 10^3/uL (0.1-0.8); Absolute Neutrophil Count 4.76 10^3/uL (1.2-6.7); Basophils % 0.3 %; Eosinophils % 2.3 %; HCT 24.4 % (36.0-46.0); Immature Grans % 0.7 %; MCH 28.2 pg (27.0-33.0); MCHC 32.8 % (32.0-36.0); MCV 86 fL (80-95); MPV 8.3 fL (8.0-11.0); Monocytes % 10.3 %; Neutrophils % 77.4 %; Platelet Count 210 10^3/uL (130-400); RBC 2.84 10^6/uL (3.93-5.22); RDW 14.5 % (11.7-14.6); RDW-SD 44.9 fL; WBC 6.14 10^3/uL (4.4-10.8)
[2025-02-04 07:21] VITALS: BP 103/51; PULSE 68; RESP 18; TEMP 36.5; O2SAT 99
[2025-02-04] MEDS: Metoprolol CR 50 MG TABCR PO (07:41)
[2025-02-04] MEDS: Enoxaparin 30 MG/0.3 ML SYR SC (07:41)
[2025-02-04] MEDS: Losartan 25 MG TAB PO (07:41)
[2025-02-04] MEDS: Rosuvastatin 20 MG TAB PO (07:41)
[2025-02-04 07:49] VITALS: BP 110/62
[2025-02-04] MEDS: Empaglifozin 10 MG TAB PO (10:10)
[2025-02-04 10:31] LABS: HCT 25.2 % (36.0-46.0); HGB 8.3 g/dL (11.2-15.7)
[2025-02-04 10:40] LABS: Anion Gap 5.4 mmol/L (3-11); BUN 38 mg/dL (7-18); CO2 26.6 mmol/L (21.0-32.0); CREATININE 1.8 mg/dL (0.55-1.02); Calcium 9.4 mg/dL (8.5-10.1); Chloride 104 mmol/L (98-107); Estimated GFR 27.44 (mL/min/1.73m2); Glucose 226 mg/dL (74-106); Potassium 4.6 mmol/L (3.5-5.1); Sodium 136 mmol/L (136-145)
[2025-02-04 10:41] LABS: Magnesium 2.5 mg/dL (1.8-2.4)
--- NOTE | 2025-02-04 10:48 | PDOC.CMDIS ---
Date of service: 02/04/25 Time of Service: 10:48 LACE Index Scoring Tool Questions: Length of Stay (in days): 3 Was the patient admitted via the E.D.?: Yes Comorbidities: Diabetes w/o Complication E.D. Visits: 1 Answers: Total Score: 8 Risk of Readmission: Low Risk Care Management Discharge Plan Reason for Hospitalization: Acute on chronic kidney failure Discharge Plan: Dionne is discharged home via private vehicle with family. No services are indicated at the time of her discharge. She plans to follow up with her PCP and discharge plan of care as discussed. New RX for Jaridance is $35 and will be ready for pickup Wednesday (per Manuela's). Madeleine is not interested in Ozemepic at this time and wants to discuss it more with her Granddaughter who is a PA. Patient/Family Education Needs: Review discharge instructions, discuss Ask Me Three SDOH Health Related Social Needs: Health related social needs food insecurity (Z59.41), problems related to housing/economic circumstances (Z59.89), feeling lonely/isolated (Z60.8) Health related social needs details None
[2025-02-04 11:23] VITALS: BP 109/47; PULSE 75; RESP 20; TEMP 36.7; O2SAT 100
[2025-02-04] MEDS: Insulin Aspart 300 UNITS/3 ML PEN SC (11:52)
--- NOTE | 2025-02-05 11:10 | DSE_ITS ---
Date of service: 02/04/25 Time of Service: 15:00 DS: Diagnosis Discharge Diagnosis (1) Hyperkalemia: Status: Resolved (2) Acute on chronic kidney failure: Status: Acute (3) HTN (hypertension): Status: Chronic (4) Non-insulin dependent type 2 diabetes mellitus: Status: Acute (5) Chronic systolic CHF (congestive heart failure): Status: Chronic (6) Paroxysmal atrial fibrillation: Status: Acute (7) DVT prophylaxis: Status: Deleted Discharge Plan Disposition Patient Disposition: Home Condition: Stable Discharge Details Reason For Visit: Hyperkalemia Admit Date/Time: 02/01/25 12:39 Admit Provider: Charles Robles Attending Provider: Charles Robles Primary Care Provider: Dave Seaman [facility] Course Hospital Course: 85-year-old female with past medical history of NIDDM, hypertension who presents to the emergency department after outpatient labs discovered high potassium levels at 7.2 and creatinine of 2.3 up from 1.2 at the last check a year prior. She had no recent illness or medication change and was euvolemic at admission, though she did report a modest reduction in her daily hydration routine prior to admission. She was treated with calcium, insulin, and glucose-containing fluids along with oral lokelma and furosemide. Her potassium was 5.3 by hospital day number 2 and came down to 4.4. Her spironolactone was stopped on admission and not restarted. He losartan was held on admission and resumed at 25mg BID on 02/03 with her potassium remaining stable and her creatinine continuing to improve. She has a history of CHF with an LVEF of 30-35% in 2018 that had normalized. She was not in CHF at this admission. She also had atrial fibrillation in the past that was difficult to control until diltiazem was added to her metoprolol. On this admission her blood pressure was running low despite holding some of her medications. She was in NSR during the entire admission with rates around 60. It was felt that her low blood pressure may have been the trigger for her renal insufficiency worsening which caused the hyperkalemia. After stopping the diltiazem her blood pressures were more in the ideal range and her creatinine improved. She was discharged off diltiazem. Empaglaflozin was started at the CHF dose to treat her CHF and CKD. Her sugars had not been well controlled as an outpatient. Metformin was stopped due to GFR <30. Emplaglaflozin will have minimal impact on blood sugar at her GFR. She was encouraged to consider GLP-1 therapy given her CAD but she declined. Follow up: BMP prior a PCP visit the week of 02/05 Follow up anemia Follow up hyperglycemia/diabetic control Follow up management of atrial fibrillation now that she is off diltiazem Home Meds and New Rx's Prescriptions: New Jardiance 10 mg tablet 10 mg PO DAILY Qty: 30 0RF Continued (DME) lancets Misc See Rx Instructions .ROUTE .MEDSUPPLY Qty: 100 3RF Rx Instructions: As directed to check blood glucose daily. No insulin. Dispense covered brand. (DME) blood-glucose meter Misc See Rx Instructions .ROUTE .MEDSUPPLY Qty: 1 0RF Patient Comments: pt states she normally checks blood sugar when she is not feeling well Rx Instructions: As directed to check blood glucose. No insulin. Dispense covered brand. furosemide 20 mg tablet 20 mg PO DAILY PRN (Reason: edema) Qty: 90 3RF Patient Comments: pt states she has taken this medication last week. (DME) blood sugar diagnostic Strip See Rx Instructions .ROUTE .MEDSUPPLY Qty: 100 3RF Rx Instructions: to test blood sugars daily to keep AIC below 7.0% Dx: [id number] Pt uses ONE Touch Ultra Blue Strips hydrocortisone 1 % cream 1 applic topical BID PRN (Reason: skin irritation) Qty: 28.4 0RF Patient Comments: pt applies cream to edison area when symptoms of soreness appear metoprolol succinate 50 mg tablet extended release 24 hr 50 mg PO BID Qty: 180 3RF Patient Comments: pt states she takes medication at 9 am and 9pm Rx Instructions: 50mg am, 50mg pm rosuvastatin 20 mg tablet 20 mg PO DAILY Qty: 90 3RF Patient Comments: pt states she takes medication at 8pm every night ascorbic acid (vitamin C) See Rx Instructions PO .COMPLEX Patient Comments: 500mg in AM Rx Instructions: orally; biotin 10 mg PO DAILY AM Patient Comments: unknown strength, magnesium chloride 2 tab PO DAILY PRN Patient Comments: unknown strength D-3-5 2,000 mg PO QMWF Changed losartan 50 mg tablet 25 mg PO BID Qty: 180 3RF Dose Instruction: TAKE 1 TABLET TWICE A DAY Patient Comments: pt takes med at 9am and 9pm Discontinued diltiazem HCl 120 mg capsule,extended release 24hr See Rx Instructions .ROUTE .COMPLEX Qty: 90 3RF Dose Instruction: TAKE 1 CAPSULE DAILY Rx Instructions: TAKE 1 CAPSULE DAILY metformin 1,000 mg tablet 1,000 mg PO BID Qty: 180 3RF Patient Comments: pt states she takes medication at 9 am and 6pm with dinner spironolactone 25 mg tablet 25 mg PO DAILY Qty: 90 3RF Patient Comments: takes every morning at 9am Discharge Instructions Instructions: Chronic kidney disease Additional Instructions: note the medication changes. You should cut the losartan in half. Work on your diet to control the blood sugar. You cannot use metformin now, so you will likely need additional medication. A medication like semaglutide (Ozempic) would be the best option with your heart disease history. You should have labs and see you PCP in the next week. Stand Alone Forms: Nursing Discharge Form Referrals: Dave Seaman DO [Primary Care Provider] - (Follow up in 1-2 weeks. The office should call you Wednesday to schedule a follow up appointment. If the office does not call, please call to schedule an appointment.) Activity:: Activity as Tolerated Equipment/Supplies:: No Equipment Needed Diet:: Carb Counting Discharge Orders Discharge Orders: Discharge Order (Routine); Ordered 02/04/25 Ordered By: Adrián Wadsworth Discharge Data Discharge Date/Time-TO BE ENTERED AT DEPARTURE: 02/04/25 13:48 DS: Summary Time Spent with Patient providing and/or coordinating discharge services: Greater than 30 minutes Status at Discharge Functional status at discharge: independent ambulation Overall status at discharge: patient is back to baseline Mental Status: mental status grossly normal Speech and Movement: speech and movement normal Mood: congruent mood Affect: normal affect Quality:SDOH Health Related Social Needs: Health related social needs food insecurity (Z59.41), problems related to housing/economic circumstances (Z59.89), feeling lonely/isolated (Z60.8) Health related social needs details None Exam Narrative Exam Narrative: Well-appearing older female laying sitting up in chair, in no acute distress, ANO x 4, heart regular rhythm with no m/g/r. Lungs clear to auscultation bilaterally, abdomen soft, nontender, nondistended. Ext without pitting edema bilaterally. Psych Mental Status: mental status grossly normal Speech and Movement: speech and movement normal Mood: congruent mood Affect: normal affect DS: Data Vitals/I&O Vitals and I&O: Vital Signs Temperature 36.7 C 02/04/25 11:23 Temperature Source Temporal Artery Scan 02/04/25 11:23 Pulse 75 02/04/25 11:23 Pulse 75 02/01/25 17:10 Respiratory Rate 20 02/04/25 11:23 Respiratory Effort Normal 02/01/25 14:50 Respiratory Depth Normal 02/01/25 14:50 Respiratory Pattern Tachypnea 02/01/25 14:50 Blood Pressure 109/47 L 02/04/25 11:23 Blood Pressure Mean 76 02/01/25 16:02 Pulse Oximetry 100 02/04/25 11:23 Oxygen Delivery Method Room Air 02/04/25 11:23 Oxygen Flow Rate 0 02/04/25 11:23 Pain Level 0 02/03/25 19:41 Comment pt sleeping 02/03/25 00:00 Intake & Output 02/04/25 02/04/25 02/05/25 11:59 23:59 11:59 Intake Total 640 / 640 Output Total 1200 / 1200 Balance -560 / -560 Intake: Oral 640 / 640 Output: Urine 1000 / 1000 Stool 200 / 200 Other: Urine Color Yellow Urine Appearance Clear Urine Odor None Comment Pt reports sores on edison area from using pads, that are causing bleeding. But refused care or assessment of area by this nurse att. 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 (Acute) Sacral wound (Acute) Family history of Crohn's disease (Acute) Coronary artery calcification seen on CAT scan (Acute) Atherosclerosis of arteries (Acute) Fe deficiency anemia (Acute) Mass of kidney (Acute) Elevated lipids (Acute) Normochromic normocytic anemia (Acute) Left kidney mass (Acute) 12/[address] scan Heme positive stool (Acute) Fecal urgency (Acute) Pain, foot (Acute) Corns and callosities (Acute) Nail dystrophy (Acute) Mass of soft tissue (Acute) Paroxysmal atrial fibrillation (Acute) Central sleep apnea syndrome (Acute) Periodic limb movement disorder (Acute ~09/2021) Severe sleep apnea (Acute ~09/2021) Atrial fibrillation with RVR (Acute) Presence of Watchman left atrial appendage closure device (Chronic) S/P cardiac cath (Acute) Post-menopausal bleeding (Acute) Chronic systolic CHF (congestive heart failure) (Chronic) EF 58% by echo on 01/21 NSTEMI (non-ST elevated myocardial infarction) (Acute) 2017 w/ stent palcement History of diverticulitis (Acute) Anemia (Chronic) with heme positive stool 02/17 CAD (coronary artery disease) (Chronic) Kidney stones (Chronic) Congestive heart failure (CHF) (Chronic) Type 2 diabetes mellitus with mild nonproliferative diabetic retinopathy without macular edema (Chronic 07/24/15) Essential hypertension (Acute 07/24/15) Arthritis (Acute 07/24/15) Medical History Diverticulitis of sigmoid colon Migraine Surgical History Presence of Watchman left atrial appendage closure device 05/08/21 History of heart artery stent 10/17/2018 vein stripping Ligation of fallopian tube Tonsillectomy Family History Daughter , brainstem stoke at age 41. Stroke Hypertension Mother Diabetes Heart disease Brother Diabetes Heart disease Sister Diabetes Heart disease Social History Smoking/Tobacco Use Status: Never Smoking risk assessment performed?: Yes Alcohol Intake: never Drug use: Never Substance use type: does not use Adopted: No Caregiver/Support person: No Foster care: No Household members: children and other Details: Lives with son Housing: house Number of Children: 5 number of grandchildren: 9 Communication Needs: Hard of Hearing Education Level: high school Do you need help understanding health information?: Always current occupation: Retired Pets and animals: Yes (1) Pets and animals: cat(s) Sexually active: No Do you think of yourself as: straight/heterosexual Current gender identity: female What is your relationship status?: How often do you talk on the phone with friends or family?: three or more times per week How often do you get together with friends or relatives?: once per week Do you belong to any clubs or organized social groups?: no Panel score (0-1 are the most socially isolated patients): 1 What type of physical activity do you participate in: other Details: program at home, stair stepper, rowing machine Duration: < 15 minutes/day Frequency: 3-4 times per week Mercedes/Roman Catholic: Congregational Seatbelt use: always Helmet use: No (Never (N/A)) Drive intox or ride w/intox flatbed company driver: No Working smoke detector in home: Yes Fire extinguisher in home: Yes Carbon monox detector in home: Yes Do you feel safe at home: Yes Do you feel safe in your relationship?: Yes Time Spent with Patient Time Spent with Patient: 45-69 minutes Time was spent: preparing to see the patient(eg.review tests), obtaining and/or reviewing separately otained hiistory, ordering medications,tests, procedures, referring, communicating with other health group care worker, indepentently interpreting results, counseling the patient and care coordination
== END 2025-02-04 13:48 | disposition home or self-care (01) | DRG 683 ==
LOC: ER 12:54 → ICU 14:35 → MS 18:26
PROVIDERS: Admitting Provider Family Medicine; Emergency Provider Physician Assistant; PCP Family Medicine; Responsible Provider Family Medicine; Visit Provider Family Medicine
DX: N17.9 Acute kidney failure, unspecified (principal); I13.0 Hypertensive heart and chronic kidney disease with heart failure and stage 1 through stage 4 chronic kidney disease, or unspecified chronic kidney disease; I50.22 Chronic systolic (congestive) heart failure; E87.5 Hyperkalemia; N18.30 Chronic kidney disease, stage 3 unspecified; E11.22 Type 2 diabetes mellitus with diabetic chronic kidney disease; I48.0 Paroxysmal atrial fibrillation; Z79.84 Long term (current) use of oral hypoglycemic drugs; E11.40 Type 2 diabetes mellitus with diabetic neuropathy, unspecified; I25.10 Atherosclerotic heart disease of native coronary artery without angina pectoris; Z95.818 Presence of other cardiac implants and grafts; G47.31 Primary central sleep apnea; G47.61 Periodic limb movement disorder; D50.9 Iron deficiency anemia, unspecified; N20.0 Calculus of kidney
CPT/HCPCS: 00123; 36415; 36416; 80048; 80053; 82962; 93005; 96361; 96365; 96375; 96376; 99285; 83735; 84484; 85014; 85018; 85025; 93010; 99223; 99233; 99239; J0613; J1650; J1815; J1940; J1941; J3475

== ENCOUNTER 2025-02-07 17:18 | Outpatient (REF) | payer MEDICARE, SELFPAY ==
[2025-02-07 20:11] LABS: HCT 26.9 % (36.0-46.0); HGB 8.6 g/dL (11.2-15.7); MCH 27.9 pg (27.0-33.0); MCV 87 fL (80-95); MPV 8.4 fL (8.0-11.0); Platelet Count 271 10^3/uL (130-400); RBC 3.08 10^6/uL (3.93-5.22); RDW 14.3 % (11.7-14.6); RDW-SD 45.8 fL; WBC 5.67 10^3/uL (4.4-10.8)
[2025-02-07 21:02] LABS: Total Iron Binding Capacity 286 ug/dL (250-450)
[2025-02-07 21:10] LABS: Anion Gap 13.9 mmol/L (3-11); BUN 47 mg/dL (7-18); CO2 19.1 mmol/L (21.0-32.0); CREATININE 1.7 mg/dL (0.55-1.02); Calcium 9.6 mg/dL (8.5-10.1); Chloride 103 mmol/L (98-107); Estimated GFR 29.39 (mL/min/1.73m2); Ferritin 103 ng/mL (8-252); Glucose 129 mg/dL (74-106); Potassium 5.4 mmol/L (3.5-5.1); Sodium 136 mmol/L (136-145)
== END 2025-02-07 17:19 | disposition home or self-care (01) ==
LOC: LBN 17:18
PROVIDERS: PCP Family Medicine; Visit Provider Nurse Practitioner
DX: I10 Essential (primary) hypertension (principal); D64.9 Anemia, unspecified; R79.9 Abnormal finding of blood chemistry, unspecified; E87.6 Hypokalemia
CPT/HCPCS: 80048; 85027; 82728; 83550; 84443

== ENCOUNTER → 2025-02-12 14:11 | Outpatient (BNVA) | payer MEDICARE, SELFPAY | PROVIDERS: PCP Family Medicine; Referring Provider Family Medicine; Visit Provider Registered Nurse | DX: I25.10 Atherosclerotic heart disease of native coronary artery without angina pectoris (principal); I50.22 Chronic systolic (congestive) heart failure; I48.91 Unspecified atrial fibrillation; R06.00 Dyspnea, unspecified | CPT/HCPCS: 99214 ==

== ENCOUNTER 2025-02-12 15:55 | Outpatient (CLI) | payer MEDICARE, SELFPAY ==
[2025-02-12 16:37] LABS: Anion Gap 12.7 mmol/L (3-11); BUN 55 mg/dL (7-18); CO2 21.3 mmol/L (21.0-32.0); CREATININE 1.8 mg/dL (0.55-1.02); Calcium 11.1 mg/dL (8.5-10.1); Chloride 103 mmol/L (98-107); Estimated GFR 27.44 (mL/min/1.73m2); Glucose 158 mg/dL (74-106); Potassium 4.9 mmol/L (3.5-5.1); Sodium 137 mmol/L (136-145)
== END 2025-02-12 15:56 | disposition home or self-care (01) ==
LOC: LBO 15:56
PROVIDERS: PCP Family Medicine; Visit Provider Nurse Practitioner
DX: R79.9 Abnormal finding of blood chemistry, unspecified (principal)
CPT/HCPCS: 36415; 80048

== ENCOUNTER → 2025-02-14 10:22 | Outpatient (BNVA) | payer MEDICARE, SELFPAY | PROVIDERS: PCP Family Medicine; Referring Provider Family Medicine; Visit Provider Podiatrist | DX: I70.90 Unspecified atherosclerosis (principal); L84 Corns and callosities; L60.3 Nail dystrophy; E11.3299 Type 2 diabetes mellitus with mild nonproliferative diabetic retinopathy without macular edema, unspecified eye; E11.40 Type 2 diabetes mellitus with diabetic neuropathy, unspecified; I73.89 Other specified peripheral vascular diseases; N18.9 Chronic kidney disease, unspecified; L60.2 Onychogryphosis; L60.8 Other nail disorders; M79.674 Pain in right toe(s); M79.675 Pain in left toe(s); L65.9 Nonscarring hair loss, unspecified; R23.8 Other skin changes | CPT/HCPCS: 11721 ==

== ENCOUNTER 2025-03-07 00:28 | Outpatient (CLI) | payer MEDICARE, SELFPAY ==
--- NOTE | 2025-03-07 12:30 | DI.US_ITS ---
APPROVED REPORT EXAM: Comprehensive 2D, Doppler, and color-flow Echocardiogram Patient Location: Out-Patient Video Tape Transferrer: Nishant Hoyos RDCS (AE) Indications: Dyspnea, afib Other Information Study Quality: Adequate Conclusion Normal left ventricular wall thickness and chamber size. Ejection fraction is 60%. Wall motion is n ormal Normal right ventricular size and function Moderately dilated left atrium. Normal right atrial size Aortic valve is sclerotic. There is mild aortic regurgitation. There is no aortic stenosis Mitral annular calcification. Mild mitral regurgitation Estimated right ventricular systolic pressure is 29 mmHg Wall motion Left Ventricle The left ventricle is normal size. The left ventricular systolic function is normal. The left ventric ular ejection fraction is within the normal range. There is normal left ventricular wall thickness. T here is normal LV segmental wall motion. The left ventricular diastolic function is normal. There is no ventricular septal defect visualized. LVEF is 60%. Right Ventricle The right ventricle is normal size. The right ventricular systolic function is normal. Atria Left atrium is moderately dilated. The right atrium size is normal. The interatrial septum is intact with no evidence for an atrial septal defect. Aortic Valve The aortic valve is sclerotic. Aortic valve is trileaflet. There is no aortic valvular stenosis. Mild aortic regurgitation. Mitral Valve Mild mitral annular calcification. No evidence of mitral valve stenosis. mild mitral regurgitation. Tricuspid Valve The tricuspid valve is normal in structure. There is no tricuspid valve stenosis. Trace tricuspid reg urgitation. The RVSP is 29.2 mmHg. Pulmonic Valve The pulmonary valve is normal in structure. There is no pulmonic valvular stenosis. There is no pulmo maci valvular regurgitation. Great Vessels The aortic root is normal in size. The ascending aorta is normal Aortic arch is normal in caliber. IV C is normal in size and collapses >50% with inspiration. Pericardium There is no pericardial effusion. 2D Dimensions IVSD d PLAX 0.96 cm F: 0.6-1.0 Ao Root d 2.98 cm F: 2.7 - 3.3 LVPW d PLAX 0.95 cm F: 0.6 - 1.0 Ao Asc Diam d 3.29 cm F: 2.3 - 3.1 LVID d PLAX 4.69 cm F: 3.8 - 5.2 LVDs 3.21 cm F: 2.2 - 3.5 LV EF Teichholz 59.6 % FS 31.62 % LV EDV (Teich) 102.0 mL LV ESV (Teich) 41.2 mL Stroke Vol Index (Teich) 34.53 M-Mode TAPSE 1.68 cm (M/F) >1.7 Auto EF LV EDV A4C 90.7 mL LV EDV A2C 67.9 mL LV EDV BP 79.8 mL LV ESV A4C 38.2 mL LV ESV A2C 27.5 mL LV ESV BP 31.5 mL LVEF(%) A4C 57.8 % LVEF(%) A2C 59.5 % LVEF(%) BP 60.5 % LV SV A4C 52.4 ml LV SV A2C 40.4 ml LV SV BP 48.3 ml LV CO A4C 3.5 L/min LV CO A2C 2.6 L/min LV CO BP 3.0 L/min HR A4C 66.55 BPM HR A2C 63.94 BPM LV EDV Index (BP) LA Volume LA Length A4C 4.9 cm LA Length A2C 5.3 cm LA Area A4C s 14.59 cm2 LA Area A2C s 17.89 cm2 LA Vol A4C A-L 36.74 mL LA Vol A2C A-L 51.50 mL LA Vol Biplane A-L 45.1 mL LA Vol/BSA A4C A-L LA Vol/BSA A2C A-L LA Vol/BSA BP A-L 25.6 mL/m2 LA Vol A4C MOD 34.5 mL LA Vol A2C MOD 49.1 mL LA Vol BP MOD 42.5 mL RA Volume RA Area A4C 7.8 cm2 RA ESV A4C (A-L) 11.9mL RA Vol/BSA A4C A-L RA Length A4C 4.4 cm RA ESV A4C (MOD) 11.6mL LV Diastology MV E' medial 0.064 (>0.07 m/s) MV E Vmax 0.83 (0.4-1.3 m/s) MV E/E' MED 12.92 (<14) MV A Vmax 1.10 (0.4-1.3 m/s) MV E' lateral 0.074 (>0.1 m/s) E/A Ratio 0.8 MV E/E' LAT 11.21 (<14) MV E' Average 0.069 m/s MV E/E'(average) 12.00 Aortic Valve AoV Vmax 1.54 m/s LVOT Vmax 0.86 m/s AoV Peak Grad 25.4 mmHg LVOT Peak Grad 2.9 mmHg AoV Area (Vmax) 1.84 cm2 LVOT VTI 0.252 m AoV VTI 0.413 m LVOT Mean Grad 1.6 mmHg AoV Mean Juan. 1.16 m/s LVOT SV 83.57 mL AoV Mean Grad 6.0 mmHg LVOT Diam s 2.05 cm AoV Area (VTI) 2.02 cm2 AV Regurg Peak Gr. 9.49 mmHg Velocity Ratio 0.56 AR Decel [place] 2.0m/sec2 AR DT 1582 msec AR PHT 459 msec AR Vmax 3.21 m/s Mitral Valve MV DT 233 (160-240 msec) Pulmonary Valve PV Vmax 1.00 (0.5-1.5 m/s) RVOT Vmax 0.70 m/s PV Peak Grad 4.0 mmHg RVOT Peak Gr. 1.9 mmHg PV Mean Juan 0.69 m/s RVOT VTI 0.162 m PV Mean Grad 2.2 mmHg RVOT Mean Gr. 1.1 mmHg Tricuspid Valve RA Pressure 3.00 mmHg TR Vmax 2.56 m/s TV S' 0.16 m/s TR Peak Grad 26.2 mmHg RVSP (TR) 29.2 mmHg
== END 2025-03-07 00:48 ==
LOC: DI 00:28
PROVIDERS: PCP Family Medicine; Visit Provider Internal Medicine Cardiovascular Disease
DX: R06.00 Dyspnea, unspecified (principal); I35.0 Nonrheumatic aortic (valve) stenosis
CPT/HCPCS: 93306

== ENCOUNTER → 2025-04-23 14:31 | Outpatient (BNVA) | payer MEDICARE, SELFPAY | PROVIDERS: PCP Family Medicine; Visit Provider Registered Nurse | DX: I48.0 Paroxysmal atrial fibrillation (principal); I25.10 Atherosclerotic heart disease of native coronary artery without angina pectoris; I50.9 Heart failure, unspecified; Z79.02 Long term (current) use of antithrombotics/antiplatelets; Z79.899 Other long term (current) drug therapy | CPT/HCPCS: 99214 ==

== ENCOUNTER 2025-04-30 02:05 | Outpatient (CLI) | payer MEDICARE, SELFPAY ==
[2025-04-30 12:36] LABS: Anion Gap 11.2 mmol/L (3-11); BUN 50 mg/dL (7-18); CO2 24.8 mmol/L (21.0-32.0); CREATININE 1.4 mg/dL (0.55-1.02); Calcium 9.6 mg/dL (8.5-10.1); Chloride 100 mmol/L (98-107); Glucose 265 mg/dL (74-106); Potassium 4.4 mmol/L (3.5-5.1); Sodium 136 mmol/L (136-145)
== END 2025-04-30 02:06 | disposition home or self-care (01) ==
LOC: LBO 02:05
PROVIDERS: PCP Family Medicine; Referring Provider Family Medicine; Visit Provider Family Medicine
DX: E87.6 Hypokalemia (principal)
CPT/HCPCS: 36415; 80048

== ENCOUNTER → 2025-05-29 10:51 | Outpatient (BNVA) | payer MEDICARE, SELFPAY | PROVIDERS: PCP Family Medicine; Referring Provider Family Medicine; Visit Provider Podiatrist | DX: L60.3 Nail dystrophy (principal); L84 Corns and callosities; I70.90 Unspecified atherosclerosis; E11.3299 Type 2 diabetes mellitus with mild nonproliferative diabetic retinopathy without macular edema, unspecified eye; E11.40 Type 2 diabetes mellitus with diabetic neuropathy, unspecified; R09.89 Other specified symptoms and signs involving the circulatory and respiratory systems; L65.9 Nonscarring hair loss, unspecified; R23.8 Other skin changes; L60.2 Onychogryphosis; L60.8 Other nail disorders; M79.674 Pain in right toe(s); M79.675 Pain in left toe(s); R20.2 Paresthesia of skin; E11.22 Type 2 diabetes mellitus with diabetic chronic kidney disease; N18.9 Chronic kidney disease, unspecified | CPT/HCPCS: 11055; 11721 ==

== ENCOUNTER 2025-06-13 01:31 | Outpatient (CLI) | payer MEDICARE, SELFPAY ==
--- NOTE | 2025-06-13 09:38 | DI.RAD_ITS ---
Exam(s) XR TOE LT THIRD EXAM: XR TOE LT THIRD CLINICAL HISTORY: ? osteomyelitis, L 3rd toe distal tip ulcer,[id number]. TECHNIQUE: 2D digital imaging was performed. Three images were obtained. COMPARISON: No exams were available for comparison FINDINGS: BONES: No acute fracture is present. No bony destructive lesion is seen. JOINTS: No dislocation present. There are degenerative changes seen in the foot particularly at the 1st MTP joint and the interphalangeal joints of the toes. SOFT TISSUE: No soft tissue gas is seen. IMPRESSION: No radiographic evidence of osteomyelitis of the 3rd toe is seen. DATA REPOSITORY: RADIATION DOSE DELIVERED:
== END 2025-06-13 01:51 ==
LOC: DI 01:31
PROVIDERS: PCP Family Medicine; Visit Provider Podiatrist
DX: I70.90 Unspecified atherosclerosis (principal); L84 Corns and callosities; L60.3 Nail dystrophy; M79.675 Pain in left toe(s); M79.674 Pain in right toe(s); E11.3299 Type 2 diabetes mellitus with mild nonproliferative diabetic retinopathy without macular edema, unspecified eye; E11.42 Type 2 diabetes mellitus with diabetic polyneuropathy; R09.89 Other specified symptoms and signs involving the circulatory and respiratory systems; L65.9 Nonscarring hair loss, unspecified; R23.8 Other skin changes; L60.2 Onychogryphosis; L60.8 Other nail disorders
CPT/HCPCS: 11055; 73660